=== PATIENT | male | born 1970 | race Two or more races ===

== ENCOUNTER 2020-01-12 06:26 | Outpatient (REF) | payer BC, SELFPAY ==
[2020-01-12 07:03] LABS: MANUAL DIFF FLAG NO
[2020-01-12 07:06] LABS: Basophils Absolute Auto 0.1 X10*3/uL (0.0-0.2); Basophils Percent Auto 0.8 % (0-2); Eosinophils Absolute Auto 0.1 X10*3/uL (0.0-0.4); Eosinophils Percent Auto 1.5 % (0-4); Hematocrit 47.3 % (42-52); Hemoglobin 16.5 g/dl (14.0-18.0); Imm Gran Abs Auto 0.02 X10*3/uL (0.00-0.03); Imm Gran Pct Auto 0.3 % (0.0-0.4); Lymphocytes Absolute Auto 1.7 X10*3/uL (1.2-4.9); Lymphocytes Percent Auto 24.2 % (20-40); Mean Corpuscular HGB Conc 34.9 g/dl (31.0-36.0); Mean Corpuscular Hemoglobin 32.1 pg (27.0-33.0); Mean Platelet Volume 9.6 fL (9.4-12.4); Monocytes Absolute Auto 0.6 X10*3/uL (0.1-1.2); Monocytes Percent Auto 7.7 % (2-11); Neutrophils Absolute Auto 4.7 X10*3/uL (2.0-8.3); Neutrophils Percent Auto 65.5 % (45-73); Platelet Count 298 X10*3/uL (160-400); Red Blood Count 5.14 X10*6/uL (4.60-5.80); Red Cell Distribution Width 12.6 % (11.0-16.0); White Blood Count 7.2 X10*3/uL (4.8-10.8)
[2020-01-12 07:34] LABS: Estimated Average Glucose 154 mg/dL
[2020-01-12 07:36] LABS: Anion Gap 13 (12-20); Blood Urea Nitrogen 13 mg/dL (9-16); Calcium 8.8 mg/dL (8.4-10.2); Carbon Dioxide 28 mmol/L (22-29); Chloride 104 mmol/L (96-108); Cholesterol 141 mg/dL; Estimated Glomerular Filt Rate > 60; Glucose Fasting 161 mg/dL (60-99); HDL Cholesterol 56 mg/dL; LDL Cholesterol Calculated 68 mg/dl; Potassium 4.7 mmol/l (3.3-5.1); Sodium 140 mmol/L (135-145); Triglycerides 86 mg/dL
[2020-01-12 07:55] LABS: Thyroid Stimulating Hormone 1.73 mIU/mL (0.32-4.0); Vitamin D 25-OH Total 28.2 ng/mL (>30)
[2020-01-12 12:05] LABS: Free T4 (Free Thyroxine) 1.09 ng/dL (0.71-1.85)
== END 2020-01-12 06:27 | disposition home or self-care (01) ==
LOC: HO.LAB 06:26
PROVIDERS: PCP Nurse Practitioner Family; Visit Provider Internal Medicine
DX: E13.9 Other specified diabetes mellitus without complications (principal); E78.5 Hyperlipidemia, unspecified; I10 Essential (primary) hypertension; E04.2 Nontoxic multinodular goiter; E55.9 Vitamin D deficiency, unspecified
CPT/HCPCS: 36415; 80048; 80061; 82306; 83036; 84439; 84443; 85025

== ENCOUNTER 2020-01-12 06:52 | Day surgery (SDC) | payer BC, SELFPAY ==
[2020-01-05 15:21] VITALS: BMI 38.4
--- NOTE | 2020-01-11 12:30 | P.CONAN_ITS ---
Documented by User: Roxi Yusuf 01/11/20 12:31 HPI - Anesthesia Eval Consult details Narrative: 49yo M for Colonoscopy [facility] Past Medical History Medical History Diabetes High cholesterol Hx of goiter Hypertension Family History Family History Father No problems noted. Mother Diabetes Family history of thyroid problem Surgical History Surgical History History of shoulder surgery History of surgery Hx of appendectomy Hx of vasectomy Social History Social History Smoking Status: Former smoker Smoking Quit Date: In his 's Use of substances other than those prescribed or required for medical reasons: No Advance Directives: No Advance Directives Information Provided: No Advance Directives on File: No Meds Allergies Allergy/AdvReac Type Severity Reaction Status Date / Time No Known Allergies Allergy Verified 01/05/20 15:14 Home Medications Medication Instructions Recorded Confirmed Type atorvastatin 40 mg tablet 40 mg PO DAILY 12/27/19 01/05/20 History ibuprofen 600 mg tablet 600 mg PO TID PRN 12/27/19 01/05/20 History insulin aspart U-100 100 unit/mL 16 unit SUBCUT TID 12/27/19 01/05/20 History (3 mL) subcutaneous pen insulin glargine 100 unit/mL (3 42 unit SUBCUT BEDTIME 12/27/19 01/05/20 History mL) subcutaneous pen Exam Exam Date and Time: January 11, 2020 1230 Height,Weight and Vital Signs: Height 5 ft 3 in Weight 98.43 kg Pertinent Lab Results Pertinent Lab Results: Laboratory Tests 09/10/19 08:55 Sodium 141 Potassium 4.3 Chloride 106 BUN 20 H Creatinine 1.10 Assessment and Plan Assessment Anesthesia Assessment: Chart Reviewed Documented by User: Sherie Sarmiento 01/12/20 08:40 [facility] Past Medical History Medical History Diabetes High cholesterol Hx of goiter Hypertension Family History Family History Father No problems noted. Mother Diabetes Family history of thyroid problem Surgical History Surgical History History of shoulder surgery History of surgery Hx of appendectomy Hx of vasectomy Social History Social History Smoking Status: Former smoker Smoking Quit Date: In his Use of substances other than those prescribed or required for medical reasons: No Advance Directives: No Advance Directives Information Provided: No Advance Directives on File: No Meds Allergies Allergy/AdvReac Type Severity Reaction Status Date / Time No Known Allergies Allergy Verified 01/05/20 15:14 Home Medications Medication Instructions Recorded Confirmed Type atorvastatin 40 mg tablet 40 mg PO DAILY 12/27/19 01/05/20 History ibuprofen 600 mg tablet 600 mg PO TID PRN 12/27/19 01/05/20 History insulin aspart U-100 100 unit/mL 16 unit SUBCUT TID 12/27/19 01/05/20 History (3 mL) subcutaneous pen insulin glargine 100 unit/mL (3 42 unit SUBCUT BEDTIME 12/27/19 01/05/20 History mL) subcutaneous pen Exam Airway Mallampati Class: III TM Dist: >3cm Neck ROM: Full Denture: Upper and Lower
[2020-01-12 08:56] LABS: Glucose, Whole Blood 165 mg/dL (60-115)
[2020-01-12 09:01] VITALS: BP 155/88; PULSE 81; RESP 20; TEMP 36.8; O2SAT 95
--- NOTE | 2020-01-12 09:02 | MHC.SHP ---
Pre-Procedural Eval Section B Chief Complaint: SCREENING Relevant Family History (Specify if Yes): No Relevant Social History: None Present Medications: see Short Stay Collaborative assessment Medical History: Significant History (dm, HTN) History of Previous Operations: Relevant previous surgery/procedure and date(s) (appendectomy, vasectomy) Allergies: Allergies Allergy/AdvReac Type Severity Reaction Status Date / Time No Known Allergies Allergy Verified 01/05/20 15:14 Review of Systems Sugical H&P ROS: Negative: Constitution, Cardiovascular, Respiratory, Neurological, Psychiatric, Hem-Onc, Allergic/Immunologic, Gastrointestinal, Genitourinary, Musculoskeletal, Integumentary, Endocrine and Eyes/Ears/Nose/Throat Exam Surgical H&P Exam: Normal: HEENT, Normal: Heart, Normal: Lungs, Normal: Extremities, Normal: Abdomen, Normal: Skin and Normal: Neurological Plan Diagnosis/Plan: Unchanged Patient has been examined and remains a candidate for the planned procedure
[2020-01-12] MEDS: Lactated Ringers 1,000 ML 100 ML IVCONT (09:06)
--- NOTE | 2020-01-12 09:06 | P.OP_ITS ---
Operative Note Operative Note Narrative: Operative Information Procedure Description: Colonoscopy COLONOSCOPY Instrument: Olympus variable stiffness pediatric scope 190L Colonoscopy Monitoring: Vital signs and clinical assessment, continuous EKG monitoring, Pulse oximetry, Carbon Dioxide monitoring and blood pressure monitoring were done throughout the procedure. Colon withdrawal time was 7 minutes. Procedure: The patient was placed in the left lateral decubitis position and pre-procedure medications were administered. After a digital rectal examination of the ano-rectum, the video colonoscope was inserted into the rectum and advanced through the colon to the cecum/TI. The colonoscope was slowly withdrawn in a retrograde panoramic fashion and the colon mucosa was carefully examined including a retroflexed view of the rectum. Findings and interventions are described below. Procedure Difficulty:easy Findings: Terminal Ileum-normal Cecum:normal Ascending Colon: normal Transverse Colon -normal Descending Colon:normal Sigmoid Colon: normal Rectum: Retroflexion with small internal hemorrhoids, grade I Anorectum - normal Colon preparation: Medford Bowel Preparation Scale Right colon; 3 Transverse colon: 3 Left colon; 3 (0 = Unprepared colon segment with mucosa not seen due to solid stool that cannot be cleared. 1 = Portion of mucosa of the colon segment seen, but other areas of the colon segment not well seen due to staining, residual stool and/or opaque liquid. 2 = Minor amount of residual staining, small fragments of stool and/or opaque liquid, but mucosa of colon segment seen well. 3 = Entire mucosa of colon segment seen well with no residual staining, small fragments of stool or opaque liquid) Impression and Post Procedure Diagnosis: internal hemorrhoids Plan: High fiber diet leaflet Avoid straining at stool, epsom salts and sitz bath prn, anusol supps or cream prn Repeat Colonoscopy in 10 years or earlier if clinically indicated Above findings were reviewed with the patient and relevant handouts were provided if indicated.
--- NOTE | 2020-01-12 09:06 | PM.OP ---
Brief Operative Note Date of procedure: 01/12/20 Pre-op diagnosis: colon screen Post-op diagnosis: same Procedure: see op note Surgeon: Asya Farah MD Anesthesia: MAC Estimated blood loss (mL): 0 Condition: stable Disposition: PACU
[2020-01-12 09:34] VITALS: BP 136/79; PULSE 87; RESP 16; TEMP 36.4; O2SAT 97
[2020-01-12 09:45] VITALS: BP 156/95; PULSE 88; RESP 18; TEMP 36.4; O2SAT 97
== END 2020-01-12 10:15 | disposition home or self-care (01) ==
PROVIDERS: Visit Provider Internal Medicine Gastroenterology
PROC: 0DJD8ZZ Inspection of Lower Intestinal Tract, Via Natural or Artificial Opening Endoscopic (ICD-10-PCS; CPT 45378; principal; 2020-01-12 09:00)
DX: Z12.11 Encounter for screening for malignant neoplasm of colon (principal); K64.0 First degree hemorrhoids; I10 Essential (primary) hypertension; E11.9 Type 2 diabetes mellitus without complications; Z79.4 Long term (current) use of insulin; Z79.1 Long term (current) use of non-steroidal anti-inflammatories (NSAID); Z87.891 Personal history of nicotine dependence; Z79.899 Other long term (current) drug therapy
CPT/HCPCS: 45378; 82947

== ENCOUNTER → 2020-03-01 12:30 | Outpatient (BNVA) | payer BC, SELFPAY | PROVIDERS: Visit Provider Internal Medicine | DX: Z76.89 Persons encountering health services in other specified circumstances (principal) ==

== ENCOUNTER 2020-03-15 15:36 | Outpatient (REF) | payer BC, SELFPAY ==
--- NOTE | 2020-03-15 15:41 | US_ITS ---
EXAMINATION: US THYROID CLINICAL INFORMATION: Nontoxic multinodular goiter. COMPARISON: Ultrasound soft tissue head/neck thyroid dated 12/10/2018. TECHNIQUE: Linear transducer gaytan-scale and color Doppler examination with attention to the region of the thyroid. FINDINGS: SIZE: Measurements of the thyroid lobes and nodules are given in sagittal, anteroposterior and transverse dimensions respectively. Right Thyroid Lobe: 5.3 x 1.6 x 2.4 cm, volume 10.6 mL. Previously 4.9 x 1.8 x 2.3 cm, volume 10.6 mL. Parenchyma: The gland echotexture is homogeneous. Thyroid vascularity is normal. Left Thyroid Lobe: 5.0 x 1.3 x 2.0 cm, volume 6.8 mL. Previously 4.6 x 1.3 x 1.8 cm, volume 5.6 mL. Parenchyma: The gland echotexture is homogeneous. Thyroid vascularity is normal. Isthmus: 0.3 cm in maximum AP dimension. Previously 0.5 cm. RIGHT THYROID LOBE: There is 1 nodule seen. 1. Location: Middle. Size: 0.3 x 0.2 x 0.3 cm. Previous: 0.3 x 0.2 x 0.4 cm. Nodule characteristics: Hypoechoic, smoothly marginated with no intranodular flow, simple cyst. ISTHMUS: There is 1 nodule seen. 1. Location: Right lower isthmus. Size: 0.4 x 0.2 x 0.4 cm. Previous: 0.3 x 0.2 x 0.3 cm. Nodule characteristics: Hypoechoic, smoothly marginated with no intranodular flow, microcalcification, likely colloid cyst. LEFT THYROID LOBE: There are 3 nodules seen. 1. Location: Inferior/lateral. Size: 0.4 x 0.3 x 0.4 cm. Previous: 0.4 x 0.2 x 0.4 cm. Nodule characteristics: Hypoechoic, smoothly marginated with no intranodular flow, complex cyst. 2. Location: Inferior/lateral. Size: 0.3 x 0.2 x 0.3 cm. Previous: 0.3 x 0.2 x 0.2 cm. Nodule characteristics: Hypoechoic, smoothly marginated with microcalcification and no intranodular flow, likely colloid cyst. 3. Location: Inferior. Size: 0.6 x 0.6 x 0.8 cm. Previous: 0.6 x 0.5 x 0.7 cm. Nodule characteristics: Hypoechoic, smoothly marginated with echogenic microcalcifications and no intranodular flow, likely colloid cyst. NODES: Small left neck lymph node measuring 2.1 x 3.6 x 0.6 cm. US/US thyroid IMPRESSION: Thyromegaly with multiple subcentimeter nodules, none suspicious. Recommend routine yearly follow-up.
== END 2020-03-15 15:37 | disposition home or self-care (01) ==
LOC: HO.US 15:36
PROVIDERS: Visit Provider Internal Medicine
DX: E04.2 Nontoxic multinodular goiter (principal)
CPT/HCPCS: 76536

== ENCOUNTER → 2020-05-31 13:16 | Outpatient (BNVA) | payer BC, SELFPAY | PROVIDERS: PCP Physician Assistant; Visit Provider Internal Medicine ==

== ENCOUNTER 2020-08-04 06:35 | Outpatient (REF) | payer BC, SELFPAY ==
[2020-08-04 07:30] LABS: Estimated Average Glucose 174 mg/dL; Hemoglobin A1c % 7.7 %
[2020-08-04 07:50] LABS: Alanine Aminotransferase 41 U/L (0-40); Albumin Level 4.1 g/dL (3.5-5.0); Alkaline Phosphatase 79 U/L (39-117); Aspartate Amino Transferase 25 U/L (5-37); Bilirubin Total 0.7 mg/dL (0.0-1.0); Blood Urea Nitrogen 19 mg/dL (9-16); Calcium 9.1 mg/dL (8.4-10.2); Chloride 106 mmol/L (96-108); Cholesterol 142 mg/dL; Estimated Glomerular Filt Rate > 60; Glucose Random 205 mg/dL (60-115); HDL Cholesterol 59 mg/dL; LDL Cholesterol Calculated 68 mg/dl; Potassium 4.3 mmol/L (3.3-5.1); Sodium 140 mmol/L (135-145); Total Protein 6.7 g/dL (6.5-8.0); Triglycerides 78 mg/dL
[2020-08-04 07:57] LABS: Anion Gap 15 (12-20); Carbon Dioxide 23 mmol/L (22-29)
[2020-08-04 07:59] LABS: Free T4 (Free Thyroxine) 1.13 ng/dL (0.71-1.85); Thyroid Stimulating Hormone 1.59 uIU/mL (0.32-4.0); Vitamin D 25-OH Total 29.2 ng/mL (>30)
[2020-08-04 08:10] LABS: Creatinine Urine 110.77 mg/dL; Microalbumin Urine < 5.0 mg/L
[2020-08-05 06:12] LABS: LDL Cholesterol Direct 68 mg/dL (<100)
== END 2020-08-04 06:36 | disposition home or self-care (01) ==
LOC: HO.LAB 06:35
PROVIDERS: PCP Physician Assistant; Visit Provider Internal Medicine
DX: L13.9 Bullous disorder, unspecified (principal); E04.2 Nontoxic multinodular goiter; E55.9 Vitamin D deficiency, unspecified
CPT/HCPCS: 36415; 80053; 80061; 82043; 82306; 83036; 83721; 84439; 84443

== ENCOUNTER → 2020-08-31 15:39 | Outpatient (BNVA) | payer BC, SELFPAY | PROVIDERS: PCP Physician Assistant; Visit Provider Internal Medicine | DX: E13.9 Other specified diabetes mellitus without complications (principal); E78.5 Hyperlipidemia, unspecified; I15.0 Renovascular hypertension; E04.2 Nontoxic multinodular goiter; E55.9 Vitamin D deficiency, unspecified; R59.0 Localized enlarged lymph nodes | CPT/HCPCS: 82947 ==

== ENCOUNTER 2020-09-20 15:30 | Outpatient (REF) | payer BC, SELFPAY ==
--- NOTE | ~2020-09-20 | US_ITS ---
EXAMINATION: US SOFT TISSUE NECK CLINICAL INFORMATION: Localized enlarged lymph nodes. COMPARISON: None TECHNIQUE: Ultrasound of the neck soft tissues is performed with high- frequency gaytan-scale imaging and color Doppler. FINDINGS: RIGHT NECK SOFT TISSUES: Scattered architecturally normal nodes are present. The nodes show normal fatty hilus, normal cortical thickness, and no cystic change or calcification. No abnormal color flow. The largest nodes are as follows: Level 5A: 2 cm. Normal jaspreet architecture. Level 5A: 1.4 cm. Normal jaspreet architecture. LEFT NECK SOFT TISSUES: Scattered architecturally normal nodes are present. The nodes show normal fatty hilus, normal cortical thickness, and no cystic change or calcification. No abnormal color flow. The largest nodes are as follows: Level 1B: 1.4 cm. Normal jaspreet architecture. Level 2: 0.8 cm. Normal jaspreet architecture. US/US soft tiss head and/or neck IMPRESSION: 1. Bilateral cervical lymph nodes identified with normal architecture. The largest on the right measures up to 2 cm and the largest on the left measures up to 1.4 cm. 2. If clinically indicated, further evaluation of the neck soft tissues and nodes may be performed with CT soft tissue neck with intravenous contrast.
== END 2020-09-20 15:31 | disposition home or self-care (01) ==
LOC: HO.US 15:30
PROVIDERS: Visit Provider Internal Medicine
DX: R59.0 Localized enlarged lymph nodes (principal)
CPT/HCPCS: 76536

== ENCOUNTER 2020-10-26 16:50 | Outpatient (REF) | payer BC, SELFPAY ==
--- NOTE | ~2020-10-26 | XR_ITS ---
EXAMINATION: XR SHOULDER, RIGHT CLINICAL INFORMATION: Primary osteoarthritis. COMPARISON: None TECHNIQUE: AP external rotation, Grashey, scapular Y, and axillary views of the right shoulder. FINDINGS: There is mild loss of lateral joint space. The AC joint space is maintained with inferior periarticular spurring. There are surgical jose seen in the right axilla from previous intervention. No gross bony abnormality seen. XR/XR shoulder RT min 2V IMPRESSION: Mild early degenerative changes right shoulder joint. No visible acute fracture or dislocation seen.
== END 2020-10-26 16:51 | disposition home or self-care (01) ==
LOC: HO.XRAY 16:50
PROVIDERS: PCP Physician Assistant; Visit Provider Physician Assistant
DX: M19.011 Primary osteoarthritis, right shoulder (principal)
CPT/HCPCS: 73030

== ENCOUNTER 2020-10-29 21:05 | Emergency (ER) | payer BC, SELFPAY ==
--- NOTE | ~2020-10-29 | XR_ITS ---
EXAMINATION: XR CHEST CLINICAL INFORMATION: Cough. Covid positive. COMPARISON: 07/08/2014 TECHNIQUE: Frontal view of the chest was obtained. FINDINGS: Surgical clips in the right neck region. The lungs are well expanded. There is no focal consolidation, edema, or effusion. No pneumothorax. The cardiomediastinal silhouette is within normal limits. No acute osseous abnormality. XR/XR chest 1V IMPRESSION: Clear lungs.
[2020-10-29 21:41] VITALS: BP 147/90; PULSE 90; RESP 18; TEMP 36.5; O2SAT 97; BMI 38.9
[2020-10-29 22:14] LABS: COVID-19 Test Positive (Negative); IDNOW Serial# 9DD0AD1C
--- NOTE | 2020-10-30 00:02 | ED_ITS ---
HPI - URI/Sore Throat General Chief Complaint: Upper Respiratory Symptoms Stated Complaint: COVID+ home test Time Seen by Provider: 10/29/20 23:18 Source: patient Mode of arrival: ambulatory Limitations: no limitations History of Present Illness HPI Narrative: 50-year-old male with a past medical history of hyperlipidemia, hypertension, insulin-dependent diabetes here with complaints of nasal congestion, headache, fatigue, body aches, cough since Friday afternoon. Patient received a COVID vaccine in June at [employer] ([email or web address]2). No shortness of breath or chest pain.. Related Data Home Medications Medication Instructions Recorded Confirmed aspirin 81 mg tablet,delayed 81 mg PO DAILY 05/31/20 10/26/20 release insulin glargine 100 unit/mL (3 50 unit SUBCUT BEDTIME ml 10/26/20 mL) subcutaneous pen (Lantus Solostar U-100 Insulin) Previous Rx's Medication Instructions Recorded blood-glucose sensor (Dexcom G6 #3 ea 01/24/20 Sensor) blood-glucose transmitter (Dexcom #1 ea 01/24/20 G6 Transmitter) atenolol 25 mg tablet 25 mg PO DAILY 90 Days #90 tab 09/02/20 insulin aspart U-100 100 unit/mL 20 unit SUBCUT TID 30 Days #18 ml 09/25/20 (3 mL) subcutaneous pen ibuprofen 600 mg tablet 600 mg PO TID #90 tab 10/23/20 atorvastatin 40 mg tablet 40 mg PO DAILY 30 Days #30 tab 10/24/20 Allergies Allergy/AdvReac Type Severity Reaction Status Date / Time No Known Allergies Allergy Verified 10/29/20 12:47 Review of Systems Review of Systems: Yes all other systems are reviewed and are negative Constitutional: Constitutional: Reports no additional constitutional complaints, Reports body ache(s), Denies chills, Denies fever(s), Reports headache(s) and Denies weakness Eyes: Eyes: Reports no additional eye complaints and Denies change in vision ENT: Reports system reviewed and no additional complaints, except as documen tiana, Denies dizziness, Reports headache(s), Reports nasal congestion, Denies nasal discharge and Denies neck pain Cardiovascular: Cardiovascular: Reports no additional cardiovascular complaints, Denies chest pain, Denies leg edema and Denies dyspnea Respiratory: Respiratory: Reports no additional respiratory complaints, Reports cough and Denies dyspnea Gastrointestinal: Gastrointestinal: Reports no additional gastrointestinal complaints, Denies abdominal pain, Denies diarrhea, Denies nausea and Denies vomiting Genitourinary: Genitourinary: Denies urinary incontinence Musculoskeletal: Musculoskeletal: Reports no additional musculoskeletal complaints, Denies back pain, Denies arthralgias, Denies joint swelling, Denies neck pain, Denies numbness and Denies tingling Integumentary/Breasts: Skin/Breast: Reports system reviewed and no additional complaints, except as docu and Denies rash Neurologic: Reports system reviewed and no additional complaints, except as documented, Denies Abnormal speech present, Denies dizziness, Reports headac he(s), Denies numbness, Denies tingling and Denies weakness PMFSH Past Medical History Attestation statement: The following information was validated with the patient. 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 Physical Exam Vital Signs: Vital Signs: Last Vital Signs Temp 97.7 F 10/29/20 21:41 Pulse 90 10/29/20 21:41 Resp 18 10/29/20 21:41 BP 147/90 H 10/29/20 21:41 Pulse Ox 97 10/29/20 21:41 Body Mass Index 38.9 Const: General: cooperative, healthy appearing, comfortable and no acute distress Orientation/consciousness: patient oriented x3 Limitations: no limitations HENMT: Head: Yes normal to inspection Ears: hearing grossly normal bilaterally General nose exam: Normal external nose present Face and sinus: Yes normal facial exam Mouth: Normal oral and palatal mucosa present Throat: Yes posterior oropharynx normal Eyes: General: appearance normal, both eyes and all related structures Pupils: Equal, round and reactive pupils present Neck: Neck: Yes normal visual inspection Chest: Chest palpation & inspection: normal inspection of the chest Resp: Effort & Inspection: normal respiratory effort Auscultation: clear to auscultation bilaterally Cardio: Rate: regular rate Rhythm: regular rhythm Peripheral pulses: Peripheral pulses 2+ throughout GI: Inspection: Yes normal to inspection Palpation (GI): Soft to palpation and nontender Auscultation: normal bowel sounds Back/Spine/Pelvis: Thoracic/Lumbar Spine: thoracic and lumbar spine normal to inspection Skin: General skin exam: no rashes or lesions noted Neuro: General: patient oriented x3, no focal motor deficits and normal sensation to monofilament Cranial nerves: Yes Equal, round and reactive pupils present Cognition (Neuro): normal cognition Speech: No Abnormal speech present Gait exam (Neuro): Normal gait present Motor exam (neuro): 5/5 motor strength present throughout Extrem: General: Yes normal to inspection, Yes no pedal edema and Yes no calf tenderness Course Course Course Narrative: 50-year-old male here with complaints of URI symptoms. Did a COVID test at home which was positive. Here seeking test. Will check COVID screen and chest x-ray. 0040-COVID positive. X-ray shows no acute finding . Hemodynamically stable. Reviewed worrisome signs and symptoms of when to return to the emergency department. Comfortable discharge home. MDM - URI/Sore Throat Medical Records Attestation: I reviewed the patient's medical records. Lab Data Attestation: I reviewed the patient's lab results. Labs: Lab Results 10/29/20 Range/Units 21:44 COVID-19 ([facility]) Positive A (Negative) COVID-19 Clin Com See Note Imaging Data Chest x-ray: Attestation: I personally reviewed and interpreted this imaging study as follows: Radiologist's impression: [address] [address] XRay Report Signed Patient: Tristian Karimi MR#: [id number] : 1970 Acct:[id number] Age/Sex: 50 / M ADM Date: 10/29/20 Loc: HO.ED Attending Dr: Ordering Physician: Evelyne Carrasco NP Date of Service: 10/30/20 Procedure(s): XR chest 1V Accession Number(s): [id number] cc: Evelyne Carrasco NP~ EXAMINATION: XR CHEST CLINICAL INFORMATION: Cough. Covid positive. COMPARISON: 07/08/2014 TECHNIQUE: Frontal view of the chest was obtained. FINDINGS: Surgical clips in the right neck region. The lungs are well expanded. There is no focal consolidation, edema, or effusion. No pneumothorax. The cardiomediastinal silhouette is within normal limits. No acute osseous abnormality. XR/XR chest 1V IMPRESSION: Clear lungs. Discharge Plan Discharge Clinical Impression: COVID-19 Patient Disposition: Home, Self-Care Instructions: COVID-19 (Coronavirus Disease 2019) (ED) Additional Instructions: Per the CDC you must quarantine for 10 days Increase fluids, rest Motrin and/or Tylenol for pain or fever Return for fever which does not respond to Motrin or Tylenol, shortness of breath, chest pain. Your x-ray shows no sign of pneumonia Prescriptions: No Action (DME) Dexcom G6 Sensor Device See Rx Instructions .ROUTE .MEDSUPPLY Qty: 3 RF: 11 (DME) Dexcom G6 Transmitter Device See Rx Instructions .ROUTE .MEDSUPPLY Qty: 1 RF: 11 atenolol 25 mg tablet 25 mg PO DAILY 90 Days Qty: 90 RF: 0 insulin aspart U-100 100 unit/mL (3 mL) insulin pen 20 unit subcut TID 30 Days Qty: 18 RF: 11 ibuprofen 600 mg tablet 600 mg PO TID Qty: 90 RF: 0 atorvastatin 40 mg tablet 40 mg PO DAILY 30 Days Qty: 30 RF: 11 Lantus Solostar U-100 Insulin 100 unit/mL (3 mL) insulin pen 50 unit subcut BEDTIME RF: 0 aspirin 81 mg tablet,delayed release (DR/EC) 81 mg PO DAILY RF: 0 Referrals: Dejuan Cardoso PA-C [Primary Care Provider] - 2 days (as needed) Stand Alone Forms: Work/School Release
--- NOTE | 2020-10-30 00:24 | PC.NURSE ---
PT TO ROOM, CHG INTO GOWN AND ELECTROPHYSIOLOGIST AT BEDSIDE FOR EVAL. PT AWAITING FOR CXR. WILL CONTINUE TO MONITOR PT.
--- NOTE | 2020-10-30 01:22 | PC.NURSE ---
PT D/C AT THIS TIME.
== END 2020-10-30 01:23 | disposition home or self-care (01) ==
PROVIDERS: Emergency Provider Internal Medicine; PCP Physician Assistant
DX: U07.1 COVID-19 (principal); I10 Essential (primary) hypertension; E11.9 Type 2 diabetes mellitus without complications; R50.9 Fever, unspecified; Z79.4 Long term (current) use of insulin; Z79.899 Other long term (current) drug therapy; Z79.82 Long term (current) use of aspirin; F17.210 Nicotine dependence, cigarettes, uncomplicated; Z71.6 Tobacco abuse counseling
CPT/HCPCS: 36415; 71045; 87635; 99283

== ENCOUNTER 2021-01-06 08:48 | Outpatient (REF) | payer BC, SELFPAY ==
[2021-01-06 09:43] LABS: Creatinine Urine 114.42 mg/dL; Microalbum/Creatinine Ratio Ur 9.6 ug/mg cr
[2021-01-06 09:44] LABS: Estimated Average Glucose 186 mg/dL; Hemoglobin A1c % 8.1 %
[2021-01-06 09:45] LABS: Alanine Aminotransferase 25 U/L (0-40); Albumin Level 4.3 g/dL (3.5-5.0); Alkaline Phosphatase 80 U/L (39-117); Anion Gap 11 (12-20); Aspartate Amino Transferase 22 U/L (5-37); Blood Urea Nitrogen 19 mg/dL (9-16); Calcium 9.4 mg/dL (8.4-10.2); Carbon Dioxide 28 mmol/L (22-29); Chloride 105 mmol/L (96-108); Cholesterol 160 mg/dL; Estimated Glomerular Filt Rate > 60; Glucose Random 195 mg/dL (60-115); HDL Cholesterol 58 mg/dL; LDL Cholesterol Calculated 83 mg/dl; Potassium 4.4 mmol/L (3.3-5.1); Sodium 140 mmol/L (135-145); Total Protein 7.2 g/dL (6.5-8.0); Triglycerides 96 mg/dL
[2021-01-06 10:07] LABS: Vitamin D 25-OH Total 28.1 ng/mL (>30)
[2021-01-07 04:15] LABS: LDL Cholesterol Direct 84 mg/dL (<100)
== END 2021-01-06 08:49 | disposition home or self-care (01) ==
LOC: HO.LAB 08:48
PROVIDERS: PCP Physician Assistant; Visit Provider Internal Medicine
DX: E13.9 Other specified diabetes mellitus without complications (principal); E55.9 Vitamin D deficiency, unspecified
CPT/HCPCS: 36415; 80053; 80061; 82043; 82306; 83036; 83721

== ENCOUNTER → 2021-01-08 14:56 | Outpatient (BNVA) | payer BC, SELFPAY | PROVIDERS: PCP Physician Assistant; Visit Provider Internal Medicine | DX: E13.9 Other specified diabetes mellitus without complications (principal); E78.5 Hyperlipidemia, unspecified; I15.0 Renovascular hypertension; E04.2 Nontoxic multinodular goiter; E55.9 Vitamin D deficiency, unspecified | CPT/HCPCS: 82947 ==

== ENCOUNTER 2021-02-09 14:38 | Outpatient (REF) | payer BC, SELFPAY ==
--- NOTE | ~2021-02-09 | US_ITS ---
EXAMINATION: US THYROID CLINICAL INFORMATION: Nontoxic multinodular goiter. COMPARISON: Ultrasound soft tissue head/neck thyroid dated 09/20/2020 and 12/10/2018. TECHNIQUE: Linear transducer grayscale and color Doppler examination with attention to the region of the thyroid. FINDINGS: SIZE: Measurements of the thyroid lobes and nodules are given in sagittal, anteroposterior and transverse dimensions respectively. Right Thyroid Lobe: 5.2 x 1.7 x 2.7 cm, volume 12.3 mL. Previously 5.3 x 1.6 x 2.4 cm, volume 10.6 mL. Parenchyma: The gland echotexture is homogeneous. Thyroid vascularity is normal. Left Thyroid Lobe: 4.6 x 1.3 x 1.8 cm, volume 5.8 mL. Previously 5.0 x 1.3 x 2.0 cm, volume 6.8 mL. Parenchyma: The gland echotexture is homogeneous. Thyroid vascularity is normal. Isthmus: 0.5 cm in maximum AP dimension. Previously 0.3 cm. Estimated total number of nodules greater than or equal to 1 cm: 0. Inside Sales Executive nodules are described as follows: 1. Location: Right superior/mid. Size: 0.4 x 0.3 x 0.4 cm, volume 0.02 mL. Previously: 0.3 x 0.2 x 0.3 cm, volume 0.01 mL. Nodule characteristics: Composition: Solid/almost completely solid (2). Echogenicity: Hypoechoic (2). Shape: Not taller than wide (0). Margins: Smooth (0). Echogenic Foci: None (0). ACR TI-RADS total points: 4 Previous: n/a ACR TI-RADS category: 4 Previous: n/a Significant change in size (>/= 20% in 2 dimensions and minimal increase of 2 mm or 50% or greater increase in volume): Change in features: Change in ACR TI-RADS risk category: n/a 2. Location: Left medial inferior. Size: 0.8 x 0.6 x 0.9 cm, volume 0.2 mL. Previously: 0.6 x 0.6 x 0.8 cm, volume 0.2 mL. Nodule characteristics: Composition: Cystic(0). ACR TI-RADS total points: 0 ACR TI-RADS category: 1 3. Location: Left mid. Size: 0.4 x 0.3 x 0.4 cm, volume 0.02 mL. Previously: 0.4 x 0.3 x 0.4 cm, volume 0.02 mL. Nodule characteristics: Composition: Cannot be determined (2). Echogenicity: Hypoechoic (2). Shape: Not taller than wide (0). Margins: Ill-defined (0). Echogenic Foci: None (0). ACR TI-RADS total points: 4 Previous: n/a ACR TI-RADS category: 4 Previous: n/a Significant change in size (>/= 20% in 2 dimensions and minimal increase of 2 mm or 50% or greater increase in volume): Change in features: Change in ACR TI-RADS risk category: n/a 4. Location: Left inferior. Size: 0.4 x 0.3 x 0.4 cm, volume 0.02 mL. Previously: 0.3 x 0.2 x 0.3 cm, volume 0.02 mL. Nodule characteristics: Composition: Mixed cystic and solid (1). Echogenicity: Hypoechoic (2). Shape: Not taller than wide (0). Margins: Ill-defined (0). Echogenic Foci: None (0). ACR TI-RADS total points: 3 Previous: n/a ACR TI-RADS category: 3 Previous: n/a Significant change in size (>/= 20% in 2 dimensions and minimal increase of 2 mm or 50% or greater increase in volume): Change in features: Change in ACR TI-RADS risk category: n/a NODES: No lymphadenopathy is seen in the tissue surrounding the thyroid gland. US/US thyroid IMPRESSION: Enlarged right lobe. Stable subcentimeter thyroid nodules.. ACR TI-RADS RECOMMENDATION REFERENCE: Ultrasound-guided fine-needle aspiration, followup ultrasound, no further follow up. * TR1 (0 point) and TR 2 (2 points): No FNA or follow up * TR3 (3 points): FNA if more than or equal to 2.5 cm in maximum dimension, followup ultrasound in 1, 3 and 5 years if 1.5 to 2.4 cm in maximum dimension. * TR4 (4-6 points): FNA if more than or equal to 1.5 cm in maximum dimension, followup ultrasound in 1, 2, 3 and 5 years if 1 to 1.4 cm in maximum dimension. * TR5 (more than or equal to 7 points): FNA if more than or equal to 1 cm in maximum dimension, followup ultrasound every year for 5 years if 0.5 to 0.9 cm in maximum dimension. * TR3, TR4 or TR5 nodules that are below the size threshold for follow up receive no follow up.
== END 2021-02-09 14:39 | disposition home or self-care (01) ==
LOC: HO.US 14:38
PROVIDERS: PCP Physician Assistant; Visit Provider Internal Medicine
DX: E04.2 Nontoxic multinodular goiter (principal)
CPT/HCPCS: 76536

== ENCOUNTER 2021-03-23 08:52 | Outpatient (REF) | payer BC, SELFPAY ==
[2021-03-23 10:39] LABS: Cholesterol 168 mg/dL; HDL Cholesterol 62 mg/dL; LDL Cholesterol Calculated 91 mg/dl; Triglycerides 79 mg/dL
[2021-03-23 11:03] LABS: Prostate Specific Antigen Scr 1.05 ng/mL (<0.05-4.0); TSH reflex Free T4 1.48 uIU/mL (0.32-4.0)
[2021-03-23 11:25] LABS: Creatinine Urine 62.66 mg/dL; Microalbumin Urine < 5.0 mg/L
== END 2021-03-23 08:53 | disposition home or self-care (01) ==
LOC: HO.LAB 08:52
PROVIDERS: PCP Physician Assistant; Visit Provider Physician Assistant
DX: E11.319 Type 2 diabetes mellitus with unspecified diabetic retinopathy without macular edema (principal); E78.00 Pure hypercholesterolemia, unspecified; Z12.5 Encounter for screening for malignant neoplasm of prostate
CPT/HCPCS: 36415; 80061; 82043; 84153; 84443

== ENCOUNTER → 2021-04-09 14:57 | Outpatient (BNVA) | payer BC, SELFPAY | PROVIDERS: PCP Physician Assistant; Visit Provider Registered Nurse Diabetes Educator ==

== ENCOUNTER → 2021-05-10 15:33 | Outpatient (BNVA) | payer BC, SELFPAY | PROVIDERS: PCP Physician Assistant; Visit Provider Registered Nurse Diabetes Educator ==

== ENCOUNTER 2021-08-11 08:11 | Outpatient (REF) | payer BC, SELFPAY ==
[2021-08-11 08:27] LABS: MANUAL DIFF FLAG NO
[2021-08-11 09:36] LABS: Basophils Absolute Auto 0.1 X10*3/uL (0.0-0.2); Eosinophils Absolute Auto 0.1 X10*3/uL (0.0-0.4); Eosinophils Percent Auto 2.1 % (0-4); Hemoglobin 16.4 g/dl (14.0-18.0); Imm Gran Abs Auto 0.04 X10*3/uL (0.00-0.03); Imm Gran Pct Auto 0.6 % (0.0-0.4); Lymphocytes Absolute Auto 2.1 X10*3/uL (1.2-4.9); Lymphocytes Percent Auto 30.7 % (20-40); Mean Corpuscular HGB Conc 34.9 g/dl (31.0-36.0); Mean Corpuscular Hemoglobin 30.8 pg (27.0-33.0); Mean Corpuscular Volume 88.3 fL (80.0-98.0); Mean Platelet Volume 9.8 fL (9.4-12.4); Monocytes Absolute Auto 0.7 X10*3/uL (0.1-1.2); Monocytes Percent Auto 9.7 % (2-11); Neutrophils Absolute Auto 3.7 x10*3/uL (2.0-8.3); Neutrophils Percent Auto 55.9 % (45-73); Platelet Count 308 X10*3/uL (160-400); Red Blood Count 5.32 X10*6/uL (4.60-5.80); Red Cell Distribution Width 12.2 % (11.0-16.0); White Blood Count 6.7 X10*3/uL (4.8-10.8)
[2021-08-11 09:41] LABS: INTERNATIONAL NORM RATIO 0.9 (0.9-1.1); Prothrombin Time 10.2 SEC (9.9-13.0)
[2021-08-11 09:44] LABS: Partial Thromboplastin Time 33.8 SEC (24.1-38.0)
[2021-08-11 10:24] LABS: Alanine Aminotransferase 22 U/L (0-40); Albumin Level 4.1 g/dL (3.5-5.0); Alkaline Phosphatase 81 U/L (39-117); Anion Gap 13 (12-20); Aspartate Amino Transferase 15 U/L (5-37); Bilirubin Total 0.7 mg/dL (0.0-1.0); Blood Urea Nitrogen 16 mg/dL (9-16); Calcium 9.4 mg/dL (8.4-10.2); Carbon Dioxide 27 mmol/L (22-29); Chloride 105 mmol/L (96-108); Cholesterol 171 mg/dL; Estimated Glomerular Filt Rate > 60; Glucose Fasting 183 mg/dL (60-99); HDL Cholesterol 58 mg/dL; LDL Cholesterol Calculated 90 mg/dl; Potassium 4.3 mmol/L (3.3-5.1); Sodium 141 mmol/L (135-145); Triglycerides 116 mg/dL
[2021-08-11 10:51] LABS: TSH reflex Free T4 1.63 uIU/mL (0.32-4.0)
== END 2021-08-11 08:12 | disposition home or self-care (01) ==
LOC: HO.LAB 08:11
PROVIDERS: Absent Provider Nurse Practitioner Family; PCP Physician Assistant; Visit Provider Physician Assistant
DX: Z01.818 Encounter for other preprocedural examination (principal); I10 Essential (primary) hypertension; E78.00 Pure hypercholesterolemia, unspecified
CPT/HCPCS: 36415; 80053; 80061; 84443; 85025; 85610; 85730

== ENCOUNTER → 2021-08-13 15:45 | Outpatient (REF) | payer BC, SELFPAY ==
--- NOTE | 2021-08-13 15:48 | ECG_ITS ---
Test Reason : PREOP Blood Pressure : / mmHG Vent. Rate : 089 BPM Atrial Rate : 089 BPM P-R Int : 160 ms QRS Dur : 088 ms QT Int : 378 ms P-R-T Axes : 048 020 007 degrees QTc Int : 459 ms Normal sinus rhythm Normal ECG When compared with ECG of 08-JUL-2014 19:29, Left posterior fascicular block is no longer Present T wave amplitude has decreased in Lateral leads Referred By: Brooke Maldonado Electronically Signed By:ADRIANNA KELLY
== END ==
LOC: HO.CARD 15:45
PROVIDERS: Visit Provider Nurse Practitioner Family
DX: Z01.818 Encounter for other preprocedural examination (principal)
CPT/HCPCS: 93005

== ENCOUNTER 2021-10-31 08:04 | Outpatient (REF) | payer BC, SELFPAY ==
[2021-10-31 08:43] LABS: Hematocrit 46.1 % (42.0-52.0); Hemoglobin 15.9 g/dl (14.0-18.0); Mean Corpuscular HGB Conc 34.5 g/dl (31.0-36.0); Mean Corpuscular Hemoglobin 29.9 pg (27.0-33.0); Mean Corpuscular Volume 86.8 fL (80.0-98.0); Platelet Count 297 X10*3/uL (160-400); Red Blood Count 5.31 X10*6/uL (4.60-5.80); Red Cell Distribution Width 11.7 % (11.0-16.0); White Blood Count 6.2 X10*3/uL (4.8-10.8)
[2021-10-31 09:12] LABS: Alanine Aminotransferase 22 U/L (0-40); Albumin Level 4.2 g/dL (3.5-5.0); Alkaline Phosphatase 103 U/L (39-117); Anion Gap 14 (12-20); Aspartate Amino Transferase 18 U/L (5-37); Bilirubin Total 0.4 mg/dL (0.0-1.0); Blood Urea Nitrogen 20 mg/dL (9-16); Calcium 9.1 mg/dL (8.4-10.2); Carbon Dioxide 25 mmol/L (22-29); Chloride 106 mmol/L (96-108); Cholesterol 172 mg/dL; Estimated Glomerular Filt Rate > 60; Glucose Fasting 160 mg/dL (60-99); HDL Cholesterol 55 mg/dL; LDL Cholesterol Calculated 76 mg/dl; Potassium 4.4 mmol/L (3.3-5.1); Sodium 141 mmol/L (135-145); Total Protein 7.1 g/dL (6.5-8.0); Triglycerides 205 mg/dL
== END 2021-10-31 08:05 | disposition home or self-care (01) ==
LOC: HO.LAB 08:04
PROVIDERS: Absent Provider Physician Assistant; PCP Physician Assistant; Visit Provider Internal Medicine
DX: E11.319 Type 2 diabetes mellitus with unspecified diabetic retinopathy without macular edema (principal); E78.00 Pure hypercholesterolemia, unspecified
CPT/HCPCS: 36415; 80053; 80061; 85027

== ENCOUNTER 2021-12-19 15:39 | Outpatient (REF) | payer BC, SELFPAY ==
--- NOTE | ~2021-12-19 | US_ITS ---
EXAMINATION: US THYROID CLINICAL INFORMATION: Nontoxic multinodular goiter. COMPARISON: Ultrasound thyroid 02/09/2021 and 03/15/2020. TECHNIQUE: Linear transducer grayscale and color Doppler examination with attention to the region of the thyroid. FINDINGS: SIZE: Measurements of the thyroid lobes and nodules are given in sagittal, anteroposterior and transverse dimensions respectively. Right Thyroid Lobe: 5.8 x 1.5 x 2.5 cm, volume 11.5 mL. Previously 5.2 x 1.7 x 2.7 cm, volume 12.3 mL. Parenchyma: The gland echotexture is homogeneous. Thyroid vascularity is normal. Left Thyroid Lobe: 5.1 x 1.4 x 1.9 cm, volume 7.1 mL. Previously 4.6 x 1.3 x 1.8 cm, volume 5.8 mL. Parenchyma: The gland echotexture is homogeneous. Thyroid vascularity is normal. Isthmus: 0.2 cm in maximum AP dimension. Previously 0.5 cm. Estimated total number of nodules greater than or equal to 1 cm: 0. 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 Location: Left inferior lateral. Size: 0.4 x 0.3 x 0.3 cm, volume 0.02 mL. Previously: 0.4 x 0.3 x 0.4 cm, volume 0.02 mL. Nodule characteristics: Composition: Spongiform (0). Echogenicity: Anechoic (0). Shape: Not taller than wide (0). Margins: Smooth (0). Echogenic Foci: None (0). ACR TI-RADS total points: 0 Previous: 4 ACR TI-RADS category: 1 Previous: 4 Significant change in size (>/= 20% in 2 dimensions and minimal increase of 2 mm or 50% or greater increase in volume): None Change in features: None Change in ACR TI-RADS risk category: Improved 2. Location: Left inferior lateral. Size: 0.4 x 0.3 x 0.3 cm, volume 0.02 mL. Previously: 0.4 x 0.3 x 0.4 cm, volume 0.02 mL. Nodule characteristics: Composition: Cystic(0). ACR TI-RADS total points: 0 Previous: 3 ACR TI-RADS category: 1 Previous: 3 Significant change in size (>/= 20% in 2 dimensions and minimal increase of 2 mm or 50% or greater increase in volume): None Change in features: None Change in ACR TI-RADS risk category: None 3. Location: Left inferior. Size: 0.7 x 0.6 x 0.9 cm, volume 0.20 mL. Previously: 0.8 x 0.6 x 0.9 cm, volume 0.20 mL. Nodule characteristics: Composition: Cystic(0). ACR TI-RADS total points: 0 Previous: 0 ACR TI-RADS category: 1 Previous: 1 Significant change in size (>/= 20% in 2 dimensions and minimal increase of 2 mm or 50% or greater increase in volume): None Change in features: None Change in ACR TI-RADS risk category: None 4. Location: Right mid. Size: 0.4 x 0.2 x 0.4 cm, volume 0.02 mL. Previously: 0.4 x 0.3 x 0.4 cm, volume 0.02 mL. Nodule characteristics: Composition: Cystic(0). ACR TI-RADS total points: 0 Previous: 4 ACR TI-RADS category: 1 Previous: 4 Significant change in size (>/= 20% in 2 dimensions and minimal increase of 2 mm or 50% or greater increase in volume): None Change in features: None Change in ACR TI-RADS risk category: None NODES: No lymphadenopathy is seen in the tissue surrounding the thyroid gland. US/US thyroid IMPRESSION: Enlarged right thyroid lobe with small subcentimeter nonsuspicious bilateral thyroid nodules, more on the left. ACR TI-RADS RECOMMENDATION REFERENCE: Ultrasound-guided fine-needle aspiration, followup ultrasound, no further follow up. * TR1 (0 point) and TR 2 (2 points): No FNA or follow up. * TR3 (3 points): FNA if more than or equal to 2.5 cm in maximum dimension, followup ultrasound in 1, 3 and 5 years if 1.5 to 2.4 cm in maximum dimension. * TR4 (4-6 points): FNA if more than or equal to 1.5 cm in maximum dimension, followup ultrasound in 1, 2, 3 and 5 years if 1 to 1.4 cm in maximum dimension. * TR5 (more than or equal to 7 points): FNA if more than or equal to 1 cm in maximum dimension, followup ultrasound every year for 5 years if 0.5 to 0.9 cm in maximum dimension. * TR3, TR4 or TR5 nodules that are below the size threshold for followup receive no follow up.
== END 2021-12-19 15:40 | disposition home or self-care (01) ==
LOC: HO.US 15:39
PROVIDERS: Visit Provider Internal Medicine
DX: E04.2 Nontoxic multinodular goiter (principal)
CPT/HCPCS: 76536

== ENCOUNTER 2022-03-27 06:04 | Outpatient (REF) | payer OTHER, SELFPAY ==
[2022-03-27 07:48] LABS: Estimated Average Glucose 214 mg/dL; Hemoglobin A1c % 9.1 %
[2022-03-27 08:06] LABS: Alanine Aminotransferase 21 U/L (0-40); Albumin Level 4.3 g/dL (3.5-5.0); Alkaline Phosphatase 92 U/L (39-117); Anion Gap 14 (12-20); Aspartate Amino Transferase 17 U/L (5-37); Bilirubin Total 0.7 mg/dL (0.0-1.0); Blood Urea Nitrogen 22 mg/dL (9-16); Calcium 9.5 mg/dL (8.4-10.2); Carbon Dioxide 29 mmol/L (22-29); Chloride 104 mmol/L (96-108); Estimated Glomerular Filt Rate > 60; Glucose Random 95 mg/dL (60-115); Potassium 4.2 mmol/L (3.3-5.1); Sodium 143 mmol/L (135-145); Total Protein 7.2 g/dL (6.5-8.0)
[2022-03-27 08:12] LABS: Free T4 (Free Thyroxine) 1.25 ng/dL (0.71-1.85); Thyroid Stimulating Hormone 3.16 uIU/mL (0.32-4.0); Vitamin D 25-OH Total 30.8 ng/mL (>30)
== END 2022-03-27 06:05 | disposition home or self-care (01) ==
LOC: HO.LAB 06:04
PROVIDERS: PCP Physician Assistant; Visit Provider Internal Medicine
DX: E13.9 Other specified diabetes mellitus without complications (principal); E04.2 Nontoxic multinodular goiter; E55.9 Vitamin D deficiency, unspecified
CPT/HCPCS: 36415; 80053; 82306; 83036; 84439; 84443

== ENCOUNTER → 2022-04-01 07:56 | Outpatient (BNVA) | payer OTHER, SELFPAY | PROVIDERS: PCP Physician Assistant; Visit Provider Internal Medicine | DX: E13.9 Other specified diabetes mellitus without complications (principal); E78.5 Hyperlipidemia, unspecified; I15.0 Renovascular hypertension; E04.2 Nontoxic multinodular goiter | CPT/HCPCS: 82947; 99212 ==

== ENCOUNTER 2022-06-04 14:18 | Outpatient (REF) | payer OTHER, SELFPAY ==
[2022-06-04 16:02] LABS: Influenza A PCR NEGATIVE (Negative); Influenza B PCR NEGATIVE (Negative); Resp Syncy Virus RNA Qual PCR NEGATIVE (Negative); SARS COV2 PCR INHOUSE NEGATIVE (Negative)
== END 2022-06-04 14:19 | disposition home or self-care (01) ==
LOC: HO.LNP 14:18
PROVIDERS: Visit Provider Nurse Practitioner Family
DX: R09.89 Other specified symptoms and signs involving the circulatory and respiratory systems (principal); Z20.822 Contact with and (suspected) exposure to COVID-19
CPT/HCPCS: 0241U

== ENCOUNTER 2022-06-11 10:21 | Emergency (ER) | payer OTHER, SELFPAY ==
--- NOTE | ~2022-06-11 | XR_ITS ---
EXAMINATION: XR CHEST CLINICAL INFORMATION: Cough COMPARISON: 10/30/2020 TECHNIQUE: 2 views of the chest were obtained. FINDINGS: Lungs are well-inflated and clear. Trachea is midline in position. No interstitial disease, consolidation or mass. No pleural effusion or pneumothorax. Cardiac silhouette and pulmonary vessels are normal in size. The mediastinum and shelton have normal contour. 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 Surgical clips project over the right lower neck/right apex. XR/XR chest 2V IMPRESSION: No evidence of pneumonia. No acute cardiopulmonary abnormality.
[2022-06-11 10:23] VITALS: BP 183/75; PULSE 79; RESP 19; TEMP 36.6; O2SAT 97; BMI 39.0
--- NOTE | 2022-06-11 11:43 | ED_ITS ---
HPI - URI/Sore Throat General Chief Complaint: Upper Respiratory Symptoms Stated Complaint: Bronchitis Time Seen by Provider: 06/11/22 11:32 Source: patient, RN notes reviewed and old records reviewed Mode of arrival: ambulatory History of Present Illness HPI Narrative: 51-year-old male with a past medical history of HTN, diabetes, anxiety, depression, recently diagnosed bronchitis on 06/04, presenting to the ED complaining of persistent cough productive of phlegm x3 weeks. Patient reports finishing course of Prednisone, Azithromycin, Tessalon Perles, and inhaler without relief. Reports coughing up small amount of bloody tinged sputum this morning. Reports SOB with cough. Denies chest pain, abdominal pain, pedal edema, calf pain, recent travel, sick contacts MD elicited complaint: cough Related Data Home Medications Medication Instructions Recorded Confirmed insulin aspart U-100 100 unit/mL 30 unit subcut TID 04/01/22 06/04/22 (3 mL) subcutaneous pen Previous Rx's Medication Instructions Recorded blood-glucose sensor (Dexcom G6 #3 ea 01/24/20 Sensor device) blood-glucose transmitter (Dexcom #1 ea 01/24/20 G6 Transmitter device) ibuprofen 600 mg tablet 600 mg PO TID for pain #90 tabs 06/13/21 atorvastatin 40 mg tablet 40 mg PO DAILY 30 days #30 tabs 10/08/21 blood pressure test kit-large #1 ea 10/29/21 atenolol 25 mg tablet 25 mg PO DAILY 90 days #90 tabs 03/25/22 insulin glargine 100 unit/mL (3 See Rx Instructions subcut DAILY 03/26/22 mL) subcutaneous pen (Lantus 30 days #21 mL Solostar U-100 Insulin) citalopram 10 mg tablet 10 mg PO DAILY #30 tabs 04/02/22 lisinopril 10 mg tablet 10 mg PO DAILY 90 days #90 tabs 05/21/22 albuterol sulfate 90 mcg/actuation 2 puff inhalation Q4-6H PRN 06/04/22 aerosol inhaler shortness of breath or wheezing #6.7 grams azithromycin 250 mg tablet See Rx Instructions PO .COMPLEX #6 06/04/22 (Zithromax Z-Ronaldo) tabs benzonatate 100 mg capsule 100 mg PO TID PRN cough #20 caps 06/04/22 prednisone 20 mg tablet 40 mg PO DAILY 5 days #10 tabs 06/04/22 albuterol sulfate 90 mcg/actuation 2 puff inhalation Q4-6H PRN 06/11/22 aerosol inhaler shortness of breath or wheezing #6.7 grams benzonatate 100 mg capsule 100 mg PO TID PRN cough #14 caps 06/11/22 hydrocodone-homatropine 5 mg-1.5 5 ml PO Q4-6H PRN cough #60 mL 06/11/22 mg/5 mL (5 mL) oral syrup (Hycodan) prednisone 10 mg tablet 10 mg PO DAILY #10 tabs 06/11/22 Allergies Allergy/AdvReac Type Severity Reaction Status Date / Time No Known Allergies Allergy Verified 06/11/22 10:23 Review of Systems Review of Systems: Constitutional: No Fever, No Chills ENT/Mouth: No Ear Pain, No Nasal Congestion, No sore throat, No Rhinorrhea, No Swallowing Difficulty Cardiovascular: + Chest Pain w/cough, +SOB Respiratory: + Cough, + Sputum, No Wheezing Gastrointestinal: No Nausea, No Vomiting, No Diarrhea, No Constipation, No Abdominal pain Genitourinary: No Dysuria, No Urinary Frequency, No Hematuria Musculoskeletal: No joint pain, No Myalgias, No Joint Swelling Skin: No Skin Lesions, No rash Neuro: No Weakness, No Numbness Yes all other systems are reviewed and are negative Constitutional: Constitutional: Reports as per [facility] Past Medical History Attestation statement: The following information was validated with the patient. 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 Cognitive needs: No Hearing needs: No Vision needs: No Physical Exam Vital Signs: Vital Signs: Last Vital Signs Temp 98 F 06/11/22 10:23 Pulse 92 06/11/22 12:06 Resp 18 06/11/22 12:06 BP 183/75 H 06/11/22 10:23 Pulse Ox 97 06/11/22 10:23 O2 Del Method Room Air 06/11/22 10:23 BMI result Body Mass Index 39.0 Const: General: cooperative, healthy appearing and no acute distress Orientation/consciousness: patient oriented x3 Limitations: no limitations HEENT: Head: Yes normal to inspection and Yes atraumatic Ears: hearing grossly normal bilaterally General nose exam: Normal external nose present Face and sinus: Yes normal facial exam Eyes: General: appearance normal, both eyes and all related structures EOM: EOMs intact bilaterally Neck: Neck: Yes normal visual inspection and Yes no meningeal signs Resp: Effort & Inspection: normal respiratory effort, Actively coughing Quality: actively coughing and no respiratory distress Auscultation: clear to auscultation bilaterally, no rhonchi and no wheezes Cardio: Rate: regular rate Heart sounds: S1 normal heart sound present and S2 normal heart sound present Skin: Rashes: no rashes Wounds: no wounds Neuro: General: patient oriented x3, tone normal and no meningeal signs Gait exam (Neuro): Normal gait present Extrem: General: Yes normal to inspection, Yes no pedal edema and Yes no calf tenderness Course Course Course Narrative: XR chest 2V IMPRESSION: No evidence of pneumonia. No acute cardiopulmonary abnormality. - COVID and influenza negative > will extend patient's prednisone course for an additional 3 days, and sent home with additional Tessalon Perles and Hycodan cough syrup. Results discussed with patient including worrisome signs and symptoms and strict return precautions, and when to return to the emergency department. They verbalized understanding and feel safe for discharge at this time. Medications Administered Discontinued Medications Generic Name Dose Route Start Last Admin Trade Name Freq PRN Reason Stop Dose Admin Benzonatate 100 mg 06/11/22 11:44 06/11/22 11:53 Benzonatate 100 Mg Capsule PO 06/11/22 11:45 100 mg ONCE ONE Administration Albuterol Sulfate 2.5 mg/ 0 mg 06/11/22 11:44 06/11/22 12:06 Ipratropium [place] 0.5 mg INHALE 06/11/22 11:45 2.5 each ONCE ONE Administration Hydrocodone Bit/Homatropine Methylb 5 ml 06/11/22 11:44 06/11/22 11:53 Hydrocodone/Homat 5/1.5/5 Ml 5 Ml Syrup PO 06/11/22 11:45 5 ml ONCE ONE Administration Medical Decision Making Medical Decision Making MDM Narrative: 51-year-old male with a past medical history of HTN, diabetes, anxiety, depression, recently diagnosed bronchitis on 06/04, presenting to the ED complaining of persistent cough productive of phlegm x3 weeks. on exam vital signs stable, actively coughing during evaluation, lungs CTA, talking in complete sentences, no respiratory distress, no pedal edema. Concern for bronchitis vs viral syndrome vs pneumonia. Low suspicion for ACS/PE or CHF plan: CXR, COVID/flu testing, DuoNeb Please refer to course for remaining clinical decision making, interpretation of labs/imaging results, and discussions with consultants and/or family members. Differential Diagnosis Differential Diagnoses: The differential diagnosis associated with the presentation includes As above Admission/Observation Consideration of admission/observation: Escalation of care including admission/observation considered Lab Data [facility] Lab Attestation statement: I reviewed the patient's lab results. Labs: Lab Results 06/11/22 06/11/22 Range/Units 11:59 11:59 COVID-19 (REENA) Negative (Negative) COVID-19 Clin Com See Note Influenza Type A (WIN) Negative (Negative) Influenza Type B (WIN) Negative (Negative) Influenza A & B Note See Note Radiology Impression Discussion of test interpretation with radiology: I have reviewed the radiologist's reading. External Record Review External record reviewed: Inpatient record, Office record, Outpatient record, Prior outpatient labs, Prior outpatient radiology, Primary care record and Outside ED record Discharge Plan Discharge Clinical Impression: Bronchitis Patient Disposition: Home, Self-Care Instructions: Acute Bronchitis (ED) Additional Instructions: your x-ray does not show pneumonia. You test negative for COVID in the flu Tessalon Perles for cough. Hycodan as a cough medication with codeine, take only when cough is severe for the next 3 days In addition take prednisone for an additional 3 days Follow-up with your doctor If symptoms persist or worsen return to the ED Prescriptions: New prednisone 10 mg tablet 10 mg PO DAILY Qty: 10 0RF Taper: Prednisone 40 mg daily for 3 Days and 0 Hour 30 mg daily for 3 Days and 0 Hour 20 mg daily for 3 Days and 0 Hour 10 mg daily for 3 Days and 0 Hour Rx Instructions: prednisone 10 mg: take 4 tablets (40 mg) for 1 days; 3 tablets (30 mg) for 1 days; 2 (20mg) tablets for 1 days and then 1 (10mg) tablet for 1 days benzonatate 100 mg capsule 100 mg PO TID PRN (Reason: cough) Qty: 14 0RF hydrocodone-homatropine [Hycodan] 5-1.5 mg/5 mL (5 mL) syrup 5 ml PO Q4-6H PRN (Reason: cough) Qty: 60 0RF Rx Instructions: Partial Fill upon patient request. albuterol sulfate 90 mcg/actuation HFA aerosol inhaler 2 puff inhalation Q4-6H PRN (Reason: shortness of breath or wheezing) Qty: 6.7 0RF No Action (DME) Dexcom G6 Sensor Device See Rx Instructions .ROUTE .MEDSUPPLY Qty: 3 11RF Rx Instructions: As directed (DME) Dexcom G6 Transmitter Device See Rx Instructions .ROUTE .MEDSUPPLY Qty: 1 11RF Rx Instructions: As directed ibuprofen 600 mg tablet 600 mg PO TID Qty: 90 2RF atorvastatin 40 mg tablet 40 mg PO DAILY 30 Days Qty: 30 11RF atenolol 25 mg tablet 25 mg PO DAILY 90 Days Qty: 90 2RF Lantus Solostar U-100 Insulin 100 unit/mL (3 mL) insulin pen See Rx Instructions subcut DAILY 30 Days Qty: 21 5RF Rx Instructions: 20 units qAM and 50 units qPM subcutaneously daily; lisinopril 10 mg tablet 10 mg PO DAILY 90 Days Qty: 90 1RF (DME) blood pressure test kit-large Kit See Rx Instructions .Route Qty: 1 0RF Rx Instructions: As directed citalopram 10 mg tablet 10 mg PO DAILY Qty: 30 3RF azithromycin [Zithromax Z-Ronaldo] 250 mg tablet See Rx Instructions PO .COMPLEX Qty: 6 0RF Rx Instructions: For 250 mg dose pack: take 500 mg today (day 1), then 250 mg for 4 days (days 2-5) PO albuterol sulfate 90 mcg/actuation HFA aerosol inhaler 2 puff inhalation Q4-6H PRN (Reason: shortness of breath or wheezing) Qty: 6.7 0RF Rx Instructions: May dispense medication equivocal and accepted by patient's insurance benzonatate 100 mg capsule 100 mg PO TID PRN (Reason: cough) Qty: 20 0RF prednisone 20 mg tablet 40 mg PO DAILY 5 Days Qty: 10 0RF insulin aspart U-100 100 unit/mL (3 mL) insulin pen 30 unit subcut TID Referrals: Dejuan Cardoso PA-C [Primary Care Provider] - 3 days Interventions: ED Discharge Assessment Last Done: 06/11/22 13:55 Discharge Date/Time: 06/11/22 13:56
[2022-06-11] MEDS: HYDROcodone/Homat 5/1.5/5 ML 5 ML SYRUP PO (11:53)
[2022-06-11] MEDS: Benzonatate 100 MG CAPSULE PO (11:53)
[2022-06-11 12:06] VITALS: PULSE 92; RESP 18; O2SAT 98
[2022-06-11 13:12] LABS: COVID-19 Test Negative (Negative); IDNOW Serial# BCCEAD1C
[2022-06-11 13:13] LABS: IDNOW Serial# 9DB6401D; Influenza A Negative (Negative); Influenza B2 Negative (Negative)
== END 2022-06-11 13:56 | disposition home or self-care (01) ==
PROVIDERS: Physician Assistant; Emergency Provider Emergency Medicine Emergency Medical Services; PCP Physician Assistant
DX: J40 Bronchitis, not specified as acute or chronic (principal); R06.02 Shortness of breath; Z20.822 Contact with and (suspected) exposure to COVID-19; E11.9 Type 2 diabetes mellitus without complications; I10 Essential (primary) hypertension; E78.5 Hyperlipidemia, unspecified; Z79.02 Long term (current) use of antithrombotics/antiplatelets; Z79.4 Long term (current) use of insulin; Z79.899 Other long term (current) drug therapy
CPT/HCPCS: 71046; 87502; 87635; 94640; 99284

== ENCOUNTER 2022-06-13 08:39 | Outpatient (REF) | payer OTHER, SELFPAY ==
[2022-06-13 09:23] LABS: Alanine Aminotransferase 21 U/L (0-40); Alkaline Phosphatase 93 U/L (39-117); Anion Gap 13 (12-20); Aspartate Amino Transferase 15 U/L (5-37); Bilirubin Total 0.8 mg/dL (0.0-1.0); Blood Urea Nitrogen 14 mg/dL (9-16); Calcium 9.3 mg/dL (8.4-10.2); Carbon Dioxide 27 mmol/L (22-29); Chloride 104 mmol/L (96-108); Cholesterol 173 mg/dL; Estimated Glomerular Filt Rate > 60; Glucose Random 300 mg/dL (60-115); HDL Cholesterol 56 mg/dL; LDL Cholesterol Calculated 94 mg/dl; Potassium 4.9 mmol/L (3.3-5.1); Sodium 139 mmol/L (135-145); Total Protein 6.7 g/dL (6.5-8.0); Triglycerides 115 mg/dL
[2022-06-13 09:39] LABS: Estimated Average Glucose 194 mg/dL; Hemoglobin A1c % 8.4 %
[2022-06-13 10:17] LABS: Creatinine Urine 105.79 mg/dL; Microalbum/Creatinine Ratio Ur 6.6 ug/mg cr
[2022-06-15 05:34] LABS: LDL Cholesterol Direct 91 mg/dL (<100)
== END 2022-06-13 08:40 | disposition home or self-care (01) ==
LOC: HO.LAB 08:39
PROVIDERS: PCP Physician Assistant; Visit Provider Internal Medicine
DX: E13.9 Other specified diabetes mellitus without complications (principal)
CPT/HCPCS: 36415; 80053; 80061; 82043; 83036; 83721

== ENCOUNTER → 2022-06-19 07:42 | Outpatient (BNVA) | payer OTHER, SELFPAY | PROVIDERS: PCP Physician Assistant; Visit Provider Internal Medicine | DX: E13.9 Other specified diabetes mellitus without complications (principal); E78.5 Hyperlipidemia, unspecified; E04.2 Nontoxic multinodular goiter; I15.0 Renovascular hypertension | CPT/HCPCS: 82947; 99212 ==

== ENCOUNTER → 2022-07-24 07:47 | Outpatient (BNVA) | payer OTHER, SELFPAY | PROVIDERS: PCP Physician Assistant; Visit Provider Registered Nurse Diabetes Educator | DX: E13.8 Other specified diabetes mellitus with unspecified complications (principal) | CPT/HCPCS: 99211 ==

== ENCOUNTER → 2022-09-11 07:58 | Outpatient (BNVA) | payer OTHER, SELFPAY | PROVIDERS: PCP Physician Assistant; Visit Provider Registered Nurse Diabetes Educator | DX: E04.2 Nontoxic multinodular goiter (principal); E13.9 Other specified diabetes mellitus without complications; E78.00 Pure hypercholesterolemia, unspecified; Z87.891 Personal history of nicotine dependence | CPT/HCPCS: 99211 ==

== ENCOUNTER 2022-09-23 07:00 | Outpatient (REF) | payer OTHER, SELFPAY ==
[2022-09-23 08:21] LABS: Estimated Average Glucose 177 mg/dL; Hemoglobin A1c % 7.8 %
[2022-09-23 08:56] LABS: Alanine Aminotransferase 23 U/L (0-40); Albumin Level 4.1 g/dL (3.5-5.0); Alkaline Phosphatase 78 U/L (39-117); Anion Gap 15 (12-20); Aspartate Amino Transferase 22 U/L (5-37); Bilirubin Total 0.8 mg/dL (0.0-1.0); Blood Urea Nitrogen 20 mg/dL (9-16); Calcium 9.3 mg/dL (8.4-10.2); Carbon Dioxide 24 mmol/L (22-29); Chloride 104 mmol/L (96-108); Estimated Glomerular Filt Rate > 60; Glucose Random 146 mg/dL (60-115); Potassium 3.7 mmol/L (3.3-5.1); Sodium 139 mmol/L (135-145); Total Protein 7.1 g/dL (6.5-8.0)
[2022-09-23 09:05] LABS: Free T4 (Free Thyroxine) 1.08 ng/dL (0.71-1.85); Thyroid Stimulating Hormone 2.47 uIU/mL (0.32-4.0)
== END 2022-09-23 07:01 | disposition home or self-care (01) ==
LOC: HO.LAB 07:00
PROVIDERS: Visit Provider Internal Medicine
DX: E04.2 Nontoxic multinodular goiter (principal); E13.9 Other specified diabetes mellitus without complications
CPT/HCPCS: 36415; 80053; 83036; 84439; 84443

== ENCOUNTER → 2022-10-11 08:36 | Outpatient (BNVA) | payer OTHER, SELFPAY | PROVIDERS: PCP Physician Assistant; Visit Provider Registered Nurse Diabetes Educator ==

== ENCOUNTER 2022-10-30 08:31 | Outpatient (AMB) | payer OTHER, SELFPAY ==
--- NOTE | 2022-10-30 09:14 | A.OFFVIS_ITS ---
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: dm Allergies No Known Allergies Allergy (Verified 06/19/22 08:16) HPI Comprehensive Diabetes Asmnt Most Recent Diabetes Results: Microalb/Creat Ratio 6.6 ug/mg cr 06/13/22 Cholesterol 173 mg/dL 06/13/22 HDL Cholesterol 56 mg/dL 06/13/22 Triglycerides 115 mg/dL 06/13/22 Creatinine 0.92 mg/dL (0.5-1.4) 09/23/22 Blood Urea Nitrogen 20 mg/dL (9-16) H 09/23/22 Sodium 139 mmol/L (135-145) 09/23/22 Potassium 3.7 mmol/L (3.3-5.1) 09/23/22 Chloride 104 mmol/L (96-108) 09/23/22 Carbon Dioxide 24 mmol/L (22-29) 09/23/22 Calcium 9.3 mg/dL (8.4-10.2) 09/23/22 AST 22 U/L (5-37) 09/23/22 ALT 23 U/L (0-40) 09/23/22 Total Protein 7.1 g/dL (6.5-8.0) 09/23/22 Albumin 4.1 g/dL (3.5-5.0) 09/23/22 [facility] Medical History Anxiety and depression Cervical lymphadenopathy Diabetes High cholesterol HLD (hyperlipidemia) Hx of goiter Hypertension 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 1% Hyperglycemia:? 84% Time in Range:? 15% Average glucose for the last 2 weeks 266? mg/dL Patient's current insulin plan Lantus 20 units daily Humalog 30 units before meals Patient has Down excursion overnight, but definitely has increased postprandial excursion Recommended to patient he increase Humalog 30 units to Humalog 35 units 15 minutes prior to meals Patient is still waiting on information about when he will be receiving shoulder surgery Patient's last A1c on 09/24/2022 7.8% and improvement over prior A1c of 8.4% If glucose remains above target at next visit we will discuss adding correction dose of insulin for hyperglycemia Reviewed how to interpret trend arrows Reminded patient that to check finger sticks if symptoms do not match sensor reading. Discussed lag time between finger stick and sensor data.? Patient able to insert sensor independently at home without issue.? 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
== END 2022-10-30 09:16 | disposition home or self-care (01) ==
PROVIDERS: PCP Physician Assistant; Visit Provider Registered Nurse Diabetes Educator
DX: E13.9 Other specified diabetes mellitus without complications (principal)

== ENCOUNTER → 2022-10-30 08:31 | Outpatient (BNVA) | payer OTHER, SELFPAY | PROVIDERS: PCP Physician Assistant; Visit Provider Registered Nurse Diabetes Educator | DX: E13.9 Other specified diabetes mellitus without complications (principal) | CPT/HCPCS: 99211 ==

== ENCOUNTER 2022-11-27 13:52 | Outpatient (AMB) | payer OTHER, SELFPAY ==
--- NOTE | 2022-11-27 14:32 | MHC.AMDMED ---
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: DM, confirmed Peoplesoft Administrator Required: No Accompanied by: Self / Same As Patient Allergies No Known Allergies Allergy (Verified 06/19/22 08:16) HPI Comprehensive Diabetes Asmnt Most Recent Diabetes Results: Microalb/Creat Ratio 6.6 ug/mg cr 06/13/22 Cholesterol 173 mg/dL 06/13/22 HDL Cholesterol 56 mg/dL 06/13/22 Triglycerides 115 mg/dL 06/13/22 Creatinine 0.92 mg/dL (0.5-1.4) 09/23/22 Blood Urea Nitrogen 20 mg/dL (9-16) H 09/23/22 Sodium 139 mmol/L (135-145) 09/23/22 Potassium 3.7 mmol/L (3.3-5.1) 09/23/22 Chloride 104 mmol/L (96-108) 09/23/22 Carbon Dioxide 24 mmol/L (22-29) 09/23/22 Calcium 9.3 mg/dL (8.4-10.2) 09/23/22 AST 22 U/L (5-37) 09/23/22 ALT 23 U/L (0-40) 09/23/22 Total Protein 7.1 g/dL (6.5-8.0) 09/23/22 Albumin 4.1 g/dL (3.5-5.0) 09/23/22 [facility] Medical History Anxiety and depression Cervical lymphadenopathy Diabetes High cholesterol HLD (hyperlipidemia) Hx of goiter Hypertension 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 0% Hyperglycemia:? 64% Time in Range:? 36% Average glucose for the last 2 weeks? 217 mg/dL Patient reports he has energy drink and breakfast biscuit some mornings and does not feel comfortable taking a full dose of NovoLog 20 units. Patient is experiencing postprandial hyperglycemia in the morning, recommended to patient he try NovoLog 10 units for small breakfast. But continue 20 units for large meals Reviewed how to interpret trend arrows Reminded patient that to check finger sticks if symptoms do not match sensor reading. Discussed lag time between finger stick and sensor data.? Patient able to insert sensor independently at home without issue.? Patient will follow-up with wellness educator in 1 month Patient Instructions: Novolog 10 unit for breakfast if you are having energy drink with [place] biscuit, for a 20 units for regular breakfast. 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
== END 2022-11-27 14:40 | disposition home or self-care (01) ==
PROVIDERS: PCP Physician Assistant; Visit Provider Registered Nurse Diabetes Educator
DX: E13.9 Other specified diabetes mellitus without complications (principal)

== ENCOUNTER → 2022-11-27 13:52 | Outpatient (BNVA) | payer OTHER, SELFPAY | PROVIDERS: PCP Physician Assistant; Visit Provider Registered Nurse Diabetes Educator | DX: E13.9 Other specified diabetes mellitus without complications (principal) | CPT/HCPCS: 99211 ==

== ENCOUNTER 2022-12-11 10:55 | Outpatient (AMB) | payer OTHER, SELFPAY ==
--- NOTE | 2022-12-11 11:03 | MHC.PC.OV ---
Vital Signs 12/11/22 11:11 Height 5 ft 3 in Weight 228 lb 8 oz BMI 40.5 BP 122/76 Blood Pressure Location Lt brachial Position Sitting Respiration 17 Pulse 80 Pulse Source Pulse Oximeter Pulse Oximetry (%) 98 Oxygen Delivery Method Room Air Intake Visit Reasons: PE Intake Note: Patient is here today for a physical. Avionics Systems Technician Required: No Accompanied by: Self / Same As Patient Allergies No Known Allergies Allergy (Verified 12/11/22 11:31) Medication List - Last Reconciled 12/11/22 by Dejuan Cardoso PA-C atenolol 25 mg PO DAILY 90 days atorvastatin 40 mg PO DAILY 30 days blood pressure test kit-large As directed blood-glucose meter,continuous (Dexcom G7 Refrigerator Cabinetmaker) As directed blood-glucose sensor (Dexcom G6 Sensor device) As directed blood-glucose sensor (Dexcom G7 Sensor device) every 10 days blood-glucose transmitter (Dexcom G6 Transmitter device) As directed citalopram 10 mg PO DAILY ibuprofen 600 mg PO TID insulin aspart U-100 30 units subcut TID insulin glargine (Lantus Solostar U-100 Insulin) 20 units in the morning and 50 units in the evening subcutaneously 2 times a day; lisinopril 10 mg PO DAILY Tobacco use date assessed: 04/02/22 Dental Screening Dental Screen Date: 12/11/22 Did you have a dental visit in the last 12 months?: Yes Did you have a dental problem in the last 6 months where you did not have access to dental care?: No Was dental information given to patient?: Patient has dentist HPI PE HPI Details Patient is a 52-year-old male here today for a routine PE. Patient has a past medical history significant for hyperlipidemia, type 2 diabetes, hypertension obesity. . Right shoulder rotator cuff tear: Has followed up with Orthopedics and received arthroscopic repair of his rotator cuff. He reports his right shoulder issue is work related in some worker compensation claim. He has finished full course of physical therapy though still not to baseline. Still out of work , still has pain in his shoulder. unable to lift his with his right upper extremity. Will be following up with his orthopedics as he reports he needs another surgery. He is unable to return back to his .. DMII:? Is followed by endocrinology and wellness educator photoengraving etcher...? report blood sugars have been 200- 300s.? Today's A1c at 6.9. Has been walking and lost a few lb since last office visit. Has been trying to follow a diabetic diet and reducing his soda. ? He is speaking with wellness educator and has been trying to adapt to a better diabetic diet.? He finds it very difficult as he does eat emotionally. He has seen Eye doctor and had mild retinopathy .. Hypertension: Blood pressure today in office acceptable. Will continue current dose of lisinopril. .. Colorectal cancer screening: Colonoscopy done in 2019, normal repeat 10 years Vaccines: Up-to-date COVID vaccine, today with pneumonia, today with tetanus, up-to-date with flu vaccine. 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 Dawson Block, Marie Carbajal, Daron Nina and colleagues, with an educational grecia from [employer]. Review of Systems Const Denies body aches, Denies chills, Denies excessive sweating, Denies fatigue, Denies fever(s) and Denies headache(s) Eyes Denies blurry vision ENT Denies dysphagia, Denies vertigo, Denies dizziness, Denies headache(s), Denies hearing loss and Denies tinnitus Card Denies chest pain, Denies chest pain with activity, Denies syncope, Denies irregular heart rhythm and Denies dyspnea Resp Denies chest congestion, Denies cough, Denies hemoptysis, Denies dyspnea and Denies wheezing GI Denies abdominal pain, Denies melena, Denies hematochezia, Denies coffee ground emesis, Denies dysphagia, Denies diarrhea, Denies nausea and Denies vomiting Denies difficulty urinating, Denies dysuria, Denies urinary frequency, Denies urinary hesitancy and Denies urinary urgency Musc Denies arthralgias, Denies limited range of motion, Denies muscle cramps and Denies muscle weakness Skin/Breast Denies rash and Denies skin ulcer Neuro Denies Abnormal speech present, Denies confusion, Denies vertigo, Denies dizziness, Denies syncope, Denies headache(s), Denies memory loss and Denies seizure-like activity Psych Denies anxiety, Denies confusion, Denies depression, Denies memory loss, Denies panic attacks and Denies paranoia Endo Denies excessive sweating, Denies fatigue, Denies flushing, Denies polydipsia and Denies polyuria Aller/Immun Denies wheezing Physical exam (Primary Care) Vital Signs: Last Vital Signs Pulse 80 12/11/22 11:11 Resp 17 12/11/22 11:11 BP 122/76 12/11/22 11:11 Pulse Ox 98 12/11/22 11:11 Oxygen Delivery Method Room Air 12/11/22 11:11 BMI result Body Mass Index 40.5 BMI Assessment/Plan discussion: High Tobacco/Smoking Status: Tobacco use Status Tobacco use date assessed 04/02/22 12/11/22 11:05 Patient Tobacco Use Status Former Tobacco user 12/11/22 11:38 Tobacco use type Cigarette 12/11/22 11:38 e-Cigarette/Vaping Use Never Used 12/11/22 11:38 Thrive Assessment: Date of Thrive Assessment Date Thrive assessed 04/02/22 12/11/22 11:05 Const Other: Morbidly obese General: cooperative, comfortable, no acute distress, alert and awake; No confusion Orientation/consciousness: oriented to person, oriented to place, patient oriented x3 and No confusion [facility] Head: Yes normocephalic Ears: external ears normal and TM's normal bilaterally Face and sinus: No sinus tenderness Mouth: Normal oral and palatal mucosa present and tongue normal Teeth and gingiva: dentition normal and gingiva normal Throat: Yes posterior oropharynx normal, Yes tonsils normal and Yes uvula midline Eyes Conjunctivae: conjunctivae normal Sclerae: sclerae normal Pupils: Equal, round and reactive pupils present EOM: EOMs intact bilaterally Direct Ophthalmoscopy: No no photophobia Neck Neck: Yes no lymphadenopathy, No tender and Yes no JVD Thyroid: Thyroid normal Carotids: no bruits Chest Chest palpation & inspection: no tenderness Resp Effort & Inspection: normal respiratory effort, no audible wheezes, not labored and no stridor Auscultation: no crackles, no rales, no rhonchi and no wheezes Cardio Jugular venous distension: no JVD Rate: regular rate, not bradycardic and not tachycardic Rhythm: regular rhythm Bruits: no carotid bruits Peripheral pulses: Peripheral pulses 2+ throughout GI Inspection: Yes normal to inspection, No abdominal wall ecchymosis and No visible herniation Palpation (GI): Soft to palpation, nontender, no guarding, not rigid and No hepatosplenomegaly present Auscultation: normoactive bowel sounds General: Yes no CVA tenderness Back/Spine/Pelvis Back: no CVA tenderness and No back tenderness Cervical Spine: cervical ROM normal Thoracic/Lumbar Spine: thoracic and lumbar spine normal to inspection, straight leg raise negative bilaterally, No thoraco-lumbar ROM limited and No lumbar spinal tenderness Skin Lesions: no lesions Rashes: no rashes Wounds: no wounds Neuro General: oriented to person, oriented to place, patient oriented x3, CN's II-XI intact bilaterally and No confusion Cranial nerves: Yes Equal, round and reactive pupils present and Yes Normal accommodation reflex present Cognition (Neuro): normal cognition Speech: No Abnormal speech present Gait exam (Neuro): Normal gait present Motor exam (neuro): 5/5 motor strength present throughout Extrem Other: RIGHT SHOULDER: VERY LIMITED RANGE OF MOTION, POSITIVE HOCKING, POSITIVE EMPTY CAN TEST. TENDERNESS TO PALPATION OVER ANTERIOR ASPECT OF SHOULDER. Right upper extremity: full ROM; no cyanosis Left upper extremity: full ROM; no cyanosis Right lower extremity: no edema Left lower extremity: no edema Psych Appearance: grossly normal Mental Status: mental status grossly normal Affect: normal affect Attitude: cooperative Thought process: Normal thought process present Results AMB Hemoglobin A1c AMB Hemoglobin A1c 6.9 % Last Edit by YOLY Ga on 12/11/22 11:39 Results Reviewed Results Reviewed: Laboratory Last Values Hgb A1c (Clinic) 6.9 % (4.0-6.0) H 12/11/22 11:15 Assessment and Plan Assessment & Plan (1) Annual physical exam: Code(s): Z00.00 - Encounter for general adult medical examination without abnormal findings (2) Obese: Code(s): E66.9 - Obesity, unspecified Qualifiers: Body mass index: BMI 40.0-44.9 Obesity classification: adult class 3 (BMI >= 40) Obesity type: due to excess calories Serious obesity comorbidity presence: with serious comorbidity Qualified Code(s): E66.01 - Morbid (severe) obesity due to excess calories; Z68.41 - Body mass index [BMI] 40.0-44.9, adult Plan: Patient does understand his BMI is over 40 will continue working on being more physically active and adapting to better eating habits to reduce his weight. 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 Continues on fairly high doses of insulin. Has been more physically active and following a better diet has been able to reduce his A1c down to 6.9. Goal A1c is to remain below 7.0. (4) High cholesterol: Code(s): E78.00 - Pure hypercholesterolemia, unspecified Plan: Patient's most recent lipid panel showing acceptable total cholesterol and LDL. He will continue on statin therapy with goal LDL to remain below 100 (5) Hypertension: Code(s): I10 - Essential (primary) hypertension Qualifiers: Hypertension type: renovascular hypertension Qualified Code(s): I15.0 - Renovascular hypertension Plan: Patient's blood pressure acceptable today in office. Will continue current dose of atenolol and lisinopril with goal blood pressure remain below 140/90 (6) Rotator cuff tear arthropathy of right shoulder: Code(s): M75.101 - Unspecified rotator cuff tear or rupture of right shoulder, not specified as traumatic; M12.811 - Other specific arthropathies, not elsewhere classified, right shoulder Plan: As per HPI, patient followed by Orthopedics and underwent surgery in his right shoulder. Continues to have a root decreased range of motion, pain and decreased strength in the right upper extremity. Has not been able to return back to work. Applying for disability Orders: Orders Microalbumin, Random (w Creat) 12/11/22 I15.0 - Renovascular hypertension Lipid Panel 12/11/22 E78.00 - Pure hypercholesterolemia, unspecified Prostate Specific Antigen Scr 12/11/22 E11.319 - Type 2 diabetes mellitus with unspecified diabetic retinopathy without macular edema, Z12.5 - Encounter for screening for malignant neoplasm of prostate AMB Hemoglobin A1c 12/11/22 E11.9 - Type 2 diabetes mellitus without complications Comprehensive [place]. 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
[2022-12-11 11:11] VITALS: BP 122/76; PULSE 80; RESP 17; O2SAT 98; BMI 40.5
== END 2022-12-11 11:53 | disposition home or self-care (01) ==
PROVIDERS: PCP Physician Assistant; Visit Provider Physician Assistant
DX: E11.9 Type 2 diabetes mellitus without complications (principal)
CPT/HCPCS: 83036; 99396

== ENCOUNTER 2022-12-12 13:19 | Outpatient (AMB) | payer OTHER, SELFPAY ==
--- NOTE | 2022-12-12 13:32 | MHC.OFFVIS ---
Intake Vital Signs 12/12/22 13:33 Height 5 ft 3 in Weight 229 lb 8.019 oz BMI 40.6 BP 142/82 H Blood Pressure Location Lt brachial Position Sitting Pulse 94 Pulse Source Pulse Oximeter Intake Visit Reasons: DM2-CONFIRMED Intake Note: New patient to Dr. Sesay present today for Type 2 Diabetes Mellitus. Previously followed by Dr. Gregory. Patient receives DME supplies through: Pharmacy Last Diabetic Eye exam: 07/15/2022 Last Podiatry Visit: Random Glucose: 291 mg/dl HgA1C: 6.9% 12/11/22 Drywall Professional Required: No Accompanied by: Self / Same As Patient Allergies No Known Allergies Allergy (Verified 12/12/22 13:39) HPI HPI Comments History of Present Illness Details 52 YO M with PMHx DM, HTN, HLD who is seen in F/U for BALDEV/T1DM. The patient last saw Dr. Gregory on 06/19/2022 Initially diagnosed with T2DM 2009 when presented to ED with DKA/HHS. He presented to see me in early Mar 2018 and at that time we checked antibodies for T1DM. IA-2 antibodies were found to be positive with a low C-Peptide level at the time of hyperglycemia. Current regimen Lantus 50 units qHS with Novolog 20 units AC. Has Dexcom G6.. Download shows average glucose to be 223 with standard deviation of 81. G mi is 8.6%. Sensor use is 100%. 32% range with 33% hyperglycemia and 34% very hyperglycemic and no hypoglycemia No real hypoglycemia since his last visit. Occasioal hypoglycemia Has hypoglycemia awareness. Treats with food. Often overcorrects. Does check sugar after. Family history of T2DM in mom and siblings. Most recent A1C: 6.9% 12/11/2022, down from 9.1% 03/27/2022. He admits to drinking soda continuously throughout the day. Last eye exam . Has retinopathy. saw optho 2 mos ago . Has retinopathy Denies Neuropathy, does not see podiatry. Has nephropathy, on Lisinopril 10 mg PO daily. UAC 6.6 06/13/2022. Has HLD, on Atorvastatin 40 mg PO daily. LDL 91 06/13/2022. No known CAD. Denies chest pains or palpitations. Weight: Stable since last visit. Has had CDE. Also was found to have multinodular thyroid with multiple subcentimeter thyroid nodules. Thyroid US: 12/19/2021 FINDINGS: ? SIZE: Measurements of the thyroid lobes and nodules are given in sagittal, anteroposterior and transverse dimensions respectively. Right Thyroid Lobe: 5.8 x 1.5 x 2.5 cm, volume 11.5 mL. Previously 5.2 x 1.7 x 2.7 cm, volume 12.3 mL. Parenchyma: The gland echotexture is homogeneous. Thyroid vascularity is normal. Left Thyroid Lobe: 5.1 x 1.4 x 1.9 cm, volume 7.1 mL. Previously 4.6 x 1.3 x 1.8 cm, volume 5.8 mL. Parenchyma: The gland echotexture is homogeneous. Thyroid vascularity is normal. Isthmus: 0.2 cm in maximum AP dimension. Previously 0.5 cm. Estimated total number of nodules greater than or equal to 1 cm: 0. Bobbin Inspector nodules are described as follows: 1.? Location: Left inferior lateral. ?? ? Size: 0.4 x 0.3 x 0.3 cm, volume 0.02 mL. ?? ? Previously: 0.4 x 0.3 x 0.4 cm, volume 0.02 mL. ?? ? Nodule characteristics: ?? ? Composition: Spongiform (0). ?? ? Echogenicity: Anechoic (0). ?? ? Shape: Not taller than wide (0). ?? ? Margins: Smooth (0). ?? ? Echogenic Foci: None (0).? ACR TI-RADS total points: 0 Previous: 4 ?? ? ACR TI-RADS category: 1 Previous: 4 ? Significant change in size (>/= 20% in 2 dimensions and minimal increase of 2 mm or 50% or greater increase in volume): None ?? ? Change in features: None ?? ? Change in ACR TI-RADS risk category: Improved 2.? Location: Left inferior lateral. ?? ? Size: 0.4 x 0.3 x 0.3 cm, volume 0.02 mL. ?? ? Previously: 0.4 x 0.3 x 0.4 cm, volume 0.02 mL. ?? ? Nodule characteristics: ?? ? Composition: Cystic(0). ?? ? ACR TI-RADS total points: 0 Previous: 3 ?? ? ACR TI-RADS category: 1 Previous: 3 ? Significant change in size (>/= 20% in 2 dimensions and minimal increase of 2 mm or 50% or greater increase in volume): None ?? ? Change in features: None ?? ? Change in ACR TI-RADS risk category: None 3.? Location: Left inferior. ?? ? Size: 0.7 x 0.6 x 0.9 cm, volume 0.20 mL. ?? ? Previously: 0.8 x 0.6 x 0.9 cm, volume 0.20 mL. ?? ? Nodule characteristics: ?? ? Composition: Cystic(0). ?? ? ACR TI-RADS total points: 0 Previous: 0 ?? ? ACR TI-RADS category: 1 Previous: 1 ? Significant change in size (>/= 20% in 2 dimensions and minimal increase of 2 mm or 50% or greater increase in volume): None ?? ? Change in features: None ?? ? Change in ACR TI-RADS risk category: None 4.? Location: Right mid. ?? ? Size: 0.4 x 0.2 x 0.4 cm, volume 0.02 mL. ?? ? Previously: 0.4 x 0.3 x 0.4 cm, volume 0.02 mL. ?? ? Nodule characteristics: ?? ? Composition: Cystic(0). ?? ? ACR TI-RADS total points: 0 Previous: 4 ?? ? ACR TI-RADS category: 1 Previous: 4 ? Significant change in size (>/= 20% in 2 dimensions and minimal increase of 2 mm or 50% or greater increase in volume): None ?? ? Change in features: None ?? ? Change in ACR TI-RADS risk category: None NODES: No lymphadenopathy is seen in the tissue surrounding the thyroid gland. Labs: Laboratory Tests 10/31/21 03/27/22 03/27/22 08:15 06:14 06:14 Sodium 143 Potassium 4.2 Creatinine 1.12 Estimated GFR > 60 Hemoglobin A1c % 9.1 LDL Cholesterol, C alc 76 LDL Cholesterol Di rect 25-OH Vitamin D To vahid 30.8 TSH 3.16 Free T4 1.25 Microalb/Creat Rat io 06/13/22 06/13/2206/13/23 08:46 08:46 08:46 Sodium 139 Potassium Creatinine 1.10 Estimated GFR > 60 Hemoglobin A1c % 8.4 LDL Cholesterol, C alc LDL Cholesterol Di rect 91 25-OH Vitamin D To vahid TSH Free T4 Microalb/Creat Rat io 06/13/22 08:50 Sodium Potassium Creatinine Estimated GFR Hemoglobin A1c % LDL Cholesterol, C alc LDL Cholesterol Di rect 25-OH Vitamin D To vahid TSH Free T4 Microalb/Creat Rat io 6.6 PFSH Medical History Anxiety and depression Cervical lymphadenopathy Normal colonoscopy Vitamin D deficiency Multinodular thyroid HLD (hyperlipidemia) 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 Absence of acromegalic features. Neck exam reveals nl size thyroid about 15 gms. No thyroid nodules palpable. No carotid bruits present. Lungs CTA. Heart S1 S2, Reg R/R. No M/R/ G. Skin exam reveals absence of vitiligo or acanthosis nigricans. Abdominal exam reveals Soft NT/ND with NA BS. No organomegaly present. Neck Other: . Extrem Other: Visual exam of foot performed. No ulcerations or open lesions. No onchomycosis, no callouses.Pulses 2 + distally Sensation intact to monofilament exam. 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 Dexcom reading does not correlate with current A1c. Plan is to have the patient continue to follow Dexcom and increase NovoLog to 26-28 units before breakfast and dinner if point care continues to rise after meals. Patient will follow up with extension educator. Talked extensively about the use of insulin pumps and he will meet with the extension educator regarding this. Also prescribed glucagon rescue [place]. 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
[2022-12-12 13:33] VITALS: BP 142/82; PULSE 94; BMI 40.6
[2022-12-12 13:45] LABS: Glucose, Whole Blood 291 mg/dL (60-115)
== END 2022-12-12 14:34 | disposition home or self-care (01) ==
PROVIDERS: PCP Physician Assistant; Visit Provider Internal Medicine Endocrinology, Diabetes & Metabolism
DX: E13.9 Other specified diabetes mellitus without complications (principal)
CPT/HCPCS: 99214

== ENCOUNTER → 2022-12-12 13:19 | Outpatient (BNVA) | payer OTHER, SELFPAY | PROVIDERS: Visit Provider Internal Medicine Endocrinology, Diabetes & Metabolism | DX: E13.319 Other specified diabetes mellitus with unspecified diabetic retinopathy without macular edema (principal); Z79.4 Long term (current) use of insulin | CPT/HCPCS: 82947; 99212 ==

== ENCOUNTER 2023-03-18 07:46 | Outpatient (REF) | payer OTHER, SELFPAY ==
[2023-03-18 09:02] LABS: Alanine Aminotransferase 18 U/L (0-40); Albumin Level 4.3 g/dL (3.5-5.0); Alkaline Phosphatase 110 U/L (39-117); Anion Gap 11 (12-20); Aspartate Amino Transferase 16 U/L (5-37); Bilirubin Total 0.6 mg/dL (0.0-1.0); Blood Urea Nitrogen 21 mg/dL (9-16); Calcium 9.6 mg/dL (8.4-10.2); Carbon Dioxide 28 mmol/L (22-29); Chloride 106 mmol/L (96-108); Cholesterol 160 mg/dL (<200); Estimated Glomerular Filt Rate > 60; Glucose Fasting 272 mg/dL (60-99); HDL Cholesterol 50 mg/dL (>40); LDL Cholesterol Calculated 77 mg/dL (<100); Potassium 4.1 mmol/L (3.3-5.1); Sodium 141 mmol/L (135-145); Total Protein 7.4 g/dL (6.5-8.0); Triglycerides 166 mg/dL (<150)
[2023-03-18 09:10] LABS: Prostate Specific Antigen Scr 0.88 ng/mL (<0.05-4.0)
[2023-03-18 10:04] LABS: Creatinine Urine 200.65 mg/dL; Microalbum/Creatinine Ratio Ur 14.9 ug/mg cr (<30)
== END 2023-03-18 07:47 | disposition home or self-care (01) ==
LOC: HO.LAB 07:46
PROVIDERS: Absent Provider Internal Medicine Endocrinology, Diabetes & Metabolism; PCP Physician Assistant; Visit Provider Physician Assistant
DX: E11.319 Type 2 diabetes mellitus with unspecified diabetic retinopathy without macular edema (principal); I15.0 Renovascular hypertension; E78.00 Pure hypercholesterolemia, unspecified; Z12.5 Encounter for screening for malignant neoplasm of prostate
CPT/HCPCS: 36415; 80053; 80061; 82043; 82570; 84153

== ENCOUNTER 2023-04-22 13:24 | Outpatient (AMB) | payer OTHER, SELFPAY ==
--- NOTE | 2023-04-22 13:26 | MHC.OFFVIS ---
Intake Vital Signs 04/22/23 13:27 Height 5 ft 3 in Weight 234 lb 5.622 oz BMI 41.5 BP 148/86 H Blood Pressure Location Lt brachial Position Sitting Pulse 89 Pulse Source Pulse Oximeter Intake Visit Reasons: DM-confirmed Intake Note: Patient present today to follow up on Type 1 BALDEV. 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) As directed blood-glucose sensor (Dexcom G6 Sensor device) As directed blood-glucose sensor (Dexcom G7 Sensor device) every 10 days blood-glucose transmitter (Dexcom G6 Transmitter device) As directed citalopram 10 mg PO DAILY glucagon 3 mg/actuation (Baqsimi) 3 mg intranasal ONCE ibuprofen 600 mg PO TID insulin aspart U-100 30 units subcut TID insulin glargine 20 units in AM and 50 units in PM subcutaneously 2 times a day; 20 units in AM and 50 units in PM subcutaneously every day; lisinopril 10 mg PO DAILY HPI HPI Comments History of Present Illness Details 52 YO M with PMHx DM, HTN, HLD who is seen in F/U for BALDEV/T1DM. Initially diagnosed with T2DM 2009 when presented to ED with DKA/HHS. He presented to see me in early Mar 2018 and at that time we checked antibodies for T1DM. IA-2 antibodies were found to be positive with a low C-Peptide level at the time of hyperglycemia. Current regimen Lantus 50 units qHS with Novolog 26-28 units units AC. Has Dexcom G6.. Download shows average glucose to be 246 with standard deviation of 82 . G mi is 9.2%. Sensor use is 100%. 25% range with 25% hyperglycemia and 49% very hyperglycemic and no hypoglycemia . Pattern shows persistent hyperglycemia throughout the day without any post-meal spikes No real hypoglycemia since his last visit. Occasioal hypoglycemia Has hypoglycemia awareness. Treats with food. Often overcorrects. Does check sugar after. Family history of T2DM in mom and siblings. . He admits to drinking soda continuously throughout the day. Last eye exam . Has retinopathy. saw optho 2 mos ago . Has retinopathy Denies Neuropathy, does not see podiatry. Has nephropathy, on Lisinopril 10 mg PO daily. UAC 6.6 06/13/2022. Has HLD, on Atorvastatin 40 mg PO daily. LDL 91 06/13/2022. No known CAD. Denies chest pains or palpitations. Weight: Stable since last visit. Has had CDE. Also was found to have multinodular thyroid with multiple subcentimeter thyroid nodules. Thyroid US: 12/19/2021 FINDINGS: ? SIZE: Measurements of the thyroid lobes and nodules are given in sagittal, anteroposterior and transverse dimensions respectively. Right Thyroid Lobe: 5.8 x 1.5 x 2.5 cm, volume 11.5 mL. Previously 5.2 x 1.7 x 2.7 cm, volume 12.3 mL. Parenchyma: The gland echotexture is homogeneous. Thyroid vascularity is normal. Left Thyroid Lobe: 5.1 x 1.4 x 1.9 cm, volume 7.1 mL. Previously 4.6 x 1.3 x 1.8 cm, volume 5.8 mL. Parenchyma: The gland echotexture is homogeneous. Thyroid vascularity is normal. Isthmus: 0.2 cm in maximum AP dimension. Previously 0.5 cm. Estimated total number of nodules greater than or equal to 1 cm: 0. 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 Location: Left inferior lateral. ?? ? Size: 0.4 x 0.3 x 0.3 cm, volume 0.02 mL. ?? ? Previously: 0.4 x 0.3 x 0.4 cm, volume 0.02 mL. ?? ? Nodule characteristics: ?? ? Composition: Spongiform (0). ?? ? Echogenicity: Anechoic (0). ?? ? Shape: Not taller than wide (0). ?? ? Margins: Smooth (0). ?? ? Echogenic Foci: None (0).? ACR TI-RADS total points: 0 Previous: 4 ?? ? ACR TI-RADS category: 1 Previous: 4 ? Significant change in size (>/= 20% in 2 dimensions and minimal increase of 2 mm or 50% or greater increase in volume): None ?? ? Change in features: None ?? ? Change in ACR TI-RADS risk category: Improved 2.? Location: Left inferior lateral. ?? ? Size: 0.4 x 0.3 x 0.3 cm, volume 0.02 mL. ?? ? Previously: 0.4 x 0.3 x 0.4 cm, volume 0.02 mL. ?? ? Nodule characteristics: ?? ? Composition: Cystic(0). ?? ? ACR TI-RADS total points: 0 Previous: 3 ?? ? ACR TI-RADS category: 1 Previous: 3 ? Significant change in size (>/= 20% in 2 dimensions and minimal increase of 2 mm or 50% or greater increase in volume): None ?? ? Change in features: None ?? ? Change in ACR TI-RADS risk category: None 3.? Location: Left inferior. ?? ? Size: 0.7 x 0.6 x 0.9 cm, volume 0.20 mL. ?? ? Previously: 0.8 x 0.6 x 0.9 cm, volume 0.20 mL. ?? ? Nodule characteristics: ?? ? Composition: Cystic(0). ?? ? ACR TI-RADS total points: 0 Previous: 0 ?? ? ACR TI-RADS category: 1 Previous: 1 ? Significant change in size (>/= 20% in 2 dimensions and minimal increase of 2 mm or 50% or greater increase in volume): None ?? ? Change in features: None ?? ? Change in ACR TI-RADS risk category: None 4.? Location: Right mid. ?? ? Size: 0.4 x 0.2 x 0.4 cm, volume 0.02 mL. ?? ? Previously: 0.4 x 0.3 x 0.4 cm, volume 0.02 mL. ?? ? Nodule characteristics: ?? ? Composition: Cystic(0). ?? ? ACR TI-RADS total points: 0 Previous: 4 ?? ? ACR TI-RADS category: 1 Previous: 4 ? Significant change in size (>/= 20% in 2 dimensions and minimal increase of 2 mm or 50% or greater increase in volume): None ?? ? Change in features: None ?? ? Change in ACR TI-RADS risk category: None NODES: No lymphadenopathy is seen in the tissue surrounding the thyroid gland. Labs: Laboratory Tests 10/31/21 03/27/22 03/27/22 08:15 06:14 06:14 Sodium 143 Potassium 4.2 Creatinine 1.12 Estimated GFR > 60 Hemoglobin A1c % 9.1 LDL Cholesterol, C alc 76 LDL Cholesterol Di rect 25-OH Vitamin D To vahid 30.8 TSH 3.16 Free T4 1.25 Microalb/Creat Rat io 06/13/22 06/13/22 06/13/22 08:46 08:46 08:46 Sodium 139 Potassium Creatinine 1.10 Estimated GFR > 60 Hemoglobin A1c % 8.4 LDL Cholesterol, C alc LDL Cholesterol Di rect 91 25-OH Vitamin D To vahid TSH Free T4 Microalb/Creat Rat io 06/13/22 08:50 Sodium Potassium Creatinine Estimated GFR Hemoglobin A1c % LDL Cholesterol, C alc LDL Cholesterol Di rect 25-OH Vitamin D To vahid TSH Free T4 Microalb/Creat Rat io 6.6 PFSH Medical History Anxiety and depression Cervical lymphadenopathy Normal colonoscopy Vitamin D deficiency Multinodular thyroid HLD (hyperlipidemia) 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 Absence of acromegalic features. Neck exam reveals nl size thyroid about 15 gms. No thyroid nodules palpable. No carotid bruits present. Lungs CTA. Heart S1 S2, Reg R/R. No M/R/ G. Skin exam reveals absence of vitiligo or acanthosis nigricans. Abdominal exam reveals Soft NT/ND with NA BS. No organomegaly present. Neck Other: . Extrem Other: Visual exam of foot performed. No ulcerations or open lesions. No onchomycosis, no callouses.Pulses 2 + distally Sensation intact to monofilament exam. 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 Dexcom reading does not correlate with current A1c. Plan is to have the patient increase Lantus to 60 units and by 10 units every 3-4 days to get fasting point of care <150. Patient will follow up with personal development educator. Talked extensively about the use of insulin pumps and he will meet with the personal development educator regarding this. 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
[2023-04-22 13:27] VITALS: BP 148/86; PULSE 89; BMI 41.5
[2023-04-22 13:40] LABS: Glucose, Whole Blood 257 mg/dL (60-115)
== END 2023-04-22 13:59 | disposition home or self-care (01) ==
PROVIDERS: PCP Physician Assistant; Visit Provider Internal Medicine Endocrinology, Diabetes & Metabolism
DX: E13.9 Other specified diabetes mellitus without complications (principal)
CPT/HCPCS: 99214

== ENCOUNTER → 2023-04-22 13:24 | Outpatient (BNVA) | payer OTHER, SELFPAY | PROVIDERS: PCP Physician Assistant; Visit Provider Internal Medicine Endocrinology, Diabetes & Metabolism | DX: E13.9 Other specified diabetes mellitus without complications (principal) | CPT/HCPCS: 82947; 83036; 99212 ==

== ENCOUNTER 2023-05-28 15:23 | Outpatient (AMB) | payer OTHER, SELFPAY ==
--- NOTE | 2023-05-28 15:35 | MHC.AMDMED ---
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: dm/confirmed Manager Strategic Required: No Accompanied by: Self / Same As Patient Allergies No Known Allergies Allergy (Verified 04/22/23 13:32) HPI Comprehensive Diabetes Asmnt Most Recent Diabetes Results: Hemoglobin A1c 7.0 % 09/10/19 Microalb/Creat Ratio 14.9 ug/mg cr (<30) 03/18/23 Cholesterol 160 mg/dL (<200) 03/18/23 HDL Cholesterol 50 mg/dL (>40) 03/18/23 Triglycerides 166 mg/dL (<150) H 03/18/23 Creatinine 1.07 mg/dL (0.5-1.4) 03/18/23 Blood Urea Nitrogen 21 mg/dL (9-16) H 03/18/23 Sodium 141 mmol/L (135-145) 03/18/23 Potassium 4.1 mmol/L (3.3-5.1) 03/18/23 Chloride 106 mmol/L (96-108) 03/18/23 Carbon Dioxide 28 mmol/L (22-29) 03/18/23 Calcium 9.6 mg/dL (8.4-10.2) 03/18/23 AST 16 U/L (5-37) 03/18/23 ALT 18 U/L (0-40) 03/18/23 Total Protein 7.4 g/dL (6.5-8.0) 03/18/23 Albumin 4.3 g/dL (3.5-5.0) 03/18/23 PFSH Medical History Anxiety and depression Cervical lymphadenopathy Normal colonoscopy Vitamin D deficiency Multinodular thyroid HLD (hyperlipidemia) 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 0% Hyperglycemia:? 90% Time in Range:? 10% Average glucose for the last 2 weeks? 295 mg/dL Discussed with patient Omnipod 5 verses beta bionics iLet. Patient is not ready to commit to insulin pump therapy Patient does not feel he would be successful in learning how to carb count, and is concerned about having a pump with in insulin delivery set and the tubing. Agree to continue discussion at next visit in 1 month Recommended to patient he try to increase physical activity, to assist with better glucose control and reduce high carbohydrate snack intake Will send Dr. Sesay message regarding changing Lantus to Toujeo, increase NovoLog to 30 units before meals Reviewed how to interpret trend arrows Patient able to insert sensor independently at home without issue.? Patient Instructions: . 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
== END 2023-05-28 16:03 | disposition home or self-care (01) ==
PROVIDERS: PCP Physician Assistant; Visit Provider Registered Nurse Diabetes Educator
DX: E13.9 Other specified diabetes mellitus without complications (principal)

== ENCOUNTER → 2023-05-28 15:23 | Outpatient (BNVA) | payer OTHER, SELFPAY | PROVIDERS: PCP Physician Assistant; Visit Provider Registered Nurse Diabetes Educator | DX: E13.9 Other specified diabetes mellitus without complications (principal) | CPT/HCPCS: 99211 ==

== ENCOUNTER 2023-07-07 07:56 | Outpatient (AMB) | payer OTHER, SELFPAY ==
--- NOTE | 2023-07-07 08:26 | A.OFFVIS_ITS ---
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 Accompanied by: Self / Same As Patient Allergies No Known Allergies Allergy (Verified 04/22/23 13:32) HPI Comprehensive Diabetes Asmnt Most Recent Diabetes Results: Microalb/Creat Ratio 14.9 ug/mg cr (<30) 03/18/23 Cholesterol 160 mg/dL (<200) 03/18/23 HDL Cholesterol 50 mg/dL (>40) 03/18/23 Triglycerides 166 mg/dL (<150) H 03/18/23 Creatinine 1.07 mg/dL (0.5-1.4) 03/18/23 Blood Urea Nitrogen 21 mg/dL (9-16) H 03/18/23 Sodium 141 mmol/L (135-145) 03/18/23 Potassium 4.1 mmol/L (3.3-5.1) 03/18/23 Chloride 106 mmol/L (96-108) 03/18/23 Carbon Dioxide 28 mmol/L (22-29) 03/18/23 Calcium 9.6 mg/dL (8.4-10.2) 03/18/23 AST 16 U/L (5-37) 03/18/23 ALT 18 U/L (0-40) 03/18/23 Total Protein 7.4 g/dL (6.5-8.0) 03/18/23 Albumin 4.3 g/dL (3.5-5.0) 03/18/23 [facility] Medical History Anxiety and depression Cervical lymphadenopathy Normal colonoscopy Vitamin D deficiency Multinodular thyroid HLD (hyperlipidemia) 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 checks BG Dexcom G7 Average glucose for the past 2 weeks to 225 mg/dL Patient above target 67% Patient at target 33% Patient below target 0% Patient? reports glycemic control as: Poor Most recent Hgb A1C: 9.4% on 04/22/2023 Frequency of low BG: Rarely Low BG treatment: Candy Frequency of high BG: Daily Does patient check Ketones? No Has pt been on a pump in the past? No Reviewed insulin pump basics today with Patient. Explained pros and cons of insulin pumps. Showed pt various pumps, infusion sets, and cgms currently dot ilable. Reviewed need to wear pump 24/ and need to change infusion set every 3 days. Also stressed importance of frequent BG checks, 4x daily minimum or use pump that is integrated with CGM.? TDD:160, 120 units after reducing insulin for insulin pump setting calculation I:CHO-1:4 Sensitivity factor-1:13 Patient demonstrated motivation for continued insulin pump education and understands the need to complete education prior to starting insulin pump for best outcome. Patient is currently using Dexcom G7, explained to patient and he will need to use Dexcom G6 with abel in order to run Omnipod 5, patient agreed Will follow up for continued education. Next visit will include review of Advanced Carb Counting. Patient Instructions: DIABETES PROBLEMS HOMECARE INSTRUCTIONS? for High Blood Sugar and When to Test for Ketones Hyperglycemia is the technical term for high blood glucose (blood sugar). High blood sugar happens when the body has too little insulin or when the body can't use insulin properly. What causes hyperglycemia? A number of things can cause hyperglycemia: * If you have type 1, you may not have given yourself enough insulin. ? If you have type 2, your body may have enough insulin, but it is not as effective as it should be. * You ate more than planned or exercised less than planned. * You have stress from an illness, such as a cold or flu. * You have other stress, such as family conflicts or school or dating problems. How to lower your blood sugar level. ? Take medications as directed by physician. ? Drink extra water or noncaffeinated, nonsugared drinks to prevented hydration. ? Exercise if you are not sick However, if your blood sugar is above 250 mg/dl, check your urine for ketones. If you have ketones, do not exercise Exercising when ketones are present may make your blood sugar level go even higher. You'll need to work with your doctor to find the safest way for you to lower your blood sugar level. Regularly check blood sugar or urine for sugar and acetone during illness. Diabetic ketoacidosis (DKA) Is serious condition that can lead to diabetic coma (passing out for a long time) or even . When your cells don't get the glucose they need for energy, your body begins to burn fat for energy, which produces ketones. Ketones are chemicals that the body creates when it breaks down fat to use for energy. The body does this when it doesn?t have enough insulin to use glucose, the body?s normal source of energy. When ketones build up in the blood, they make it more acidic. They are a warning sign that your diabetes is out of control or that you are getting sick. Symptoms of Diabetic Ketoacidosis (DKA) ? DKA usually develops slowly. But when vomiting occurs, this life- threatening condition can develop in a few hours. Early symptoms include the following: ? Thirst or a very dry mouth ? Frequent urination ? High blood glucose (blood sugar) levels ? High levels of ketones in the urine ? Then, other symptoms appear: ? Constantly feeling tired ? Dry or flushed skin ? Nausea, vomiting, or abdominal pain ? (Vomiting can be caused by many illnesses, not just ketoacidosis. If vomiting continues for more than 2 hours, contact your health care provider.) ? Difficulty breathing ? Fruity odor on breath ? A hard time paying attention, or confusion When should you test for ketones? It is advisable to check for ketones under the following conditions when: Your blood glucose is higher than 250mg/dl. Feeling nauseated, throwing up, or have pains in your abdominal region. Have a cold or flu. Have general body fatigue. Feel thirsty or have a very dry mouth. Have flushed skin. Have a fruity breath or a hard time breathing. You feel perplexed or in fog. How to Test Urine for Ketones You can detect ketones with a simple urine test using a test strip, similar to a blood testing strip. Ask your health care provider when and how you should test for ketones. Many experts advise to check your urine for ketones when your blood glucose is more than 250 mg/dl. When you are ill (when you have a cold or the flu, for example), check for ketones every 4 to 6 hours. And check every 4 to 6 hours when your blood sugar is more than 250 mg/dl. Also, check for ketones when you have any symptoms of DKA. How to lower your blood sugar level. ? Take medications as directed by physician. ? Drink extra water or noncaffeinated, nonsugared drinks to prevented hydration. ? Exercise if you are not sick However, if your blood sugar is above 250 mg/dl, check your urine for ketones. If you have ketones, do not exercise Exercising when ketones are present may make your blood sugar level go even higher. You'll need to work with your doctor to find the safest way for you to lower your blood sugar level. 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
== END 2023-07-07 08:39 | disposition home or self-care (01) ==
PROVIDERS: PCP Physician Assistant; Visit Provider Registered Nurse Diabetes Educator
DX: E13.9 Other specified diabetes mellitus without complications (principal)

== ENCOUNTER → 2023-07-07 07:56 | Outpatient (BNVA) | payer OTHER, SELFPAY | PROVIDERS: PCP Physician Assistant; Visit Provider Registered Nurse Diabetes Educator | DX: E13.9 Other specified diabetes mellitus without complications (principal); Z71.89 Other specified counseling | CPT/HCPCS: 99211 ==

== ENCOUNTER 2023-07-29 14:25 | Outpatient (AMB) | payer OTHER, SELFPAY ==
--- NOTE | 2023-07-29 15:21 | A.OFFVIS_ITS ---
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 Accompanied by: Self / Same As Patient Allergies No Known Allergies Allergy (Verified 04/22/23 13:32) HPI Comprehensive Diabetes Asmnt Most Recent Diabetes Results: Microalb/Creat Ratio 14.9 ug/mg cr (<30) 03/18/23 Cholesterol 160 mg/dL (<200) 03/18/23 HDL Cholesterol 50 mg/dL (>40) 03/18/23 Triglycerides 166 mg/dL (<150) H 03/18/23 Creatinine 1.07 mg/dL (0.5-1.4) 03/18/23 Blood Urea Nitrogen 21 mg/dL (9-16) H 03/18/23 Sodium 141 mmol/L (135-145) 03/18/23 Potassium 4.1 mmol/L (3.3-5.1) 03/18/23 Chloride 106 mmol/L (96-108) 03/18/23 Carbon Dioxide 28 mmol/L (22-29) 03/18/23 Calcium 9.6 mg/dL (8.4-10.2) 03/18/23 AST 16 U/L (5-37) 03/18/23 ALT 18 U/L (0-40) 03/18/23 Total Protein 7.4 g/dL (6.5-8.0) 03/18/23 Albumin 4.3 g/dL (3.5-5.0) 03/18/23 REPLACED BY [facility] Medical History Anxiety and depression Cervical lymphadenopathy Normal colonoscopy Vitamin D deficiency Multinodular thyroid HLD (hyperlipidemia) 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 The following topics were reviewed today: -Pump therapy basic concepts: Basal/bolus, insulin to carb ratio, correction factor, insulin on board -Device settings: Bluetooth/mobile connection (if applicable), correct date and time, sound volume -CGM settings(if integrated system): CGM graft views and trend arrows, alerts and alarms, Start new sensor ??? High Alert: Off ??? Low Alert: 70 mg/dl Insulin delivery settings Program insulin to carb ratio, correction factor, target blood glucose, suspend or resume insulin delivery, bolus limit and basal limit settings Patient did not bring insulin to today's visit. Appointment set up next week to start pod, and connect Dexcom G6 to Omnipod 5 Safety information: Importance of a backup plan, for manual injections, proper prescriptions and emergency supplies ketone strips, and rules for testing for ketones Setting verified by CDCES Basal rate(s) (units/hour) : 12 AM? to 12 AM 2.5 units / hr Bolus setting Insulin Carbohydrate Ratio (s) 12 AM? to 12 AM 1:4 Correction Factor / Sensitivity Factor 12 AM? to 12 AM ? 1:13 Active Insulin Time:? 4 hours Target(s): 12 AM? to 12 AM 120 mg/dL Correction threshold 12 AM? 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
== END 2023-07-29 15:54 | disposition home or self-care (01) ==
PROVIDERS: PCP Physician Assistant; Visit Provider Registered Nurse Diabetes Educator
DX: E13.9 Other specified diabetes mellitus without complications (principal)

== ENCOUNTER → 2023-07-29 14:25 | Outpatient (BNVA) | payer OTHER, SELFPAY | PROVIDERS: PCP Physician Assistant; Visit Provider Registered Nurse Diabetes Educator | DX: Z46.81 Encounter for fitting and adjustment of insulin pump (principal); E13.9 Other specified diabetes mellitus without complications; Z79.4 Long term (current) use of insulin | CPT/HCPCS: 99211 ==

== ENCOUNTER 2023-08-06 10:30 | Outpatient (AMB) | payer OTHER, SELFPAY ==
--- NOTE | 2023-08-06 11:28 | A.OFFVIS_ITS ---
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 Accompanied by: Self / Same As Patient Allergies No Known Allergies Allergy (Verified 04/22/23 13:32) HPI Comprehensive Diabetes Asmnt Most Recent Diabetes Results: Microalb/Creat Ratio 14.9 ug/mg cr (<30) 03/18/23 Cholesterol 160 mg/dL (<200) 03/18/23 HDL Cholesterol 50 mg/dL (>40) 03/18/23 Triglycerides 166 mg/dL (<150) H 03/18/23 Creatinine 1.07 mg/dL (0.5-1.4) 03/18/23 Blood Urea Nitrogen 21 mg/dL (9-16) H 03/18/23 Sodium 141 mmol/L (135-145) 03/18/23 Potassium 4.1 mmol/L (3.3-5.1) 03/18/23 Chloride 106 mmol/L (96-108) 03/18/23 Carbon Dioxide 28 mmol/L (22-29) 03/18/23 Calcium 9.6 mg/dL (8.4-10.2) 03/18/23 AST 16 U/L (5-37) 03/18/23 ALT 18 U/L (0-40) 03/18/23 Total Protein 7.4 g/dL (6.5-8.0) 03/18/23 Albumin 4.3 g/dL (3.5-5.0) 03/18/23 [facility] Medical History Anxiety and depression Cervical lymphadenopathy Normal colonoscopy Vitamin D deficiency Multinodular thyroid HLD (hyperlipidemia) 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 The following topics were reviewed today: -manual mode verses automatic mode -how to set a temp basal -CGM settings(if integrated system): CGM graft views and trend arrows, alerts and alarms, Start new sensor ??? High Alert: Off ??? Low Alert: 70 mg/dl Completed set up of Omnipod 5 at today's visit, reviewed with the patient how to deliver correction and mealtime boluses. Patient had taking Lantus 50 units at approximately tendon p.m. last night, set temp basal until 22:00 tonight to 0% to reduce risk of patient having hypoglycemic events Safety information: Importance of a backup plan, for manual injections, proper prescriptions and emergency supplies ketone strips, and rules for testing for ketones Setting verified by [facility] Basal rate(s) (units/hour) : 12 AM? to 12 AM 2.5 units / hr Bolus setting Insulin Carbohydrate Ratio (s) 12 AM? to 12 AM 1:4 Correction Factor / Sensitivity Factor 12 AM? to 12 AM ? 1:13 Active Insulin Time:? 4 hours Target(s): 12 AM? to 12 AM 120 mg/dL Correction threshold 12 AM? to 12 AM 130mg/dL Patient will follow up with CDE as instructed Patient will contact CDE with questions or concerns, patient given IT number to support in any technical issues related to insulin pump Medications: Discontinued insulin aspart U-100 Discontinued Reason: Doctor's Order Inject up to 150 units. 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
== END 2023-08-06 11:31 | disposition home or self-care (01) ==
PROVIDERS: PCP Physician Assistant; Visit Provider Registered Nurse Diabetes Educator
DX: E13.9 Other specified diabetes mellitus without complications (principal)

== ENCOUNTER → 2023-08-06 10:30 | Outpatient (BNVA) | payer OTHER, SELFPAY | PROVIDERS: PCP Physician Assistant; Visit Provider Registered Nurse Diabetes Educator | DX: Z46.81 Encounter for fitting and adjustment of insulin pump (principal); E13.9 Other specified diabetes mellitus without complications; Z79.4 Long term (current) use of insulin | CPT/HCPCS: 99211 ==

== ENCOUNTER 2023-08-12 13:56 | Outpatient (AMB) | payer OTHER, SELFPAY ==
[2023-08-12 14:02] VITALS: BP 164/90; PULSE 95; O2SAT 98; BMI 41.8
--- NOTE | 2023-08-12 14:02 | A.OFFPC_ITS ---
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 Required: No Accompanied by: Self / Same As Patient Allergies No Known Allergies Allergy (Verified 08/12/23 14:17) Medication List - Last Reconciled 08/12/23 by Dejuan Cardoso PA-C aspirin 81 mg PO DAILY 90 days atenolol 25 mg PO DAILY atorvastatin 40 mg PO DAILY blood pressure test kit-large As directed blood-glucose sensor (Dexcom G6 Sensor device) As directed blood-glucose transmitter (Dexcom G6 Transmitter device) As directed citalopram 10 mg PO DAILY glucagon 3 mg/actuation (Baqsimi) 3 mg intranasal ONCE ibuprofen 600 mg PO TID insulin aspart U-100 Infuse up to 150 units per day via Insulin pump subcutaneously; insulin glargine U-300 conc (Toujeo Max U-300 SoloStar) 70 units (0.2333 mL) subcut DAILY insulin sign erector cart,aut,G6/7,cntr (Omnipod 5 G6-G7 Intro Kit (Gen 5) subcutaneous cartridge) As directed insulin pump cart,auto,BT,G6/7 (Omnipod 5 G6-G7 Pods (Gen 5) subcutaneous c artridge) As directed change every 72 hours insulin pump cart,auto,BT-cntr (Omnipod 5 G6 Intro Kit (Gen 5) subcutaneous cartridge with controller) As directed insulin pump cart,automated,BT (Omnipod 5 G6 Pods (Gen 5) subcutaneous cartridge) As directed change every 72 hours lisinopril 10 mg PO DAILY Tobacco use date assessed: 04/02/22 Dental Screening Dental Screen Date: 12/11/22 HPI f/u DMII/ HLD HPI Details Patient is a 53-year-old male here today for a follow-up visit Patient has a past medical history significant for hyperlipidemia, type 2 diabetes, hypertension obesity. . Right shoulder rotator cuff tear: Has followed up with Orthopedics and received arthroscopic repair of his rotator cuff x2. Of note does have a history of thoracic outlet surgery on his right upper extremity as well. He reports his right shoulder issue is work related in some worker compensation claim. He has finished full course of physical therapy though still not to baseline. He is lost his job as he has not been able to perform his job duties due to his shoulder., still has pain in his shoulder. unable to lift his with his right upper extremity. He is unable to return back to his .. DMII:? 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 Today's A1c at 8.4 Has been walking and lost a few lb since last office visit. Has been trying to follow a diabetic diet and reducing his soda. ? He is speaking with surface mount technology operator and has been trying to adapt to a better diabetic diet.? He finds it very difficult as he does eat emotionally. He has seen Eye doctor and had mild retinopathy .. Hypertension: Blood pressure elevated today in office . He does not monitor his blood pressure at home, he reports he is feeling somewhat anxious today as he was working in his garden and needed to come to medical appointment. Laboratory Tests 08/11/21 10/29/21 06/13/22 08:26 16:23 08:50 RBC 5.32 Random Glucose Hgb A1c (Clinic) 7.7 H Hemoglobin A1c % LDL Cholesterol, C alc TSH Urine Microalbumin 7.0 09/23/22 03/18/23 03/18/23 07:25 08:01 08:05 RBC Random Glucose 146 H Hgb A1c (Clinic) Hemoglobin A1c % 7.8 LDL Cholesterol, C alc 77 TSH 2.47 Urine Microalbumin 30.0 04/22/23 08/12/23 14:04 14:08 RBC Random Glucose Hgb A1c (Clinic) 9.4 H 8.4 H Hemoglobin A1c % LDL Cholesterol, C alc TSH Urine Microalbumin [facility] Medical History Anxiety and depression Cervical lymphadenopathy Normal colonoscopy Vitamin D deficiency Multinodular thyroid HLD (hyperlipidemia) 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 Dawson Block, Marie Carbajal, Daron Nina and colleagues, with an educational grecia from [employer]. Review of Systems Const Denies headache(s) Eyes Denies loss of vision ENT Denies vertigo, Denies dizziness, Denies headache(s) and Denies sore throat Card Denies chest pain, Denies leg edema and Denies lightheadedness Resp Denies cough, Denies hemoptysis and Denies wheezing GI Denies abdominal pain, Denies melena, Denies constipation, Denies diarrhea and Denies vomiting Denies dysuria, Denies urinary frequency and Denies urinary urgency Musc Denies arthralgias, Denies joint swelling, Denies numbness and Denies tingling Neuro Denies Abnormal speech present, Denies behavioral changes, Denies vertigo, Denies dizziness, Denies headache(s), Denies loss of vision, Denies memory loss, Denies numbness and Denies tingling Psych Denies anxiety, Denies behavioral changes, Denies depression, Denies memory loss and Denies panic attacks Hunter/Lymph Denies easy bleeding and Denies easy bruising Aller/Immun Denies wheezing Physical exam (Primary Care) Vital Signs: Last Vital Signs Pulse 95 08/12/23 14:02 BP 164/90 H 08/12/23 14:02 Pulse Ox 98 08/12/23 14:02 Oxygen Delivery Method Room Air 08/12/23 14:02 BMI result Body Mass Index 41.8 Tobacco/Smoking Status: Tobacco use Status Tobacco use date assessed 04/02/22 08/12/23 14:04 Patient Tobacco Use Status Former Tobacco user 08/12/23 14:04 Tobacco use type Cigarette 06/04/24 14:04 e-Cigarette/Vaping Use Never Used 08/12/23 14:04 Thrive Assessment: Date of Thrive Assessment Date Thrive assessed 04/02/22 08/12/23 14:04 Const General: healthy appearing, no acute distress, alert and awake Nutritional Appearance: well nourished Orientation/consciousness: oriented to person, oriented to place and oriented to time HENMT Ears: TM's normal bilaterally General nose exam: Normal nasal mucous membranes and turbinates present Eyes Conjunctivae: conjunctivae normal Sclerae: sclerae normal Pupils: Equal, round and reactive pupils present Neck Neck: Yes no lymphadenopathy and Yes no JVD Thyroid: Thyroid normal Carotids: no bruits Resp Effort & Inspection: normal respiratory effort and not tachypneic Auscultation: no crackles, no rales, no rhonchi and no wheezes Cardio Rate: regular rate Rhythm: regular rhythm Heart sounds: no murmurs and normal S1 and S2 GI Palpation (GI): Soft to palpation, nontender, no hepatomegaly and no splenomegaly Auscultation: normal bowel sounds Skin General skin exam: no rashes or lesions noted and dry skin Neuro General: oriented to person, oriented to place and oriented to time Cranial nerves: Yes Equal, round and reactive pupils present Speech: No Abnormal speech present Gait exam (Neuro): Normal gait present Motor exam (neuro): no tremor noted Extrem Other: RIGHT UPPER EXTREMITY/SHOULDER: LIMITED RANGE OF MOTION COMPARED TO THE LEFT SHOULDER. NEGATIVE EMPTY CAN, NEGATIVE ZHU TEST. 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 Continues on fairly high doses of insulin. A1c today at 8.4 from 9.4. He has considering starting the Omnipod for better glucose control. Will be following up with his endocrinology group.. (2) High cholesterol: Code(s): E78.00 - Pure hypercholesterolemia, unspecified Plan: Patient's most recent lipid panel showing acceptable total cholesterol and LDL. He will continue on statin therapy with goal LDL to remain below 100 (3) Hypertension: Code(s): I10 - Essential (primary) hypertension Qualifiers: Hypertension type: renovascular hypertension Qualified Code(s): I15.0 - Renovascular hypertension Plan: Patient's blood pressure elevated today in office. He reports he has been stressed though at this time. He has not monitoring his blood pressure at home. Will give patient paper Rx for blood pressure cuff to do home blood pressure monitoring. Will continue current dose of atenolol and lisinopril with goal blood pressure remain below 140/90. If blood pressure remains above 140/90 at home will consider increasing lisinopril 20 mg for better blood pressure control. (4) Rotator cuff tear arthropathy of right shoulder: Code(s): M75.101 - Unspecified rotator cuff tear or rupture of right shoulder, not specified as traumatic; M12.811 - Other specific arthropathies, not elsewhere classified, right shoulder Plan: As per HPI, patient followed by Orthopedics and underwent surgery X2 in his right shoulder. Continues to have a decreased range of motion, pain and decreased strength in the right upper extremity. He reports he often has to drop items out of his right hand due to tightening up of his biceps. He unfortunately is unable to work at this time due to his shoulder issue and has been let go from his job of 31 years. He would like a 2nd opinion from orthopedic surgeon. Has not been able to return back to work. (5) Erectile dysfunction due to type 2 diabetes mellitus: Code(s): E11.69 - Type 2 diabetes mellitus with other specified complication; N52.1 - Erectile dysfunction due to diseases classified elsewhere Plan: Patient interested in trying Cialis to help with erectile dysfunction. Orders: Orders Lipid Panel 08/12/23 E78.5 - Hyperlipidemia, unspecified Comprehensive [place]. Panel Fast 08/12/23 I15.0 - Renovascular hypertension AMB Hemoglobin A1c 08/12/23 E11.319 - Type 2 diabetes mellitus with unspecified diabetic retinopathy without macular edema Complete Blood Count no Diff 08/12/23 I15.0 - Renovascular hypertension Referrals Orthopedics Referral M12.811 - Other specific arthropathies, not elsewhere classified, right shoulder, M75.101 - Unspecified rotator cuff tear or rupture of right shoulder, not specified as traumatic Medications: New tadalafil (Cialis) administer approximately 30min before sexual activity; do not use more than 1 dose per 24hrs 20 mg PO DAILY 5 tabs 0RF sexual activity 5 days E11.69 - Type 2 diabetes mellitus with other specified complication, N52.1 - Erectile dysfunction due to diseases classified elsewhere Refilled blood pressure test kit-large As directed 1 ea 0RF I15.0 - Renovascular hypertension Patient Instructions: Goal: A1c to be below 7.0, blood pressure to be below 140/90 Barriers: Adherence to physical activity and healthy eating habits. 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
== END 2023-08-12 14:42 | disposition home or self-care (01) ==
PROVIDERS: PCP Physician Assistant; Visit Provider Physician Assistant
DX: E11.69 Type 2 diabetes mellitus with other specified complication (principal); E11.319 Type 2 diabetes mellitus with unspecified diabetic retinopathy without macular edema; E78.00 Pure hypercholesterolemia, unspecified; I15.0 Renovascular hypertension; M75.101 Unspecified rotator cuff tear or rupture of right shoulder, not specified as traumatic; M12.811 Other specific arthropathies, not elsewhere classified, right shoulder; N52.1 Erectile dysfunction due to diseases classified elsewhere
CPT/HCPCS: 83036; 99214; G2211

== ENCOUNTER 2023-08-13 07:59 | Outpatient (AMB) | payer OTHER, SELFPAY ==
--- NOTE | 2023-08-13 08:28 | A.OFFVIS_ITS ---
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 Accompanied by: Self / Same As Patient Allergies No Known Allergies Allergy (Verified 08/12/23 14:17) HPI Comprehensive Diabetes Asmnt Most Recent Diabetes Results: Microalb/Creat Ratio 14.9 ug/mg cr (<30) 03/18/23 Cholesterol 160 mg/dL (<200) 03/18/23 HDL Cholesterol 50 mg/dL (>40) 03/18/23 Triglycerides 166 mg/dL (<150) H 03/18/23 Creatinine 1.07 mg/dL (0.5-1.4) 03/18/23 Blood Urea Nitrogen 21 mg/dL (9-16) H 03/18/23 Sodium 141 mmol/L (135-145) 03/18/23 Potassium 4.1 mmol/L (3.3-5.1) 03/18/23 Chloride 106 mmol/L (96-108) 03/18/23 Carbon Dioxide 28 mmol/L (22-29) 03/18/23 Calcium 9.6 mg/dL (8.4-10.2) 03/18/23 AST 16 U/L (5-37) 03/18/23 ALT 18 U/L (0-40) 03/18/23 Total Protein 7.4 g/dL (6.5-8.0) 03/18/23 Albumin 4.3 g/dL (3.5-5.0) 03/18/23 [facility] Medical History Anxiety and depression Cervical lymphadenopathy Normal colonoscopy Vitamin D deficiency Multinodular thyroid HLD (hyperlipidemia) 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 The following topics were reviewed today: -manual mode verses automatic mode -how to set a temp basal -CGM settings(if integrated system): CGM graft views and trend arrows, alerts and alarms, Start new sensor ??? High Alert: Off ??? Low Alert: 70 mg/dl CGM data: Patient above target 48% Patient at target 52% Patient below target 0% Patient's average glucose for the past 7 days 179 mg/dL Basal: 56% Bolus: 44% For the past 7 days patient has been in manual mode, at today's visit we switched over to auto mode, no changes made to pump settings at this visit. Patient has upcoming visit on 08/21/[address] Sesay. Patient given off pump backup plan Safety information: Importance of a backup plan, for manual injections, proper prescriptions and emergency supplies ketone strips, and rules for testing for ketones Setting verified by [facility] Basal rate(s) (units/hour) : 12 AM? to 12 AM 2.5 units / hr Bolus setting Insulin Carbohydrate Ratio (s) 12 AM? to 12 AM 1:4 Correction Factor / Sensitivity Factor 12 AM? to 12 AM ? 1:13 Active Insulin Time:? 4 hours Target(s): 12 AM? to 12 AM 120 mg/dL Correction threshold 12 AM? 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
== END 2023-08-13 08:30 | disposition home or self-care (01) ==
PROVIDERS: PCP Physician Assistant; Visit Provider Registered Nurse Diabetes Educator
DX: E13.9 Other specified diabetes mellitus without complications (principal)

== ENCOUNTER → 2023-08-13 07:59 | Outpatient (BNVA) | payer OTHER, SELFPAY | PROVIDERS: PCP Physician Assistant; Visit Provider Registered Nurse Diabetes Educator | DX: E13.9 Other specified diabetes mellitus without complications (principal); Z46.81 Encounter for fitting and adjustment of insulin pump; Z96.41 Presence of insulin pump (external) (internal); Z79.4 Long term (current) use of insulin | CPT/HCPCS: 99211 ==

== ENCOUNTER → 2023-09-19 10:46 | Outpatient (AMB) | payer OTHER, SELFPAY ==
--- OUTSIDE RECORDS SUMMARY | 2023-09-19 10:47 | XMS_ITS | Continuity of Care Document ---
Author Organization [facility] ter Address [address] [place] [id number]- Care Team Providers Care Detention Deputy Name Role Phone Dejuan Reardon Primary Care Physician Encounter [facility] Date(s): 10/21/21 - 10/22/[address] [address]- Encounter Diagnosis Dizziness(Final) - 10/21/21 Hypertension(Final) - 10/21/21 Hyperlipidemia(Final) - 10/21/21 Type II diabetes mellitus(Final) - 10/21/21 Discharge Disposition: A-D/C Home Attending Physician: Dorcas Mckeon MD Admitting Physician: Lauren Owen MD Referring Physician: Not on Staff, Referring MD Allergies, Adverse Reactions, Alerts No Known Medication Allergies Immunizations Given and Recorded Vaccine Date Status Refusal Reason pneumococcal 23-valent vaccine 02/12/14 Given Medications aspirin 81 mg oral tablet 1 tablet = 81 mg, By Mouth, Daily, # 30 tablet, 0 Refills, Maintenance, 02/16/14 9:19:06, Tablet Start Date: 02/16/14 Status: Ordered atenolol 25 mg oral tablet 1 tablet = 25 mg, By Mouth, Daily, # 30 tablet, 0 Refills, Maintenance, 07/09/14 9:28:06, Tablet Start Date: 07/09/14 Status: Ordered atenolol 25 mg oral tablet 25 mg, Tablet, By Mouth, 10/22/21 9:00:00 EDT Start Date: 10/22/21 Stop Date: 10/22/21 Status: Completed atorvastatin 40 mg oral tablet 1 tablet = 40 mg, By Mouth, Daily, # 90 tablet, 0 Refills, Maintenance, 10/22/21 10:21:00 EDT, Tablet, Partial fill upon patient request if the prescription is for a schedule II opioid drug. Start Date: 10/22/21 Status: Ordered insulin glargine 100 u/ml subcutaneous solution 0.45 mL = 45 units, Subcutaneous Injection, Daily at bedtime, 0 Refills, Maintenance, 07/13/14 13:43:48, Injection Start Date: 07/13/14 Status: Ordered insulin lispro 100 u/ml subcutaneous injection 3-13 units, Subcutaneous Injection, 3 times a day before meals, << Sliding Scale Comments >> 70 - 119 3 units Call if less than 70 120 - 169 5 units 170 - 219 7 units 220 - 269 9 units 270 - 319 11 units 320 - 369 13 units Call i... Start Date: 07/13/14 Status: Ordered meclizine 25 mg oral tablet 1 tablet = 25 mg, By Mouth, 3 times a day, PRN for dizziness, # 30 tablet, 0 Refills, Maintenance, 10/22/21 10:22:00 EDT, Tablet, Partial fill upon patient request if the prescription is for a schedule II opioid drug. Start Date: 10/22/21 Status: Ordered PT eval and treat for vestibular rehab PT eval and treat for vestibular rehab, See Instructions, # 1 each, Refills 0, Tot. Refills 0, Maintenance, PT eval and treat for vestibular rehab, 10/22/21 10:22:00 EDT, Compound Start Date: 10/22/21 Status: Ordered Problem List Condition Effective Dates Status Health Status Inform ant DVT (deep venous thrombosis) , R upper extremity(Confirmed) Active Disorder of diaphragm, right sided elevation(Confirmed) Active HLD (hyperlipidemia)(Confirmed) Active HTN (hypertension)(Confirmed) Active Diabetes 1.5, managed as typ e 2, insulin(Confirmed) Active Anxiety and depression(Confirmed) Active Obese class II(Confirmed) Active Obesity (BMI 39.52 as of 02/10/2015)(Confirmed) Active Thoracic outlet syndrome(Confirmed) Active Vital Signs Most recent to oldest [Reference Range]: 1 2 3 Height 163 cm (10/22/21 7:23 AM) 163 cm (10/22/21 4:27 AM) 163 cm (10/21/21 11:42 PM) Weight 100 kg (10/21/21 5:23 PM) 100 kg (10/21/21 12:36 PM) 100 kg (10/21/21 10:31 AM) Oxygen Saturation [94-100 %] 99 % (10/22/21 7:23 AM) 98 % (10/22/21 4:27 AM) 99 % (10/21/21 11:42 PM) Pulse Rate [55-90 bpm] 92 bpm *H* (10/22/21 8:49 AM) 92 bpm *H* (10/22/21 7:23 AM) 97 bpm *H* (10/22/21 4:27 AM) Body Mass Index [18.5-24.99] 37.64 *>HHI* (10/21/21 5:23 PM) 37.64 *>HHI* (10/21/21 12:36 PM) 37.64 *>HHI* (10/21/21 10:20 AM) Blood Pressure [90-138/55-84 mm Hg] 148/73mm Hg *H* (10/22/21 8:49 AM) 148/73mm Hg *H* (10/22/21 7:23 AM) 160/70mm Hg *H* (10/22/21 4:27 AM) Respiratory Rate [16-30 br/min] 17 br/min (10/22/21 9:00 AM) 20 br/min (10/22/21 7:23 AM) 20 br/min (10/22/21 4:27 AM) Temperature [96.8-100.4 DegF] 98.0 DegF (10/22/21 7:23 AM) 97.9 DegF (10/22/21 4:27 AM) 98 DegF (10/21/21 11:42 PM) Mode of Delivery (Oxygen) Room air (10/22/21 7:23 AM) Room air (10/22/21 4:27 AM) Room air (10/21/21 11:42 PM) Blood pressure sites Arm, left (10/22/21 7:23 AM) Arm, left (10/22/21 4:27 AM) Arm, left (10/21/21 11:42 PM) Temperature Route Oral (10/22/21 7:23 AM) Oral (10/22/21 4:27 AM) Oral (10/21/21 11:42 PM) Dry Weight 99 kg (10/21/21 5:23 PM) 99 kg (10/21/21 12:36 PM) 99 kg (10/21/21 10:31 AM) Weight Obtained Via Patient/family state d (10/21/21 10:20 AM) Dry Weight Obtained Via Patient/family s tated (10/21/21 10:31 AM) Social History Social History Type Response Smoking Status Former smoker; Tobac co user in household: No entered on: 03/22/14 Sex
--- OUTSIDE RECORDS SUMMARY | 2023-09-19 10:47 | XMS_ITS | Continuity of Care Document ---
Author Organization [facility] Address [address] [place] [address]- Care Team Providers Care Supervisor Liquid Yeast Name Role Phone Cheng Correa Primary Care Physician Encounter [facility] [place] Date(s): 03/13/21 - 05/29/[address] [address]- Discharge Disposition: A-D/C Home Attending Physician: Cheng Correa Admitting Physician: Cheng Correa Referring Physician: Cheng Correa Allergies, Adverse Reactions, Alerts No Known Medication [...] 9:28:06, Tablet Start Date: 07/09/14 Status: Ordered citalopram 20 mg oral tablet 1 tablet = 20 mg, By Mouth, Daily, # 30 tablet, 0 Refills, Maintenance, 07/09/14 9:28:17, Tablet Start Date: 07/09/14 Status: Ordered GlipiZIDE = 5 mg, By Mouth, Daily, 0 Refills, Maintenance, 02/10/15 8:18:40 Start Date: 02/10/15 Status: Ordered insulin glargine 100 u/ml subcutaneous [...] Call i... Start Date: 07/13/14 Status: Ordered Lisinopril = 5 mg, By Mouth, Daily, 0 Refills, Maintenance, 02/04/14 21:03:52 Start Date: 02/04/14 Status: Ordered simvastatin 10 mg oral tablet 1 tablet = 10 mg, By Mouth, Daily at bedtime, # 30 tablet, 0 Refills, Maintenance, 07/09/14 9:28:33, Tablet Start Date: 07/09/14 Status: Ordered Problem List Condition Effective Dates Status Health Status Inform ant DVT (deep venous thrombosis) , R upper extremity(Confirmed) Active Disorder of diaphragm, right sided elevation(Confirmed) Active HLD (hyperlipidemia)(Confirmed) Active HTN (hypertension)(Confirmed) Active Diabetes 1.5, managed as typ e 2, insulin(Confirmed) Active Anxiety and depression(Confirmed) Active Obesity (BMI 39.52 as of 02/10/2015)(Confirmed) Active Thoracic outlet syndrome(Confirmed) Active Social History Social History Type Response Smoking Status Former smoker; Tobac co user in household: No entered on: 03/22/14 Sex
--- OUTSIDE RECORDS SUMMARY | 2023-09-19 10:47 | XMS_ITS | Continuity of Care Document ---
Author Organization [facility] Address [address] [place] [address]- Care Team Providers Care Physical Security Engineer Name Role Phone Cheng Correa Primary Care Physician Encounter [facility] [place] Date(s): 03/29/21 - 04/28/[address] [address] Attending Physician: Arabella Renee Admitting Physician: Arabella Renee Referring Physician: AdmtrArabella Allergies, Adverse Reactions, Alerts No Known Medication [...]
--- OUTSIDE RECORDS SUMMARY | 2023-09-19 10:47 | XMS_ITS | Continuity of Care Document ---
Author Organization [facility] Address [address] [address]- Care Team Providers Care Research And Development Chemist Name Role Phone Dejuan Reardon Primary Care Physician [place] [facility] [place] - 01/27/23 [facility] [address] [address]- Attending Physician: Alphonso Sesay MD Admitting Physician: Alphonso Sesay MD Referring Physician: Alphonso Sesay MD Allergies, Adverse Reactions, Alerts No Known [...] 9:28:06, Tablet Start Date: 07/09/14 Status: Ordered atorvastatin 40 mg oral tablet 1 tablet [...] Date: 10/22/21 Status: Ordered Problem List Condition Confirmation Course Effective Dates Status Health St atus Informant DVT (deep venous thrombosis), R upper extremity Confirmed Active Disorder of diaphragm, right sided elevation Confirmed Active HLD (hyperlipidemia) Confirmed Active HTN (hypertension) Confirmed Active Diabetes 1.5, managed as type 2, insulin Confirmed Active Anxiety and depression Confirmed Active Obese class II Confirmed Active Obesity (BMI 39.52 as of 02/10/2015) Confirmed Active Thoracic outlet syndrome Confirmed Active Social History Social History Type Response Smoking Status Former smoker; Tobac co user in household: No entered on: 03/22/14 Sex EKG study * Event Display: ECG 12-Lead Authored Date: Please click on pdf link to open report * Event Display: ECG 12-Lead Authored Date: Ventricular Rate: 84 BPM Atrial Rate: 84 BPM P-R Interval: 156 ms QRS Duration: 94 ms Q-T Interval: 378 ms QTC Calculation(Bazett): 446 ms P Cleveland: 35 degrees R Cleveland: -19 degrees T Cleveland: 11 degrees Normal sinus rhythm Normal ECG When compared with ECG of 21-OCT-2021 10:25, No significant change was found Confirmed by MAHAMED BENITES ([id number]) on 01/21/2023 12:40:24 PM [place]: MAHAMED BENITES Patient Care team information Care Team Personnel Name: Raji Ball RN Position: [facility] RN Member Role: Primary Care Nurse Name: Dejuan Reardon Position: Reference Physician Member Role: PCP Address: Address: [address] [place] [address]- [place] Name: Edwar Cabezas RN Position: [facility] AMB Nurse Member Role: Primary Care Nurse Name: David ISIDRO, Concepcion Mathur Position: [facility] PCO Associate Professional Member Role: Primary Care Nurse Address: Address: [address] [place] [address] - [place] [address]- [place] Name: Sharlene Braxton RN Position: [facility] RN Member Role: Primary Care Nurse Name: Norma Davison RN Position: [facility] RN Member Role: Primary Care Nurse Name: Ricky Hagen Position: [facility] RN Member Role: Primary Care Nurse Care Team Related Persons Name: KRISTIAN GARCIA Address: home [address] [place] [address]
--- OUTSIDE RECORDS SUMMARY | 2023-09-19 10:47 | XMS_ITS | Continuity of Care Document ---
Author Organization [facility] Address [address] [place] [address]- Care Team Providers Care Fur Storage Clerk Name Role Phone Dejuan Reardon Primary Care Physician Encounter [facility] [place] Date(s): 04/17/22 - 05/17/[address] [address] Attending Physician: Arabella Renee Admitting Physician: [...] in household: No entered on: 03/22/14 Sex Patient Care team information Care Team Personnel Name: Raji Ball RN Position: S RN Member Role: Primary Care Nurse Name: Dejuan Reardon Position: Reference Physician Member Role: PCP Address: Address: [address] [place] [address] [place] [id number] Name: Edwar Cabezas RN Position: [facility] PCO RN Member Role: Primary Care Nurse Name: Concepcion Hernandez RN Position: S RN Member Role: Primary Care Nurse Name: Sharlene Braxton RN Position: S RN Member Role: Primary Care Nurse Name: Norma Davison RN Position: S RN Member Role: Primary Care Nurse Name: Ricky Hagen Position: S RN Member Role: Primary Care Nurse Care Team Related Persons Name: KRISTIAN GARCIA Address: home [address] [place] [address]
--- OUTSIDE RECORDS SUMMARY | 2023-09-19 10:47 | XMS_ITS | Continuity of Care Document ---
Author Organization [facility] Address [address] [place] [address]- Care Team Providers Care Generation Manager Name Role Phone Dejuan Reardon Primary Care Physician [phone] Encounter [facility] [place] Date(s): 01/29/23 - 01/29/[address] [address]- Discharge Disposition: A-D/C Home Attending Physician: Alphonso Sesay MD Admitting Physician: [...] Confirmed Active Thoracic outlet syndrome Confirmed Active Results Orders for Microbiology Reports Name Date Tissue Culture w/ Gram Smear 01/29/23 Tissue Culture w/ Gram Smear 01/29/23 Microbiology Reports TEST:Tissue/Biopsy Culture STATUS:Unauthenticated BODY SITE: SOURCE:TISSUE1 COLLECTED DATE/TIME:01/29/23 2:57 PM Tissue/Biopsy Culture SPECIMEN DESCRIPTION : TISSUE SHOULDER RT SPECIAL REQUESTS : NONE GRAM STAIN : NO CELLS OR ORGANISMS SEEN REPORT STATUS : PRELIMINARY REPORT TEST:Tissue/Biopsy Culture STATUS:Unauthenticated BODY SITE: SOURCE:TISSUE1 COLLECTED DATE/TIME:01/29/23 2:03 PM Tissue/Biopsy Culture SPECIMEN DESCRIPTION : TISSUE SHOULDER RT SPECIAL REQUESTS : NONE GRAM STAIN : NO CELLS OR ORGANISMS SEEN REPORT STATUS : PRELIMINARY REPORT Vital Signs Most recent to oldest [Reference Range]: 1 2 3 Weight 103 kg (01/29/23 12:17 PM) Oxygen Saturation [94-100 %] 92 % *L* (01/29/23 4:20 PM) 92 % *L* (01/29/23 4:10 PM) 98 % (01/29/23 4:00 PM) Pulse Rate [55-90 bpm] 82 bpm (01/29/23 12:17 PM) Blood Pressure [90-138/55-84 mm Hg] 144/86mm Hg *H* (01/29/23 4:10 PM) 152/88mm Hg *H* (01/29/23 4:00 PM) 142/81mm Hg *H* (01/29/23 3:45 PM) Respiratory Rate [16-30 br/min] 26 br/min (01/29/23 4:20 PM) 24 br/min (01/29/23 4:10 PM) 15 br/min *L* (01/29/23 4:00 PM) Temperature [96.8-100.4 DegF] 97.3 DegF (01/29/23 3:10 PM) 97.8 DegF (01/29/23 12:17 PM) Liters per Minute 6 L/min (01/29/23 3:45 PM) 6 L/min (01/29/23 3:30 PM) 6 L/min (01/29/23 3:20 PM) Mode of Delivery (Oxygen) Room air (01/29/23 4:20 PM) Simple face mask (01/29/23 4:00 PM) Simple face mask (01/29/23 3:45 PM) Blood pressure sites Arm, left (01/29/23 12:45 PM) Arm, left (01/29/23 12:35 PM) Arm, left (01/29/23 12:30 PM) Temperature Route Temporal (01/29/23 3:10 PM) Temporal (01/29/23 12:17 PM) Dry Weight 103 kg (01/29/23 12:17 PM) Weight Obtained Via Standing scale (01/29/23 12:17 PM) Dry Weight Obtained Via Standing scale (01/29/23 12:17 PM) Social History Social History Type Response Smoking Status Former smoker; Tobac co user in household: No entered on: 03/22/14 Sex History and physical note * Alphonso Sesay MD: PERFORM Event Display: History and Physical Hospital Authored Date: [id number] Patient: ??OFE DELUNA ? Age:??52 Years?Sex:??Male?:??1970?? Chief complaint: Right shoulder pain Interval history: Patient follows up today for his right shoulder. He was last seen in September. He hadbeen booked for revision right shoulder arthroscopy however this was denied by worker's compensation. He continues to have pain and functional limitations and would like to book through his private insurance. He has been out of work. He reports his glycemic control continues to improve. His last hemoglobin A1c was 6.9. HPI: Patient is a 51-year-old male here for follow-up visit whose had ongoing pain status post right shoulder arthroscopic rotator cuff repair, subacromial decompression, biceps tenodesis performed on August 24, 2021. Initially after surgery patient had very poorly controlled glycemic control with glucose numbers in the 200-300 range. MRI of the shoulder was obtained demonstrating intact rotator cuff repair. Infectious lab work was negative, and shoulder aspiration was negative. He had initially been not taking his insulin but was able to switch insurances and has resumed his diabetes medications. Patient's hemoglobin A1c has gradually improved. Last reading 7.8 from August 02, 2022 he was last seen in the office on August 02, 2022. Subacromial steroid injection was administered. Patient reports the injection provided about one week of relief. Still having fairly significant pain although his range of motion has improved. ?? 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 ?? 14 Point ROS conducted and negative except as mentioned in HPI Family history reviewed and noncontributory to HPI ? PHYSICAL EXAM: Height and weight recorded on intake form GEN: NAD, Resting comfortably PSYCH: A+Ox3, appropriate mood and affect CARDIAC: RRR CHEST: No labored respirations, no wheezing ABDOMEN: Soft, nontender, non distended ? Physical exam Physical exam Patient appears comfortable, no distress Right shoulder surgical scars well-healed?Positive tenderness to palpation anterior shoulder. Positive mild tender to palpation over the acromioclavicular jointThere is no swelling, fluctuance. Moderate crepitus with active and passive range of motion Significantly limited active and passive range of motion. He tolerates active and passive forward elevation to 100 degrees, external rotation to 60 degrees, internal rotation to L5 4+/5 strength forward elevation, external rotation, internal rotation Becerra: Positive Near: Positive [place]'s: Positive for pain with 4/5 strength with cross body adduction ?? Labs: 03/21/22?? ESR 14 CRP 0.5 WBC 7.7? Right shoulder aspiration April 24, 2022: ??the initial tap dry, sterile saline lavage returned less than 1 cc of serosanguineous fluid. Aspirate was sent for Gram stain, culture, sensitivity. No growth ? MRI of the right shoulder with and without contrast obtained on March 25, 2022: Rotator cuff repair appears intact. ??Anchors from cuff repair and biceps tenodesis are visualized. Moderate subacromial/subdeltoid bursitis. ??Articular cartilage is intact. ??There is no abscess or fluid collections. ?? X-rays 4 views right shoulder previously obtained: Postsurgical changes status post decompression .Normal acromiohumeral ??interval. AC joint arthritis unchanged. Maintained glenohumeral joint space. No fractures, no calcifications ? Impression: 51-year-old male status post right shoulder arthroscopic rotator cuff repair, subacromial decompression, biceps tenodesis Plan:Surgery was denied through [employer]. He would like to book through his private insurance. The plan for surgery will be: Right shoulder diagnostic arthroscopy, extensive arthroscopic debridement, distal clavicle excision, biopsy, manipulation under anesthesia, ??possible biceps tenotomy, possible biceps tenodesis, possible capsule release, possible hardware removal possible open, and all other indicated procedures. Risks, benefits, and alternatives of the procedure were discussed at length with the patient. Risks discussed included but were not limited to bleeding, infection, damage to neurovascular structures, pain after surgery, incomplete or temporary symptom relief, inability toreturn to previous level of activity, shoulder stiffness, ??medical and anesthesia related complications, and thromboembolic events. Patient had a chance to have all questions answered today and wishes to move forward with surgical scheduling. ?? Patient Care team information Care Team Personnel Name: Raji Ball RN Position: S RN Member Role: Primary Care Nurse Name: Dejuan Reardon Position: Reference Physician Member Role: PCP Address: Address: [address] [place] [address]- [place] Name: Edwar Cabezas RN Position: [facility] AMB Nurse Member Role: Primary Care Nurse Name: Concepcion Hernandez NP Position: [facility] PCO Associate Professional Member Role: Primary Care Nurse Address: Address: [address] [place] [address]- [place] Name: Sharlene Braxton RN Position: S RN Member Role: Primary Care Nurse Name: Norma Davison RN Position: S RN Member Role: Primary Care Nurse Name: Ricky Hagen Position: S RN Member Role: Primary Care Nurse Care Team Related Persons Name: KRISTIAN GARCIA Address: home [address] [place] [address]
--- OUTSIDE RECORDS SUMMARY | 2023-09-19 10:47 | XMS_ITS | Continuity of Care Document ---
Author Organization [facility] Address [address] [address]- Care Team Providers Care White Mixing Operator Name Role Phone Dejuan Reardon Primary Care Physician Encounter [facility] [place] Date(s): 01/20/23 - 02/19/23 [facility] [address] [address]- Attending Physician: Arabella Renee Admitting Physician: AdmtrArabella Referring Physician: AdmtrArabella Allergies, Adverse Reactions, Alerts [...] Team Personnel Name: Raji Ball RN Position: [facility] RN Member Role: Primary Care Nurse Name: Dejuan Reardon Position: Reference Physician Member Role: PCP Address: Address: [address] [place] [address] [address] [place] [address]- [place] Name: Edwar Cabezas RN Position: [facility] AMB Nurse Member Role: Primary Care Nurse Name: Concepcion Hernandez NP Position: [facility] PCO Associate Professional Member Role: Primary Care Nurse Address: Address: [address] [place] [address] [facility] [place] [address]- [place] Name: Sharlene Braxton RN Position: [facility] RN Member Role: Primary Care Nurse Name: Norma Davison RN Position: S RN Member Role: Primary Care Nurse Name: Ricky Hagen Position: [facility] RN Member Role: Primary Care Nurse Care Team Related Persons Name: KRISTIAN GARCIA Address: home [address] [place] [address]
--- OUTSIDE RECORDS SUMMARY | 2023-09-19 10:47 | XMS_ITS | Continuity of Care Document ---
Author Organization [facility] Address [address] [place] [address]- Care Team Providers Care Forestry Hunter Name Role Phone Dejuan Reardon Primary Care Physician [place] [facility] [id number] Date(s): 03/12/23 - 08/22/[address] [address]- Encounter Diagnosis Pain in right shoulder(Final) - Discharge Disposition: A-D/C Home Attending Physician: Dejuan Reardon Admitting Physician: Dejuan Reardon Referring Physician: Dejuan Reardon Allergies, Adverse Reactions, Alerts No Known Medication [...] Refills, Maintenance, 07/13/14 13:43:48, Injection Start Date: 5/6/15 Status: Ordered insulin lispro 100 u/ml subcutaneous [...] Team Personnel Name: Raji Ball RN Position: [facility] RN Member Role: Primary Care Nurse Name: Dejuan Reardon Position: Reference Physician Member Role: PCP Address: Address: [address] [place] [address]- [place] Name: Edwar Cabezas RN Position: [facility] AMB Nurse Member Role: Primary Care Nurse Name: Concepcion Hernandez NP Position: [facility] PCO Associate Professional Member Role: Primary Care Nurse Address: Address: [address] [facility] [place] [address]- Name: Sharlene Braxton RN Position: [facility] Onco RN Member Role: Primary Care Nurse Name: Norma Davison RN Position: [facility] RN Member Role: Primary Care Nurse Name: Ricky Hagen Position: [facility] RN Member Role: Primary Care Nurse Care Team Related Persons Name: KRISTIAN GARCIA Address: home [address] [place] [address]
--- OUTSIDE RECORDS SUMMARY | 2023-09-19 10:47 | XMS_ITS | Continuity of Care Document ---
Author Organization [facility] Address [address] [place] [address]- Care Team Providers Care Sample Grinder Name Role Phone Dejuan Reardon Primary Care Physician [phone] [place] [facility] [place] 04/30/23 - 05/30/[address] [address] Attending Physician: Arabella Renee Admitting Physician: AdmArabella shetty Referring Physician: AdmtrArabella Allergies, Adverse Reactions, Alerts [...] Team Personnel Name: Raji Ball RN Position: [facility] RN Member Role: Primary Care Nurse Name: Dejuan Reardon Position: Reference Physician Member Role: PCP Address: Address: [address] [place] [address] [address] [place] [address]- [place] Name: Edwar Cabezas RN Position: [facility] AMB Nurse Member Role: Primary Care Nurse Name: Concepcion Hernandez NP Position: [facility] PCO Associate Professional Member Role: Primary Care Nurse Address: Address: [address] [place] [address] [facility] [place] [address]- [place] Name: Sharlene Braxton RN Position: [facility] Onco RN Member Role: Primary Care Nurse Name: Norma Davison RN Position: [facility] RN Member Role: Primary Care Nurse Name: Ricky Hagen Position: [facility] RN Member Role: Primary Care Nurse Care Team Related Persons Name: KRISTIAN GARCIA Address: home [address] [place] [address]
--- OUTSIDE RECORDS SUMMARY | 2023-09-19 10:47 | XMS_ITS | Continuity of Care Document ---
Author Organization [facility] Address [address] [place] [address]- Care Team Providers Care Police Academy Program Coordinator Name Role Phone Dejuan Reardon Primary Care Physician [phone] Encounter [facility] [place] Date(s): 03/12/22 - 06/17/[address] [address]- Encounter Diagnosis Pain in right shoulder(Final) - Discharge Disposition: A-D/C Home Attending Physician: Cheng [...] Physician Member Role: PCP Address: Address: [address] [facility] [address] [place] [address]- Name: Edwar Cabezas RN Position: [facility] PCO RN Member Role: Primary Care Nurse Name: Concepcion Hernandez RN Position: S RN Member Role: Primary Care Nurse Name: Sharlene Braxton RN Position: S RN Member Role: Primary Care Nurse Name: Norma Davison RN Position: [facility] RN Member Role: Primary Care Nurse Name: Ricky Hagen Position: [facility] RN Member Role: Primary Care Nurse Care Team Related Persons Name: KRISTIAN GARCIA Address: home [address] [place] [address]
--- OUTSIDE RECORDS SUMMARY | 2023-09-19 10:47 | XMS_ITS | Continuity of Care Document ---
Author Organization [facility] Address [address] [place] [address]- Care Team Providers Care Roller Billet Mill Name Role Phone Cheng Correa Primary Care Physician Encounter [facility] [place] Date(s): 08/24/21 - 08/24/[address] [address] Discharge Disposition: A-D/C Home Attending Physician: Alphonso [...] Range]: 1 2 3 Height 163 cm (08/24/21 8:12 AM) Weight 101.4 kg (08/24/21 8:12 AM) Oxygen Saturation [94-100 %] 96 % (08/24/21 3:15 PM) 96 % (08/24/21 3:00 PM) 99 % (08/24/21 2:45 PM) Pulse Rate [55-90 bpm] 83 bpm (08/24/21 8:12 AM) Body Mass Index [18.5-24.99] 38.16 *>HHI* (08/24/21 8:12 AM) Blood Pressure [90-138/55-84 mm Hg] 134/83mm Hg (08/24/21 3:00 PM) 121/84mm Hg (08/24/21 2:45 PM) 123/72mm Hg (08/24/21 2:30 PM) Respiratory Rate [16-30 br/min] 25 br/min (08/24/21 3:15 PM) 20 br/min (08/24/21 3:00 PM) 16 br/min (08/24/21 2:45 PM) Temperature [96.8-100.4 DegF] 97.2 DegF (08/24/21 1:40 PM) 98.5 DegF (08/24/21 8:12 AM) Liters per Minute 6 L/min (08/24/21 2:45 PM) 6 L/min (08/24/21 2:30 PM) 6 L/min (08/24/21 2:15 PM) Mode of Delivery (Oxygen) Room air (08/24/21 3:00 PM) Simple face mask (08/24/21 2:45 PM) Simple face mask (08/24/21 2:30 PM) Blood pressure sites Arm, left (08/24/21 3:00 PM) Arm, left (08/24/21 2:45 PM) Arm, left (08/24/21 2:30 PM) Temperature Route Temporal (08/24/21 1:40 PM) Temporal (08/24/21 8:12 AM) Dry Weight 101.4 kg (08/24/21 8:12 AM) Weight Obtained Via Standing scale (08/24/21 8:12 AM) Dry Weight Obtained Via Standing scale (08/24/21 8:12 AM) Social History Social History Type Response Smoking Status Former smoker; Tobac co user in household: No entered on: 03/22/14 Sex
[2023-09-19 10:51] VITALS: BP 152/90; PULSE 102; TEMP 37.3; O2SAT 98
--- NOTE | 2023-09-19 10:51 | MHC.OFFWIV ---
Intake Vital Signs 09/19/23 10:51 Height 5 ft 3 in BP 152/90 H Blood Pressure Location Rt brachial Position Sitting Pulse 102 H Pulse Source Pulse Oximeter Temp 99.1 F Temp Source Oral Pulse Oximetry (%) 98 Oxygen Delivery Method Room Air Intake Visit Reasons: EP ?Flu symptoms Intake Note: pt is here for flu symptoms Patient Tobacco Use Status: Former Tobacco user Allergies No Known Allergies Allergy (Verified 09/19/23 10:52) Do you need a note to return to daycare/school/sports/work: No HPI EP ?Flu symptoms HPI Details This note is constructed using voice recognition software. While every effort has been made to ensure accuracy, asbestos microscopist errors may have been included. 53-year-old male diabetic patient presents with 4 day history of flu-like illness. He notes that he got back from vacation on Friday and both he and his girlfriend had fever, body ache, chills, cough, mild sore throat. His girlfriend was seen and she is positive for COVID. He has been wearing a mask when he is out in public, however he is maintained at home primarily. 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 Cognitive needs: No Hearing needs: No Vision needs: No Review of Systems Const All systems reviewed & are unremarkable except as noted in HPI and below Physical Exam Vital Signs: Last Vital Signs Temp 99.1 F 09/19/23 10:51 Pulse 102 H 09/19/23 10:51 BP 152/90 H 09/19/23 10:51 Pulse Ox 98 09/19/23 10:51 Oxygen Delivery Method Room Air 09/19/23 10:51 Const General: cooperative, healthy appearing, comfortable and no acute distress Orientation/consciousness: patient oriented x3 Limitations: no limitations HEENT Head: Yes normal to inspection Ears: hearing grossly normal bilaterally, external ears normal and TM's normal bilaterally General nose exam: Normal external nose present, Normal nares present and No nasal discharge present Face and sinus: Yes normal facial exam and Yes sinuses nontender Mouth: Normal oral and palatal mucosa present and moist mucous membranes Throat: Yes tonsils normal, Yes uvula midline and Yes posterior oropharynx abnormal (Erythema) Eyes General: appearance normal, both eyes and all related structures Neck Neck: Yes normal visual inspection Resp Effort & Inspection: normal respiratory effort, able to speak in complete sentences, Actively coughing, no respiratory distress, not tachypneic, no tripod positioning and no use of accessory muscles Auscultation: clear to auscultation bilaterally Cardio Jugular venous distension: no JVD Rate: regular rate Rhythm: regular rhythm Heart sounds: S1 normal heart sound present, S2 normal heart sound present, no click, no gallops, no murmurs and no rubs Skin General skin exam: no rashes or lesions noted, elasticity normal and turgor normal Neuro General: patient oriented x3 Extrem General: Yes normal to inspection and Yes no clubbing, cyanosis or edema Assessment & Plan Assessment & Plan (1) Viral URI: Code(s): J06.9 - Acute upper respiratory infection, unspecified Plan: Viral swab obtained, likely positive for COVID. Discussed treatment plan including use of Paxlovid. Advised patient when test results are available we will call that medication and if he still wants to proceed with that. He currently does want to proceed, discussed side effects of medication. Highly encouraged patient to do additional blood sugar checks in setting illness. Advised hydration, humidification, and [id number] sugar free options for symptomatic treatment. Plan See above for full details and plan. Orders: Orders SARS-CoV2/FLU/RSV Today J06.9 - Acute upper respiratory infection, unspecified Coding Level of Care Code Est Pt Level 4 (26805) Diagnoses Viral URI J06.9
== END ==
PROVIDERS: PCP Physician Assistant; Visit Provider Registered Nurse
DX: J06.9 Acute upper respiratory infection, unspecified (principal)
CPT/HCPCS: 99213

== ENCOUNTER 2023-09-19 13:18 | Outpatient (REF) | payer OTHER, SELFPAY ==
[2023-09-19 14:32] LABS: Influenza A PCR NEGATIVE (Negative); Influenza B PCR NEGATIVE (Negative); Resp Syncy Virus RNA Qual PCR NEGATIVE (Negative); SARS COV2 PCR INHOUSE POSITIVE (Negative)
== END 2023-09-19 13:19 | disposition home or self-care (01) ==
LOC: HO.LNP 13:18
PROVIDERS: Visit Provider Registered Nurse
DX: J06.9 Acute upper respiratory infection, unspecified (principal)
CPT/HCPCS: 0241U

== ENCOUNTER 2023-09-30 09:29 | Outpatient (AMB) | payer OTHER, SELFPAY ==
--- NOTE | 2023-09-30 09:31 | A.OFFVIS_ITS ---
Vital Signs 09/30/23 09:32 Height 5 ft 3 in Weight 231 lb 7.766 oz BMI 41.0 BP 142/86 H Blood Pressure Location Rt brachial Position Sitting Pulse 100 Pulse Source Pulse Oximeter Intake Visit Reasons: T1DM/CONFIRMED Intake Note: Patient presents today for a follow-up on Type 1 Diabetes Mellitus Insulin Pump: Last Diabetes Eye Exam: 08/2023 Last Podiatry Exam- Does not see a Sweatband Perforator Most recent HbA1c- 8.4% 08/12/2023 Random Glucose- 304 mg/dL, Today Crusher Operator Required: No Accompanied by: Self / Same As Patient Allergies No Known Allergies Allergy (Verified 09/19/23 10:52) HPI Comments Details: Basal rate(s) (units/hour) : 12 AM? to 12 AM 2.5 units / hr Bolus setting Insulin Carbohydrate Ratio (s) 12 AM? to 12 AM 1:4 Correction Factor / Sensitivity Factor 12 AM? to 12 AM ? 1:13 Active Insulin Time:? 4 hours Target(s): 12 AM? to 12 AM 120 mg/dL Correction threshold 12 AM? to 12 AM 130mg/dL 53 YO M with PMHx DM, HTN, HLD who is seen in F/U for BALDEV/T1DM. Initially diagnosed with T2DM 2009 when presented to ED with DKA/HHS. In early Mar 2018 Dr. Sesay checked antibodies for T1DM. IA-2 antibodies were found to be positive with a low C-Peptide level at the time of hyperglycemia. He was started on an Omnipod 5 with G6 Dexcom sensor 3 months ago. He has only been entering 65 carbohydrate g per 24 hour. His sugars start to rise to the mid to 50s and then he starts to entering carbs and does so inaccurately. Dexcom average glucose: [209 ] 25% very high (above 250) [31 ] % high ?(181-250) [ 44] % in range ?(70-180][44 ] % low (69-55) 0 % ?very low (below 54) 0 Standard Deviation[71 ] % TIme CGM Active Details [ 84%] Has hypoglycemia awareness. Treats with food. Often overcorrects. . Family history of T2DM in mom and siblings. . He has stopped drinking regular soda. Breakfast is 2 eggs and home fries, lunch is typically a ham and cheese sandwich on white bread with chips, supper is rice and beans. Last eye exam . Has retinopathy. saw optho 2 mos ago . Has retinopathy Denies Neuropathy, does not see podiatry. Has nephropathy, on Lisinopril 10 mg PO daily. UAC 6.6 06/13/2022. Has HLD, on Atorvastatin 40 mg PO daily. LDL 91 06/13/2022. No known CAD. Denies chest pains or palpitations. Weight: Stable since last visit. Has had CDE. Also was found to have multinodular thyroid with multiple subcentimeter thyroid nodules. Thyroid US: 12/19/2021FINDINGS: ? SIZE: Measurements of the thyroid lobes and nodules are given in sagittal, anteroposterior and transverse dimensions respectively. Right Thyroid Lobe: 5.8 x 1.5 x 2.5 cm, volume 11.5 mL. Previously 5.2 x 1.7 x 2.7 cm, volume 12.3 mL. Parenchyma: The gland echotexture is homogeneous. Thyroid vascularity is normal. Left Thyroid Lobe: 5.1 x 1.4 x 1.9 cm, volume 7.1 mL. Previously 4.6 x 1.3 x 1.8 cm, volume 5.8 mL.Parenchyma: The gland echotexture is homogeneous. Thyroid vascularity is normal. Isthmus: 0.2 cm in maximum AP dimension. Previously 0.5 cm. Estimated total number of nodules greater than or equal to 1 cm: 0. Director Of Reimbursement nodules are described as follows: 1.? Location: Left inferior lateral.?? ? Size: 0.4 x 0.3 x 0.3 cm, volume 0.02 mL. ?? ? Previously: 0.4 x 0.3 x 0.4 cm, volume 0.02 mL. ?? ? Nodule characteristics: ?? ? Composition: Spongiform (0). ?? ? Echogenicity: Anechoic (0). ?? ? Shape: Not taller than wide (0). ?? ? Margins: Smooth (0). ?? ? Echogenic Foci: None (0).? ACR TI-RADS total points: 0 Previous: 4 ?? ? ACR TI-RADS category: 1 Previous: 4 ? Significant change in size (>/= 20% in 2 dimensions and minimal increase of 2 mm or 50% or greater increase in volume): None ?? ? Change in features: None ?? ? Change in ACR TI-RADS risk category: Improved 2.? Location: Left inferior lateral.?? ? Size: 0.4 x 0.3 x 0.3 cm, volume 0.02 mL. ?? ? Previously: 0.4 x 0.3 x 0.4 cm, volume 0.02 mL. ?? ? Nodule characteristics: ?? ? Composition: Cystic(0). ?? ? ACR TI-RADS total points: 0 Previous: 3 ?? ? ACR TI-RADS category: 1 Previous: 3 ? Significant change in size (>/= 20% in 2 dimensions and minimal increase of 2 mm or 50% or greater increase in volume): None ?? ? Change in features: None ?? ? Change in ACR TI-RADS risk category: None 3.? Location: Left inferior.?? ? Size: 0 .7 x 0.6 x 0.9 cm, volume 0.20 mL. ?? ? Previously: 0.8 x 0.6 x 0.9 cm, volume 0.20 mL. ?? ? Nodule characteristics: ?? ? Composition: Cystic(0). ?? ? ACR TI-RADS total points: 0 Previous: 0 ?? ? ACR TI-RADS category: 1 Previous: 1 ? Significant change in size (>/= 20% in 2 dimensions and minimal increase of 2 mm or 50% or greater increase in volume): None ?? ? Change in features: None ?? ? Change in ACR TI-RADS risk category: None 4.? Location: Right mid.?? ? Size: 0.4 x 0.2 x 0.4 cm, volume 0.02 mL. ?? ? Previously: 0.4 x 0.3 x 0.4 cm, volume 0.02 mL. ?? ? Nodule characteristics: ?? ? Composition: Cystic(0). ?? ? ACR TI-RADS total points: 0 Previous: 4 ?? ? ACR TI-RADS category: 1 Previous: 4 ? Significant change in size (>/= 20% in 2 dimensions and minimal increase of 2 mm or 50% or greater increase in volume): None ?? ? Change in features: None ?? ? Change in ACR TI-RADS risk category: None NODES: No lymphadenopathy is seen in the tissue surrounding the thyroid gland. 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 He does have a positive history of DVT he has no shortness of breath or chest pain Physical Exam Vital Signs: Last Vital Signs Pulse 100 09/30/23 09:32 BP 142/86 H 09/30/23 09:32 BMI result Body Mass Index 41.0 Const General: cooperative and healthy appearing Nutritional Appearance: overweight Orientation/consciousness: oriented to person Limitations: no limitations Neck Thyroid: Thyroid normal Lymphatic: no lymphadenopathy noted Resp Effort & Inspection: normal respiratory effort Auscultation: clear to auscultation bilaterally Cardio Rate: regular rate Rhythm: regular rhythm Heart sounds: S1 normal heart sound present and S2 normal heart sound present Peripheral pulses: Peripheral pulses 2+ throughout Neuro General: oriented to person Extrem Other: + homans bilateral right = left calf Results Reviewed Results Reviewed: Laboratory Last Values Glucose (Clinic) 304 mg/dL (60-115) H 09/30/23 09:40 Assessment & Plan Assessment & Plan (1) 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 He has just recovered from COVID. Stat venous duplex was ordered bilateral and he is scheduled right after this appointment. If positive we will refer to emergency room for anticoagulation. Diabetes: Was started on Omnipod 5 with G6 sensor several months ago. His add for which blood sugar is 209. We reviewed the absolute need to enter his carbs accurately and I assisted him determine in carbohydrate grams in his typical meal plan. He was encouraged to add an additional vegetable daily. Will focus on accurately entering his carbohydrates at the start of the meal instead of waiting until his sugars rise. We will see the patient back in 4 weeks. We will check testosterone. Patient has been having ED for about 1 year. No spontaneous erections. Intermittently is able to get an erection but not sust ain. He has tried Cialis without success. We will check testosterone if low we will repeat along with LH and FSH and refer to Urology. Patient teaching today: The patient was counseled to always carry a source of sugar and on the rule of 15's: Take 3 glucose tablets and repeat again in 15 minutes if blood sugar is not in normal range. Continue to repeat every 15 minutes until blood sugar is n ormal. Backup insulin plan for pump failure. High glucose protocol. (2) Multinodular thyroid: Code(s): E04.2 - Nontoxic multinodular goiter Category: Medical Plan: will address next OV last 2021 Orders: Orders US venous duplex LE BI Today I82.409 - Acute embolism and thrombosis of unspecified deep veins of unspecified lower extremity Testosterone, Free/Total Today E11.69 - Type 2 diabetes mellitus with other specified complication, N52.1 - Erectile dysfunction due to diseases classified elsewhere Medications: Refilled insulin glargine U-300 conc (Toujeo Max U-300 SoloStar) 70 units (0.2333 mL) subcut DAILY 12 mL 5RF Coding Level of Care Code Est Pt Level 5 (38436) Complex EM visit Add On G2211 Diagnoses 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
[2023-09-30 09:32] VITALS: BP 142/86; PULSE 100; BMI 41.0
[2023-09-30 09:45] LABS: Glucose, Whole Blood 304 mg/dL (60-115)
== END 2023-09-30 10:39 | disposition home or self-care (01) ==
PROVIDERS: PCP Physician Assistant; Visit Provider Nurse Practitioner Adult Health
DX: E13.9 Other specified diabetes mellitus without complications (principal); E04.2 Nontoxic multinodular goiter
CPT/HCPCS: 99215; 99417; G2211

== ENCOUNTER → 2023-09-30 09:29 | Outpatient (BNVA) | payer OTHER, SELFPAY | PROVIDERS: PCP Physician Assistant; Visit Provider Nurse Practitioner Adult Health ==

== ENCOUNTER 2023-09-30 10:37 | Outpatient (REF) | payer OTHER, SELFPAY ==
--- NOTE | ~2023-09-30 | US_ITS ---
EXAMINATION: US VENOUS ULTRASOUND WITH DOPPLER LOWER EXTREMITY, BILATERAL CLINICAL INFORMATION: Bilateral leg pain COMPARISON: Left leg DVT study 08/27/2018 TECHNIQUE: Ultrasound of the deep veins is performed from the hip to the calf with compression sonography and color and pulse Doppler assessment. Spectral analysis with color-flow imaging is performed. FINDINGS: RIGHT: There is normal venous compression and respiratory variation and augmented flow. The visualized common femoral vein, superficial femoral vein, profunda femoral vein, popliteal vein, and the trifurcation region shows no evidence of deep venous thrombosis. There is no significant popliteal fossa cyst. LEFT: Partially occlusive thrombus is seen in the left popliteal vein which is linear and intraluminal. The peroneal vein is diseased and partially occluded. The anterior tibial veins and posterior tibial veins are widely patent. The visualized common femoral vein, superficial femoral vein and profunda femoral vein appear unremarkable. There is no significant popliteal fossa cyst. US/US venous duplex LE BI IMPRESSION: 1. No DVT demonstrated in the right lower extremity. 2. Partially occlusive thrombus in the left popliteal vein and peroneal vein. The prior left lower extremity DVT study from 08/27/2018 was normal.
== END 2023-09-30 10:38 | disposition home or self-care (01) ==
LOC: HO.US 10:37
PROVIDERS: PCP Physician Assistant; Visit Provider Nurse Practitioner Adult Health
DX: M79.604 Pain in right leg (principal); M79.605 Pain in left leg; Z86.718 Personal history of other venous thrombosis and embolism; E13.9 Other specified diabetes mellitus without complications; E04.2 Nontoxic multinodular goiter
CPT/HCPCS: 82947; 93970; 99212

== ENCOUNTER 2023-09-30 15:00 | Emergency (ER) | payer OTHER, SELFPAY ==
[2023-09-30 15:15] VITALS: BP 163/78; PULSE 92; RESP 18; TEMP 37.1; O2SAT 96; BMI 40.0
--- NOTE | 2023-09-30 15:15 | ED.GENADULT ---
HPI - General Adult General Chief complaint: General Medical Stated complaint: ?L leg blood clot/sent from pcp Time Seen by Provider: 09/30/23 16:05 Source: patient Mode of arrival: ambulatory Limitations: no limitations History of Present Illness HPI narrative: This is a 53-year-old man with a past medical history of hypertension, IDDM, anxiety/depression, recently diagnosed COVID September 18, 2023 who presents for evaluation of lower extremity pain/edema. Patient states that he had COVID-19 earlier this month that he got while he was in [place]. He states that he recently returned from [place]. Patient reports that he noticed increased swelling and ?cramps? in both of his legs. Patient reports the pain while resting at night. Patient states he discussed with his diabetes doctor who recommended evaluation for blood clot given his recent COVID-19 infection. Patient states no associated chest pain or dyspnea. He states no fever cough. He states no recent surgery or previous DVT/PE. He states no history of coagulopathy or bleeding diathesis. He states no hemoptysis, epistaxis, hematuria, melena or hematochezia. Related Data Previous Rx's ?Medication ?Instructions ?Recorded ibuprofen 600 mg tablet 600 mg PO TID for pain #90 tabs 06/13/21 glucagon 3 mg/actuation nasal 3 mg intranasal ONCE #2 ea 12/12/22 spray (Baqsimi) atenolol 25 mg tablet 25 mg PO DAILY #90 tabs 03/05/23 aspirin 81 mg tablet,delayed 81 mg PO DAILY 90 days #90 tabs 05/26/23 release lisinopril 10 mg tablet 10 mg PO DAILY #90 tabs 05/26/23 atorvastatin 40 mg tablet 40 mg PO DAILY #90 tabs 05/27/23 citalopram 10 mg tablet 10 mg PO DAILY #30 tabs 06/17/23 insulin pump cartridge,auto #1 ea 07/08/23 dose,BT,G6/G7 with controller subcutaneous (Omnipod 5 G6-G7 Intro Kit (Gen 5) subcutaneous cartridge) insulin pump cartridge,automated #1 ea 07/08/23 dose,BT with controller subcutaneous (Omnipod 5 G6 Intro Kit (Gen 5) subcutaneous cartridge with controller) blood-glucose sensor (Dexcom G6 #3 ea 07/16/23 Sensor device) blood-glucose transmitter (Dexcom #1 ea 07/16/23 G6 Transmitter device) insulin aspart U-100 100 unit/mL See Rx Instructions subcut 08/06/23 subcutaneous solution .COMPLEX #50 mL insulin pump cart,auto,BT,G6/7 #15 ea 08/06/23 (Omnipod 5 G6-G7 Pods (Gen 5) subcutaneous cartridge) insulin pump cart,automated,BT #15 ea 08/07/23 (Omnipod 5 G6 Pods (Gen 5) subcutaneous cartridge) blood pressure test kit-large #1 ea 08/12/23 tadalafil 20 mg tablet (Cialis) 20 mg PO DAILY sexual activity 5 08/12/23 days #5 tabs nirmatrelvir 300 mg (150 mg See Rx Instructions PO .COMPLEX 09/19/23 x2)-ritonavir 100 mg tablet,dose #30 ea pack (Paxlovid) apixaban 5 mg (74 tabs) tablets in 5 mg PO BID 30 days #60 ea 09/30/23 a dose pack (Eliquis DVT-PE Treat 30D Start) insulin glargine U-300 conc 300 70 unit (0.2333 mL) subcut DAILY 09/30/23 unit/mL (3 mL) subcutaneous pen #12 mL (Toujeo Max U-300 SoloStar) Allergies Allergy/AdvReac Type Severity Reaction Status Date / Time No Known Allergies Allergy Verified 09/30/23 15:17 Review of Systems Review of Systems: ROS as per HPI [facility] Past Medical History Medical History Anxiety and depression Cervical lymphadenopathy Normal colonoscopy Vitamin D deficiency Multinodular thyroid HLD (hyperlipidemia) 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 Cognitive needs: No Hearing needs: No Vision needs: No Physical Exam ED Vital Signs: Vital Signs - 24 hr 09/30/23 15:15 Temperature 98.7 F Pulse Rate 92 Respiratory Rate 18 Blood Pressure 163/78 H Pulse Oximetry 96 Oxygen Delivery Method Room Air BMI result Body Mass Index 40.0 Gen: NAD, AOx3 HEENT: NCAT, EOMI, normal conjunctiva CV: RRR, 2+ bilateral DP/PT pulses Pulm: CTAB, no increased work of breathing GI: Soft, NTND, no rebound, guarding or rigidity MSK: Asymmetrical lower extremity edema left greater than right with a calf tenderness and no discoloration to the skin Neuro: Grossly non focal, sensation intact to bilateral lower extremity dermatomes L2-S2 Course Course Course Narrative: This is a Rapid Medical Exam performed in triage by Lorrie Ortiz PA-C. Full HPI, ROS and PE to be performed by primary ED provider. 53 year-old M w/ PMHx thoracic outlet syndrome complicated by RUE DVT, LLE DVT s/p TKA & COVID on 09/17 presenting to the ED sent in by PCP for positive outpatient ultrasound for DVT today. Patient was c/o B/L leg pain & PCP ordered US. US Impresssion: Partially occlusive thrombus in the left popliteal vein and peroneal vein. Recently traveled to [place]. denies cigarette smoking. PE: Bilateral LE pitting edema. Neurovascularly intact. Plan: Labs Medical Decision Making Medical Decision Making MDM Narrative: Differential diagnosis includes, but is not limited to DVT, phlegmasia cerulea dolens, phlegmasia alba dolens, cellulitis, arterial embolism. Patient is afebrile and hemodynamically stable on room air. Exam is benign and reassuring. The lower extremities are neurovascularly intact. There is no physical exam evidence to suggest arterial embolism and I do not suspect this. There is no physical exam findings to suggest cellulitis. There is no discoloration of his skin to suggest phlegmasia cerulea dolens or phlegmasia alba dolens. I reviewed interpreted radiology impression of ultrasound as below which is positive for partially occlusive thrombus in the left popliteal and peroneal veins and I suspect that this is etiology of patient's symptoms and I will treat it as such. Patient is provided 10 mg p.o. Eliquis here in the ED and prescription for the same. Patient is not have any chest pain, dyspnea, tachypnea, hypoxia or tachycardia to suggest pulmonary embolism or further emergent evaluation. I counseled the patient extensively on risks and benefits of treatment including associated bleeding risk. All Questions answered. On re-examination, patient is well-appearing and in no acute distress. ?There is no indication for further emergent evaluation in this otherwise well-appearing patient as above. ?Patient is provided written and verbal instructions, educational materials, recommendations for outpatient follow-up, strict return precautions, prescription for Eliquis and teach back is performed. ?Patient states understanding and agreement with plan of care. ?Patient is discharged home in stable and improved condition. Admission/Observation Consideration of admission/observation: Escalation of care including admission/observation considered Lab Data MDM Lab Attestation statement: I reviewed the patient's lab results. I reviewed and interpreted patient's labs which are unremarkable and noncontributory. 09/30/23 15:25 09/30/23 15:25 Labs: Lab Results 09/30/23 Range/Units 15:25 WBC 7.6 (4.8-10.8) X10*3/uL RBC 3.88 L D (4.60-5.80) X10*6/uL Hgb 13.8 L (14.0-18.0) g/dl Hct 38.1 L (42.0-52.0) % MCV 98.2 H (80.0-98.0) fL MCH 35.6 H (27.0-33.0) pg MCHC 36.2 H (31.0-36.0) g/dl RDW 12.5 (11.0-16.0) % Plt Count 299 (160-400) X10*3/uL MPV 8.7 L (9.4-12.4) fL Immature Gran % (Auto) 0.3 (0.0-0.4) % Neut % (Auto) 66.5 (45-73) % Lymph % (Auto) 23.9 (20-40) % Hancock % (Auto) 7.2 (2-11) % Eos % (Auto) 1.6 (0-4) % Baso % (Auto) 0.5 (0-2) % Lymph # (Auto) 1.8 (1.2-4.9) X10*3/uL Hancock # (Auto) 0.6 (0.1-1.2) X10*3/uL Eos # (Auto) 0.1 (0.0-0.4) X10*3/uL Baso # (Auto) 0.0 (0.0-0.2) X10*3/uL Abs Immat Gran (auto) 0.02 (0.00-0.03) X10*3/uL Absolute Neuts (auto) 5.1 (2.0-8.3) x10*3/uL Absolute Nucleated RBC 0.000 (0.0-0.012) X10*3/uL Nucleated RBC % (auto) 0.0 (0.0-0.2) /100WBC PT 10.7 L (11.1-13.3) SEC INR 0.9 (0.9-1.1) APTT 24.5 L (26.0-36.8) SEC Sodium 139 (135-145) mmol/L Potassium 3.9 (3.3-5.1) mmol/L Chloride 108 (96-108) mmol/L Carbon Dioxide 23 (22-29) mmol/L Anion Gap 12 (12-20) BUN 16 (9-16) mg/dL Creatinine 0.98 (0.5-1.4) mg/dL Estim Creat Clear Calc 94.8 Estimated GFR > 60 Random Glucose 233 H (60-115) mg/dL Calcium 9.2 (8.4-10.2) mg/dL Radiology Impression Discussion of test interpretation with radiology: I have reviewed the radiologist's reading. Radiologist Impression: IMPRESSION: 1. No DVT demonstrated in the right lower extremity. 2. Partially occlusive thrombus in the left popliteal vein and peroneal vein. The prior left lower extremity DVT study from 08/27/2018 was normal. Dictated By: Cristobal Starr MD Signed By: <Electronically signed by Cristobal Starr MD in OV> 09/30/23 4465 Discharge Plan Discharge Clinical Impression: Acute deep vein thrombosis (DVT) of left lower extremity Patient Disposition: Home, Self-Care Instructions: Blood Thinners (ED) Additional Instructions: You were seen and evaluated in the emergency room. You were found to have a blood clot in your left lower leg. You are given a 1st dose of a blood thinning medication. You are given a a prescription for a new medication called Eliquis (apixaban). Please take as directed with your next dose being taken tomorrow morning October 01, 2023. This medication increases your risk of bleeding. Please return to the emergency room any time you hit your head. Please return to the emergency room if you cough blood, have a nose bleed, pee blood or see blood in your stools. Please discuss this new medication with your pharmacist. Please do not take any nonsteroidal anti-inflammatory drugs (such as aspirin or ibuprofen while taking this medication). Please discontinue Paxlovid if you are still taking this. Please call your regular/primary care doctor tomorrow October 01 2023 to schedule a follow-up appointment in the next 3-5 days for re-evaluation. Your workup is not complete until you follow-up with your regular/primary care doctor. Please return to the emergency room if you develop any new or worsening symptoms including, but not limited to white/blue/purple discoloration of your leg, chest pain, difficulty breathing, numbness/tingling in your leg or painful breathing. Prescriptions: New Eliquis DVT-PE Treat 30D Start 5 mg (74 tabs) tablets,dose pack 5 mg PO BID 30 Days Qty: 60 0RF Rx Instructions: Please take take 10mg by mouth twice a day for 7 days. After 7 days, please take 5mg by mouth twice a day. No Action ibuprofen 600 mg tablet 600 mg PO TID Qty: 90 2RF atenolol 25 mg tablet 25 mg PO DAILY Qty: 90 2RF aspirin 81 mg tablet,delayed release (DR/EC) 81 mg PO DAILY 90 Days Qty: 90 2RF lisinopril 10 mg tablet 10 mg PO DAILY Qty: 90 1RF atorvastatin 40 mg tablet 40 mg PO DAILY Qty: 90 3RF citalopram 10 mg tablet 10 mg PO DAILY Qty: 30 6RF (DME) Omnipod 5 G6 Intro Kit (Gen 5) Cartridge See Rx Instructions .Route Qty: 1 0RF Rx Instructions: As directed (DME) Omnipod 5 G6-G7 Intro Kt(Gen5) Cartridge See Rx Instructions .Route Qty: 1 0RF Rx Instructions: As directed (DME) Dexcom G6 Sensor Device See Rx Instructions .ROUTE .MEDSUPPLY Qty: 3 11RF Rx Instructions: As directed (DME) Dexcom G6 Transmitter Device See Rx Instructions .ROUTE .MEDSUPPLY Qty: 1 11RF Rx Instructions: As directed insulin aspart U-100 100 unit/mL solution See Rx Instructions subcut .COMPLEX Qty: 50 5RF Rx Instructions: Infuse up to 150 units per day via Insulin pump subcutaneously; (DME) Omnipod 5 G6-G7 Pods (Gen 5) Cartridge See Rx Instructions .Route Qty: 15 5RF Rx Instructions: As directed change every 72 hours (DME) Omnipod 5 G6 Pods (Gen 5) Cartridge See Rx Instructions .Route Qty: 15 5RF Rx Instructions: As directed change every 72 hours Paxlovid 300 mg (150 mg x 2)-100 mg tablets,dose pack See Rx Instructions PO .COMPLEX Qty: 30 0RF Rx Instructions: take TWO 150 mg tablets of nirmatrelvir with ONE 100 mg tablet of ritonavir twice daily for 5 days PO Stop statin for duration and 2 days after completion of treatment tadalafil [Cialis] 20 mg tablet 20 mg PO DAILY 5 Days Qty: 5 0RF Rx Instructions: administer approximately 30min before sexual activity; do not use more than 1 dose per 24hrs (DME) blood pressure test kit-large Kit See Rx Instructions .Route Qty: 1 0RF Rx Instructions: As directed Baqsimi 3 mg/actuation spray,non-aerosol 3 mg intranasal ONCE Qty: 2 4RF insulin glargine U-300 conc [Toujeo Max U-300 SoloStar] 300 unit/mL (3 mL) insulin pen 70 unit subcut DAILY Qty: 12 5RF Print Language: Slovenian
[2023-09-30 15:28] LABS: MANUAL DIFF FLAG NO
[2023-09-30 15:29] LABS: Basophils Percent Auto 0.5 % (0-2); Eosinophils Absolute Auto 0.1 X10*3/uL (0.0-0.4); Eosinophils Percent Auto 1.6 % (0-4); Hematocrit 38.1 % (42.0-52.0); Hemoglobin 13.8 g/dl (14.0-18.0); Imm Gran Abs Auto 0.02 X10*3/uL (0.00-0.03); Imm Gran Pct Auto 0.3 % (0.0-0.4); Lymphocytes Absolute Auto 1.8 X10*3/uL (1.2-4.9); Lymphocytes Percent Auto 23.9 % (20-40); Mean Corpuscular HGB Conc 36.2 g/dl (31.0-36.0); Mean Corpuscular Hemoglobin 35.6 pg (27.0-33.0); Mean Corpuscular Volume 98.2 fL (80.0-98.0); Mean Platelet Volume 8.7 fL (9.4-12.4); Monocytes Absolute Auto 0.6 X10*3/uL (0.1-1.2); Monocytes Percent Auto 7.2 % (2-11); Neutrophils Absolute Auto 5.1 x10*3/uL (2.0-8.3); Neutrophils Percent Auto 66.5 % (45-73); Platelet Count 299 X10*3/uL (160-400); Red Blood Count 3.88 X10*6/uL (4.60-5.80); Red Cell Distribution Width 12.5 % (11.0-16.0); White Blood Count 7.6 X10*3/uL (4.8-10.8)
[2023-09-30 15:38] LABS: INTERNATIONAL NORM RATIO 0.9 (0.9-1.1); Prothrombin Time 10.7 SEC (11.1-13.3)
[2023-09-30 15:40] LABS: Partial Thromboplastin Time 24.5 SEC (26.0-36.8)
[2023-09-30 15:45] LABS: Anion Gap 12 (12-20); Blood Urea Nitrogen 16 mg/dL (9-16); Calcium 9.2 mg/dL (8.4-10.2); Carbon Dioxide 23 mmol/L (22-29); Chloride 108 mmol/L (96-108); Creatinine Clr Calc Pharmacy 94.8; Estimated Glomerular Filt Rate > 60; Glucose Random 233 mg/dL (60-115); Potassium 3.9 mmol/L (3.3-5.1); Sodium 139 mmol/L (135-145)
--- NOTE | 2023-09-30 16:09 | PC.NURSE ---
patient arrives via external triage ambulatory with steady gait, states today he had a doctors appointment and complained of leg pain, patient states they orderd him an outpatient ultrasound and he was found to have a DVT in his left leg. patient recently had covid on 09/16 and was sick at home and unable to walk around much, endorsing some throbbing pain in left lower extremity. patient able to move extremity and has equal bilateral strength in lower extremities and palpable DP and PT pulses present. patient denies chest pain or shortness of breath, 18g PIV placed in RAC by this RN, patient placed on director cardiac. awaiting MD lei
[2023-09-30 16:11] VITALS: PULSE 91; RESP 16; TEMP 37.2; O2SAT 96
[2023-09-30 16:30] VITALS: BP 153/82; PULSE 91; RESP 16; TEMP 37.2; O2SAT 96
[2023-09-30] MEDS: Apixaban 5 MG TABLET 10 MG PO (16:37)
== END 2023-09-30 16:39 | disposition home or self-care (01) ==
PROVIDERS: Physician Assistant; Emergency Provider Emergency Medicine; PCP Physician Assistant
DX: I82.432 Acute embolism and thrombosis of left popliteal vein (principal); I82.452 Acute embolism and thrombosis of left peroneal vein; M79.605 Pain in left leg; M79.604 Pain in right leg; E11.9 Type 2 diabetes mellitus without complications; I10 Essential (primary) hypertension; E78.00 Pure hypercholesterolemia, unspecified; Z87.891 Personal history of nicotine dependence; Z79.82 Long term (current) use of aspirin; Z79.02 Long term (current) use of antithrombotics/antiplatelets; Z79.4 Long term (current) use of insulin
CPT/HCPCS: 36415; 80048; 85025; 85610; 85730; 99283; 99284

== ENCOUNTER 2023-10-01 09:15 | Outpatient (AMB) | payer OTHER, SELFPAY ==
--- NOTE | 2023-10-01 09:29 | A.OFFPC_ITS ---
Vital Signs 10/01/23 09:40 Height 5 ft 4 in Weight 232 lb BMI 39.8 BP 126/82 Blood Pressure Location Lt brachial Position Sitting Pulse 84 Pulse Source Pulse Oximeter Pulse Oximetry (%) 99 Oxygen Delivery Method Room Air Intake Visit Reasons: [facility] for [place] Intake Note: Patient is here to follow-up after a visit the emergency department at [facility] on 09/30/23 for DVT. 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 Accompanied by: Self / Same As Patient Allergies No Known Allergies Allergy (Verified 10/01/23 10:02) Medication List - Last Reconciled 10/01/23 by Dejuan Cardoso PA-C acamprosate 666 mg PO TID apixaban (Eliquis DVT-PE Treat 30D Start) 5 mg PO BID 30 days aspirin 81 mg PO DAILY 90 days atenolol 25 mg PO DAILY atorvastatin 40 mg PO DAILY blood pressure test kit-large As directed blood-glucose sensor (Dexcom G6 Sensor device) As directed blood-glucose transmitter (Dexcom G6 Transmitter device) As directed citalopram 10 mg PO DAILY folic acid 1 mg PO DAILY glucagon 3 mg/actuation (Baqsimi) 3 mg intranasal ONCE ibuprofen 600 mg PO TID insulin aspart U-100 Infuse up to 150 units per day via Insulin pump subcutaneously; insulin glargine U-300 conc (Toujeo Max U-300 SoloStar) 70 units (0.2333 mL) subcut DAILY insulin research psychologist cart,aut,G6/7,cntr (Omnipod 5 G6-G7 Intro Kit (Gen 5) subcutaneous cartridge) As directed insulin pump cart,auto,BT,G6/7 (Omnipod 5 G6-G7 Pods (Gen 5) subcutaneous cartridge) As directed change every 72 hours insulin pump cart,auto,BT-cntr (Omnipod 5 G6 Intro Kit (Gen 5) subcutaneous cartridge with controller) As directed insulin pump cart,automated,BT (Omnipod 5 G6 Pods (Gen 5) subcutaneous cartridge) As directed change every 72 hours lisinopril 10 mg PO DAILY nirmatrelvir-ritonavir 300 mg (150 mg x 2)-100 mg (Paxlovid) take TWO 150 mg tablets of nirmatrelvir with ONE 100 mg tablet of ritonavir twice daily for 5 days PO Stop statin for duration and 2 days after completion of treatment tadalafil (Cialis) 20 mg PO DAILY 5 days Tobacco use date assessed: 10/01/23 Dental Screening Dental Screen Date: 10/01/23 Did you have a dental visit in the last 12 months?: Yes Did you have a dental problem in the last 6 months where you did not have access to dental care?: No Was dental information given to patient?: Patient has dentist HPI [facility] for [place] HPI Details Patient is a 53-year-old male here today for a ER follow-up visit Patient has a past medical history significant for hyperlipidemia, type 2 diabetes, hypertension obesity. Patient recently had COVID infection in early 09/2023 while vacationing [place]. When he returned from [place] he had left lower extremity pain was seen at Endocrine office and underwent ultrasound that did show a DVT in his left lower extremity. Has been started on Eliquis 5 mg b.i.d. He does admit to flying to [place] though while in [place] he did drive from [place] to [place]. Note has had 2 other incidents blood clots (thoracic outlet and left lower extremity DVT status post orthopedic surgery). 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 1. Little interest or pleasure in doing things: more than half the days 2. Feeling down, depressed, or hopeless: more than half the days 3. Trouble falling or staying asleep, or sleeping too much: more than half the days 4. Feeling tired or having little energy: more than half the days 5. Poor appetite or overeating: more than half the days 6. Feeling bad about yourself - or that you are a failure or have let yourself or your family down: more than half the days 7. Trouble concentrating on things, such as reading the newspaper or watching television: more than half the days 8. Moving or speaking so slowly that other people could have noticed. Or the opposite - being so fidgety or restless that you have been moving around a lot more than usual: more than half the days 9. Thoughts that you would be better off or of hurting yourself in some way: not at all Total score: 16 Depression Screening Interpretation: Positive Depression Screening Follow-up: Existing condition and In treatment Depression Screening Done: Yes 34719 - PHQ-9 Billing: Yes Source: Developed by Drs. Dawson Block, Marie Carbajal, Daron Nina and colleagues, with an educational grecia from [employer]. Thrive Questionnaire Date Thrive assessed: 10/01/23 I am a: Patient What is your living situation today?: I have a steady place to live Within the past 12 months, did the food you bought not last and you didn't have the money to get more?: Never true Within the past 12 months, did you worry whether your food would run out before you got money to buy more?: Never true Do you have trouble paying for medicines?: No Do you have trouble getting transportation to medical appointments?: No Do you have trouble paying your heating and electricity bill?: No Do you have trouble taking care of your child, family member or friend?: No Do you have trouble with day-to-day activities such as bathing, preparing meals, shopping, managing finances, etc.?: No Are you currently unemployed and looking for a job?: No Are you interested in more education?: No Please select the resources that you would like help with: None Currently or been in a relationship where the following occur: No concerns reported THRIVE Score: 0 AUDIT C Alcohol Use Questionnaire (AUDIT-C) 1. How often do you have a drink containing alcohol?: 2-3 times a week 2. How many drinks containing alcohol do you have on a typical day when you are drinking?: 10 or more (1/2 of case of beers) 3. How often do you have six or more drinks on one occasion?: Never Total Score: 7 RAMON-7 AMB Questionnaire RAMON-7 Date RAMON - 7 assessed: 10/01/23 Feeling nervous, anxious, or on edge: 0 = Not at all Not being able to stop or control worryin = Not at all Worrying too much about different things: 0 = Not at all Trouble relaxin = Not at all Being so restless that it is hard to sit still: 0 = Not at all Becoming easily annoyed or irritable: 0 = Not at all Feeling afraid as if something awful might happen: 0 = Not at all Total RAMON-7 score (0-4 normal; 5-9 mild; 10-14 moderate; 15-21 severe): 0 Source: Developed by Drs. Dawson Block, Marie Carbajal, Daron Nina and colleagues, with an educational grecia from [employer]. RAMON-7 Assessment Billing RAMON-7 Assessment Tool: RAMON-7 Assessment 24993 Review of Systems Const Denies headache(s) Eyes Denies loss of vision ENT Denies vertigo, Denies dizziness, Denies headache(s) and Denies sore throat Card Denies chest pain, Denies leg edema and Denies lightheadedness Resp Denies cough, Denies hemoptysis and Denies wheezing GI Denies abdominal pain, Denies melena, Denies constipation, Denies diarrhea and Denies vomiting Denies dysuria, Denies urinary frequency and Denies urinary urgency Musc Denies arthralgias, Denies joint swelling, Denies numbness and Denies tingling Neuro Denies Abnormal speech present, Denies behavioral changes, Denies vertigo, Den ies dizziness, Denies headache(s), Denies loss of vision, Denies memory loss, Denies numbness and Denies tingling Psych Denies anxiety, Denies behavioral changes, Denies depression, Denies memory loss and Denies panic attacks Hunter/Lymph Denies easy bleeding and Denies easy bruising Aller/Immun Denies wheezing Physical exam (Primary Care) Vital Signs: Last Vital Signs Pulse 84 10/01/23 09:40 BP 126/82 10/01/23 09:40 Pulse Ox 99 10/01/23 09:40 Oxygen Delivery Method Room Air 10/01/23 09:40 BMI result Body Mass Index 39.8 Tobacco/Smoking Status: Tobacco use Status Tobacco use date assessed 10/01/23 10/01/23 09:49 Patient Tobacco Use Status Former Tobacco user 10/01/23 09:29 Tobacco use type Cigarette 10/01/23 09:29 e-Cigarette/Vaping Use Never Used 10/01/23 09:29 PHQ-9: PHQ-9 Score PHQ-9: Total score 16 10/01/23 10:19 Depression Screening Interpretation: Positive Depression Screening Follow-up: Existing condition and In treatment Thrive Assessment: Date of Thrive Assessment Date Thrive assessed 10/01/23 10/01/23 09:47 Currently or been in a relationship where the following occur: No concerns reported Const General: healthy appearing, no acute distress, alert and awake Nutritional Appearance: well nourished Orientation/consciousness: oriented to person, oriented to place and oriented to time HENMT Ears: TM's normal bilaterally General nose exam: Normal nasal mucous membranes and turbinates present Eyes Conjunctivae: conjunctivae normal Sclerae: sclerae normal Pupils: Equal, round and reactive pupils present Neck Neck: Yes no lymphadenopathy and Yes no JVD Thyroid: Thyroid normal Carotids: no bruits Resp Effort & Inspection: normal respiratory effort and not tachypneic Auscultation: no crackles, no rales, no rhonchi and no wheezes Cardio Rate: regular rate Rhythm: regular rhythm Heart sounds: no murmurs and normal S1 and S2 GI Palpation (GI): Soft to palpation, nontender, no hepatomegaly and no splenomegaly Auscultation: normal bowel sounds Skin General skin exam: no rashes or lesions noted and dry skin Neuro General: oriented to person, oriented to place and oriented to time Cranial nerves: Yes Equal, round and reactive pupils present Speech: No Abnormal speech present Gait exam (Neuro): Normal gait present Motor exam (neuro): no tremor noted Extrem Other: LEFT LOWER EXTREMITY: TRACE EDEMA, MILD TENDERNESS TO PALPATION BEHIND THE KNEE AND CALF. Right upper extremity: full ROM Left upper extremity: full ROM Right lower extremity: full ROM; no edema Left lower extremity: full ROM and edema Psych Mental Status: mental status grossly normal Speech and movement: Normal speech and movement present Affect: normal affect Attitude: cooperative Thought process: Normal thought process present Assessment and Plan Assessment & Plan (1) DVT (deep venous thrombosis): Comment: Left lower extremity DVT 09/2023 Code(s): I82.409 - Acute embolism and thrombosis of unspecified deep veins of unspecified lower extremity Qualifiers: Affected thrombotic vein of extremity: popliteal Chronicity: acute DVT location: lower extremity Laterality: left Qualified Code(s): I82.432 - Acute embolism and thrombosis of left popliteal vein Plan: Recent episode of a left popliteal DVT. Has had 2 other episodes of DVT with thoracic outlet syndrome many years ago and had a blood clot in his left leg after a orthopedic surgery. Unclear if he is had all provoked blood clots. Will set up patient with Hematology for further evaluation and recommendations on short-term or long-term anticoagulation use. 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 Continues on fairly high doses of insulin. Now has an Omnipod that has been helpful on managing his sugars. 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
[2023-10-01 09:40] VITALS: BP 126/82; PULSE 84; O2SAT 99; BMI 39.8
== END 2023-10-01 10:19 | disposition home or self-care (01) ==
PROVIDERS: PCP Physician Assistant; Visit Provider Physician Assistant
DX: I82.432 Acute embolism and thrombosis of left popliteal vein (principal); E13.9 Other specified diabetes mellitus without complications
CPT/HCPCS: 99213

== ENCOUNTER 2023-10-02 08:59 | Outpatient (REF) | payer OTHER, SELFPAY ==
[2023-10-08 15:53] LABS: Testosterone, Free 37.6 pg/mL (35.0-155.0); Testosterone, Total 267 ng/dL (250-1100)
== END 2023-10-02 09:00 | disposition home or self-care (01) ==
LOC: HO.LAB 08:59
PROVIDERS: Absent Provider Physician Assistant; PCP Physician Assistant; Visit Provider Nurse Practitioner Adult Health
DX: E11.69 Type 2 diabetes mellitus with other specified complication (principal); N52.1 Erectile dysfunction due to diseases classified elsewhere
CPT/HCPCS: 36415; 84402; 84403

== ENCOUNTER 2023-10-11 08:34 | Outpatient (REF) | payer OTHER, SELFPAY ==
[2023-10-11 09:44] LABS: Hematocrit 39.6 % (42.0-52.0); Hemoglobin 14.3 g/dl (14.0-18.0); Mean Corpuscular HGB Conc 36.1 g/dl (31.0-36.0); Mean Corpuscular Hemoglobin 35.3 pg (27.0-33.0); Mean Corpuscular Volume 97.8 fL (80.0-98.0); Platelet Count 283 X10*3/uL (160-400); Red Blood Count 4.05 X10*6/uL (4.60-5.80); Red Cell Distribution Width 13.5 % (11.0-16.0); White Blood Count 6.4 X10*3/uL (4.8-10.8)
[2023-10-11 10:16] LABS: PSA,Total (Free>4and<10) 1.04 ng/mL (0.00-4.00)
[2023-10-11 11:39] LABS: Alanine Aminotransferase 16 U/L (0-40); Albumin Level 4.2 g/dL (3.5-5.0); Alkaline Phosphatase 82 U/L (39-117); Anion Gap 12 (12-20); Aspartate Amino Transferase 14 U/L (5-37); Bilirubin Total 0.7 mg/dL (0.0-1.0); Blood Urea Nitrogen 15 mg/dL (9-16); Calcium 9.5 mg/dL (8.4-10.2); Carbon Dioxide 27 mmol/L (22-29); Chloride 106 mmol/L (96-108); Cholesterol 151 mg/dL (<200); Estimated Glomerular Filt Rate > 60; Glucose Fasting 156 mg/dL (60-99); HDL Cholesterol 51 mg/dL (>40); LDL Cholesterol Calculated 77 mg/dL (<100); Potassium 3.8 mmol/L (3.3-5.1); Sodium 141 mmol/L (135-145); Triglycerides 118 mg/dL (<150)
[2023-10-13 01:53] LABS: Follicle Stimulating Hormone 4.8 mIU/mL (1.4-12.8)
[2023-10-19 08:08] LABS: Testosterone, Free 54.6 pg/mL (35.0-155.0); Testosterone, Total 335 ng/dL (250-1100)
== END 2023-10-11 08:35 | disposition home or self-care (01) ==
LOC: HO.LAB 08:34
PROVIDERS: PCP Physician Assistant; Visit Provider Nurse Practitioner Adult Health
DX: E29.1 Testicular hypofunction (principal); I15.0 Renovascular hypertension
CPT/HCPCS: 36415; 80053; 80061; 83001; 83002; 84153; 84402; 84403; 85027

== ENCOUNTER 2023-10-15 09:59 | Outpatient (AMB) | payer OTHER, SELFPAY ==
--- NOTE | 2023-10-15 10:01 | A.OFFVIS_ITS ---
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 Initially diagnosed with T2DM 2009 when presented to ED with DKA/HHS. In early Mar 2018 Dr. Sesay checked antibodies for T1DM. IA-2 antibodies were found to be positive with a low C-Peptide level at the time of hyperglycemia. He was started on an Omnipod 5 with G6 Dexcom sensor 4 months ago. At his last visit he was recovering from COVID and had bilateral leg pain was diagnosed with a DVT and is now on Eliquis. He has an appointment with vascular and has enough Eliquis until his next appointment with his primary. Today in the clinic he asks is if it is okay for air travel. Has hypoglycemia awareness. Treats with food. Often overcorrects. . Family history of T2DM in mom and siblings. . He has stopped drinking regular soda. Breakfast is 2 eggs and home fries, lunch is typically a ham and cheese sandwich on white bread with chips, supper is rice and beans. Dexcom average glucose: [ ] Glucose Managment indicator [ ] % TIme in range: [ ] % very high (above 250) [ ] % high ?(181-250) [ ] % in range ?(70-180] [ ] % low (69-55) [ ] % ?very low (below 54) [ ] Standard Deviation [ ] % Coefficent of variation [ ] % TIme CGM Active Details [ ] Omnipod 5 pump settings: active insulin 4 hours Basal: 12A 2.5 changed to 3.0 units/hr Sensitivity correction: 12am 1:13 changed to 1:11 insulin to carb ratio: 12am 1:4 changed to 1:3.5 Target glucose: 12am 120 changed to 110 Last eye exam . Has retinopathy. saw optho 2 mos ago Denies Neuropathy, does not see podiatry. Has nephropathy, on Lisinopril 10 mg PO daily. 10/31 MIcroalbumin 30, urine creatinine 200.65 which is an increase from his baseline. . Has HLD, on Atorvastatin 40 mg PO daily. LDL 77 10/31. No known CAD. Denies chest pains or palpitations. Weight: Stable since last visit. Has had CDE. Also was found to have multinodular thyroid with non suspicious multiple subcentimeter thyroid nodules unchanged with several ultraounds. . Thyroid US: 12/19/2021FINDINGS:? SIZE: Measurements of the thyroid lobes and nodules are given in sagittal, anteroposterior and transverse dimensions respectively. Right Thyroid Lobe: 5.8 x 1.5 x 2.5 cm, volume 11.5 mL. Previously 5.2 x 1.7 x 2.7 cm, volume 12.3 mL. Parenchyma: The gland echotexture is homogeneous. Thyroid vascularity is normal. Left Thyroid Lobe: 5.1 x 1.4 x 1.9 cm, volume 7.1 mL. Previously 4.6 x 1.3 x 1.8 cm, volume 5.8 mL.Parenchyma: The gland echotexture is homogeneous. Thyroid vascularityis normal. Isthmus: 0.2 cm in maximum AP dimension. Previously 0.5 cm. Estimated total number of nodules greater than or equal to 1 cm: 0. 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 Location: Left inferior lateral.?? ? Size: 0.4 x 0.3 x 0.3 cm, volume 0.02 mL.?? ? Previously: 0.4 x 0.3 x 0.4 cm, volume 0.02 mL. ?? ? Nodule characteristics: ?? ? Composition: Spongiform (0). ?? ? Echogenicity: Anechoic (0). ?? ? Shape: Not taller than wide (0). ?? ? Margins: Smooth (0). ?? ? Echogenic Foci: None (0).? ACR TI-RADS total points: 0 Previous: 4 ?? ? ACR TI-RADS category: 1 Previous: 4 ? Significant change in size (>/= 20% in 2 dimensions and minimal increase of 2 mm or 50% or greater increase in volume): None ?? ? Change in features: None ?? ? Change in ACR TI-RADS risk category: Improved 2.? Location: Left inferior lateral.?? ? Size: 0.4 x 0.3 x 0.3 cm, volume 0.02 mL.?? ? Previously: 0.4 x 0.3 x 0.4 cm, volume 0.02 mL. ?? ? Nodule characteristics: ?? ? Composition: Cystic(0). ?? ? ACR TI-RADS total points: 0 Previous: 3 ?? ? ACR TI-RADS category: 1 Previous: 3 ? Significant change in size (>/= 20% in 2 dimensions and minimal increase of 2 mm or 50% or greater increase in volume): None ?? ? Change in features: None ?? ? Change in ACR TI-RADS risk category: None 3.? Location: Left inferior.?? ? Size: 0.7 x 0.6 x 0.9 cm, volume 0.20 mL.?? ? Previously: 0.8 x 0.6 x 0.9 cm, volume 0.20 mL. ?? ? Nodule characteristics: ?? ? Composition: Cystic(0). ?? ? ACR TI-RADS total points: 0 Previous: 0 ?? ? ACR TI-RADS category: 1 Previous: 1 ? Significant change in size (>/= 20% in 2 dimensions and minimal increase of 2 mm or 50% or greater increase in volume): None ?? ? Change in features: None ?? ? Change in ACR TI-RADS risk category: None 4.? Location: Right mid.?? ? Size: 0.4 x 0.2 x 0.4 cm, volume 0.02 mL.?? ? Previously: 0.4 x 0.3 x 0.4 cm, volume 0.02 mL. ?? ? Nodule characteristics: ?? ? Composition: Cystic(0). ?? ? ACR TI-RADS total points: 0 Previous: 4 ?? ? ACR TI-RADS category: 1 Previous: 4 ? Significant change in size (>/= 20% in 2 dimensions and minimal increase of 2 mm or 50% or greater increase in volume): None ?? ? Change in features: None ?? ? Change in ACR TI-RADS risk category: None NODES: No lymphadenopathy is seen in the tissue surrounding the thyroid gland. 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 Absence of acromegalic features. Neck exam reveals nl size thyroid about 15 gms. No thyroid nodules palpable. Heart S1 S2, Reg R/R. No M/R G. Skin exam reveals absence of vitiligo or acanthosis nigricans. Results Reviewed Results Reviewed: Laboratory Last Values Glucose (Clinic) 214 mg/dL (60-115) H 10/15/23 10:07 Laboratory Tests 05/23/18 09/23/22 03/18/23 09:20 07:25 08:01 Plt Count Potassium Calcium AST ALT Albumin Triglycerides Cholesterol LDL Cholesterol, Calc HDL Cholesterol Total PSA TSH 2.47 Free T4 1.08 FSH Luteinizing Hormone Total Testosterone Fr Testosterone Dialys Urine Creatinine 200.65 Urine Microalbumin 30.0 Microalb/Creat Ratio 14.9 Islet Cell Ab Screen NEGATIVE Islet Cell Ab Titer TNP Anti-IA2 Antibody 6.0 H RAMON Antibody <5 10/02/23 10/11/23 09:23 09:12 Plt Count 283 Potassium 3.8 Calcium 9.5 AST 14 ALT 16 Albumin 4.2 Triglycerides 118 Cholesterol 151 LDL Cholesterol, Calc 77 HDL Cholesterol 51 Total PSA 1.04 TSH Free T4 FSH 4.8 Luteinizing Hormone 4.0 Total Testosterone 267 Pending Fr Testosterone Dialys 37.6 Urine Creatinine Urine Microalbumin Microalb/Creat Ratio Islet Cell Ab Screen Islet Cell Ab Titer Anti-IA2 Antibody RAMON Antibody Urgent generic is now original over the Assessment & Plan Assessment & Plan (1) 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 Settings changed to deliver more basal insulin. He was counseled to continue to exercise, follow a balanced meal plan and enter in all carbs consuming 45-60 per meal. He will return in 4 weeks but will call if glucose average is above 160's for a sooner adjustment. (2) Erectile dysfunction: Code(s): N52.9 - Male erectile dysfunction, unspecified Category: Medical Qualifiers: Erectile dysfunction type: drug-induced Qualified Code(s): N52.2 - Drug-induced erectile dysfunction Plan: Patient reports difficulty sustaining erection at times. He had a recent testosterone level drawn in the morning which was 265 with normal FSH/LH. A repeat specimen was collected by the lab and labeled as TNP. Unfortunately he had a recent DVT secondary to COVID and has a prior history of DVT and would not be a good candidate for testosterone/Clomid. He has tried Cialis in the past with little success. Could consider MUSE. Will discuss AT NEXT VISIT. (3) DVT (deep venous thrombosis): Comment: Left lower extremity DVT 09/2023 Code(s): I82.409 - Acute embolism and thrombosis of unspecified deep veins of unspecified lower extremity Category: Medical Qualifiers: DVT location: lower extremity Affected thrombotic vein of extremity: popliteal Chronicity: acute Laterality: left Qualified Code(s): I82.432 - Acute embolism and thrombosis of left popliteal vein Plan: On Eliquis after recent post covid dvt with prior h/o DVT. He was counseled to continue Eliquis and to keep his appt with vascular. He was advised not to run out of medication and he reports he has f/u prior to running out of pills. He was counseled to discuss air travel with vascular though I told patient to tr [place] later this month would most likely be too soon after experiencing a DVT. 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
[2023-10-15 10:02] VITALS: BP 138/86; PULSE 82; BMI 40.1
[2023-10-15 10:11] LABS: Glucose, Whole Blood 214 mg/dL (60-115)
== END 2023-10-15 10:29 | disposition home or self-care (01) ==
PROVIDERS: PCP Physician Assistant; Visit Provider Nurse Practitioner Adult Health
DX: E13.9 Other specified diabetes mellitus without complications (principal); N52.2 Drug-induced erectile dysfunction; I82.432 Acute embolism and thrombosis of left popliteal vein
CPT/HCPCS: 99215

== ENCOUNTER → 2023-10-15 09:59 | Outpatient (BNVA) | payer OTHER, SELFPAY | PROVIDERS: PCP Physician Assistant; Visit Provider Nurse Practitioner Adult Health | DX: E13.9 Other specified diabetes mellitus without complications (principal); Z83.3 Family history of diabetes mellitus; N52.2 Drug-induced erectile dysfunction; I82.432 Acute embolism and thrombosis of left popliteal vein; Z96.41 Presence of insulin pump (external) (internal); Z79.899 Other long term (current) drug therapy | CPT/HCPCS: 82947; 99212 ==

== ENCOUNTER → 2023-10-21 14:20 | Outpatient (BNV) | payer OTHER, SELFPAY | PROVIDERS: PCP Physician Assistant; Referring Provider Physician Assistant; Visit Provider Internal Medicine | DX: I82.402 Acute embolism and thrombosis of unspecified deep veins of left lower extremity (principal); Z79.01 Long term (current) use of anticoagulants | CPT/HCPCS: 99204; 99214; G2211 ==

== ENCOUNTER 2023-11-13 11:06 | Outpatient (AMB) | payer OTHER, SELFPAY ==
--- NOTE | 2023-11-13 11:08 | A.OFFVIS_ITS ---
Vital Signs 11/13/23 11:11 Height 5 ft 4 in Weight 227 lb 1.218 oz BMI 39.0 BP 140/76 H Blood Pressure Location Rt brachial Position Sitting Pulse 86 Pulse Source Pulse Oximeter Intake Visit Reasons: T1DM/CONFIRMED Intake Note: Patient presents today for a follow-up on Type 1 Diabetes Mellitus Insulin Pump: Last Diabetes Eye Exam: 08/2023 Last Podiatry Exam- [facility], 10/07/2023. Most recent HbA1c- 7.6%, 11/13/2023 Random Glucose- 338 mg/dL, Today Carder Blankets Required: No Accompanied by: Self / Same As Patient Allergies No Known Allergies Allergy (Verified 10/21/23 14:10) HPI Comments Details: 53 YO M with PMHx DM, HTN, HLD who is seen in F/U for BALDEV/T1DM. Initially diagnosed with T2DM 2009 when presented to ED with DKA/HHS. In early Mar 2018 Dr. Sesay checked antibodies for T1DM. IA-2 antibodies were found to be positive with a low C-Peptide level at the time of hyperglycemia. He was started on an Omnipod 5 with G6 Dexcom sensor 4 months ago. At his last visit he was recovering from COVID and had bilateral leg pain was diagnosed with a DVT and is now on Eliquis. He has an appointment with vascular and has enough Eliquis until his next appointment with his primary. Today in the clinic he asks is if it is okay for air travel. Has hypoglycemia awareness. Treats with food. Hasn't been overcorrecting Family history of T2DM in mom and siblings. . He has stopped drinking regular soda. Breakfast is 2 eggs and home fries, lunch is typically a ham and cheese sandwich on white bread with chips, supper is rice and beans. Dexcom average glucose: [ ] Glucose Managment indicator [ ] % TIme in range: [ ] % very high (above 250) [ ] % high ?(181-250) [ ] % in range ?(70-180] [ ] % low (69-55) [ ] % ?very low (below 54) [ ] Standard Deviation [ ] % Coefficent of variation [ ] % TIme CGM Active Details [ ] Omnipod 5 pump settings: active insulin 4 hours Basal: 12A 2.5 changed to 3.0 units/hr Sensitivity correction: 12am 1:13 changed to 1:11 insulin to carb ratio: 12am 1:4 changed to 1:3.5 Target glucose: 12am 120 changed to 110 Last eye exam . Has retinopathy. has appt in December Denies Neuropathy, does not see podiatry. Has nephropathy, on Lisinopril 10 mg PO daily. 10/31 MIcroalbumin 30, u rine creatinine 200.65 which is an increase from his baseline. . Has HLD, on Atorvastatin 40 mg PO daily. LDL 77 10/31. No known CAD. Denies chest pains or palpitations. Weight: Stable since last visit. Has had CDE. Also was found to have multinodular thyroid with non suspicious multiple subcentimeter thyroid nodules unchanged with several ultraounds. . Thyroid US:12/19/2021FINDINGS:? SIZE: Measurements of the thyroid lobes and nodules are given in sagittal, anteroposterior and transverse dimensions respectively. Right Thyroid Lobe: 5.8 x 1.5 x 2.5 cm, volume 11.5 mL. Previously 5.2 x 1.7 x 2.7 cm, volume 12.3 mL. Parenchyma: The gland echotexture is homogeneous. Thyroid vascularity is normal. Left Thyroid Lobe: 5.1 x 1.4 x 1.9 cm, volume 7.1 mL. Previously 4.6 x 1.3 x 1.8 cm, volume 5.8 mL.Parenchyma: The gland echotexture is homogeneous. Thyroid vascularityis normal. Isthmus: 0.2 cm in maximum AP dimension. Previously 0.5 cm. Estimated total number of nodules greater than or equal to 1 cm: 0. Media Relations Associate nodules are described as follows: 1.? Location: Left inferior lateral.?? ? Size: 0.4 x 0.3 x 0.3 cm, volume 0.02 mL.?? ? Previously: 0.4 x 0.3 x 0.4 cm, volume 0.02 mL. ?? ? Nodule characteristics: ?? ? Composition: Spongiform (0). ?? ? Echogenicity: Anechoic (0). ?? ? Shape: Not taller than wide (0). ?? ? Margins: Smooth (0). ?? ? Echogenic Foci: None (0).? ACR TI-RADS total points: 0 Previous: 4 ?? ? ACR TI-RADS category: 1 Previous: 4 ? Significant change in size (>/= 20% in 2 dimensions and minimal increase of 2 mm or 50% or greater increase in volume): None ?? ? Change in features: None ?? ? Change in ACR TI-RADS risk category: Improved 2.? Location: Left inferior lateral.?? ? Size: 0.4 x 0.3 x 0.3 cm, volume 0.02 mL.?? ? Previously: 0.4 x 0.3 x 0.4 cm, volume 0.02 mL. ?? ? Nodule characteristics: ?? ? Composition: Cystic(0). ?? ? ACR TI-RADS total points: 0 Previous: 3 ?? ? ACR TI-RADS category: 1 Previous: 3 ? Significant change in size (>/= 20% in 2 dimensions and minimal increase of 2 mm or 50% or greater increase in volume): None ?? ? Change in features: None ?? ? Change in ACR TI-RADS risk category: None 3.? Location: Left inferior.?? ? Size: 0.7 x 0.6 x 0.9 cm, volume 0.20 mL.?? ? Previously: 0.8 x 0.6 x 0.9 cm, volume 0.20 mL. ?? ? Nodule characteristics: ?? ? Composition: Cystic(0). ?? ? ACR TI-RADS total points: 0 Previous: 0 ?? ? ACR TI-RADS category: 1 Previous: 1 ? Significant change in size (>/= 20% in 2 dimensions and minimal increase of 2 mm or 50% or greater increase in volume): None ?? ? Change in features: None ?? ? Change in ACR TI-RADS risk category: None 4.? Location: Right mid.?? ? Size: 0.4 x 0.2 x 0.4 cm, volume 0.02 mL.?? ? Previously: 0.4 x 0.3 x 0.4 cm, volume 0.02 mL. ?? ? Nodule characteristics: ?? ? Composition: Cystic(0). ?? ? ACR TI-RADS total points: 0 Previous: 4 ?? ? ACR TI-RADS category: 1 Previous: 4 ? Significant change in size (>/= 20% in 2 dimensions and minimal increase of 2 mm or 50% or greater increase in volume): None ?? ? Change in features: None ?? ? Change in ACR TI-RADS risk category: None NODES: No lymphadenopathy is seen in the tissue surrounding the thyroid gland. 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 Absence of acromegalic features. Neck exam reveals nl size thyroid about 15 gms. No thyroid nodules palpable. No carotid bruits present. Lungs CTA. Heart S1 S2, Reg R/R. No M/R G. Skin exam reveals absence of vitiligo or acanthosis nigricans. 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 Orders: Orders AMB Hemoglobin A1c 11/13/23 E13.9 - Other specified diabetes mellitus without complications Medications: Changed From insulin pump cart,automated,BT As directed change every 72 hours 15 ea 5RF To insulin pump cart,automated,BT (Omnipod 5 G6 Pods (Gen 5) subcutaneous cartridge) As directed change every 72 hours 15 ea 5RF Patient Instructions: Troubleshooting after starting new pod or inserting new insulin set: Occlusion, adhesive tape sensitivity, redness Check BG 2 hours after site change Safety information: Importance of a backup plan, for manual injections, proper prescriptions and emergency supplies ketone strips, and rules for testing for ketones The patient was counseled to achieve a target A1C of 7% (154 avg). Fasting blood sugars should be 90-130 in the morning and less than 180 two hours after meals. 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
[2023-11-13 11:11] VITALS: BP 140/76; PULSE 86; BMI 39.0
[2023-11-13 11:20] LABS: Glucose, Whole Blood 338 mg/dL (60-115)
== END 2023-11-13 11:45 | disposition home or self-care (01) ==
PROVIDERS: PCP Physician Assistant; Visit Provider Nurse Practitioner Adult Health
DX: E13.9 Other specified diabetes mellitus without complications (principal)
CPT/HCPCS: 99214

== ENCOUNTER → 2023-11-13 11:06 | Outpatient (BNVA) | payer OTHER, SELFPAY | PROVIDERS: PCP Physician Assistant; Visit Provider Nurse Practitioner Adult Health | DX: E13.9 Other specified diabetes mellitus without complications (principal); Z79.4 Long term (current) use of insulin; Z96.41 Presence of insulin pump (external) (internal) | CPT/HCPCS: 82947; 83036; 99212 ==

== ENCOUNTER 2024-01-30 12:54 | Outpatient (REF) | payer OTHER, SELFPAY ==
--- NOTE | ~2024-01-30 | US_ITS ---
EXAMINATION: US TRIPLEX LOWER EXTREMITY, LEFT CLINICAL INFORMATION: Left lower extremity DVT COMPARISON: 09/30/2023 TECHNIQUE: Color-flow triplex imaging with spectral analysis and compression Doppler were performed on the left lower extremity. FINDINGS: There is partial compressibility with wall adherent to chronic appearing thrombus within the distal left common femoral vein, proximal superficial femoral vein, distal superficial femoral vein and popliteal vein with recanalized color-flow and dampened duplex venous waveforms. There is poor compressibility is seen within the posterior tibial vein with recanalized flow. Peroneal vein is not visualized. Thrombus appears chronic in appearance based on ultrasound evaluation however compared to the ultrasound from September 2023, the thrombus in the common femoral vein, superficial femoral vein and posterior tibial veins are new. US/US venous duplex LE LT IMPRESSION: Chronic appearing thrombus within the left common femoral vein, superficial femoral vein and popliteal vein with recanalized flow. Thrombus in the common femoral vein, superficial femoral vein and posterior tibial vein is new compared to the ultrasound from September 2023. Cannot exclude that some of this is acute or subacute in nature Electronically signed by: Baljit Castorena MD 01/30/2024 03:44 PM EST
== END 2024-01-30 12:55 | disposition home or self-care (01) ==
LOC: HO.US 12:54
PROVIDERS: PCP Physician Assistant; Visit Provider Internal Medicine
DX: I82.402 Acute embolism and thrombosis of unspecified deep veins of left lower extremity (principal)
CPT/HCPCS: 93971

== ENCOUNTER 2024-02-03 14:19 | Outpatient (AMB) | payer OTHER, SELFPAY ==
--- NOTE | 2024-02-03 14:21 | A.OFFVIS_ITS ---
Vital Signs 02/03/24 14:27 Height 5 ft 4 in Weight 231 lb 7.766 oz BMI 39.7 BP 138/78 Blood Pressure Location Rt brachial Position Sitting Pulse 98 Pulse Source Pulse Oximeter Intake Visit Reasons: T1DM/CONF Intake Note: Patient presents today for a follow-up on Type 1 Diabetes Mellitus/Insulin Pump: Last Diabetes Eye Exam: 08/2023 Last Podiatry Exam- [facility], 10/07/2023. Most recent HbA1c- 7.6%, 11/13/2023 Random Glucose- 195 mg/dL, Today Dressmaker Helper Required: No Accompanied by: Self / Same As Patient Allergies No Known Allergies Allergy (Verified 02/26/24 09:12) HPI Comments Details: 53 YO M with PMHx DM, HTN, HLD who is seen in F/U for BALDEV/T1DM. Initially diagnosed with T2DM 2009 when presented to ED with DKA/HHS. In early Mar 2018 Dr. Sesay checked antibodies for T1DM. IA-2 antibodies were found to be positive with a low C-Peptide level at the time of hyperglycemia. He was started on an Omnipod 5 with G6 Dexcom sensor earlier this year. He would prefer to switch to dexcom G7 as he was havig adherence problems with the larger g6. He has had post COVID left leg DVT and is now on coumain. Family history of T2DM in mom and siblings. . He has stopped drinking regular soda. Breakfast is 2 eggg, toast, sometimes breakfast meat, lunch is typically a ham and cheese sandwich on white bread with chips or rice and beans, supper is rice and beans. Dexcom average glucose: 215 Glucose Managment indicator [ ] % TIme in range: 35 % very high (above 250) 41 % high (181-250) 34 % in range (70-180] 0 % low (69-55) 0 % very low (below 54) Details [ ] Omnipod 5 pump settings: active insulin 4 hours Basal: 12A 2.5 changed to 3.0 units/hr Sensitivity correction: 12am 1:13 changed to 1:11 insulin to carb ratio: 12am 1:4 changed to 1:3.5 Target glucose: 12am 120 changed to 110 Last eye exam . Has retinopathy. has appt in December Denies Neuropathy, does not see podiatry. Has nephropathy, on Lisinopril 10 mg PO daily. 10/31 MIcroalbumin 30, urine creatinine 200.65 which is an increase from his baseline. . Has HLD, on Atorvastatin 40 mg PO daily. LDL 77 10/31. No known CAD. Denies chest pains or palpitations. Weight: Stable since last visit. Has had CDE. Also was found to have multinodular thyroid with non suspicious multiple subcentimeter thyroid nodules unchanged with several ultraounds. . Thyroid US:12/19/2021FINDINGS: SIZE: Measurements of the thyroid lobes and nodules are given in sagittal, anteroposterior and transverse dimensions respectively. Right Thyroid Lobe: 5.8 x 1.5 x 2.5 cm, volume 11.5 mL. Previously 5.2 x 1.7 x 2.7 cm, volume 12.3 mL. Parenchyma: The gland echotexture is homogeneous. Thyroid vascularity is normal. Left Thyroid Lobe: 5.1 x 1.4 x 1.9 cm, volume 7.1 mL. Previously 4.6 x 1.3 x 1.8 cm, volume 5.8 mL.Parenchyma: The gland echotexture is homogeneous. Thyroid vascularityis normal. Isthmus: 0.2 cm in maximum AP dimension. Previously 0.5 cm. Estimated total number of nodules greater than or equal to 1 cm: 0. Messaging Architect nodules are described as follows: 1. Location: Left inferior lateral. Size: 0.4 x 0.3 x 0.3 cm, volume 0.02 mL. Previously: 0.4 x 0.3 x 0.4 cm, volume 0.02 mL. Nodule characteristics: Composition: Spongiform (0). Echogenicity: Anechoic (0). Shape: Not taller than wide (0). Margins: Smooth (0). Echogenic Foci: None (0). ACR TI-RADS total points: 0 Previous: 4 ACR TI-RADS category: 1 Previous: 4 Significant change in size (>/= 20% in 2 dimensions and minimal increase of 2 mm or 50% or greater increase in volume): None Change in features: None Change in ACR TI-RADS risk category: Improved 2. Location: Left inferior lateral. Size: 0.4 x 0.3 x 0.3 cm, volume 0.02 mL. Previously: 0.4 x 0.3 x 0.4 cm, volume 0.02 mL. Nodule characteristics: Composition: Cystic(0). ACR TI-RADS total points: 0 Previous: 3 ACR TI-RADS category: 1 Previous: 3 Significant change in size (>/= 20% in 2 dimensions and minimal increase of 2 mm or 50% or greater increase in volume): None Change in features: None Change in ACR TI-RADS risk category: None 3. Location: Left inferior. Size: 0.7 x 0.6 x 0.9 cm, volume 0.20 mL. Previously: 0.8 x 0.6 x 0.9 cm, volume 0.20 mL. Nodule characteristics: Composition: Cystic(0). ACR TI-RADS total points: 0 Previous: 0 ACR TI-RADS category: 1 Previous: 1 Significant change in size (>/= 20% in 2 dimensions and minimal increase of 2 mm or 50% or greater increase in volume): None Change in features: None Change in ACR TI-RADS risk category: None 4. Location: Right mid. Size: 0.4 x 0.2 x 0.4 cm, volume 0.02 mL. Previously: 0.4 x 0.3 x 0.4 cm, volume 0.02 mL. Nodule characteristics: Composition: Cystic(0). ACR TI-RADS total points: 0 Previous: 4 ACR TI-RADS category: 1 Previous: 4 Significant change in size (>/= 20% in 2 dimensions and minimal increase of 2 mm or 50% or greater increase in volume): None Change in features: None Change in ACR TI-RADS risk category: None NODES: No lymphadenopathy is seen in the tissue surrounding the thyroid gland./ ,< PFSH Medical History (Updated 02/17/24 @ 14:27 by Dejuan Cardoso PA-C) COVID-19 Hypogonadism in male DVT (deep venous thrombosis) Anxiety and depression Cervical lymphadenopathy Normal colonoscopy Vitamin D deficiency Multinodular thyroid HLD (hyperlipidemia) 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 Mother Diabetes Family history of thyroid problem Social History Household Members: Significant Other Housing: House Alcohol intake: current Alcohol intake frequency: a few times a month Alcohol type: beer and hard liquor Patient Tobacco Use Status: Former Tobacco user Tobacco use type: Cigarette e-Cigarette/Vaping Use: Never Used service: No Current occupational status: employed, unemployed and disabled Current occupation: unemployed Current occupational exposures/hazards: No Gender identity: Male Cognitive needs: No Hearing needs: No Vision needs: No Physical Exam Vital Signs: Last Vital Signs Pulse 98 02/03/24 14:27 BP 138/78 02/03/24 14:27 BMI result Body Mass Index 39.7 Results Reviewed Results Reviewed: Laboratory Last Values Glucose (Clinic) 195 mg/dL (60-115) H 02/03/24 14:34 Assessment & Plan Assessment & Plan (1) 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 Maximum bolus correction changed to 40 units as he has been unable to deliver full bolus carb ratio 1-5 The patient had an opportunity to ask questions regarding treatment plan. The patient expressed understanding and agreement with the above treatment plan. The patient is aware they should contact our office by phone for worsening glucose readings or for any low blood sugars which may warrant a change in diabetes medication. Compliance is encouraged with medications and any followup testing/consults which may have been ordered. Orders: Referrals Podiatry Referral E13.9 - Other specified diabetes mellitus without complications Medications: New blood-glucose sensor (Dexcom G7 Sensor device) As directed 3 ea 11RF Changed From insulin glargine U-300 conc 70 units (0.2333 mL) subcut DAILY 12 mL 5RF To insulin glargine U-300 conc (Toujeo Max U-300 SoloStar) 55 units (0.1833 mL) subcut DAILY PRN 6 mL 5RF prn pump failure 30 days From insulin pump cart,auto,BT,G6/7 As directed change every 72 hours 15 ea 5RF To insulin pump cart,auto,BT,G6/7 (Omnipod 5 G6-G7 Pods (Gen 5) subcutaneous cartridge) As directed change every 72 hours 15 ea 5RF From insulin pump cart,auto,BT,G6/7 As directed change every 72 hours 15 ea 5RF To insulin pump cart,auto,BT,G6/7 (Omnipod 5 G6-G7 Pods (Gen 5) subcutaneous cartridge) As directed change every 48 hours 15 ea 5RF Discontinued nirmatrelvir-ritonavir 300 mg (150 mg x 2)-100 mg Discontinued Reason: Patient Completed Course take TWO 150 mg tablets of nirmatrelvir with ONE 100 mg tablet of ritonavir twice daily for 5 days PO Stop statin for duration and 2 days after completion of treatment 30 ea 0RF insulin pump cart,auto,BT-cntr Discontinued Reason: Duplicate As directed 1 ea 0RF blood-glucose transmitter Discontinued Reason: Doctor's Order As directed 1 ea 11RF E11.319 - Type 2 diabetes mellitus with unspecified diabetic retinopathy without macular edema insulin silver miner blasting cart,aut,G6/7,cntr Discontinued Reason: Doctor's Order As directed 1 ea 0RF blood-glucose sensor Discontinued Reason: Doctor's Order As directed 3 ea 11RF E11.319 - Type 2 diabetes mellitus with unspecified diabetic retinopathy without macular edema insulin pump cart,automated,BT Discontinued Reason: Duplicate As directed change every 72 hours 15 ea 5RF Coding Level of Care Code Est Pt Level 4 (20614) Complex EM visit Add On G2211 Diagnoses 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
[2024-02-03 14:27] VITALS: BP 138/78; PULSE 98; BMI 39.7
[2024-02-03 14:38] LABS: Glucose, Whole Blood 195 mg/dL (60-115)
== END 2024-02-03 15:25 | disposition home or self-care (01) ==
PROVIDERS: PCP Physician Assistant; Visit Provider Nurse Practitioner Adult Health
DX: E13.9 Other specified diabetes mellitus without complications (principal)
CPT/HCPCS: 99214; G2211

== ENCOUNTER → 2024-02-03 14:19 | Outpatient (BNVA) | payer OTHER, SELFPAY | PROVIDERS: PCP Physician Assistant; Visit Provider Nurse Practitioner Adult Health | DX: E13.319 Other specified diabetes mellitus with unspecified diabetic retinopathy without macular edema (principal); Z96.41 Presence of insulin pump (external) (internal); Z79.4 Long term (current) use of insulin | CPT/HCPCS: 82947; 99212 ==

== ENCOUNTER 2024-02-13 09:57 | Outpatient (AMB) | payer OTHER, SELFPAY ==
[2024-02-13 10:18] LABS: Prothrombin Time Whole Bld POC 11.3 sec (11.1-13.5); ~PT, ~INR - Anti Coag Clinic 0.9 (0.9-1.1)
--- NOTE | 2024-02-13 10:33 | MHC.OFFVISCO ---
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 Allergies No Known Allergies Allergy (Verified 02/13/24 10:10) Medication List - Last Reconciled 02/13/24 by Josselin Reid RN acamprosate 666 mg PO TID aspirin 81 mg PO DAILY 90 days atenolol 25 mg PO DAILY atorvastatin 40 mg PO DAILY blood pressure test kit-large As directed blood-glucose sensor ([employer] G7 Sensor device) As directed citalopram 10 mg PO DAILY enoxaparin (Lovenox) 100 mg subcut Q12H folic acid 1 mg PO DAILY glucagon 3 mg/actuation (Baqsimi) 3 mg intranasal ONCE ibuprofen 600 mg PO TID insulin aspart U-100 Infuse up to 150 units per day via Insulin pump subcutaneously; insulin glargine U-300 conc (Toujeo Max U-300 SoloStar) 55 units (0.1833 mL) subcut DAILY PRN 30 days insulin pump cart,auto,BT,G6/7 (Omnipod 5 G6-G7 Pods (Gen 5) subcutaneous cartridge) As directed change every 48 hours lisinopril 10 mg PO DAILY tadalafil (Cialis) 20 mg PO DAILY 5 days warfarin 2 mg PO DAILY Nursing Note Pt to [facility] for initial visit. Started warfarin 2mg daily on 02/09/24. Has hx of LLE DVT in September 2023 after traveling and having a Covid infection. Also had a DVT many years ago in L leg and arm. 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 Pt oriented to the clinic and meds/allergies reviewed. [facility] teaching done and handouts given to pt. Pt asked appropriate questions. INR: 0.9 out of therapeutic range of 2-3 Denies any signs and symptoms of bleeding or bruising or clotting. Bleeding, bruising, clotting discussed Nutritional guidance given to avoid greens at this time until INR 2-3 Dose: 4mg daily X 3 days then 2mg X 1 then return for testing F/U INR: 02/16/24 Patient verbalizes understanding of instructions given Anti-Coag Initial Assessment Social Hx Patient Tobacco Use Status: Former Tobacco user Tobacco use type: Cigarette alcohol intake: current Alcohol intake frequency: a few times a month Housing: House current occupation: unemployed current occupational exposures/hazards: No Fall risk assessment: No Falls in past year Cardiovascular Hx: HTN Lung Disease HX: DVT/PE Endocrine Hx: Diabetes Musculoskeletal Hx: Arthritis Blood Disorder Hx: Hyperlipidemia Cancer HX: No Psych. Illness/Depression: No (depression) Surgeries: Throbectomy R arm Thrombectomy L leg Rotator cuff surgery R shoulder Appendectomy Vasectomy Anti-Coag. 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 Able to state reason for taking Warfarin: Yes 2. Able to state Pain Management techniques: Yes 3. Able to state action of Warfarin.: Yes Able to state current dose, pill color, how and when Warfarin to be taken: Yes Able to identify signs of bleeding &/or clotting: Yes 4. Able to identify need to keep diet consistent in regard to vitamin K intake: Yes Able to state restriction on alcohol: Yes 5. Able to state need for compliance with PT/INR testing: Yes Describes rationale for carrying ID and wearing Medic Alert bracelet: Yes Patient instructed to monitor for excess bruising or signs/symptoms of clotting or bleeding: Yes 6. Able to state that there are drugs that interact with Warfin: Yes 7. Able to state the need to seek medical attention when illness/injury occur.: Yes Describes the need to avoid activities with high risk of injury: Yes 8. Able to state duration of treatment: Yes 9. Demonstrates understanding of notifying all providers of pending dental surgical, or other invasive procedures: Yes 10. Able to state Home Care instructions Questionnaires HAS-BLED Does the patient had uncontrolled Hypertension?: No Does the patient have renal disease?: No Does the patient have liver disease?: No Does the patient have a history of stroke?: No Has the patient had major bleeding or predisposition to bleeding?: No Does the patient have labile INRs?: No Is the patient over 65 years of age?: No Is the patient on medications that gives them a predisposition to bleeding?: Yes Does the patient use alcohol?: Yes HAS-BLED Score: 2 CHADSVASC Age: <65 Gender: Male Does the patient have a history of CHF?: No Does the patient have a history of Hypertension?: Yes Does the patient have a history of Stroke/TIA/Thromboembolism?: No Does the patient have a history of Vascular Disease (prior IN, PAD or aortic plaque)?: Yes Does the patient have a history of Diabetes?: Yes CHADS VACS Score: 3 Tomas Prediction Score Rsk VTE Active Cancer: No Previous VTE, excluding superficial vein thrombosis: Yes Reduced mobility: No Already known Thrombophilic Condition: No With-in last month Trauma and/or Surgery: No Elderly 70 year or older: No Heart and/or Respiratory Failure: No Acute Myocardial infarction and/or Ischemic Stroke: No Acute Infection and/or Rheumatologic Disorder: No Obesity (BMI 30 or greater): Yes Ongoing Hormonal Treatment: No Score: 4 Tomas Score less than 4; Low Risk of VTE Tomas Score 4 or greater; High Risk of VTE Coding Level of Care Code New Patient Level 2 Diagnoses Current use of anticoagulant therapy Z79.01 Assessment & Plan Assessment & Plan (1) Current use of anticoagulant therapy: Code(s): Z79.01 - [facility] (current) use of anticoagulants Category: Medical Orders: Orders AMB INR Today
== END 2024-02-13 11:20 | disposition home or self-care (01) ==
LOC: HO.ACS 09:57
PROVIDERS: PCP Physician Assistant; Visit Provider Internal Medicine
DX: Z79.01 Long term (current) use of anticoagulants (principal)

== ENCOUNTER → 2024-02-13 09:57 | Outpatient (BNVA) | payer OTHER, SELFPAY | PROVIDERS: PCP Physician Assistant; Visit Provider Internal Medicine | DX: Z86.718 Personal history of other venous thrombosis and embolism (principal); Z79.01 Long term (current) use of anticoagulants; Z51.81 Encounter for therapeutic drug level monitoring | CPT/HCPCS: 85610; 99202 ==

== ENCOUNTER 2024-02-16 09:20 | Outpatient (AMB) | payer OTHER, SELFPAY ==
[2024-02-16 09:37] LABS: Prothrombin Time Whole Bld POC 11.9 sec (11.1-13.5)
--- NOTE | 2024-02-16 09:48 | MHC.OFFVISCO ---
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: Anticoagulation Allergies No Known Allergies Allergy (Verified 02/16/24 09:25) Medication List - Last Reconciled 02/16/24 by Kristyn Ball RN acamprosate 666 mg PO TID aspirin 81 mg PO DAILY 90 days atenolol 25 mg PO DAILY atorvastatin 40 mg PO DAILY B-complex with vitamin C 1 tab PO QAM blood pressure test kit-large As directed blood-glucose sensor ([employer] G7 Sensor device) As directed cholecalciferol (vitamin D3) (Vitamin D3) 10 mcg PO DAILY citalopram 40 mg PO DAILY cyanocobalamin (vitamin B-12) 250 mcg PO DAILY enoxaparin (Lovenox) 100 mg See Protocol subcut Q12H folic acid 1 mg PO DAILY gabapentin mg PO glucagon 3 mg/actuation (Baqsimi) 3 mg intranasal ONCE guanfacine ER 2 mg PO DAILY ibuprofen 600 mg PO TID insulin aspart U-100 Infuse up to 150 units per day via Insulin pump subcutaneously; insulin glargine U-300 conc (Toujeo Max U-300 SoloStar) 55 units (0.1833 mL) subcut DAILY PRN 30 days insulin pump cart,auto,BT,G6/7 (Omnipod 5 G6-G7 Pods (Gen 5) subcutaneous cartridge) As directed change every 48 hours ketorolac 0.5% drps ophthalmic (eye) lisinopril 10 mg PO DAILY naltrexone 50 mg PO DAILY tadalafil (Cialis) 20 mg PO DAILY 5 days warfarin 2 mg See Protocol PO DAILY Nursing Note Pt asking when can he fly - trip planned for March INR 1.0??out of therapeutic range- denies any missed doses Medications and supplements reviewed Patient status: pt states he is taking his warfarin daily and lovenox every 12 hours Medications or supplements: no changes Diet: good - eats mostly meats and rice - very little fruits and vegetables Denies any signs and symptoms of bleeding or clotting. has bruising - reviewed how to admin lovneox injections Bleeding, bruising, clotting discussed Nutritional guidance given: avoid greens next 3 days Dose: increase to 4mg daily and cont lovenox F/U INR Date : 02/19/24 ?? may need warfarin refill due to doubling dose - msg sent to PCP Patient verbalizing understanding of instructions given. Anti-Coag Initial Assessment Social Hx Patient Tobacco Use Status: Former Tobacco user Tobacco use type: Cigarette alcohol intake: current Alcohol intake frequency: a few times a month Cardiovascular Hx: HTN Lung Disease HX: DVT/PE Endocrine Hx: Diabetes Musculoskeletal Hx: Arthritis Blood Disorder Hx: Hyperlipidemia Cancer HX: No Psych. Illness/Depression: No (depression) Coding Level of Care Code Est Patient Level 1 Diagnoses Current use of anticoagulant therapy Z79.01 Results AMB INR Fingerstick AMB INR Fingerstick 1.0 Last Edit by Kristyn Ball RN on 02/16/24 09:42 MANUAL ENTRY Assessment & Plan Assessment & Plan (1) Current use of anticoagulant therapy: Code(s): Z79.01 - [facility] (current) use of anticoagulants Category: Medical Medications: New thiamine mononitrate (vit B1) 100 mg PO DAILY Changed From warfarin 2 mg See Protocol PO DAILY 30 tabs 0RF To warfarin See Protocol 2 mg TAB, 4MG DAILY; 90 tabs 0RF DVT
== END 2024-02-16 10:09 | disposition home or self-care (01) ==
LOC: HO.ACS 09:20
PROVIDERS: PCP Physician Assistant; Visit Provider Internal Medicine
DX: Z79.01 Long term (current) use of anticoagulants (principal)

== ENCOUNTER → 2024-02-16 09:20 | Outpatient (BNVA) | payer OTHER, SELFPAY | PROVIDERS: PCP Physician Assistant; Visit Provider Internal Medicine | DX: Z86.718 Personal history of other venous thrombosis and embolism (principal); Z79.01 Long term (current) use of anticoagulants; Z51.81 Encounter for therapeutic drug level monitoring | CPT/HCPCS: 85610; 99211 ==

== ENCOUNTER 2024-02-17 13:17 | Outpatient (AMB) | payer OTHER, SELFPAY ==
--- NOTE | 2024-02-17 13:38 | MHC.PC.OV ---
Vital Signs 02/17/24 13:39 Height 5 ft 4 in Weight 241 lb 4 oz BMI 41.4 BP 150/84 H Blood Pressure Location Lt brachial Position Sitting Pulse 80 Pulse Source Pulse Oximeter Pulse Oximetry (%) 97 Oxygen Delivery Method Room Air Intake Visit Reasons: annual exam Intake Note: Patient is here today for a physical. 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 Accompanied by: Self / Same As Patient Allergies No Known Allergies Allergy (Verified 02/17/24 13:47) Medication List - Last Reconciled 02/17/24 by SHORTY Ramirez-C acamprosate 666 mg PO TID aspirin 81 mg PO DAILY 90 days atenolol 25 mg PO DAILY atorvastatin 40 mg PO DAILY B-complex with vitamin C 1 tab PO QAM blood pressure test kit-large As directed blood-glucose sensor (Dexcom G7 Sensor device) As directed cholecalciferol (vitamin D3) (Vitamin D3) 10 mcg PO DAILY citalopram 40 mg PO DAILY cyanocobalamin (vitamin B-12) 250 mcg PO DAILY enoxaparin (Lovenox) 100 mg See Protocol subcut Q12H folic acid 1 mg PO DAILY gabapentin mg PO glucagon 3 mg/actuation (Baqsimi) 3 mg intranasal ONCE guanfacine ER 2 mg PO DAILY ibuprofen 600 mg PO TID insulin aspart U-100 Infuse up to 150 units per day via Insulin pump subcutaneously; insulin glargine U-300 conc (Toujeo Max U-300 SoloStar) 55 units (0.1833 mL) subcut DAILY PRN 30 days insulin pump cart,auto,BT,G6/7 (Omnipod 5 G6-G7 Pods (Gen 5) subcutaneous cartridge) As directed change every 48 hours ketorolac 0.5% drps ophthalmic (eye) lisinopril 10 mg PO DAILY naltrexone 50 mg PO DAILY tadalafil (Cialis) 20 mg PO DAILY 5 days thiamine mononitrate (vit B1) 100 mg PO DAILY warfarin See Protocol 2 mg TAB, 4MG DAILY; Tobacco use date assessed: 10/01/23 Dental Screening Dental Screen Date: 10/01/23 HPI annual exam HPI Details Patient is a 53-year-old male here today for routine annual physical Patient has a past medical history significant for hyperlipidemia, type 2 diabetes, hypertension obesity. .. DMII:? 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 Today's A1c at 7.6 Has gained weight since last office visit. He does admit to dietary indiscretion though he has reduced his soda intake. He reports he uses food as comfort due to his depression. ?He is following [place] endocrinology and has an insulin pump . .. Hypertension: Blood pressure elevated today in office . He does not monitor his blood pressure at home, he reports he is feeling somewhat anxious today. .. Depression: Followed by mental health therapist and psychiatrist who manages his mental health medication. Has been a bit more depressed as of late due to his worsening medical issues. He is willing to add on additional Wellbutrin to help him with his depression Colorectal cancer screening: Colonoscopy done in 2019, normal repeat 10 years Vaccines: Up-to-date COVID vaccine, today with pneumonia, today with tetanus, up-to-date with flu vaccine. 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 Mother Diabetes Family history of thyroid problem Social History Household Members: Significant Other Housing: House Alcohol intake: current Alcohol intake frequency: a few times a month Alcohol type: beer and hard liquor Patient Tobacco Use Status: Former Tobacco user Tobacco use type: Cigarette e-Cigarette/Vaping Use: Never Used service: No Current occupational status: employed, unemployed and disabled Current occupation: unemployed Current occupational exposures/hazards: No Gender identity: Male Cognitive needs: No Hearing needs: No Vision needs: No Questionnaire PHQ-9 Over the last 2 weeks, how often have you been bothered by any of the following problems? 1. Little interest or pleasure in doing things: several days 2. Feeling down, depressed, or hopeless: several days 3. Trouble falling or staying asleep, or sleeping too much: several days 4. Feeling tired or having little energy: several days 5. Poor appetite or overeating: several days 6. Feeling bad about yourself - or that you are a failure or have let yourself or your family down: several days 7. Trouble concentrating on things, such as reading the newspaper or watching television: several days 8. Moving or speaking so slowly that other people could have noticed. Or the opposite - being so fidgety or restless that you have been moving around a lot more than usual: several days 9. Thoughts that you would be better off or of hurting yourself in some way: not at all Total score: 8 Depression Screening Interpretation: Positive Depression Screening Follow-up: Existing condition and In treatment Depression Screening Done: Yes 04845 - PHQ-9 Billing: Yes Source: Developed by Drs. Dawson Block, Marie Carbajal, Daron Nina and colleagues, with an educational grecia from [employer]. Thrive Questionnaire Date Thrive assessed: 02/17/24 I am a: Patient What is your living situation today?: I have a steady place to live Within the past 12 months, did the food you bought not last and you didn't have the money to get more?: I choose not to answer this question Within the past 12 months, did you worry whether your food would run out before you got money to buy more?: I choose not to answer this question Do you have trouble paying for medicines?: No Do you have trouble getting transportation to medical appointments?: I choose not to answer this question Do you have trouble paying your heating and electricity bill?: I choose not to answer this question Do you have trouble taking care of your child, family member or friend?: I choose not to answer this question Do you have trouble with day-to-day activities such as bathing, preparing meals, shopping, managing finances, etc.?: Yes Are you currently unemployed and looking for a job?: No Are you interested in more education?: No Please select the resources that you would like help with: Care for elder or disabled and None Currently or been in a relationship where the following occur: I choose not to answer THRIVE Score: 0 AUDIT C Alcohol Use Questionnaire (AUDIT-C) 1. How often do you have a drink containing alcohol?: 2-4 times a month 2. How many drinks containing alcohol do you have on a typical day when you are drinking?: 3 or 4 3. How often do you have six or more drinks on one occasion?: Monthly Total Score: 5 RAMON-7 AMB Questionnaire RAMON-7 Date RAMON - 7 assessed: 02/17/24 Feeling nervous, anxious, or on edge: 1 = Several days Not being able to stop or control worryin = Several days Worrying too much about different things: 1 = Several days Trouble relaxin = Several days Being so restless that it is hard to sit still: 1 = Several days Becoming easily annoyed or irritable: 1 = Several days Feeling afraid as if something awful might happen: 1 = Several days Total RAMON-7 score (0-4 normal; 5-9 mild; 10-14 moderate; 15-21 severe): 7 Source: Developed by Drs. Dawson Block, Marie Carbajal, Daron Nina and colleagues, with an educational grecia from [employer]. RAMON-7 Assessment Billing RAMON-7 Assessment Tool: RAMON-7 Assessment 74884 Review of Systems Const Denies body aches, Denies chills, Denies excessive sweating, Denies fatigue, Denies fever(s) and Denies headache(s) Eyes Denies blurry vision ENT Denies dysphagia, Denies vertigo, Denies dizziness, Denies headache(s), Denies hearing loss and Denies tinnitus Card Denies chest pain, Denies chest pain with activity, Denies syncope, Denies irregular heart rhythm and Denies dyspnea Resp Denies chest congestion, Denies cough, Denies hemoptysis, Denies dyspnea and Denies wheezing GI Denies abdominal pain, Denies melena, Denies hematochezia, Denies coffee ground emesis, Denies dysphagia, Denies diarrhea, Denies nausea and Denies vomiting Denies difficulty urinating, Denies dysuria, Denies urinary frequency, Denies urinary hesitancy and Denies urinary urgency Musc Denies arthralgias, Denies limited range of motion, Denies muscle cramps and Denies muscle weakness Skin/Breast Denies rash and Denies skin ulcer Neuro Denies Abnormal speech present, Denies confusion, Denies vertigo, Denies dizziness, Denies syncope, Denies headache(s), Denies memory loss and Denies seizure-like activity Psych Denies anxiety, Denies confusion, Denies depression, Denies memory loss, Denies panic attacks and Denies paranoia Endo Denies excessive sweating, Denies fatigue, Denies flushing, Denies polydipsia and Denies polyuria Aller/Immun Denies wheezing Physical exam (Primary Care) Vital Signs: Last Vital Signs Pulse 80 02/17/24 13:39 BP 150/84 H 02/17/24 13:39 Pulse Ox 97 02/17/24 13:39 Oxygen Delivery Method Room Air 02/17/24 13:39 BMI result Body Mass Index 41.4 Tobacco/Smoking Status: Tobacco use Status Tobacco use date assessed 10/01/23 02/17/24 13:40 Patient Tobacco Use Status Former Tobacco user 02/17/24 13:53 Tobacco use type Cigarette 02/17/24 13:53 e-Cigarette/Vaping Use Never Used 02/17/24 13:53 PHQ-9: PHQ-9 Score PHQ-9: Total score 8 02/17/24 14:27 Depression Screening Interpretation: Positive Depression Screening Follow-up: Existing condition and In treatment Thrive Assessment: Date of Thrive Assessment Date Thrive assessed 02/17/24 02/17/24 13:40 Currently or been in a relationship where the following occur: I choose not to answer Const General: cooperative, comfortable, no acute distress, alert and awake; No confusion Orientation/consciousness: oriented to person, oriented to place, patient oriented x3 and No confusion HENMT Head: Yes normocephalic Ears: external ears normal and TM's normal bilaterally Face and sinus: No sinus tenderness Mouth: Normal oral and palatal mucosa present and tongue normal Teeth and gingiva: dentition normal and gingiva normal Throat: Yes posterior oropharynx normal, Yes tonsils normal and Yes uvula midline Eyes Conjunctivae: conjunctivae normal Sclerae: sclerae normal Pupils: Equal, round and reactive pupils present EOM: EOMs intact bilaterally Direct Ophthalmoscopy: No no photophobia Neck Neck: Yes no lymphadenopathy, No tender and Yes no JVD Thyroid: Thyroid normal Carotids: no bruits Chest Chest palpation & inspection: no tenderness Resp Effort & Inspection: normal respiratory effort, no audible wheezes, not labored and no stridor Auscultation: no crackles, no rales, no rhonchi and no wheezes Cardio Jugular venous distension: no JVD Rate: regular rate, not bradycardic and not tachycardic Rhythm: regular rhythm Bruits: no carotid bruits Peripheral pulses: Peripheral pulses 2+ throughout GI Inspection: Yes normal to inspection, No abdominal wall ecchymosis and No visible herniation Palpation (GI): Soft to palpation, nontender, no guarding, not rigid and No hepatosplenomegaly present Auscultation: normoactive bowel sounds General: Yes no CVA tenderness Back/Spine/Pelvis Back: no CVA tenderness and No back tenderness Cervical Spine: cervical ROM normal Thoracic/Lumbar Spine: thoracic and lumbar spine normal to inspection, straight leg raise negative bilaterally, No thoraco-lumbar ROM limited and No lumbar spinal tenderness Skin Lesions: no lesions Rashes: no rashes Wounds: no wounds Neuro General: oriented to person, oriented to place, patient oriented x3, CN's II-XI intact bilaterally and No confusion Cranial nerves: Yes Equal, round and reactive pupils present and Yes Normal accommodation reflex present Cognition (Neuro): normal cognition Speech: No Abnormal speech present Gait exam (Neuro): Normal gait present Motor exam (neuro): 5/5 motor strength present throughout Extrem Right upper extremity: full ROM; no cyanosis Left upper extremity: full ROM; no cyanosis Right lower extremity: no edema Left lower extremity: no edema Psych Appearance: grossly normal Mental Status: mental status grossly normal Affect: normal affect Attitude: cooperative Thought process: Normal thought process present Office Procedures Flu Questionnaire Does the patient have a severe egg allergy?: No Results AMB Hemoglobin A1c AMB Hemoglobin A1c 7.6 % Last Edit by YOLY Ga on 02/17/24 13:43 Immunizations Fluarix Triv [id number] (PF) 45 mcg (15 mcg x 3)/0.5 mL IM syringe Performing Provider: Dejuan Cardoso PA-C Performing [facility]: 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, unspecified retinopathy severity, unspecified whether rn long term care insulin use E11.319 Diabetes mellitus type: type 2 Diabetes mellitus penitentiary insulin use: unspecified rn long term care insulin use status Diabetes mellitus complication status: with ophthalmic complications Diabetes mellitus complication detail: with diabetic retinopathy Diabetic retinopathy severity: with unspecified retinopathy severity Diabetes mellitus macular edema: without macular edema Laterality: bilateral Renovascular hypertension I15.0 Hypertension type: renovascular hypertension Acute deep vein thrombosis (DVT) of popliteal vein of left lower extremity I82.432 DVT location: lower extremity Affected thrombotic vein of extremity: popliteal Chronicity: acute Laterality: left MDD (major depressive disorder), recurrent episode, moderate F33.1 Hyperlipidemia, unspecified hyperlipidemia type E78.5 Hyperlipidemia type: unspecified Additional Codes RAMON-7 Assessment Billing - RAMON-7 Assessment Tool: RAMON-7 Assessment 88256 ([id number]) PHQ-9 - 65604 - PHQ-9 Billing: Yes ([id number]) Assessment & Plan Assessment & Plan (1) Annual physical exam: Code(s): Z00.00 - Encounter for general adult medical examination without abnormal findings Category: Medical Plan: As per HPI (2) Diabetes: Comment: IDDM Code(s): E11.9 - Type 2 diabetes mellitus without complications Category: Medical Qualifiers: Diabetes mellitus type: type 2 Diabetes mellitus rn long term care insulin use: unspecified penitentiary insulin use status Diabetes mellitus complication status: with ophthalmic complications Diabetes mellitus complication detail: with diabetic retinopathy Diabetic retinopathy severity: with unspecified retinopathy severity Diabetes mellitus macular edema: without macular edema Laterality: bilateral Qualified Code(s): E11.319 - Type 2 diabetes mellitus with unspecified diabetic retinopathy without macular edema Plan: Patient's type 2 diabetes suboptimally controlled today's A1c is 7.6. Continues to follow Endocrinology here in [place]. Has a insulin pump which has been helpful on regulating his sugars a bit. 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 Goal A1c is to be below 7.0 (3) Hypertension: Code(s): I10 - Essential (primary) hypertension Category: Medical Qualifiers: Hypertension type: renovascular hypertension Qualified Code(s): I15.0 - Renovascular hypertension Plan: Patient's blood pressure elevated today in office. He reports blood pressure usually stable at home. Will consider increasing his lisinopril dose if blood pressure remains above 140/90 consistently (4) DVT (deep venous thrombosis): Comment: Left lower extremity DVT 09/2023 Code(s): I82.409 - Acute embolism and thrombosis of unspecified deep veins of unspecified lower extremity Category: Medical Qualifiers: DVT location: lower extremity Affected thrombotic vein of extremity: popliteal Chronicity: acute Laterality: left Qualified Code(s): I82.432 - Acute embolism and thrombosis of left popliteal vein Plan: Recently had DVT in his lower extremity. He is now on Lovenox and warfarin until his INR gets therapeutic between 2 and 3. He plans on flying down to [facility] though was risky due to his blood clotting history and INR being subtherapeutic. 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 (5) MDD (major depressive disorder), recurrent episode, moderate: Code(s): F33.1 - Major depressive disorder, recurrent, moderate Category: Medical Plan: Tristian has been suffering with depression due to his medical issues and losing his job secondary to shoulder issue. He does see a mental health therapist and a psychiatrist whom manage his mental health medications. He is willing to try Wellbutrin as an augmented to his Celexa to help him with his depression mood and thoughts. (6) HLD (hyperlipidemia): Code(s): E78.5 - Hyperlipidemia, unspecified Category: Medical Qualifiers: Hyperlipidemia type: unspecified Qualified Code(s): E78.5 - Hyperlipidemia, unspecified Plan: Most recent lipid panel showing good control of his total cholesterol and LDL. Continues on statin therapy without significant side effects. Goal LDL to remain below 100 Orders: Orders Lipid Panel Today E11.319 - Type 2 diabetes mellitus with unspecified diabetic retinopathy without macular edema Comprehensive [place]. Panel Fast Today E11.319 - Type 2 diabetes mellitus with unspecified diabetic retinopathy without macular edema Microalbumin, Random (w Creat) Today I15.0 - Renovascular hypertension Influenza [id number] Immunization Today Z23 - Encounter for immunization AMB Hemoglobin A1c Today E11.319 - Type 2 diabetes mellitus with unspecified diabetic retinopathy without macular edema Complete Blood Count no Diff Today E11.319 - Type 2 diabetes mellitus with unspecified diabetic retinopathy without macular edema Vitamin D 25-OH Total Today E55.9 - Vitamin D deficiency, unspecified TSH reflex Free T4 Today E04.2 - Nontoxic multinodular goiter Prostate Specific Antigen Scr Today E04.2 - Nontoxic multinodular goiter, Z12.5 - Encounter for screening for malignant neoplasm of prostate Medications: New bupropion HCl XL (Wellbutrin XL) 150 mg PO QAM 90 days 90 tabs 1RF F33.1 - Major depressive disorder, recurrent, moderate
[2024-02-17 13:39] VITALS: BP 150/84; PULSE 80; O2SAT 97; BMI 41.4
== END 2024-02-17 14:20 | disposition home or self-care (01) ==
PROVIDERS: PCP Physician Assistant; Visit Provider Physician Assistant
DX: Z00.00 Encounter for general adult medical examination without abnormal findings (principal); E11.319 Type 2 diabetes mellitus with unspecified diabetic retinopathy without macular edema; I82.432 Acute embolism and thrombosis of left popliteal vein; F33.1 Major depressive disorder, recurrent, moderate; I10 Essential (primary) hypertension; E78.5 Hyperlipidemia, unspecified

== ENCOUNTER → 2024-02-17 13:17 | Outpatient (BNVA) | payer OTHER, SELFPAY | PROVIDERS: PCP Physician Assistant; Visit Provider Physician Assistant | DX: Z00.00 Encounter for general adult medical examination without abnormal findings (principal); E11.319 Type 2 diabetes mellitus with unspecified diabetic retinopathy without macular edema; I15.0 Renovascular hypertension; I82.432 Acute embolism and thrombosis of left popliteal vein; F33.1 Major depressive disorder, recurrent, moderate; E78.5 Hyperlipidemia, unspecified | CPT/HCPCS: 83036; 96127; 99211; 99396 ==

== ENCOUNTER 2024-02-17 15:52 | Outpatient (AMB) | payer OTHER, SELFPAY ==
--- NOTE | 2024-02-17 16:07 | A.OFFVIS_ITS ---
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 by: Self / Same As Patient Allergies No Known Allergies Allergy (Verified 02/17/24 13:47) HPI Comprehensive Diabetes Asmnt Most Recent Diabetes Results: Hemoglobin A1c 7.0 % 09/10/19 Microalb/Creat Ratio 14.9 ug/mg cr (<30) 03/18/23 Cholesterol 151 mg/dL (<200) 10/11/23 HDL Cholesterol 51 mg/dL (>40) 10/11/23 Triglycerides 118 mg/dL (<150) 10/11/23 Creatinine 0.88 mg/dL (0.5-1.4) 01/30/24 Blood Urea Nitrogen 17 mg/dL (9-16) H 01/30/24 Sodium 138 mmol/L (135-145) 01/30/24 Potassium 3.9 mmol/L (3.3-5.1) 01/30/24 Chloride 105 mmol/L (96-108) 01/30/24 Carbon Dioxide 26 mmol/L (22-29) 01/30/24 Calcium 9.4 mg/dL (8.4-10.2) 01/30/24 AST 27 U/L (5-37) 01/30/24 ALT 32 U/L (0-40) 01/30/24 Total Protein 7.1 g/dL (6.5-8.0) 01/30/24 Albumin 4.3 g/dL (3.5-5.0) 01/30/24 [facility] Medical History (Updated 02/17/24 @ 14:27 by Dejuan Cardoso PA-C) COVID-19 Hypogonadism in male DVT (deep venous thrombosis) Anxiety and depression Cervical lymphadenopathy Normal colonoscopy Vitamin D deficiency Multinodular thyroid HLD (hyperlipidemia) 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 Mother Diabetes Family history of thyroid problem Social History Household Members: Significant Other Housing: House Alcohol intake: current Alcohol intake frequency: a few times a month Alcohol type: beer and hard liquor Patient Tobacco Use Status: Former Tobacco user Tobacco use type: Cigarette e-Cigarette/Vaping Use: Never Used service: No Current occupational status: employed, unemployed and disabled Current occupation: unemployed Current occupational exposures/hazards: No Gender identity: Male Cognitive needs: No Hearing needs: No Vision needs: No Assessment & Plan Assessment & Plan (1) 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 The following topics were reviewed today: -manual mode verses automatic mode -importance of bolusing prior to meals -CGM settings(if integrated system): CGM graft views and trend arrows, alerts and alarms, Start new sensor ??? High Alert: Off ??? Low Alert: 70 mg/dl CGM data: Patient above target 62% Patient at target 38% Patient below target 0% Patient's average glucose for the past 14 days 219 mg/dL Basal: 58% Bolus: 42% Patient's last A1c today was 7.6% Patient transitioned independently from Dexcom G6 to Dexcom G7 sensors Reviewed with patient the importance of bolusing 15 minutes prior to meals, in addition recommended to patient when he notices his glucose levels are high to take correction dose through the insulin pump instead of waiting for basal insulin to reduce hyperglycemia Safety information: Importance of a backup plan, for manual injections, proper prescriptions and emergency supplies ketone strips, and rules for testing for ketones Setting verified by CDCES Basal rate(s) (units/hour) : 12 AM? to 12 AM 3 units / hr Bolus setting Insulin Carbohydrate Ratio (s) 12 AM? to 12 AM 1:5 Correction Factor / Sensitivity Factor 12 AM? to 12 AM ? 1:11 Active Insulin Time:? 3.5 hours Target(s): 12 AM? to 12 AM 120 mg/dL New 12 AM? to 12 AM 110 mg/dL Correction threshold 12 AM? to 12 AM 130mg/dL New 12 AM? 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
== END 2024-02-17 16:16 | disposition home or self-care (01) ==
PROVIDERS: PCP Physician Assistant; Visit Provider Registered Nurse Diabetes Educator
DX: E13.9 Other specified diabetes mellitus without complications (principal)

== ENCOUNTER 2024-02-19 09:12 | Outpatient (AMB) | payer OTHER, SELFPAY ==
[2024-02-19 09:27] LABS: Prothrombin Time Whole Bld POC 11.4 sec (11.1-13.5)
--- NOTE | 2024-02-19 09:28 | MHC.OFFVISCO ---
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: Anticoagulation Allergies No Known Allergies Allergy (Verified 02/19/24 09:17) Medication List - Last Reconciled 02/19/24 by Giana Berumen RN acamprosate 666 mg PO TID aspirin 81 mg PO DAILY 90 days atenolol 25 mg PO DAILY atorvastatin 40 mg PO DAILY B-complex with vitamin C 1 tab PO QAM blood pressure test kit-large As directed blood-glucose sensor ([employer] G7 Sensor device) As directed bupropion HCl XL (Wellbutrin XL) 150 mg PO QAM 90 days cholecalciferol (vitamin D3) (Vitamin D3) 10 mcg PO DAILY citalopram 40 mg PO DAILY cyanocobalamin (vitamin B-12) 250 mcg PO DAILY enoxaparin (Lovenox) 100 mg See Protocol subcut Q12H folic acid 1 mg PO DAILY gabapentin mg PO glucagon 3 mg/actuation (Baqsimi) 3 mg intranasal ONCE guanfacine ER 2 mg PO DAILY ibuprofen 600 mg PO TID insulin aspart U-100 Infuse up to 150 units per day via Insulin pump subcutaneously; insulin glargine U-300 conc (Toujeo Max U-300 SoloStar) 55 units (0.1833 mL) subcut DAILY PRN 30 days insulin pump cart,auto,BT,G6/7 (Omnipod 5 G6-G7 Pods (Gen 5) subcutaneous cartridge) As directed change every 48 hours ketorolac 0.5% drps ophthalmic (eye) lisinopril 10 mg PO DAILY naltrexone 50 mg PO DAILY tadalafil (Cialis) 20 mg PO DAILY 5 days thiamine mononitrate (vit B1) 100 mg PO DAILY warfarin See Protocol 2 mg TAB, 4MG DAILY; Nursing Note INR 1.0-?? out of therapeutic range of 2-3 Medications and supplements reviewed Patient status: third acs visit- prev inr's 0.9, 1.0 Medications or supplements: no changes Diet: appetite is good Denies any signs and symptoms of bleeding or clotting or unusual bruising Bleeding, bruising, clotting discussed Nutritional guidance given: no greens for 2 days, eat reds to raise food list reviewed Dose: 6mg daily until appt 02/23/24. do not take prior to appt on friday continue lovenox until inr therapeutic F/U INR Date : fri02/23/24 Patient verbalizing understanding of instructions given. Dr Villela covering for Dr Bonilla- reported inr of 1.0, agrees with dosing plan and to cont lovenox. aware pt will need new script for warfarin Anti-Coag Initial Assessment Social Hx Patient Tobacco Use Status: Former Tobacco user Tobacco use type: Cigarette alcohol intake: current Alcohol intake frequency: a few times a month Cardiovascular Hx: HTN Lung Disease HX: DVT/PE Endocrine Hx: Diabetes Musculoskeletal Hx: Arthritis Blood Disorder Hx: Hyperlipidemia Cancer HX: No Psych. 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
== END 2024-02-19 09:59 | disposition home or self-care (01) ==
LOC: HO.ACS 09:12
PROVIDERS: PCP Physician Assistant; Visit Provider Internal Medicine
DX: Z79.01 Long term (current) use of anticoagulants (principal)

== ENCOUNTER → 2024-02-19 09:12 | Outpatient (BNVA) | payer OTHER, SELFPAY | PROVIDERS: PCP Physician Assistant; Visit Provider Internal Medicine | DX: Z86.718 Personal history of other venous thrombosis and embolism (principal); Z79.01 Long term (current) use of anticoagulants; Z51.81 Encounter for therapeutic drug level monitoring | CPT/HCPCS: 85610; 99212 ==

== ENCOUNTER 2024-02-23 09:14 | Outpatient (AMB) | payer OTHER, SELFPAY ==
[2024-02-23 09:23] LABS: Prothrombin Time Whole Bld POC 14.4 sec (11.1-13.5); ~PT, ~INR - Anti Coag Clinic 1.2 (0.9-1.1)
--- NOTE | 2024-02-23 09:23 | MHC.OFFVISCO ---
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: Anticoagulation Allergies No Known Allergies Allergy (Verified 02/23/24 09:18) Medication List - Last Reconciled 02/23/24 by Josselin Reid RN acamprosate 666 mg PO TID aspirin 81 mg PO DAILY 90 days atenolol 25 mg PO DAILY atorvastatin 40 mg PO DAILY B-complex with vitamin C 1 tab PO QAM blood pressure test kit-large As directed blood-glucose sensor ([employer] G7 Sensor device) As directed bupropion HCl XL (Wellbutrin XL) 150 mg PO QAM 90 days cholecalciferol (vitamin D3) (Vitamin D3) 10 mcg PO DAILY citalopram 40 mg PO DAILY cyanocobalamin (vitamin B-12) 250 mcg PO DAILY enoxaparin (Lovenox) 100 mg See Protocol subcut Q12H folic acid 1 mg PO DAILY gabapentin mg PO glucagon 3 mg/actuation (Baqsimi) 3 mg intranasal ONCE guanfacine ER 2 mg PO DAILY ibuprofen 600 mg PO TID insulin aspart U-100 Infuse up to 150 units per day via Insulin pump subcutaneously; insulin glargine U-300 conc (Toujeo Max U-300 SoloStar) 55 units (0.1833 mL) subcut DAILY PRN 30 days insulin pump cart,auto,BT,G6/7 (Omnipod 5 G6-G7 Pods (Gen 5) subcutaneous cartridge) As directed change every 48 hours ketorolac 0.5% drps ophthalmic (eye) lisinopril 10 mg PO DAILY naltrexone 50 mg PO DAILY tadalafil (Cialis) 20 mg PO DAILY 5 days thiamine mononitrate (vit B1) 100 mg PO DAILY warfarin 4 mg PO DAILY warfarin See Protocol 2 mg TAB, 4MG DAILY; Nursing Note INR: 1.2 out of therapeutic range of 2-3 Medications and supplements reviewed Patient status: no changes Medications or supplements: no changes Diet: usual diet for pt Denies any signs and symptoms of bleeding or clotting or unusual bruising Bleeding, bruising, clotting discussed Nutritional guidance given: avoid greens until INR therapeutic. Food list reviewed. Dose: 8mg daily F/U INR Date : 3 days 02/26/24?? Patient verbalizing understanding of instructions given. T/C to Dr Bonilla and INR 1.2 reported with dosing plan and retest date. Anti-Coag Initial Assessment Social Hx Patient Tobacco Use Status: Former Tobacco user Tobacco use type: Cigarette alcohol intake: current Alcohol intake frequency: a few times a month Cardiovascular Hx: HTN Lung Disease HX: DVT/PE Endocrine Hx: Diabetes Musculoskeletal Hx: Arthritis Blood Disorder Hx: Hyperlipidemia Cancer HX: No Psych. Illness/Depression: No (depression) Coding Level of Care Code Est Patient Level 1 Diagnoses Current use of anticoagulant therapy Z79.01 Assessment & Plan Assessment & Plan (1) Current use of anticoagulant therapy: Code(s): Z79.01 - jail (current) use of anticoagulants Category: Medical
== END 2024-02-23 09:45 | disposition home or self-care (01) ==
LOC: HO.ACS 09:14
PROVIDERS: PCP Physician Assistant; Visit Provider Internal Medicine
DX: Z79.01 Long term (current) use of anticoagulants (principal)

== ENCOUNTER → 2024-02-23 09:14 | Outpatient (BNVA) | payer OTHER, SELFPAY | PROVIDERS: PCP Physician Assistant; Visit Provider Internal Medicine | DX: Z86.718 Personal history of other venous thrombosis and embolism (principal); Z79.01 Long term (current) use of anticoagulants; Z51.81 Encounter for therapeutic drug level monitoring | CPT/HCPCS: 85610; 99211 ==

== ENCOUNTER 2024-02-26 09:11 | Outpatient (AMB) | payer OTHER, SELFPAY ==
--- NOTE | 2024-02-26 09:34 | MHC.OFFVISCO ---
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: Anticoagulation Allergies No Known Allergies Allergy (Verified 02/26/24 09:12) Medication List - Last Reconciled 02/26/24 by Kristyn Ball RN acamprosate 666 mg PO TID aspirin 81 mg PO DAILY 90 days atenolol 25 mg PO DAILY atorvastatin 40 mg PO DAILY B-complex with vitamin C 1 tab PO QAM blood pressure test kit-large As directed blood-glucose sensor ([employer] G7 Sensor device) As directed bupropion HCl XL (Wellbutrin XL) 150 mg PO QAM 90 days cholecalciferol (vitamin D3) (Vitamin D3) 10 mcg PO DAILY citalopram 40 mg PO DAILY cyanocobalamin (vitamin B-12) 250 mcg PO DAILY enoxaparin (Lovenox) 100 mg See Protocol subcut Q12H folic acid 1 mg PO DAILY gabapentin mg PO glucagon 3 mg/actuation (Baqsimi) 3 mg intranasal ONCE guanfacine ER 2 mg PO DAILY ibuprofen 600 mg PO TID insulin aspart U-100 Infuse up to 150 units per day via Insulin pump subcutaneously; insulin glargine U-300 conc (Toujeo Max U-300 SoloStar) 55 units (0.1833 mL) subcut DAILY PRN 30 days insulin pump cart,auto,BT,G6/7 (Omnipod 5 G6-G7 Pods (Gen 5) subcutaneous cartridge) As directed change every 48 hours ketorolac 0.5% drps ophthalmic (eye) lisinopril 10 mg PO DAILY naltrexone 50 mg PO DAILY tadalafil (Cialis) 20 mg PO DAILY 5 days thiamine mononitrate (vit B1) 100 mg PO DAILY warfarin 4 mg See Protocol PO DAILY Nursing Note INR: 1.3 in therapeutic range- INR still sub therapeutic - possibly r/t genetics or taking warfarin same time as all other meds - requested pt to take warfarin separate from all other meds today at 11 am then 4pm all other days. Medications and supplements reviewed- REQUEST FOR LOVENOX REFILL TO PCP No changes in health, diet, medications, or supplements, Denies any signs and symptoms of bleeding or bruising or clotting. Bleeding, bruising, clotting discussed Nutritional guidance given Dose: 12MG TODAY 11 AM THEN 8MH DAILY F/U INR: TOMORROW Patient verbalizes understanding of instructions given Msg of pt status sent to PCP Anti-Coag Initial Assessment Social Hx Patient Tobacco Use Status: Former Tobacco user Tobacco use type: Cigarette alcohol intake: current Alcohol intake frequency: a few times a month Cardiovascular Hx: HTN Lung Disease HX: DVT/PE Endocrine Hx: Diabetes Musculoskeletal Hx: Arthritis Blood Disorder Hx: Hyperlipidemia Cancer HX: No Psych. 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
[2024-02-26 09:49] LABS: Prothrombin Time Whole Bld POC 15.2 sec (11.1-13.5); ~PT, ~INR - Anti Coag Clinic 1.3 (0.9-1.1)
== END 2024-02-26 09:41 | disposition home or self-care (01) ==
LOC: HO.ACS 09:11
PROVIDERS: PCP Physician Assistant; Visit Provider Internal Medicine
DX: Z79.01 Long term (current) use of anticoagulants (principal)

== ENCOUNTER → 2024-02-26 09:11 | Outpatient (BNVA) | payer OTHER, SELFPAY | PROVIDERS: PCP Physician Assistant; Visit Provider Internal Medicine | DX: Z86.718 Personal history of other venous thrombosis and embolism (principal); Z79.01 Long term (current) use of anticoagulants; Z51.81 Encounter for therapeutic drug level monitoring | CPT/HCPCS: 85610; 99211 ==

== ENCOUNTER 2024-02-27 10:58 | Outpatient (AMB) | payer OTHER, SELFPAY ==
[2024-02-27 11:04] LABS: Prothrombin Time Whole Bld POC 14.7 sec (11.1-13.5); ~PT, ~INR - Anti Coag Clinic 1.2 (0.9-1.1)
--- NOTE | 2024-02-27 11:24 | MHC.OFFVISCO ---
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: Anticoagulation Allergies No Known Allergies Allergy (Verified 02/26/24 09:12) Nursing Note INR 1.2 out of therapeutic range EVEN AFTER 12MG DOSE YESTERDAY INR WENT DOWN - PT STATES HE IS TAKING THE WARFARIN AND THE LOVENOX ORDERED. HE IS NOT EATING GREENS, Medications and supplements reviewed Patient status: possible that warfarin dose has not been achieved to stabelize INR into therapeutic range - or possible resistant hyper-coaguable state Medications or supplements: no changes Diet: not eating greens Denies any signs and symptoms of bleeding or clotting or unusual bruising Bleeding, bruising, clotting discussed Nutritional guidance given: cont to avoid all greens Dose: 12 mg today 10mg tomorrow 8mg Friday F/U INR Date : 03/01/24 ?? Patient verbalizing understanding of instructions given. msg and t/c to PCP Anti-Coag Initial Assessment Social Hx Patient Tobacco Use Status: Former Tobacco user Tobacco use type: Cigarette alcohol intake: current Alcohol intake frequency: a few times a month Cardiovascular Hx: HTN Lung Disease HX: DVT/PE Endocrine Hx: Diabetes Musculoskeletal Hx: Arthritis Blood Disorder Hx: Hyperlipidemia Cancer HX: No Psych. Illness/Depression: No (depression) Coding Level of Care Code Est Patient Level 1 Diagnoses Current use of anticoagulant therapy Z79.01 Comment t/c and sg to PCP Results AMB INR Fingerstick AMB INR Fingerstick 1.2 Last Edit by Kristyn Ball RN on 02/27/24 11:04 MANUAL ENTRY Assessment & Plan Assessment & Plan (1) Current use of anticoagulant therapy: Code(s): Z79.01 - [facility] (current) use of anticoagulants Category: Medical
== END 2024-02-27 11:36 | disposition home or self-care (01) ==
LOC: HO.ACS 10:58
PROVIDERS: PCP Physician Assistant; Visit Provider Internal Medicine
DX: Z79.01 Long term (current) use of anticoagulants (principal)

== ENCOUNTER → 2024-02-27 10:58 | Outpatient (BNVA) | payer OTHER, SELFPAY | PROVIDERS: PCP Physician Assistant; Visit Provider Internal Medicine | DX: Z86.718 Personal history of other venous thrombosis and embolism (principal); Z79.01 Long term (current) use of anticoagulants; Z51.81 Encounter for therapeutic drug level monitoring | CPT/HCPCS: 85610; 99211 ==

== ENCOUNTER 2024-03-01 09:05 | Outpatient (AMB) | payer OTHER, SELFPAY ==
[2024-03-01 09:18] LABS: Prothrombin Time Whole Bld POC 24.2 sec (11.1-13.5)
--- NOTE | 2024-03-01 09:26 | MHC.OFFVISCO ---
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: Anticoagulation Allergies No Known Allergies Allergy (Verified 03/01/24 09:08) Medication List - Last Reconciled 03/01/24 by Kristyn Ball RN acamprosate 666 mg PO TID aspirin 81 mg PO DAILY 90 days atenolol 25 mg PO DAILY atorvastatin 40 mg PO DAILY B-complex with vitamin C 1 tab PO QAM blood pressure test kit-large As directed blood-glucose sensor ([employer] G7 Sensor device) As directed bupropion HCl XL (Wellbutrin XL) 150 mg PO QAM 90 days cholecalciferol (vitamin D3) (Vitamin D3) 10 mcg PO DAILY citalopram 40 mg PO DAILY cyanocobalamin (vitamin B-12) 250 mcg PO DAILY enoxaparin (Lovenox) 100 mg See Protocol subcut Q12H folic acid 1 mg PO DAILY gabapentin mg PO glucagon 3 mg/actuation (Baqsimi) 3 mg intranasal ONCE guanfacine ER 2 mg PO DAILY ibuprofen 600 mg PO TID insulin aspart U-100 Infuse up to 150 units per day via Insulin pump subcutaneously; insulin glargine U-300 conc (Toujeo Max U-300 SoloStar) 55 units (0.1833 mL) subcut DAILY PRN 30 days insulin pump cart,auto,BT,G6/7 (Omnipod 5 G6-G7 Pods (Gen 5) subcutaneous cartridge) As directed change every 48 hours ketorolac 0.5% drps ophthalmic (eye) lisinopril 10 mg PO DAILY naltrexone 50 mg PO DAILY tadalafil (Cialis) 20 mg PO DAILY 5 days thiamine mononitrate (vit B1) 100 mg PO DAILY warfarin 4 mg See Protocol PO DAILY Nursing Note INR: 2.0 in therapeutic range- after significant increase in dose and change in the time he takes the warfarin. He was taking his warfarin the same time as all his other meds, it was suggested that he take his warfarin separately at 4 pm. Medications and supplements reviewed No changes in health, diet, medications, or supplements, Denies any signs and symptoms of bleeding or bruising or clotting. Bleeding, bruising, clotting discussed Nutritional guidance given - pt asked if could drink ETOH - due to hx it was advised he did not Dose: pt had 64 mg last week INR went from 1.2 to 2.0 will decrease slightly to possibly 62 mg for the week 10mg mwf/ 8mg x 4 days and recheck tomorrow to have 2 INR in range before stopping the lovenox. He has a tripped planned first week of March- he was advised to speak with Md about flying F/U INR: tomorrow Patient verbalizes understanding of instructions given Anti-Coag Initial Assessment Social Hx Patient Tobacco Use Status: Former Tobacco user Tobacco use type: Cigarette alcohol intake: current Alcohol intake frequency: a few times a month Cardiovascular Hx: HTN Lung Disease HX: DVT/PE Endocrine Hx: Diabetes Musculoskeletal Hx: Arthritis Blood Disorder Hx: Hyperlipidemia Cancer HX: No Psych. Illness/Depression: No (depression) Coding Level of Care Code Est Patient Level 1 Diagnoses Current use of anticoagulant therapy Z79.01 Results AMB INR Fingerstick AMB INR Fingerstick 2.0 Last Edit by Kristyn Ball RN on 03/01/24 09:17 manual entry Assessment & Plan Assessment & Plan (1) Current use of anticoagulant therapy: Code(s): Z79.01 - intermediate (current) use of anticoagulants Category: Medical
== END 2024-03-01 09:50 | disposition home or self-care (01) ==
PROVIDERS: PCP Physician Assistant; Visit Provider Internal Medicine
DX: Z79.01 Long term (current) use of anticoagulants (principal)

== ENCOUNTER → 2024-03-01 09:05 | Outpatient (BNVA) | payer OTHER, SELFPAY | PROVIDERS: PCP Physician Assistant; Visit Provider Internal Medicine | DX: I48.19 Other persistent atrial fibrillation (principal); Z79.01 Long term (current) use of anticoagulants; Z51.81 Encounter for therapeutic drug level monitoring | CPT/HCPCS: 85610; 99211 ==

== ENCOUNTER 2024-03-02 09:19 | Outpatient (AMB) | payer OTHER, SELFPAY ==
[2024-03-02 09:45] LABS: Prothrombin Time Whole Bld POC 20.7 sec (11.1-13.5); ~PT, ~INR - Anti Coag Clinic 1.7 (0.9-1.1)
--- NOTE | 2024-03-02 09:48 | MHC.OFFVISCO ---
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: Anticoagulation Allergies No Known Allergies Allergy (Verified 03/02/24 09:29) Medication List - Last Reconciled 03/02/24 by Kristyn Ball RN acamprosate 666 mg PO TID aspirin 81 mg PO DAILY 90 days atenolol 25 mg PO DAILY atorvastatin 40 mg PO DAILY B-complex with vitamin C 1 tab PO QAM blood pressure test kit-large (Wireless Blood Pressure Monitor kit) As directed blood-glucose sensor ([employer] G7 Sensor device) As directed bupropion HCl XL (Wellbutrin XL) 150 mg PO QAM 90 days cholecalciferol (vitamin D3) (Vitamin D3) 10 mcg PO DAILY citalopram 40 mg PO DAILY cyanocobalamin (vitamin B-12) 250 mcg PO DAILY enoxaparin (Lovenox) 100 mg See Protocol subcut Q12H folic acid 1 mg PO DAILY gabapentin 300 mg PO DAILY glucagon 3 mg/actuation (Baqsimi) 3 mg intranasal ONCE guanfacine ER 2 mg PO DAILY ibuprofen 600 mg PO TID insulin aspart U-100 Infuse up to 150 units per day via Insulin pump subcutaneously; insulin glargine U-300 conc (Toujeo Max U-300 SoloStar) 55 units (0.1833 mL) subcut DAILY PRN 30 days insulin pump cart,auto,BT,G6/7 (Omnipod 5 G6-G7 Pods (Gen 5) subcutaneous cartridge) As directed change every 48 hours ketorolac 0.5% 0.5 drps ophthalmic (eye) DAILY lisinopril 10 mg PO DAILY naltrexone 50 mg PO DAILY tadalafil (Cialis) 20 mg PO DAILY 5 days thiamine mononitrate (vit B1) 100 mg PO DAILY warfarin 4 mg See Protocol PO DAILY Nursing Note INR: 1.7 NOW NOT IN therapeutic range 2.0 YESTERDAY he had only a slice of avocado yesterday Medications and supplements reviewed No changes in health, medications, or supplements, Denies any signs and symptoms of bleeding or bruising or clotting. Bleeding, bruising, clotting discussed Nutritional guidance given Dose: increase to 10mg x 5 days/ 8mg x 2 days cont lovenox F/U INR: 2 days Patient verbalizes understanding of instructions given Anti-Coag Initial Assessment Social Hx Patient Tobacco Use Status: Former Tobacco user Tobacco use type: Cigarette alcohol intake: current Alcohol intake frequency: a few times a month Cardiovascular Hx: HTN Lung Disease HX: DVT/PE Endocrine Hx: Diabetes Musculoskeletal Hx: Arthritis Blood Disorder Hx: Hyperlipidemia Cancer HX: No Psych. Illness/Depression: No (depression) Coding Level of Care Code Est Patient Level 1 Diagnoses Current use of anticoagulant therapy Z79.01 Results AMB INR Fingerstick AMB INR Fingerstick 1.7 Last Edit by Kristyn Ball RN on 03/02/24 09:41 MANUAL ENTRY Assessment & Plan Assessment & Plan (1) Current use of anticoagulant therapy: Code(s): Z79.01 - [facility] (current) use of anticoagulants Category: Medical
== END 2024-03-02 10:43 | disposition home or self-care (01) ==
LOC: HO.ACS 09:19
PROVIDERS: PCP Physician Assistant; Visit Provider Internal Medicine
DX: Z79.01 Long term (current) use of anticoagulants (principal)

== ENCOUNTER → 2024-03-02 09:19 | Outpatient (BNVA) | payer OTHER, SELFPAY | PROVIDERS: PCP Physician Assistant; Visit Provider Internal Medicine | DX: Z86.718 Personal history of other venous thrombosis and embolism (principal); Z79.01 Long term (current) use of anticoagulants; Z51.81 Encounter for therapeutic drug level monitoring | CPT/HCPCS: 85610; 99211 ==

== ENCOUNTER 2024-03-04 10:27 | Outpatient (AMB) | payer OTHER, SELFPAY ==
--- NOTE | 2024-03-04 10:45 | MHC.OFFVISCO ---
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: Anticoagulation Allergies No Known Allergies Allergy (Verified 03/04/24 10:33) Medication List - Last Reconciled 03/04/24 by Josselin Carrillo RN acamprosate 666 mg PO TID aspirin 81 mg PO DAILY 90 days atenolol 25 mg PO DAILY atorvastatin 40 mg PO DAILY B-complex with vitamin C 1 tab PO QAM blood pressure test kit-large (Wireless Blood Pressure Monitor kit) As directed blood-glucose sensor ([employer] G7 Sensor device) As directed bupropion HCl XL (Wellbutrin XL) 150 mg PO QAM 90 days cholecalciferol (vitamin D3) (Vitamin D3) 10 mcg PO DAILY citalopram 40 mg PO DAILY cyanocobalamin (vitamin B-12) 250 mcg PO DAILY enoxaparin (Lovenox) 100 mg See Protocol subcut Q12H folic acid 1 mg PO DAILY gabapentin 300 mg PO DAILY glucagon 3 mg/actuation (Baqsimi) 3 mg intranasal ONCE guanfacine ER 2 mg PO DAILY insulin aspart U-100 Inject up to 150 units via insulin pump subcutaneously; insulin glargine U-300 conc (Toujeo Max U-300 SoloStar) 55 units (0.1833 mL) subcut DAILY PRN 30 days insulin pump cart,auto,BT,G6/7 (Omnipod 5 G6-G7 Pods (Gen 5) subcutaneous cartridge) As directed change every 48 hours ketorolac 0.5% 0.5 drps ophthalmic (eye) DAILY lisinopril 10 mg PO DAILY naltrexone 50 mg PO DAILY tadalafil (Cialis) 20 mg PO DAILY 5 days thiamine mononitrate (vit B1) 100 mg PO DAILY warfarin 4 mg See Protocol PO DAILY Nursing Note AMb to [facility] feeling well but frustrated by slow increase in INR Medications and supplements reviewed No new changes in health, diet, medications, or supplements, CONTINUES ON LOVENOX Denies any unusual signs and symptoms of bleeding, bruising, or clotting. Does have Lovenox bruising on belly, rotating sites Bleeding, bruising, clotting discussed INR: 1.9 remains below range Dose: continue lovenox today and tomorrow morning, take 10mg warfarin tonight NO GREENS F/U INR: TOMORROW Patient verbalizes understanding of instructions given Anti-Coag Initial Assessment Social Hx Patient Tobacco Use Status: Former Tobacco user Tobacco use type: Cigarette alcohol intake: current Alcohol intake frequency: a few times a month Cardiovascular Hx: HTN Lung Disease HX: DVT/PE Endocrine Hx: Diabetes Musculoskeletal Hx: Arthritis Blood Disorder Hx: Hyperlipidemia Cancer HX: No Psych. 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
[2024-03-04 10:54] LABS: Prothrombin Time Whole Bld POC 22.6 sec (11.1-13.5); ~PT, ~INR - Anti Coag Clinic 1.9 (0.9-1.1)
== END 2024-03-04 11:12 | disposition home or self-care (01) ==
PROVIDERS: PCP Physician Assistant; Visit Provider Internal Medicine
DX: Z79.01 Long term (current) use of anticoagulants (principal)

== ENCOUNTER → 2024-03-04 10:27 | Outpatient (BNVA) | payer OTHER, SELFPAY | PROVIDERS: PCP Physician Assistant; Visit Provider Internal Medicine | DX: Z86.718 Personal history of other venous thrombosis and embolism (principal); Z79.01 Long term (current) use of anticoagulants; Z51.81 Encounter for therapeutic drug level monitoring | CPT/HCPCS: 85610; 99211 ==

== ENCOUNTER 2024-03-05 09:09 | Outpatient (AMB) | payer OTHER, SELFPAY ==
[2024-03-05 09:41] LABS: Prothrombin Time Whole Bld POC 23.5 sec (11.1-13.5)
--- NOTE | 2024-03-05 09:51 | MHC.OFFVISCO ---
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: Anticoagulation Allergies No Known Allergies Allergy (Verified 03/05/24 09:33) Medication List - Last Reconciled 03/05/24 by Josselin Carrillo RN acamprosate 666 mg PO TID aspirin 81 mg PO DAILY 90 days atenolol 25 mg PO DAILY atorvastatin 40 mg PO DAILY B-complex with vitamin C 1 tab PO QAM blood pressure test kit-large (Wireless Blood Pressure Monitor kit) As directed blood-glucose sensor ([employer] G7 Sensor device) As directed bupropion HCl XL (Wellbutrin XL) 150 mg PO QAM 90 days cholecalciferol (vitamin D3) (Vitamin D3) 10 mcg PO DAILY citalopram 40 mg PO DAILY cyanocobalamin (vitamin B-12) 250 mcg PO DAILY enoxaparin (Lovenox) 100 mg See Protocol subcut Q12H folic acid 1 mg PO DAILY gabapentin 300 mg PO DAILY glucagon 3 mg/actuation (Baqsimi) 3 mg intranasal ONCE guanfacine ER 2 mg PO DAILY insulin aspart U-100 Inject up to 150 units via insulin pump subcutaneously; insulin glargine U-300 conc (Toujeo Max U-300 SoloStar) 55 units (0.1833 mL) subcut DAILY PRN 30 days insulin pump cart,auto,BT,G6/7 (Omnipod 5 G6-G7 Pods (Gen 5) subcutaneous cartridge) As directed change every 48 hours ketorolac 0.5% 0.5 drps ophthalmic (eye) DAILY lisinopril 10 mg PO DAILY naltrexone 50 mg PO DAILY tadalafil (Cialis) 20 mg PO DAILY 5 days thiamine mononitrate (vit B1) 100 mg PO DAILY warfarin 4 mg See Protocol PO DAILY Nursing Note Amb to [facility] feeling well Medications and supplements reviewed, continues on Lovenox injection No changes in health, diet, medications, or supplements, Denies any signs and symptoms of bleeding, bruising, or clotting. (other than bruising to abd from lovenox injections) Bleeding, bruising, clotting discussed INR: 2.0 just in therapeutic range Dose: have lovenox injection tonight then no further lovenox, increase warfarin to 12mg tonight and tomorrow, 10mg on Friday eat usual diet- sts sandwiches and fast food, not a veggie eater, sts he like beer F/U INR: Thursday 03/08, possibly as leaves for air travel and cruise on Tuesday 03/14 Patient verbalizes understanding of instructions given Anti-Coag Initial Assessment Social Hx Patient Tobacco Use Status: Former Tobacco user Tobacco use type: Cigarette alcohol intake: current Alcohol intake frequency: a few times a month Cardiovascular Hx: HTN Lung Disease HX: DVT/PE Endocrine Hx: Diabetes Musculoskeletal Hx: Arthritis Blood Disorder Hx: Hyperlipidemia Cancer HX: No Psych. 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
== END 2024-03-05 10:02 | disposition home or self-care (01) ==
LOC: HO.ACS 09:09
PROVIDERS: PCP Physician Assistant; Visit Provider Internal Medicine
DX: Z79.01 Long term (current) use of anticoagulants (principal)

== ENCOUNTER → 2024-03-05 09:09 | Outpatient (BNVA) | payer OTHER, SELFPAY | PROVIDERS: PCP Physician Assistant; Visit Provider Internal Medicine | DX: Z86.718 Personal history of other venous thrombosis and embolism (principal); Z79.01 Long term (current) use of anticoagulants; Z51.81 Encounter for therapeutic drug level monitoring | CPT/HCPCS: 85610; 99211 ==

== ENCOUNTER 2024-03-08 07:47 | Outpatient (REF) | payer OTHER, SELFPAY ==
[2024-03-08 08:49] LABS: Mean Corpuscular HGB Conc 35.7 g/dl (31.0-36.0); Mean Corpuscular Hemoglobin 34.2 pg (27.0-33.0); Mean Corpuscular Volume 95.7 fL (80.0-98.0); Mean Platelet Volume 9.7 fL (9.4-12.4); Platelet Count 297 X10*3/uL (160-400); Red Blood Count 4.39 X10*6/uL (4.60-5.80); Red Cell Distribution Width 12.8 % (11.0-16.0); White Blood Count 6.5 X10*3/uL (4.8-10.8)
[2024-03-08 09:28] LABS: Creatinine Urine 212.97 mg/dL; Microalbum/Creatinine Ratio Ur 4.6 ug/mg cr (<30)
[2024-03-08 09:30] LABS: Alanine Aminotransferase 41 U/L (0-40); Albumin Level 4.1 g/dL (3.5-5.0); Alkaline Phosphatase 74 U/L (39-117); Anion Gap 11 (12-20); Aspartate Amino Transferase 30 U/L (5-37); Bilirubin Total 0.5 mg/dL (0.0-1.0); Blood Urea Nitrogen 13 mg/dL (9-16); Calcium 8.8 mg/dL (8.4-10.2); Carbon Dioxide 25 mmol/L (22-29); Chloride 111 mmol/L (96-108); Cholesterol 147 mg/dL (<200); Estimated Glomerular Filt Rate > 60; Glucose Fasting 124 mg/dL (60-99); HDL Cholesterol 51 mg/dL (>40); LDL Cholesterol Calculated 77 mg/dL (<100); Potassium 3.7 mmol/L (3.3-5.1); Sodium 143 mmol/L (135-145); Total Protein 6.9 g/dL (6.5-8.0); Triglycerides 96 mg/dL (<150)
[2024-03-08 09:34] LABS: TSH reflex Free T4 1.72 uIU/mL (0.32-4.0); Vitamin D 25-OH Total 36.6 ng/mL (>30)
[2024-03-08 09:38] LABS: Prostate Specific Antigen Scr 1.08 ng/mL (<0.05-4.0)
== END 2024-03-08 07:48 | disposition home or self-care (01) ==
LOC: HO.LAB 07:47
PROVIDERS: PCP Physician Assistant; Visit Provider Physician Assistant
DX: Z12.5 Encounter for screening for malignant neoplasm of prostate (principal); I82.502 Chronic embolism and thrombosis of unspecified deep veins of left lower extremity; Z51.81 Encounter for therapeutic drug level monitoring; Z79.01 Long term (current) use of anticoagulants; E11.319 Type 2 diabetes mellitus with unspecified diabetic retinopathy without macular edema; I15.0 Renovascular hypertension; E55.9 Vitamin D deficiency, unspecified; E04.2 Nontoxic multinodular goiter
CPT/HCPCS: 36415; 80053; 80061; 82043; 82306; 82570; 84153; 84443; 85027; 85610; 99211

== ENCOUNTER 2024-03-08 08:11 | Outpatient (AMB) | payer OTHER, SELFPAY ==
[2024-03-08 08:47] LABS: ~PT, ~INR - Anti Coag Clinic 2.4 (0.9-1.1)
--- NOTE | 2024-03-08 08:50 | MHC.OFFVISCO ---
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: Anticoagulation Allergies No Known Allergies Allergy (Verified 03/08/24 08:34) Medication List - Last Reconciled 03/08/24 by Josselin Reid RN acamprosate 666 mg PO TID aspirin 81 mg PO DAILY 90 days atenolol 25 mg PO DAILY atorvastatin 40 mg PO DAILY B-complex with vitamin C 1 tab PO QAM blood pressure test kit-large (Wireless Blood Pressure Monitor kit) As directed blood-glucose sensor ([employer] G7 Sensor device) As directed bupropion HCl XL (Wellbutrin XL) 150 mg PO QAM 90 days cholecalciferol (vitamin D3) (Vitamin D3) 10 mcg PO DAILY citalopram 40 mg PO DAILY cyanocobalamin (vitamin B-12) 250 mcg PO DAILY enoxaparin (Lovenox) 100 mg See Protocol subcut Q12H folic acid 1 mg PO DAILY gabapentin 300 mg PO DAILY glucagon 3 mg/actuation (Baqsimi) 3 mg intranasal ONCE guanfacine ER 2 mg PO DAILY insulin aspart U-100 Inject up to 150 units via insulin pump subcutaneously; insulin glargine U-300 conc (Toujeo Max U-300 SoloStar) 55 units (0.1833 mL) subcut DAILY PRN 30 days insulin pump cart,auto,BT,G6/7 (Omnipod 5 G6-G7 Pods (Gen 5) subcutaneous cartridge) As directed change every 48 hours ketorolac 0.5% 0.5 drps ophthalmic (eye) DAILY lisinopril 10 mg PO DAILY naltrexone 50 mg PO DAILY tadalafil (Cialis) 20 mg PO DAILY 5 days thiamine mononitrate (vit B1) 100 mg PO DAILY warfarin 4 mg See Protocol PO DAILY Nursing Note INT: 2.4 in therapuetic range of 2-3 Medications and supplements reviewed No changes in health, diet, medications, or supplements, Denies any signs and symptoms of bleeding or bruising or clotting. Bleeding, bruising, clotting discussed Nutritional guidance given Dose: 10mg X 6 days and 12mg X 1 day F/U INR: 2 weeks, would prefer 1 week but pt is going on vacation next week Food list reviewed with pt Patient verbalizes understanding of instructions given Anti-Coag Initial Assessment Social Hx Patient Tobacco Use Status: Former Tobacco user Tobacco use type: Cigarette alcohol intake: current Alcohol intake frequency: a few times a month Cardiovascular Hx: HTN Lung Disease HX: DVT/PE Endocrine Hx: Diabetes Musculoskeletal Hx: Arthritis Blood Disorder Hx: Hyperlipidemia Cancer HX: No Psych. Illness/Depression: No (depression) Coding Level of Care Code Est Patient Level 1 Diagnoses Current use of anticoagulant therapy Z79.01 Results AMB INR Fingerstick AMB INR Fingerstick 2.4 Last Edit by Josselin Reid RN on 03/08/24 08:43 interface delay Assessment & Plan Assessment & Plan (1) Current use of anticoagulant therapy: Code(s): Z79.01 - [facility] (current) use of anticoagulants Category: Medical
== END 2024-03-08 08:53 | disposition home or self-care (01) ==
LOC: HO.ACS 08:11
PROVIDERS: PCP Physician Assistant; Visit Provider Internal Medicine
DX: Z79.01 Long term (current) use of anticoagulants (principal)

== ENCOUNTER 2024-03-24 14:29 | Emergency (ER) | payer OTHER, SELFPAY ==
--- NOTE | ~2024-03-24 | US_ITS ---
CLINICAL HISTORY: pain Venous duplex ultrasound left lower extremity Comparison: US/CA/SR - US VENOUS DUPLEX LE LT - 01/30/24 13:17 EST Findings: The visualized deep veins are fully compressible with normal Doppler color flow and spectral tracings. No popliteal cyst. IMPRESSION: 1. Negative for left lower extremity deep vein thrombosis. This document has been electronically signed by: Kellie Winn MD on 03/24/2024 18:07:43
[2024-03-24 15:25] VITALS: BP 133/70; PULSE 90; RESP 20; TEMP 3.2; TEMP 37.7; O2SAT 95; BMI 39.8
--- NOTE | 2024-03-24 15:25 | ED.GENADULT ---
HPI - General Adult General Chief complaint: Nausea/Vomiting/Diarrhea Stated complaint: Flu Symptoms L Leg Blood Clot Time Seen by Provider: 03/24/24 19:58 Source: patient Mode of arrival: ambulatory Limitations: no limitations History of Present Illness ED Provider: Dr. Meche Sandhu HPI narrative: Patient comes to the emergency room complaining of nausea vomiting diarrhea, body aches. Also, patient states that he is complaining of left lower extremity pain. Patient states he is known to have a DVT and is currently on Lovenox injections. Patient states that he [place] came [place] a [place] and has been sick for about 4 days. Related Data Home Medications ?Medication ?Instructions ?Recorded ?Confirmed acamprosate 333 mg tablet,delayed 666 mg PO TID 10/01/23 03/08/24 release folic acid 1 mg tablet 1 mg PO DAILY 10/01/23 03/08/24 B-complex with vitamin C 1 tab PO QAM 02/16/24 03/08/24 cholecalciferol (vitamin D3) 10 10 mcg PO DAILY 02/16/24 03/08/24 mcg (400 unit) tablet (Vitamin D3) citalopram 40 mg tablet 40 mg PO DAILY 02/16/24 03/08/24 cyanocobalamin (vitamin B-12) 250 250 mcg PO DAILY 02/16/24 03/08/24 mcg tablet gabapentin 300 mg capsule 300 mg PO DAILY 02/16/24 03/08/24 guanfacine 2 mg tablet,extended 2 mg PO DAILY 02/16/24 03/08/24 release 24 hr ketorolac 0.5 % eye drops 0.5 drp ophthalmic (eye) DAILY 02/16/24 03/08/24 naltrexone 50 mg tablet 50 mg PO DAILY 02/16/24 03/08/24 thiamine mononitrate (vit B1) 100 100 mg PO DAILY 02/16/24 03/08/24 mg tablet blood pressure test kit-large 03/01/24 03/08/24 (Wireless Blood Pressure Monitor kit) Previous Rx's ?Medication ?Instructions ?Recorded glucagon 3 mg/actuation nasal 3 mg intranasal ONCE #2 ea 12/12/22 spray (Baqsimi) atorvastatin 40 mg tablet 40 mg PO DAILY #90 tabs 05/27/23 tadalafil 20 mg tablet (Cialis) 20 mg PO DAILY sexual activity 5 08/12/23 days #5 tabs lisinopril 10 mg tablet 10 mg PO DAILY #90 tabs 11/20/23 atenolol 25 mg tablet 25 mg PO DAILY #90 tabs 11/27/23 blood-glucose sensor (Dexcom G7 #3 ea 02/03/24 Sensor device) insulin glargine U-300 conc 300 55 unit (0.1833 mL) subcut DAILY 02/03/24 unit/mL (3 mL) subcutaneous pen PRN prn pump failure 30 days #6 mL (Toujeo Max U-300 SoloStar) insulin pump cart,auto,BT,G6/7 #15 ea 02/03/24 (Omnipod 5 G6-G7 Pods (Gen 5) subcutaneous cartridge) aspirin 81 mg tablet,delayed 81 mg PO DAILY 90 days #90 tabs 02/12/24 release bupropion HCl 150 mg 24 hr tablet, 150 mg PO QAM 90 days #90 tabs 02/17/24 extended release (Wellbutrin XL) enoxaparin 100 mg/mL subcutaneous 100 mg subcut Q12H #60 mL 02/26/24 syringe (Lovenox) insulin aspart U-100 100 unit/mL See Rx Instructions subcut 03/04/24 subcutaneous solution .COMPLEX #50 mL warfarin 4 mg tablet See Rx Instructions PO DAILY #90 03/15/24 tabs acetaminophen 500 mg tablet 500 mg PO Q6H PRN fever or pain 03/24/24 #30 tabs Allergies Allergy/AdvReac Type Severity Reaction Status Date / Time No Known Allergies Allergy Verified 03/24/24 15:28 Review of Systems Review of Systems: Constitutional : No Weight loss, No Fever, No Chills, No Night Sweats, complaining of fatigue and generalized malaise ENT/Mouth : No Hearing loss, No Ear Pain, No Nasal Congestion, No Sinus Pain, No Hoarseness, No sore throat, No Rhinorrhea, No Swallowing Difficulty Eyes: No Eye Pain, No Swelling, No Redness, No Foreign Body, No Discharge, No Vision Changes Cardiovascular : No Chest Pain, No SOB, No Dyspnea on Exertion, No Orthopnea, No Edema, No Palpitations Respiratory : No Cough, No Sputum, No Wheezing, No Smoke Exposure, No Dyspnea Gastrointestinal : Complaining of nausea vomiting diarrhea No Constipation, No abdominal Pain, No Hematochezia, No Melena Genitourinary : no irregular bleeding, No Dysuria, No Urinary Frequency, No Hematuria, No Urinary Incontinence, No Urgency, No Flank Pain, No Urinary Flow Changes, No Hesitancy Musculoskeletal : Complaining of left lower extremity pain, No Myalgias, No Joint Swelling Skin : No Skin Lesions, No rash Neuro : No Weakness, No Numbness, No Paresthesias, No Loss of Consciousness, No Dizziness, No Headache Psych : No Anxiety/Panic, No Depression, No SI/HI/AH/VH, No Social Issues, Heme/Lymph: No Bruising, No Bleeding,No Lymphadenopathy Endocrine : No Polyuria, No Polydipsia, No Temperature Intolerance [facility] Past Medical History Medical History COVID-19 Hypogonadism in male DVT (deep venous thrombosis) Anxiety and depression Cervical lymphadenopathy Normal colonoscopy Vitamin D deficiency Multinodular thyroid HLD (hyperlipidemia) 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 Mother Diabetes Family history of thyroid problem Social History Social History Household Members: Significant Other Housing: House Alcohol intake: current Alcohol intake frequency: a few times a month Alcohol type: beer and hard liquor Patient Tobacco Use Status: Former Tobacco user Tobacco use type: Cigarette e-Cigarette/Vaping Use: Never Used Advance Directives: No Advance Directives Information Provided: No Do you have a plan to hurt others: No Plan service: No Current occupational status: employed, unemployed and disabled Current occupation: unemployed Current occupational exposures/hazards: No Gender identity: Male Cognitive needs: No Hearing needs: No Vision needs: No Physical Exam ED Vital Signs: Vital Signs - 24 hr 03/24/24 15:25 03/24/24 19:55 03/24/24 20:49 Temperature 37.7 F L 101.0 F H 98.7 F Pulse Rate 90 100 102 H Respiratory Rate 20 14 18 Blood Pressure 133/70 145/84 H 102/81 Pulse Oximetry 95 96 97 Oxygen Delivery Method Room Air Room Air Room Air BMI result Body Mass Index 39.8 Const Other: Appearance: Alert. Oriented X3. No acute distress. Eyes: Pupils equal, round and reactive to light. ENT: Pharynx normal. Neck: Normal inspection. Neck supple. No lymph nodes noted. No crepitus CVS: Normal heart rate and rhythm. Pulses normal. Normal S1 and S2 Respiratory: No respiratory distress. Breath sounds normal. No Wheezing. No rales Abdomen: Soft and nontender. No rigidity. No distention. Skin: Skin warm and dry. Normal skin color. Normal skin turgor. Extremities: No lower extremity edema. No Lacerations. No Rash, no pain to palpation in the calf, no swelling, no deformity Neuro: Oriented X 3. No motor deficit. No sensory deficit. Moving all extremities. No slurred speech. CN 2 through 12 grossly intact Psych: calm, cooperative, normal affect Course Course Course Narrative: RME, this is a rapid medical exam performed by Mariano Villar please refer to primary provider for complete H&P- 53-year-old male with history of DVT on Coumadin presents for evaluation of vomiting, body aches and left calf pain. Plan for viral swabs, labs including INR. We will also get an ultrasound of the left lower extremity. Medical Decision Making Medical Decision Making [facility] Narrative: My interpretation of labs: Patient's hematology does not show any acute abnormality, chemistry, glucose of 416, normal LFTs, normal lipase. Influenza positive, RSV and COVID negative Patient's duplex ultrasound does not show any acute thrombosis. It was noted the patient's glucose is in the 400. However, patient states that he has insulin at home I would prefer to just take care of it at home. Patient anxious to get discharged from the hospital. Differential Diagnosis Differential Diagnoses: The differential diagnosis associated with the presentation includes Admission/Observation Consideration of admission/observation: Escalation of care including admission/observation considered (Given patient's past medical history and recent symptoms, observation was considered.) Lab Data [facility] Lab Attestation statement: I reviewed the patient's lab results. 03/24/24 16:41 03/24/24 16:41 Labs: Lab Results 03/24/24 03/24/24 Range/Units 16:40 16:41 WBC 5.1 (4.8-10.8) X10*3/uL RBC 4.46 L (4.60-5.80) X10*6/uL Hgb 14.7 (14.0-18.0) g/dl Hct 42.3 (42.0-52.0) % MCV 94.8 (80.0-98.0) fL MCH 33.0 (27.0-33.0) pg MCHC 34.8 (31.0-36.0) g/dl RDW 11.8 (11.0-16.0) % Plt Count 228 (160-400) X10*3/uL MPV 10.0 (9.4-12.4) fL Immature Gran % (Auto) 0.4 (0.0-0.4) % Neut % (Auto) 62.1 (45-73) % Lymph % (Auto) 23.7 (20-40) % Borden % (Auto) 12.8 H (2-11) % Eos % (Auto) 0.2 (0-4) % Baso % (Auto) 0.8 (0-2) % Lymph # (Auto) 1.2 (1.2-4.9) X10*3/uL Borden # (Auto) 0.7 (0.1-1.2) X10*3/uL Eos # (Auto) 0.0 (0.0-0.4) X10*3/uL Baso # (Auto) 0.0 (0.0-0.2) X10*3/uL Abs Immat Gran (auto) 0.02 (0.00-0.03) X10*3/uL Absolute Neuts (auto) 3.2 (2.0-8.3) x10*3/uL Absolute Nucleated RBC 0.000 (0.0-0.012) X10*3/uL Nucleated RBC % (auto) 0.0 (0.0-0.2) /100WBC PT 23.1 H (10.9-12.4) SEC INR 2.0 H (0.9-1.1) Sodium 137 (135-145) mmol/L Potassium 4.6 D (3.3-5.1) mmol/L Chloride 105 (96-108) mmol/L Carbon Dioxide 24 (22-29) mmol/L Anion Gap 13 (12-20) BUN 11 (9-16) mg/dL Creatinine 1.26 (0.5-1.4) mg/dL Estim Creat Clear Calc 73.5 Estimated GFR 60 Random Glucose 416 H* (60-115) mg/dL Calcium 8.5 (8.4-10.2) mg/dL Total Bilirubin 0.4 (0.0-1.0) mg/dL AST 27 (5-37) U/L ALT 26 (0-40) U/L Alkaline Phosphatase 75 (39-117) U/L Total Protein 6.9 (6.5-8.0) g/dL Albumin 3.8 (3.5-5.0) g/dL Lipase 51 (8-78) U/L Influenza Type A (PCR) POSITIVE A (Negative) Influenza Type B (PCR) NEGATIVE (Negative) RSV RNA Qual (PCR) NEGATIVE (Negative) SARS-CoV-2 RNA (RT-PCR) NEGATIVE (Negative) Independent Interpretation I performed an independent interpretation of an: Ultrasound and CT Scan Radiology Impression Discussion of test interpretation with radiology: I have reviewed the radiologist's reading. Radiologist Impression: Findings: The visualized deep veins are fully compressible with normal Doppler color flow and spectral tracings. No popliteal cyst. IMPRESSION: 1. Negative for left lower extremity deep vein thrombosis. Critical Care Time Critical Care Time Critical Care Time: Yes Total Critical Care Time: 35 Attestation: I have personally provided critical care time. Time includes review of lab data, radiology results, discussion with consultants, and monitoring for potential decompensation. Intervention performed as documented. Discharge Plan Discharge Clinical Impression: Influenza A Patient Disposition: Home, Self-Care Instructions: Influenza (ED) Additional Instructions: Please follow-up with your primary care physician tomorrow. If you have any worsening or new symptoms, please return to the emergency room or call 911 Prescriptions: New acetaminophen 500 mg tablet 500 mg PO Q6H PRN (Reason: fever or pain) Qty: 30 0RF No Action atorvastatin 40 mg tablet 40 mg PO DAILY Qty: 90 3RF lisinopril 10 mg tablet 10 mg PO DAILY Qty: 90 1RF atenolol 25 mg tablet 25 mg PO DAILY Qty: 90 2RF aspirin 81 mg tablet,delayed release (DR/EC) 81 mg PO DAILY 90 Days Qty: 90 2RF enoxaparin [Lovenox] 100 mg/mL syringe 100 mg SUBCUT Q12H Qty: 60 0RF Protocol: Dose Management Condition: Friday (Week One) Dose/Route: 10 mg Instruction: 2.5 x 4 mg milliliters Condition: Friday Dose/Route: 10 mg Instruction: 2.5 x 4 mg milliliters Condition: Friday Dose/Route: 10 mg Instruction: 2.5 x 4 mg milliliters Condition: Friday Dose/Route: 10 mg Instruction: 2.5 x 4 mg milliliters Condition: Dose/Route: 10 mg Instruction: 2.5 x 4 mg milliliters Condition: Friday Dose/Route: 12 mg Instruction: 3 x 4 mg milliliters Condition: Friday Dose/Route: 10 mg Instruction: 2.5 x 4 mg milliliters Condition: Friday ( Two) Dose/Route: 10 mg Instruction: 2.5 x 4 mg milliliters Condition: Friday Dose/Route: 10 mg Instruction: 2.5 x 4 mg milliliters Condition: Friday Dose/Route: 10 mg Instruction: 2.5 x 4 mg milliliters Condition: Friday Dose/Route: 10 mg Instruction: 2.5 x 4 mg milliliters Condition: Dose/Route: 10 mg Instruction: 2.5 x 4 mg milliliters Condition: Friday Dose/Route: 12 mg Instruction: 3 x 4 mg milliliters Condition: Friday Dose/Route: 10 mg Instruction: 2.5 x 4 mg milliliters Protocol Text: Adjustment Start Date: Friday03/08/24 INR Value: 2.4 INR Date: 03/08/24 Recheck Date: 03/22/24 insulin aspart U-100 100 unit/mL solution See Rx Instructions subcut .COMPLEX Qty: 50 2RF Rx Instructions: Inject up to 150 units via insulin pump subcutaneously; warfarin 4 mg tablet See Rx Instructions PO DAILY Qty: 90 3RF Protocol: Dose Management Condition: Friday (Week One) Dose/Route: 10 mg Instruction: 2.5 x 4 mg milliliters Condition: Friday Dose/Route: 10 mg Instruction: 2.5 x 4 mg milliliters Condition: Friday Dose/Route: 10 mg Instruction: 2.5 x 4 mg milliliters Condition: Friday Dose/Route: 10 mg Instruction: 2.5 x 4 mg milliliters Condition: Dose/Route: 10 mg Instruction: 2.5 x 4 mg milliliters Condition: Friday Dose/Route: 12 mg Instruction: 3 x 4 mg milliliters Condition: Friday Dose/Route: 10 mg Instruction: 2.5 x 4 mg milliliters Condition: Friday (Week Two) Dose/Route: 10 mg Instruction: 2.5 x 4 mg milliliters Condition: Friday Dose/Route: 10 mg Instruction: 2.5 x 4 mg milliliters Condition: Friday Dose/Route: 10 mg Instruction: 2.5 x 4 mg milliliters Condition: Friday Dose/Route: 10 mg Instruction: 2.5 x 4 mg milliliters Condition: Dose/Route: 10 mg Instruction: 2.5 x 4 mg milliliters Condition: Friday Dose/Route: 12 mg Instruction: 3 x 4 mg milliliters Condition: Friday Dose/Route: 10 mg Instruction: 2.5 x 4 mg milliliters Protocol Text: Adjustment Start Date: Friday03/08/24 INR Value: 2.4 INR Date: 03/08/24 Recheck Date: 03/22/24 Rx Instructions: 10mg x 6 days/ 12mg x 1 day orally daily; take as directed (DME) blood pressure test kit-large [Wireless BP Monitor] Kit See Rx Instructions .Route Rx Instructions: As directed tadalafil [Cialis] 20 mg tablet 20 mg PO DAILY 5 Days Qty: 5 0RF Rx Instructions: administer approximately 30min before sexual activity; do not use more than 1 dose per 24hrs acamprosate 333 mg tablet,delayed release (DR/EC) 666 mg PO TID folic acid 1 mg tablet 1 mg PO DAILY bupropion HCl [Wellbutrin XL] 150 mg tablet extended release 24 hr 150 mg PO QAM 90 Days Qty: 90 1RF insulin glargine U-300 conc [Toujeo Max U-300 SoloStar] 300 unit/mL (3 mL) insulin pen 55 unit subcut DAILY PRN (Reason: prn pump failure) 30 Days Qty: 6 5RF (DME) Dexcom G7 Sensor Device See Rx Instructions .ROUTE .MEDSUPPLY Qty: 3 11RF Rx Instructions: As directed (DME) Omnipod 5 G6-G7 Pods (Gen 5) Cartridge See Rx Instructions .Route Qty: 15 5RF Rx Instructions: As directed change every 48 hours cyanocobalamin (vitamin B-12) 250 mcg tablet 250 mcg PO DAILY gabapentin 300 mg capsule 300 mg PO DAILY naltrexone 50 mg tablet 50 mg PO DAILY ketorolac 0.5 % drops 0.5 drp ophthalmic (eye) DAILY cholecalciferol (vitamin D3) [Vitamin D3] 10 mcg (400 unit) tablet 10 mcg PO DAILY citalopram 40 mg tablet 40 mg PO DAILY B-complex with vitamin C Tablet 1 tab PO QAM guanfacine 2 mg tablet extended release 24 hr 2 mg PO DAILY thiamine mononitrate (vit B1) 100 mg tablet 100 mg PO DAILY Baqsimi 3 mg/actuation spray,non-aerosol 3 mg intranasal ONCE Qty: 2 4RF Print Language: Mohawk
[2024-03-24 16:44] LABS: MANUAL DIFF FLAG NO
[2024-03-24 16:46] LABS: Basophils Percent Auto 0.8 % (0-2); Eosinophils Percent Auto 0.2 % (0-4); Hematocrit 42.3 % (42.0-52.0); Hemoglobin 14.7 g/dl (14.0-18.0); Imm Gran Abs Auto 0.02 X10*3/uL (0.00-0.03); Imm Gran Pct Auto 0.4 % (0.0-0.4); Lymphocytes Absolute Auto 1.2 X10*3/uL (1.2-4.9); Lymphocytes Percent Auto 23.7 % (20-40); Mean Corpuscular HGB Conc 34.8 g/dl (31.0-36.0); Mean Corpuscular Volume 94.8 fL (80.0-98.0); Monocytes Absolute Auto 0.7 X10*3/uL (0.1-1.2); Monocytes Percent Auto 12.8 % (2-11); Neutrophils Absolute Auto 3.2 x10*3/uL (2.0-8.3); Neutrophils Percent Auto 62.1 % (45-73); Platelet Count 228 X10*3/uL (160-400); Red Blood Count 4.46 X10*6/uL (4.60-5.80); Red Cell Distribution Width 11.8 % (11.0-16.0); White Blood Count 5.1 X10*3/uL (4.8-10.8)
[2024-03-24 16:53] LABS: Prothrombin Time 23.1 SEC (10.9-12.4)
[2024-03-24 17:16] LABS: Alanine Aminotransferase 26 U/L (0-40); Albumin Level 3.8 g/dL (3.5-5.0); Alkaline Phosphatase 75 U/L (39-117); Anion Gap 13 (12-20); Aspartate Amino Transferase 27 U/L (5-37); Bilirubin Total 0.4 mg/dL (0.0-1.0); Blood Urea Nitrogen 11 mg/dL (9-16); Calcium 8.5 mg/dL (8.4-10.2); Carbon Dioxide 24 mmol/L (22-29); Chloride 105 mmol/L (96-108); Creatinine Clr Calc Pharmacy 73.5; Estimated Glomerular Filt Rate 60; Glucose Random 416 mg/dL (60-115); Lipase 51 U/L (8-78); Potassium 4.6 mmol/L (3.3-5.1); Sodium 137 mmol/L (135-145); Total Protein 6.9 g/dL (6.5-8.0)
[2024-03-24 17:51] LABS: Influenza A PCR POSITIVE (Negative); Influenza B PCR NEGATIVE (Negative); Resp Syncy Virus RNA Qual PCR NEGATIVE (Negative); SARS COV2 PCR INHOUSE NEGATIVE (Negative)
[2024-03-24 19:55] VITALS: BP 145/84; PULSE 100; RESP 14; TEMP 38.3; O2SAT 96
[2024-03-24 20:49] VITALS: BP 102/81; PULSE 102; RESP 18; TEMP 37.1; O2SAT 97
[2024-03-24] MEDS: Acetaminophen 325 MG TABLET 650 MG PO (21:00)
--- NOTE | 2024-03-24 21:03 | PC.NURSE ---
gait steady, no distress noted. speech clear, metal status at baseline.
[2024-03-24 21:04] VITALS: BP 102/81; PULSE 102; RESP 18; TEMP 37.1; O2SAT 97
== END 2024-03-24 21:11 | disposition home or self-care (01) ==
PROVIDERS: Physician Assistant; Emergency Provider Emergency Medicine; PCP Physician Assistant
DX: J10.1 Influenza due to other identified influenza virus with other respiratory manifestations (principal); R11.2 Nausea with vomiting, unspecified; R60.0 Localized edema; M79.605 Pain in left leg; Z87.891 Personal history of nicotine dependence; Z03.818 Encounter for observation for suspected exposure to other biological agents ruled out; Z79.899 Other long term (current) drug therapy
CPT/HCPCS: 0241U; 80053; 83690; 85025; 85610; 93971; 99283; 99284

== ENCOUNTER → 2024-03-24 15:25 | Outpatient (BNV) | payer OTHER, SELFPAY | PROVIDERS: PCP Physician Assistant; Visit Provider Radiology Diagnostic Radiology | DX: M79.662 Pain in left lower leg (principal) | CPT/HCPCS: 93971 ==

== ENCOUNTER 2024-03-25 08:03 | Outpatient (AMB) | payer OTHER, SELFPAY ==
--- NOTE | 2024-03-25 08:31 | MHC.OFFVISCO ---
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: Anticoagulation Allergies No Known Allergies Allergy (Verified 03/24/24 15:28) Nursing Note INR 1.9? out of therapeutic range Medications and supplements reviewed- SAME RX = TAKING PRN TYELNOL Patient status: JUST RETURNED FROM TRIP - ALL WENT WELL ALTHOUGH HE STARTED TO NOT FEEL WELL- 03/20/24 SAT AND WENT TO ER YESTERDAY - HE HAS INFLIUENZA AND HAD THE FLU SHOT. HE WAS HAVING CRAMPING IN HIS LEG WITH CLOT- US WAS DONE - HE STATED THE CLOT WAS GONE - HE WAS ENC THAT IF HE HAS ANY C/P OR SOB TO GO BACK TO ER. Medications or supplements: TYLENOL PRN - EXPLAINED THAT IT CAN RAISE THE INR WHICH WOULD BE GOOD NOW Diet: FAIR- ENC WARM LIQUIDS AND SOUP Denies any signs and symptoms of bleeding or clotting or unusual bruising Bleeding, bruising, clotting discussed Nutritional guidance given: AVOID GREENS X 3 DAYS SO INR CAN COME UP, RESUME GREENS IN 4 DAYS BECAUSE THE TYLENOL CAN RAISE THE INR Dose: DUE TO HX OF DVTS BOOSTER DOSE 12MG TODAY THEN RESUME 12MG FRI/10MG X 6 DAYS F/U INR Date : 2 WEEKS UNLESS HE HAS ANY BRUISING OR BLEEDING OR CLOTTING SYMPTOMS - SWELLING OR CRAMPING ETC?? Patient verbalizing understanding of instructions given. Anti-Coag Initial Assessment Social Hx Patient Tobacco Use Status: Former Tobacco user Tobacco use type: Cigarette alcohol intake: current Alcohol intake frequency: a few times a month Cardiovascular Hx: HTN Lung Disease HX: DVT/PE Endocrine Hx: Diabetes Musculoskeletal Hx: Arthritis Blood Disorder Hx: Hyperlipidemia Cancer HX: No Psych. 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
[2024-03-25 08:51] LABS: Prothrombin Time Whole Bld POC 22.5 sec (11.1-13.5); ~PT, ~INR - Anti Coag Clinic 1.9 (0.9-1.1)
== END 2024-03-25 08:37 | disposition home or self-care (01) ==
LOC: HO.ACS 08:03
PROVIDERS: PCP Physician Assistant; Visit Provider Internal Medicine
DX: Z79.01 Long term (current) use of anticoagulants (principal)

== ENCOUNTER → 2024-03-25 08:03 | Outpatient (BNVA) | payer OTHER, SELFPAY | PROVIDERS: PCP Physician Assistant; Visit Provider Internal Medicine | DX: Z86.718 Personal history of other venous thrombosis and embolism (principal); Z79.01 Long term (current) use of anticoagulants; Z51.81 Encounter for therapeutic drug level monitoring | CPT/HCPCS: 85610; 99211 ==

== ENCOUNTER 2024-04-08 08:23 | Outpatient (AMB) | payer OTHER, SELFPAY ==
[2024-04-08 08:40] LABS: Prothrombin Time Whole Bld POC 47.9 sec (11.1-13.5)
--- NOTE | 2024-04-08 08:40 | MHC.OFFVISCO ---
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: Anticoagulation Allergies No Known Allergies Allergy (Verified 04/08/24 08:24) Medication List - Last Reconciled 04/08/24 by Josselin Reid RN acamprosate 666 mg PO TID acetaminophen 500 mg PO Q6H PRN aspirin 81 mg PO DAILY 90 days atenolol 25 mg PO DAILY atorvastatin 40 mg PO DAILY B-complex with vitamin C 1 tab PO QAM blood pressure test kit-large (Wireless Blood Pressure Monitor kit) As directed blood-glucose sensor ([employer] G7 Sensor device) As directed bupropion HCl XL (Wellbutrin XL) 150 mg PO QAM 90 days cholecalciferol (vitamin D3) (Vitamin D3) 10 mcg PO DAILY citalopram 40 mg PO DAILY cyanocobalamin (vitamin B-12) 250 mcg PO DAILY enoxaparin (Lovenox) 100 mg See Protocol subcut Q12H folic acid 1 mg PO DAILY gabapentin 300 mg PO DAILY glucagon 3 mg/actuation (Baqsimi) 3 mg intranasal ONCE guanfacine ER 2 mg PO DAILY insulin aspart U-100 Inject up to 150 units via insulin pump subcutaneously; insulin glargine U-300 conc (Toujeo Max U-300 SoloStar) 55 units (0.1833 mL) subcut DAILY PRN 30 days insulin pump cart,auto,BT,G6/7 (Omnipod 5 G6-G7 Pods (Gen 5) subcutaneous cartridge) As directed change every 48 hours ketorolac 0.5% 0.5 drps ophthalmic (eye) DAILY lisinopril 10 mg PO DAILY naltrexone 50 mg PO DAILY tadalafil (Cialis) 20 mg PO DAILY 5 days thiamine mononitrate (vit B1) 100 mg PO DAILY warfarin See Protocol 10mg x 6 days/ 12mg x 1 day orally daily; take as directed Nursing Note INR: 4.0?out of therapeutic range of 2-3 Medications and supplements reviewed Patient status: pt is grieving the loss of his mother who passed just this morning. Medications or supplements: no changes Diet: usual diet Denies any signs and symptoms of bleeding or clotting or unusual bruising Bleeding, bruising, clotting discussed Nutritional guidance given: to have a serving of greens today Dose: hold today's dose of 10mg then decrease weekly dose by 2.5mg to 10mg daily while pt grieves. F/U INR Date : 2 weeks Patient verbalizing understanding of instructions with read back given Anti-Coag Initial Assessment Social Hx Patient Tobacco Use Status: Former Tobacco user Tobacco use type: Cigarette alcohol intake: current Alcohol intake frequency: a few times a month Cardiovascular Hx: HTN Lung Disease HX: DVT/PE Endocrine Hx: Diabetes Musculoskeletal Hx: Arthritis Blood Disorder Hx: Hyperlipidemia Cancer HX: No Psych. 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
== END 2024-04-08 08:44 | disposition home or self-care (01) ==
LOC: HO.ACS 08:23
PROVIDERS: PCP Physician Assistant; Visit Provider Internal Medicine
DX: Z79.01 Long term (current) use of anticoagulants (principal)

== ENCOUNTER 2024-04-22 08:21 | Outpatient (AMB) | payer OTHER, SELFPAY ==
[2024-04-22 08:39] LABS: Prothrombin Time Whole Bld POC 57.8 sec (11.1-13.5); ~PT, ~INR - Anti Coag Clinic 4.8 (0.9-1.1)
--- NOTE | 2024-04-22 08:45 | MHC.OFFVISCO ---
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: Anticoagulation Allergies No Known Allergies Allergy (Verified 04/22/24 08:33) Medication List - Last Reconciled 04/22/24 by Shahrzad Lopez RN acamprosate 666 mg PO TID acetaminophen 500 mg PO Q6H PRN aspirin 81 mg PO DAILY 90 days atenolol 25 mg PO DAILY atorvastatin 40 mg PO DAILY B-complex with vitamin C 1 tab PO QAM blood pressure test kit-large (Wireless Blood Pressure Monitor kit) As directed blood-glucose sensor (Embrane G7 Sensor device) As directed bupropion HCl XL (Wellbutrin XL) 150 mg PO QAM 90 days cholecalciferol (vitamin D3) (Vitamin D3) 10 mcg PO DAILY citalopram 40 mg PO DAILY cyanocobalamin (vitamin B-12) 250 mcg PO DAILY folic acid 1 mg PO DAILY gabapentin 300 mg PO DAILY glucagon 3 mg/actuation (Baqsimi) 3 mg intranasal ONCE guanfacine ER 2 mg PO DAILY insulin aspart U-100 Inject up to 150 units via insulin pump subcutaneously; insulin glargine U-300 conc (Toujeo Max U-300 SoloStar) 55 units (0.1833 mL) subcut DAILY PRN 30 days insulin pump cart,auto,BT,G6/7 (Omnipod 5 G6-G7 Pods (Gen 5) subcutaneous cartridge) As directed change every 48 hours ketorolac 0.5% 0.5 drps ophthalmic (eye) DAILY lisinopril 10 mg PO DAILY naltrexone 50 mg PO DAILY tadalafil (Cialis) 20 mg PO DAILY 5 days thiamine mononitrate (vit B1) 100 mg PO DAILY warfarin See Protocol 10mg x 6 days/ 12mg x 1 day orally daily; take as directed Nursing Note PT.HAS HAD SOME INCREASED STRESS SINCE MOM'S IN [place]. NO CP,SOB,DIET/MED CHANGES OR SX OF BLEEDING. HOLD WARFARIN TODAY AND DECREASE TOMORROW THEN USUAL DOSE AND FOLLOW-UP IN 1 WEEK DARK GREENS GOOD UNDERSTANDING OF DOSING INSTR. Anti-Coag Initial Assessment Social Hx Patient Tobacco Use Status: Former Tobacco user Tobacco use type: Cigarette alcohol intake: current Alcohol intake frequency: a few times a month Cardiovascular Hx: HTN Lung Disease HX: DVT/PE Endocrine Hx: Diabetes Musculoskeletal Hx: Arthritis Blood Disorder Hx: Hyperlipidemia Cancer HX: No Psych. 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
== END 2024-04-22 08:48 | disposition home or self-care (01) ==
LOC: HO.ACS 08:21
PROVIDERS: PCP Physician Assistant; Visit Provider Internal Medicine
DX: Z79.01 Long term (current) use of anticoagulants (principal)

== ENCOUNTER → 2024-04-22 08:21 | Outpatient (BNVA) | payer OTHER, SELFPAY | PROVIDERS: PCP Physician Assistant; Visit Provider Internal Medicine | DX: Z86.718 Personal history of other venous thrombosis and embolism (principal); Z79.01 Long term (current) use of anticoagulants; Z51.81 Encounter for therapeutic drug level monitoring | CPT/HCPCS: 85610; 99211 ==

== ENCOUNTER 2024-04-28 09:52 | Outpatient (AMB) | payer OTHER, SELFPAY ==
--- NOTE | 2024-04-28 07:57 | A.OFFVIS_ITS ---
Vital Signs 04/28/24 09:56 Height 5 ft 4 in Weight 240 lb 4.862 oz BMI 41.2 BP 130/80 Blood Pressure Location Rt brachial Position Sitting Pulse 79 Pulse Source Pulse Oximeter Intake Visit Reasons: DM Intake Note: Patient presents today for a follow-up on Type 1 Diabetes Mellitus: Patient on insulin pump: Last Diabetes Eye Exam: 08/2023 Last Podiatry Exam- [facility], 10/07/2023. Most recent HbA1c- 7.6%, 02/17/2024 Random Glucose- 341 mg/dL, Today, Patient needs to change the insulin pod Yarn Finisher Required: No Accompanied by: Self / Same As Patient Allergies No Known Allergies Allergy (Verified 04/22/24 08:33) HPI Comments Details: 53 YO M with PMHx DM, HTN, HLD who is seen in F/U for BALDEV/T1DM. He was last seen in endo Clinic by Shabana BATISTA 02/16/25 at which time his glucose targets were lowered and by myself 02/02/2025. HgbA1C 7.6% on 02/17/2024 down from pre pump A1c of 9.7%. Today in the office his glucose is elevated to 341 and he declined ketone testing and insulin shot despite recommendations. Initially diagnosed with T2DM 2009 when presented to ED with DKA/HHS. In early Mar 2018 Dr. Sesay checked antibodies for T1DM. IA-2 antibodies were found to be positive with a low C-Peptide level at the time of hyperglycemia 0.12 He was started on an Omnipod 5 with G7 Dexcom sensor 2023. He has had post COVID left leg DVT 2023 and is now on coumadin. Family history of T2DM in mom and siblings. He has stopped drinking regular soda. Breakfast is 2 eggs, toast, sometimes breakfast meat, lunch is typically a ham and cheese sandwich on white bread with chips or rice and beans, supper is rice and beans. Dexcom average glucose: 198 14 day continuous glucose monitor report reviewed Glucose Managment indicator [ ] % Days with CGM data 39.4 % he reports his G7 often falls off. TIme in ranges: 21 % very high (above 250) 26 % high ?(181-250) 52 % in range ?(70-180] 1 % low (69-55) 0 % ?very low (below 54) Interpretation [persistent postprandial highs after breakfast ] enters in only 82 carbs per day Has had multiple times when his sugars went to 300 after eating. Omnipod 5 pump settings: Basal rate(s) (units/hour) : 12 AM to 12 AM 3 units / hr Bolus setting Insulin Carbohydrate Ratio (s) 12 AM to 12 AM 1:5 new 6am to 3pm 1.45 3pm 1:5 Correction Factor / Sensitivity Factor 12 AM to 12 AM 1:11 Active Insulin Time: 3.5 hours Target(s): 12 AM to 12 AM Correction threshold 12 AM to 12 AM 120 mg/dl Has retinopathy: Last eye exam Denies Neuropathy, does not see podiatry. Has nephropathy, on Lisinopril 10 mg PO daily. 10/31 Microalbumin 10.0 03/08/24 down from previous 30.0 Has HLD, on Atorvastatin 40 mg PO daily. LDL 77 10/31. No known CAD. Denies chest pains or palpitations. Weight: Stable since last visit. Has had CDE. Also was found to have multinodular thyroid with non suspicious multiple subcentimeter thyroid nodules unchanged with several ultraounds. . Thyroid US:12/19/2021FINDINGS: SIZE: Measurements of the thyroid lobes and nodules are given in sagittal, anteroposterior and transverse dimensions respectively. Right Thyroid Lobe: 5.8 x 1.5 x 2.5 cm, volume 11.5 mL. Previously 5.2 x 1.7 x 2.7 cm, volume 12.3 mL. Parenchyma: The gland echotexture is homogeneous. Thyroid vascularity is normal. Left Thyroid Lobe: 5.1 x 1.4 x 1.9 cm, volume 7.1 mL. Previously 4.6 x 1.3 x 1.8 cm, volume 5.8 mL.Parenchyma: The gland echotexture is homogeneous. Thyroid vascularityis normal. Isthmus: 0.2 cm in maximum AP dimension. Previously 0.5 cm. Estimated total number of nodules greater than or equal to 1 cm: 0. Hog Buyer nodules are described as follows: 1. Location: Left inferior lateral. Size: 0.4 x 0.3 x 0.3 cm, volume 0.02 mL. Previously: 0.4 x 0.3 x 0.4 cm, volume 0.02 mL. Nodule characteristics: Composition: Spongiform (0). Echogenicity: Anechoic (0). Shape: Not taller than wide (0). Margins: Smooth (0). Echogenic Foci: None (0). ACR TI-RADS total points: 0 Previous: 4 ACR TI-RADS category: 1 Previous: 4 Significant change in size (>/= 20% in 2 dimensions and minimal increase of 2 mm or 50% or greater increase in volume): None Change in features: None Change in ACR TI-RADS risk category: Improved 2. Location: Left inferior lateral. Size: 0.4 x 0.3 x 0.3 cm, volume 0.02 mL. Previously: 0.4 x 0.3 x 0.4 cm, volume 0.02 mL. Nodule characteristics: Composition: Cystic(0). ACR TI-RADS total points: 0 Previous: 3 ACR TI-RADS category: 1 Previous: 3 Significant change in size (>/= 20% in 2 dimensions and minimal increase of 2 mm or 50% or greater increase in volume): None Change in features: None Change in ACR TI-RADS risk category: None 3. Location: Left inferior. Size: 0.7 x 0.6 x 0.9 cm, volume 0.20 mL. Previously: 0.8 x 0.6 x 0.9 cm, volume 0.20 mL. Nodule characteristics: Composition: Cystic(0). ACR TI-RADS total points: 0 Previous: 0 ACR TI-RADS category: 1 Previous: 1 Significant change in size (>/= 20% in 2 dimensions and minimal increase of 2 mm or 50% or greater increase in volume): None Change in features: None Change in ACR TI-RADS risk category: None 4. Location: Right mid. Size: 0.4 x 0.2 x 0.4 cm, volume 0.02 mL. Previously: 0.4 x 0.3 x 0.4 cm, volume 0.02 mL. Nodule characteristics: Composition: Cystic(0). 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 Mother Diabetes Family history of thyroid problem Social History Household Members: Significant Other Housing: House Alcohol intake: current Alcohol intake frequency: a few times a month Alcohol type: beer and hard liquor Patient Tobacco Use Status: Former Tobacco user Tobacco use type: Cigarette e-Cigarette/Vaping Use: Never Used service: No Current occupational status: employed, unemployed and disabled Current occupation: unemployed Current occupational exposures/hazards: No Gender identity: Male Cognitive needs: No Hearing needs: No Vision needs: No Physical Exam Vital Signs: Last Vital Signs Pulse 79 04/28/24 09:56 BP 130/80 04/28/24 09:56 BMI result Body Mass Index 41.2 Const Other: Absence of Cushingoid features. Absence of acromegalic features. Neck exam reveals nl size thyroid about 15 gms. No thyroid nodules palpable. Heart S1 S2, Reg R/R. No M/R G. Skin exam reveals absence of vitiligo or acanthosis nigricans. 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 Most recent A1c 7.6% 03/02/25 at which time his glucose targets were changed to lower his A1C furthur. Pre pump his A1c was 9.4%. Day he ran out of his insulin pods and left the house without it. He was specifically counseled that as soon as his pods his off he will no longer be receiving insulin. He was advised to take an insulin gel injection here in the clinic and have his urine tested for ketones which he declined both against medical advice. He lives a short distance from the [facility] and was counseled that he should immediately go home. He will meet with the nurse informatics educator and for 3 days prior to write down everything is eating and drinking so that she can put in some pre set meals into the Omnipod. I will see him back approximately 3-4 weeks after that time. Carb ratio was adjusted above to give more pre meal breakfast insulin. The patient had an opportunity to ask questions regarding treatment plan. The patient expressed understanding and agreement with the above treatment plan. The patient is aware they should contact our office by phone for worsening glucose readings or for any low blood sugars which may warrant a change in diabetes medication. Compliance is encouraged with medications and any followup testing/consults which may have been ordered. (2) Erectile dysfunction: Code(s): N52.9 - Male erectile dysfunction, unspecified Category: Medical Qualifiers: Erectile dysfunction type: drug-induced Qualified Code(s): N52.2 - Drug-induced erectile dysfunction Plan: Has ED. difficulty initiating and sustaining an erection. Testosterone therapy contraindicated due to recent DVT. Failed cialis. Will refer to Dr. Sharpe urology Prior Testosterone levels: 10/02/23 267 10/11/23 335 with midrange FSH/LH h/o recent DVT tried cialis Patient is quite considered and is worried this is affecting his relationship with his girlfriend. Orders: Orders AMB Glucose Monitoring Today E11.319 - Type 2 diabetes mellitus with unspecified diabetic retinopathy without macular edema Referrals Urology Referral E11.69 - Type 2 diabetes mellitus with other specified complication, N52.1 - Erectile dysfunction due to diseases classified elsewhere Patient Instructions: The patient was counseled to achieve a target A1C of 7% (154 avg). Fasting blood sugars should be 90-130 in the morning and less than 180 two hours after meals. Reviewed the relationship between poor diabetic control and the development of complications. Check your feet daily looking for any signs of infection, drainage, redness, ulceration and seek medical attention if this occurs. Break in shoes gradually and do not wear open-toed shoes or walk stocking footed or barefooted. Sick day management. 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
[2024-04-28 09:56] VITALS: BP 130/80; PULSE 79; BMI 41.2
[2024-04-28 10:11] LABS: Glucose, Whole Blood 341 mg/dL (60-115)
== END 2024-04-28 10:27 | disposition home or self-care (01) ==
PROVIDERS: PCP Physician Assistant; Visit Provider Nurse Practitioner Adult Health
DX: E13.9 Other specified diabetes mellitus without complications (principal); N52.2 Drug-induced erectile dysfunction
CPT/HCPCS: 95251; 99215; G2211

== ENCOUNTER → 2024-04-28 09:52 | Outpatient (BNVA) | payer OTHER, SELFPAY | PROVIDERS: PCP Physician Assistant; Visit Provider Nurse Practitioner Adult Health | DX: E13.319 Other specified diabetes mellitus with unspecified diabetic retinopathy without macular edema (principal); E78.5 Hyperlipidemia, unspecified; N52.2 Drug-induced erectile dysfunction; Z96.41 Presence of insulin pump (external) (internal) | CPT/HCPCS: 82947; 99212 ==

== ENCOUNTER 2024-04-29 08:17 | Outpatient (AMB) | payer OTHER, SELFPAY ==
--- NOTE | 2024-04-29 08:35 | MHC.OFFVISCO ---
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: Anticoagulation Allergies No Known Allergies Allergy (Verified 04/29/24 08:24) Medication List - Last Reconciled 04/29/24 by Josselin Reid RN acamprosate 666 mg PO TID acetaminophen 500 mg PO Q6H PRN aspirin 81 mg PO DAILY 90 days atenolol 25 mg PO DAILY atorvastatin 40 mg PO DAILY B-complex with vitamin C 1 tab PO QAM blood pressure test kit-large (Wireless Blood Pressure Monitor kit) As directed blood-glucose sensor ([employer] G7 Sensor device) As directed bupropion HCl XL (Wellbutrin XL) 150 mg PO QAM 90 days cholecalciferol (vitamin D3) (Vitamin D3) 10 mcg PO DAILY citalopram 40 mg PO DAILY cyanocobalamin (vitamin B-12) 250 mcg PO DAILY folic acid 1 mg PO DAILY gabapentin 300 mg PO DAILY glucagon 3 mg/actuation (Baqsimi) 3 mg intranasal ONCE guanfacine ER 2 mg PO DAILY insulin aspart U-100 Inject up to 150 units via insulin pump subcutaneously; insulin glargine U-300 conc (Toujeo Max U-300 SoloStar) 55 units (0.1833 mL) subcut DAILY PRN 30 days insulin pump cart,auto,BT,G6/7 (Omnipod 5 G6-G7 Pods (Gen 5) subcutaneous cartridge) As directed change every 48 hours ketorolac 0.5% 0.5 drps ophthalmic (eye) DAILY lisinopril 10 mg PO DAILY naltrexone 50 mg PO DAILY tadalafil (Cialis) 20 mg PO DAILY 5 days thiamine mononitrate (vit B1) 100 mg PO DAILY warfarin See Protocol 10mg x 6 days/ 12mg x 1 day orally daily; take as directed Nursing Note INR: 2.8 in therapeutic range of 2-3 Pt states he is having increased stress and anxiety since mother's passing. Medications and supplements reviewed No changes in health, diet, medications, or supplements, Denies any signs and symptoms of bleeding or bruising or clotting. Bleeding, bruising, clotting discussed Nutritional guidance given Dose: decreased weekly dose to 64mg, down from 70mg. He will take his usual dose of 10mg X 6 days and 4mg X 1 day F/U INR: 1 week Patient verbalizes understanding of instructions given Anti-Coag Initial Assessment Social Hx Patient Tobacco Use Status: Former Tobacco user Tobacco use type: Cigarette alcohol intake: current Alcohol intake frequency: a few times a month Cardiovascular Hx: HTN Lung Disease HX: DVT/PE Endocrine Hx: Diabetes Musculoskeletal Hx: Arthritis Blood Disorder Hx: Hyperlipidemia Cancer HX: No Psych. Illness/Depression: No (depression) Coding Level of Care Code Est Patient Level 1 Diagnoses Current use of anticoagulant therapy Z79.01 Results AMB INR Fingerstick AMB INR Fingerstick 2.8 Last Edit by Josselin Reid RN on 04/29/24 08:34 interface delay Assessment & Plan Assessment & Plan (1) Current use of anticoagulant therapy: Code(s): Z79.01 - custodial (current) use of anticoagulants Category: Medical
[2024-04-29 08:36] LABS: Prothrombin Time Whole Bld POC 33.7 sec (11.1-13.5); ~PT, ~INR - Anti Coag Clinic 2.8 (0.9-1.1)
== END 2024-04-29 08:40 | disposition home or self-care (01) ==
LOC: HO.ACS 08:17
PROVIDERS: PCP Physician Assistant; Visit Provider Internal Medicine
DX: Z79.01 Long term (current) use of anticoagulants (principal)

== ENCOUNTER → 2024-04-29 08:17 | Outpatient (BNVA) | payer OTHER, SELFPAY | PROVIDERS: PCP Physician Assistant; Visit Provider Internal Medicine | DX: Z86.718 Personal history of other venous thrombosis and embolism (principal); Z79.01 Long term (current) use of anticoagulants; Z51.81 Encounter for therapeutic drug level monitoring | CPT/HCPCS: 85610; 99211 ==

== ENCOUNTER 2024-05-07 08:03 | Outpatient (AMB) | payer OTHER, SELFPAY ==
--- NOTE | 2024-05-07 08:43 | MHC.OFFVISCO ---
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: Anticoagulation Allergies No Known Allergies Allergy (Verified 05/07/24 08:31) Medication List - Last Reconciled 05/07/24 by Josselin Reid RN acamprosate 666 mg PO TID acetaminophen 500 mg PO Q6H PRN aspirin 81 mg PO DAILY 90 days atenolol 25 mg PO DAILY atorvastatin 40 mg PO DAILY B-complex with vitamin C 1 tab PO QAM blood pressure test kit-large (Wireless Blood Pressure Monitor kit) As directed blood-glucose sensor ([employer] G7 Sensor device) As directed bupropion HCl XL (Wellbutrin XL) 150 mg PO QAM 90 days cholecalciferol (vitamin D3) (Vitamin D3) 10 mcg PO DAILY citalopram 40 mg PO DAILY cyanocobalamin (vitamin B-12) 250 mcg PO DAILY folic acid 1 mg PO DAILY gabapentin 300 mg PO DAILY glucagon 3 mg/actuation (Baqsimi) 3 mg intranasal ONCE guanfacine ER 2 mg PO DAILY insulin aspart U-100 Inject up to 150 units via insulin pump subcutaneously; insulin glargine U-300 conc (Toujeo Max U-300 SoloStar) 55 units (0.1833 mL) subcut DAILY PRN 30 days insulin pump cart,auto,BT,G6/7 (Omnipod 5 G6-G7 Pods (Gen 5) subcutaneous cartridge) As directed change every 48 hours ketorolac 0.5% 0.5 drps ophthalmic (eye) DAILY lisinopril 10 mg PO DAILY naltrexone 50 mg PO DAILY tadalafil (Cialis) 20 mg PO DAILY 5 days thiamine mononitrate (vit B1) 100 mg PO DAILY warfarin See Protocol 10mg x 6 days/ 12mg x 1 day orally daily; take as directed Nursing Note INR: 2.8 in therapeutic range 2-3 Pt still lamenting his mother's Medications and supplements reviewed No changes in health, diet, medications, or supplements, Denies any signs and symptoms of bleeding or bruising or clotting. Bleeding, bruising, clotting discussed Nutritional guidance given Dose: 10mg X 6 days and 4mg X 1 day F/U INR: 1 week Patient verbalizes understanding of instructions given Anti-Coag Initial Assessment Social Hx Patient Tobacco Use Status: Former Tobacco user Tobacco use type: Cigarette alcohol intake: current Alcohol intake frequency: a few times a month Cardiovascular Hx: HTN Lung Disease HX: DVT/PE Endocrine Hx: Diabetes Musculoskeletal Hx: Arthritis Blood Disorder Hx: Hyperlipidemia Cancer HX: No Psych. Illness/Depression: No (depression) Coding Level of Care Code Est Patient Level 1 Diagnoses Current use of anticoagulant therapy Z79.01 Results AMB INR Fingerstick AMB INR Fingerstick 2.8 Last Edit by Josselin Reid RN on 05/07/24 08:37 interface delay Assessment & Plan Assessment & Plan (1) Current use of anticoagulant therapy: Code(s): Z79.01 - shelter (current) use of anticoagulants Category: Medical
[2024-05-07 08:45] LABS: Prothrombin Time Whole Bld POC 33.5 sec (11.1-13.5); ~PT, ~INR - Anti Coag Clinic 2.8 (0.9-1.1)
== END 2024-05-07 08:46 | disposition home or self-care (01) ==
LOC: HO.ACS 08:03
PROVIDERS: PCP Physician Assistant; Visit Provider Internal Medicine
DX: Z79.01 Long term (current) use of anticoagulants (principal)

== ENCOUNTER → 2024-05-07 08:03 | Outpatient (BNVA) | payer OTHER, SELFPAY | PROVIDERS: PCP Physician Assistant; Visit Provider Internal Medicine | DX: Z86.718 Personal history of other venous thrombosis and embolism (principal); Z79.01 Long term (current) use of anticoagulants; Z51.81 Encounter for therapeutic drug level monitoring | CPT/HCPCS: 85610; 99211 ==

== ENCOUNTER 2024-05-14 08:06 | Outpatient (AMB) | payer OTHER, SELFPAY ==
[2024-05-14 08:24] LABS: ~PT, ~INR - Anti Coag Clinic 2.3 (0.9-1.1)
--- NOTE | 2024-05-14 08:31 | MHC.OFFVISCO ---
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: Anticoagulation Allergies No Known Allergies Allergy (Verified 05/14/24 08:16) Medication List - Last Reconciled 05/14/24 by Kristyn Ball RN acamprosate 666 mg PO TID acetaminophen 500 mg PO Q6H PRN aspirin 81 mg PO DAILY 90 days atenolol 25 mg PO DAILY atorvastatin 40 mg PO DAILY B-complex with vitamin C 1 tab PO QAM blood pressure test kit-large (Wireless Blood Pressure Monitor kit) As directed blood-glucose sensor ([employer] G7 Sensor device) As directed bupropion HCl XL (Wellbutrin XL) 150 mg PO QAM 90 days cholecalciferol (vitamin D3) (Vitamin D3) 10 mcg PO DAILY citalopram 40 mg PO DAILY cyanocobalamin (vitamin B-12) 250 mcg PO DAILY folic acid 1 mg PO DAILY gabapentin 300 mg PO DAILY glucagon 3 mg/actuation (Baqsimi) 3 mg intranasal ONCE guanfacine ER 2 mg PO DAILY insulin aspart U-100 Inject up to 150 units via insulin pump subcutaneously; insulin glargine U-300 conc (Toujeo Max U-300 SoloStar) 55 units (0.1833 mL) subcut DAILY PRN 30 days insulin pump cart,auto,BT,G6/7 (Omnipod 5 G6-G7 Pods (Gen 5) subcutaneous cartridge) As directed change every 48 hours ketorolac 0.5% 0.5 drps ophthalmic (eye) DAILY lisinopril 10 mg PO DAILY naltrexone 50 mg PO DAILY tadalafil (Cialis) 20 mg PO DAILY 5 days thiamine mononitrate (vit B1) 100 mg PO DAILY warfarin See Protocol 10mg x 6 days/ 12mg x 1 day orally daily; take as directed warfarin 10 mg (2 x 5 mg) PO DAILY 90 days Nursing Note INR: 2.3 in therapeutic range Medications and supplements reviewed No changes in health, diet, medications, or supplements, Denies any signs and symptoms of bleeding or bruising or clotting. Bleeding, bruising, clotting discussed Nutritional guidance given Dose: 10MG X 6 DAYS/ 4MG X 1 DAY F/U INR: 2 WEEKS Still grieving but doing ok Patient verbalizes understanding of instructions given Anti-Coag Initial Assessment Social Hx Patient Tobacco Use Status: Former Tobacco user Tobacco use type: Cigarette alcohol intake: current Alcohol intake frequency: a few times a month Cardiovascular Hx: HTN Lung Disease HX: DVT/PE Endocrine Hx: Diabetes Musculoskeletal Hx: Arthritis Blood Disorder Hx: Hyperlipidemia Cancer HX: No Psych. Illness/Depression: No (depression) Coding Level of Care Code Est Patient Level 1 Diagnoses Current use of anticoagulant therapy Z79.01 Assessment & Plan Assessment & Plan (1) Current use of anticoagulant therapy: Code(s): Z79.01 - correction (current) use of anticoagulants Category: Medical
== END 2024-05-14 08:34 | disposition home or self-care (01) ==
LOC: HO.ACS 08:06
PROVIDERS: PCP Physician Assistant; Visit Provider Internal Medicine
DX: Z79.01 Long term (current) use of anticoagulants (principal)

== ENCOUNTER → 2024-05-14 08:06 | Outpatient (BNVA) | payer OTHER, SELFPAY | PROVIDERS: PCP Physician Assistant; Visit Provider Internal Medicine | DX: Z86.718 Personal history of other venous thrombosis and embolism (principal); Z79.01 Long term (current) use of anticoagulants; Z51.81 Encounter for therapeutic drug level monitoring | CPT/HCPCS: 85610; 99211 ==

== ENCOUNTER 2024-05-17 11:05 | Outpatient (AMB) | payer OTHER, SELFPAY ==
--- NOTE | 2024-05-17 11:54 | MHC.AMDMED ---
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: No Accompanied by: Self / Same As Patient Allergies No Known Allergies Allergy (Verified 05/14/24 08:16) HPI Comprehensive Diabetes Asmnt Most Recent Diabetes Results: Hemoglobin A1c 7.0 % 09/10/19 Microalb/Creat Ratio 4.6 ug/mg cr (<30) 03/08/24 Cholesterol 147 mg/dL (<200) 03/08/24 HDL Cholesterol 51 mg/dL (>40) 03/08/24 Triglycerides 96 mg/dL (<150) 03/08/24 Creatinine 1.26 mg/dL (0.5-1.4) 03/24/24 Blood Urea Nitrogen 11 mg/dL (9-16) 03/24/24 Sodium 137 mmol/L (135-145) 03/24/24 Potassium 4.6 mmol/L (3.3-5.1) 03/24/24 Chloride 105 mmol/L (96-108) 03/24/24 Carbon Dioxide 24 mmol/L (22-29) 03/24/24 Calcium 8.5 mg/dL (8.4-10.2) 03/24/24 AST 27 U/L (5-37) 03/24/24 ALT 26 U/L (0-40) 03/24/24 Total Protein 6.9 g/dL (6.5-8.0) 03/24/24 Albumin 3.8 g/dL (3.5-5.0) 03/24/24 [facility] Medical History COVID-19 Hypogonadism in male DVT (deep venous thrombosis) Anxiety and depression Cervical lymphadenopathy Normal colonoscopy Vitamin D deficiency Multinodular thyroid HLD (hyperlipidemia) 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 Mother Diabetes Family history of thyroid problem Social History Household Members: Significant Other Housing: House Alcohol intake: current Alcohol intake frequency: a few times a month Alcohol type: beer and hard liquor Patient Tobacco Use Status: Former Tobacco user Tobacco use type: Cigarette e-Cigarette/Vaping Use: Never Used service: No Current occupational status: employed, unemployed and disabled Current occupation: unemployed Current occupational exposures/hazards: No Gender identity: Male Cognitive needs: No Hearing needs: No Vision needs: No Assessment & Plan Assessment & Plan (1) 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 The following topics were reviewed today: -manual mode verses automatic mode -importance of bolusing prior to meals -CGM settings(if integrated system): CGM graft views and trend arrows, alerts and alarms, Start new sensor ??? High Alert: Off ??? Low Alert: 70 mg/dl CGM data: Patient above target 50% Patient at target 50% Patient below target 0% Patient's average glucose for the past 14 days 194 mg/dL Basal: 58% Bolus: 42% Patient's last A1c was 7.6% 02/2024 Patient discussed with endocrine MANAGER COSMETIC at last visit switching to preset meals, in Omnipod PDM. At that visit he was instructed to bring food log to visit with me today. However, patient did not bring in food log or Omnipod PDM. Discussed with patient the importance of eating consistent size meals if using pre sets for meal boluses. Patient reports that his meals very from day to day. Discussed custom food options, how we could set meals up for breakfast, lunch, and dinner or small, medium, large. If patient is interested in setting up custom food options I have recommended he bring food log to next visit along with PDM Safety information: Importance of a backup plan, for manual injections, proper prescriptions and emergency supplies ketone strips, and rules for testing for ketones Setting verified by CDCES, no changes made to pump settings at today's visit Basal rate(s) (units/hour) : 12 AM? to 12 AM 3 units / hr Bolus setting Insulin Carbohydrate Ratio (s) 12 AM? to 6 AM 1:5 6 AM to 3 PM 1:4.5 3 PM to 12 AM 1:5 Correction Factor / Sensitivity Factor 12 AM? to 12 AM ? 1:11 Active Insulin Time:? 3.5 hours Target(s): 12 AM? to 12 AM 110 mg/dL Correction threshold 12 AM? 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
== END 2024-05-17 11:58 | disposition home or self-care (01) ==
PROVIDERS: PCP Physician Assistant; Visit Provider Registered Nurse Diabetes Educator
DX: E13.9 Other specified diabetes mellitus without complications (principal)

== ENCOUNTER → 2024-05-17 11:05 | Outpatient (BNVA) | payer OTHER, SELFPAY | PROVIDERS: PCP Physician Assistant; Visit Provider Registered Nurse Diabetes Educator | DX: E13.9 Other specified diabetes mellitus without complications (principal); Z79.4 Long term (current) use of insulin; Z96.41 Presence of insulin pump (external) (internal) | CPT/HCPCS: 99211 ==

== ENCOUNTER 2024-05-18 08:47 | Outpatient (AMB) | payer OTHER, SELFPAY ==
--- NOTE | 2024-05-18 08:53 | A.OFFPC_ITS ---
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 Required: No Accompanied by: Self / Same As Patient Allergies dulaglutide [From [facility]] Adverse Reaction (Intermediate, Verified 05/18/24 09:18) Nausea Medication List - Last Reconciled 05/18/24 by Dejuan Cardoso PA-C acamprosate 666 mg PO TID acetaminophen 500 mg PO Q6H PRN aspirin 81 mg PO DAILY 90 days atenolol 25 mg PO DAILY atorvastatin 40 mg PO DAILY B-complex with vitamin C 1 tab PO QAM blood pressure test kit-large (Wireless Blood Pressure Monitor kit) As directed blood-glucose sensor (AdviseHub G7 Sensor device) As directed bupropion HCl XL (Wellbutrin XL) 150 mg PO QAM 90 days cholecalciferol (vitamin D3) (Vitamin D3) 10 mcg PO DAILY citalopram 40 mg PO DAILY cyanocobalamin (vitamin B-12) 250 mcg PO DAILY folic acid 1 mg PO DAILY gabapentin 300 mg PO DAILY glucagon 3 mg/actuation (Baqsimi) 3 mg intranasal ONCE guanfacine ER 2 mg PO DAILY insulin aspart U-100 Inject up to 150 units via insulin pump subcutaneously; insulin glargine U-300 conc (Toujeo Max U-300 SoloStar) 55 units (0.1833 mL) subcut DAILY PRN 30 days insulin pump cart,auto,BT,G6/7 (Omnipod 5 G6-G7 Pods (Gen 5) subcutaneous cartridge) As directed change every 48 hours ketorolac 0.5% 0.5 drps ophthalmic (eye) DAILY lisinopril 10 mg PO DAILY naltrexone 50 mg PO DAILY tadalafil (Cialis) 20 mg PO DAILY 5 days thiamine mononitrate (vit B1) 100 mg PO DAILY warfarin See Protocol 10mg x 6 days/ 12mg x 1 day orally daily; take as directed warfarin 10 mg See Protocol PO DAILY 90 days Tobacco use date assessed: 05/18/24 Dental Screening Dental Screen Date: 05/18/24 Did you have a dental visit in the last 12 months?: Yes Did you have a dental problem in the last 6 months where you did not have access to dental care?: No Was dental information given to patient?: Patient has dentist HPI f/u DMI/ HTN HPI Details Patient is a 53-year-old male here today for follow-up visit Patient has a past medical history significant for hyperlipidemia, type 2 diabetes, hypertension, obesity, history of alcohol abuse, DVT. .. DMII:? 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 Today's A1c at 7.6 His diabetes control is improving, as indicated by a decline in A1c levels from 7.6% to 7.3%. Historical glycemic dysregulation was impacted by alcohol use, which he has recently reduced. . He reports he uses food as comfort du e to his depression. ?He is following [place] [facility] and has an insulin pump . .. Hypertension: Blood pressure acceptable today in office. . He does not monitor his blood pressure at home, he reports he is feeling somewhat anxious today. .. Depression: Followed by mental health therapist and psychiatrist who manages his mental health medication. Has been a bit more depressed as of late due to his worsening medical issues. He has completely stopped drinking with the use of medication (acamprosate and naltrexone) He is willing to add on additional Wellbutrin to help him with his depression. .. DVT: Patient continues on anticoagulation therapy with warfarin, INRs have been stable. 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 Mother Diabetes Family history of thyroid problem Social History Household Members: Significant Other Housing: House Alcohol intake: current Alcohol intake frequency: a few times a month Alcohol type: beer and hard liquor Patient Tobacco Use Status: Former Tobacco user Tobacco use type: Cigarette e-Cigarette/Vaping Use: Never Used Second Hand Smoke Exposure: No service: No Current occupational status: unemployed and disabled Current occupation: unemployed Gender identity: Male Cognitive needs: No Hearing needs: No Vision needs: No Questionnaire PHQ-9 Over the last 2 weeks, how often have you been bothered by any of the following problems? 1. Little interest or pleasure in doing things: several days 2. Feeling down, depressed, or hopeless: several days 3. Trouble falling or staying asleep, or sleeping too much: several days 4. Feeling tired or having little energy: several days 5. Poor appetite or overeating: several days 6. Feeling bad about yourself - or that you are a failure or have let yourself or your family down: several days 7. Trouble concentrating on things, such as reading the newspaper or watching television: several days 8. Moving or speaking so slowly that other people could have noticed. Or the opposite - being so fidgety or restless that you have been moving around a lot more than usual: several days 9. Thoughts that you would be better off or of hurting yourself in some way: not at all Total score: 8 Depression Screening Interpretation: Positive Depression Screening Follow-up: Existing condition and In treatment Depression Screening Done: Yes 23529 - PHQ-9 Billing: Yes Source: Developed by Drs. Dawson Block, Marie Carbajal, Daron Nina and colleagues, with an educational grecia from [employer]. Thrive Questionnaire Date Thrive assessed: 05/18/24 I am a: Patient What is your living situation today?: I have a steady place to live Within the past 12 months, did the food you bought not last and you didn't have the money to get more?: I choose not to answer this question Within the past 12 months, did you worry whether your food would run out before you got money to buy more?: I choose not to answer this question Do you have trouble paying for medicines?: No Do you have trouble getting transportation to medical appointments?: No Do you have trouble paying your heating and electricity bill?: No Do you have trouble taking care of your child, family member or friend?: No Do you have trouble with day-to-day activities such as bathing, preparing meals, shopping, managing finances, etc.?: No Are you currently unemployed and looking for a job?: No Are you interested in more education?: No Please select the resources that you would like help with: None Currently or been in a relationship where the following occur: No concerns reported THRIVE Score: 0 AUDIT C Alcohol Use Questionnaire (AUDIT-C) 1. How often do you have a drink containing alcohol?: 2-4 times a month 2. How many drinks containing alcohol do you have on a typical day when you are drinking?: 3 or 4 3. How often do you have six or more drinks on one occasion?: Monthly Total Score: 5 RAMON-7 AMB Questionnaire RAMON-7 Date RAMON - 7 assessed: 05/18/24 Feeling nervous, anxious, or on edge: 1 = Several days Not being able to stop or control worryin = Several days Worrying too much about different things: 1 = Several days Trouble relaxin = Several days Being so restless that it is hard to sit still: 0 = Not at all Becoming easily annoyed or irritable: 1 = Several days Feeling afraid as if something awful might happen: 0 = Not at all Total RAMON-7 score (0-4 normal; 5-9 mild; 10-14 moderate; 15-21 severe): 5 Source: Developed by Drs. Dawson Block, Marie Carbajal, Daron Nina and colleagues, with an educational grecia from [employer]. RAMON-7 Assessment Billing RAMON-7 Assessment Tool: RAMON-7 Assessment 83832 Review of Systems Const Denies headache(s) Eyes Denies loss of vision ENT Denies vertigo, Denies dizziness, Denies headache(s) and Denies sore throat Card Denies chest pain, Denies leg edema and Denies lightheadedness Resp Denies cough, Denies hemoptysis and Denies wheezing GI Denies abdominal pain, Denies melena, Denies constipation, Denies diarrhea and Denies vomiting Denies dysuria, Denies urinary frequency and Denies urinary urgency Musc Denies arthralgias, Denies joint swelling, Denies numbness and Denies tingling Neuro Denies Abnormal speech present, Denies behavioral changes, Denies vertigo, Denies dizziness, Denies headache(s), Denies loss of vision, Denies memory loss, Denies numbness and Denies tingling Psych Denies anxiety, Denies behavioral changes, Denies depression, Denies memory loss and Denies panic attacks Hunter/Lymph Denies easy bleeding and Denies easy bruising Aller/Immun Denies wheezing Physical exam (Primary Care) Vital Signs: Last Vital Signs Pulse 76 05/18/24 08:57 BP 136/82 05/18/24 08:57 Pulse Ox 99 05/18/24 08:57 Oxygen Delivery Method Room Air 05/18/24 08:57 BMI result Body Mass Index 40.5 BMI Assessment/Plan discussion: High BMI High, discussed plan: lifestyle, weight reduction, dietary and physical activity Tobacco/Smoking Status: Tobacco use Status Tobacco use date assessed 05/18/24 05/18/24 09:03 Patient Tobacco Use Status Former Tobacco user 05/18/24 08:56 Tobacco use type Cigarette 05/18/24 08:56 e-Cigarette/Vaping Use Never Used 05/18/24 08:56 PHQ-9: PHQ-9 Score PHQ-9: Total score 8 05/18/24 09:11 Depression Screening Interpretation: Positive Depression Screening Follow-up: Existing condition and In treatment Thrive Assessment: Date of Thrive Assessment Date Thrive assessed 05/18/24 05/18/24 08:56 Currently or been in a relationship where the following occur: No concerns reported Const General: healthy appearing, no acute distress, alert and awake Nutritional Appearance: well nourished Orientation/consciousness: oriented to person, oriented to place and oriented to time HENOR Ears: TM's normal bilaterally General nose exam: Normal nasal mucous membranes and turbinates present Eyes Conjunctivae: conjunctivae normal Sclerae: sclerae normal Pupils: Equal, round and reactive pupils present Neck Neck: Yes no lymphadenopathy and Yes no JVD Thyroid: Thyroid normal Carotids: no bruits Resp Effort & Inspection: normal respiratory effort and not tachypneic Auscultation: no crackles, no rales, no rhonchi and no wheezes Cardio Rate: regular rate Rhythm: regular rhythm Heart sounds: no murmurs and normal S1 and S2 GI Palpation (GI): Soft to palpation, nontender, no hepatomegaly and no splenomegaly Auscultation: normal bowel sounds Skin General skin exam: no rashes or lesions noted and dry skin Neuro General: oriented to person, oriented to place and oriented to time Cranial nerves: Yes Equal, round and reactive pupils present Speech: No Abnormal speech present Gait exam (Neuro): Normal gait present Motor exam (neuro): no tremor noted Extrem Right upper extremity: full ROM Left upper extremity: full ROM Right lower extremity: full ROM; no edema Left lower extremity: full ROM; no edema Psych Mental Status: mental status grossly normal Speech and movement: Normal speech and movement present Affect: normal affect Attitude: cooperative Thought process: Normal thought process present Results AMB Hemoglobin A1c AMB Hemoglobin A1c 7.3 % Last Edit by ANDREA De Los Santos on 05/18/24 09:0 5 Results Reviewed Results Reviewed: Laboratory Last Values Hgb A1c (Clinic) 7.3 % (4.0-6.0) H 05/18/24 08:52 Coding Level of Care Code Est Pt Level 4 (06815) Diagnoses 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, unspecified retinopathy severity, unspecified whether long term acute care registered nurse insulin use E11.319 Diabetes mellitus complication detail: with diabetic retinopathy Diabetes mellitus complication status: with ophthalmic complications Diabetes mellitus long term acute care registered nurse insulin use: unspecified prison insulin use status Diabetes mellitus macular edema: without macular edema Diabetes mellitus type: type 2 Diabetic retinopathy severity: with unspecified retinopathy severity Laterality: bilateral Renovascular hypertension I15.0 Hypertension type: renovascular hypertension Acute deep vein thrombosis (DVT) of popliteal vein of left lower extremity I82.432 Affected thrombotic vein of extremity: popliteal Chronicity: acute DVT location: lower extremity Laterality: left MDD (major depressive disorder), recurrent episode, moderate F33.1 Hyperlipidemia, unspecified hyperlipidemia type E78.5 Hyperlipidemia type: unspecified Tinea pedis of left foot B35.3 Class 3 obesity E66.813 Additional Codes PHQ-9 - 78141 - PHQ-9 Billing: Yes ([id number]) RAMON-7 Assessment Billing - RAMON-7 Assessment Tool: RAMON-7 Assessment 29406 ([id number]) Assessment & Plan Assessment & Plan (1) Diabetes: Comment: IDDM Code(s): E11.9 - Type 2 diabetes mellitus without complications Category: Medical Qualifiers: Diabetes mellitus complication detail: with diabetic retinopathy Diabetes mellitus complication status: with ophthalmic complications Diabetes mellitus long term acute care registered nurse insulin use: unspecified long term acute care registered nurse insulin use status Diabetes mellitus macular edema: without macular edema Diabetes mellitus type: type 2 Diabetic retinopathy severity: with unspecified retinopathy severity Laterality: bilateral Qualified Code(s): E11.319 - Type 2 diabetes mellitus with unspecified diabetic retinopathy without macular edema Plan: Patient's type 2 diabetes suboptimally controlled today's A1c is 7.3. Continues to follow Endocrinology here in [place]. Has a insulin pump which has been helpful on regulating his sugars a bit. He will follow up with his car sander for adjustments on his insulin. Goal A1c is to be below 7.0 (2) Hypertension: Code(s): I10 - Essential (primary) hypertension Category: Medical Qualifiers: Hypertension type: renovascular hypertension Qualified Code(s): I15.0 - Renovascular hypertension Plan: Patient's blood pressure acceptable today in office, will continue his current dose of antihypertensive medication.. He reports blood pressure usually stable at home. Will consider increasing his lisinopril dose if blood pressure remains above 140/90 consistently (3) DVT (deep venous thrombosis): Comment: Left lower extremity DVT 09/2023 Code(s): I82.409 - Acute embolism and thrombosis of unspecified deep veins of unspecified lower extremity Category: Medical Qualifiers: Affected thrombotic vein of extremity: popliteal Chronicity: acute DVT location: lower extremity Laterality: left Qualified Code(s): I82.432 - Acute embolism and thrombosis of left popliteal vein Plan: Recently had DVT in his lower extremity. He is now on warfarin and INR goal therapeutic between 2 and 3. (4) MDD (major depressive disorder), recurrent episode, moderate: Code(s): F33.1 - Major depressive disorder, recurrent, moderate Category: Medical Plan: Tristian has been suffering with depression due to his medical issues and losing his job secondary to shoulder issue. He does see a mental health therapist and a psychiatrist whom manage his mental health medications. (5) HLD (hyperlipidemia): Code(s): E78.5 - Hyperlipidemia, unspecified Category: Medical Qualifiers: Hyperlipidemia type: unspecified Qualified Code(s): E78.5 - Hyperlipi demia, unspecified Plan: Most recent lipid panel showing good control of his total cholesterol and LDL. Continues on statin therapy without significant side effects. Goal LDL to remain below 100 (6) Tinea pedis of left foot: Code(s): B35.3 - Tinea pedis Category: Medical Plan: Will supply patient with topical antifungal to help with his tinea pedis. (7) Class 3 obesity: Code(s): E66.813 - Obesity, class 3 Category: Medical Plan: Patient does understand his BMI is over 40 and will work on being more physically active and adapting to better eating habits to reduce his weight Orders: Orders AMB Hemoglobin A1c 05/18/24 E11.319 - Type 2 diabetes mellitus with unspecified diabetic retinopathy without macular edema Lipid Panel 05/18/24 E78.5 - Hyperlipidemia, unspecified Comprehensive [place]. Panel Fast 05/18/24 E13.9 - Other specified diabetes mellitus without complications Complete Blood Count no Diff 05/18/24 E13.9 - Other specified diabetes mellitus without complications Microalbumin, Random (w Creat) 05/18/24 E13.9 - Other specified diabetes mellitus without complications Prostate Specific Antigen Scr 05/18/24 E13.9 - Other specified diabetes mellitus without complications, Z12.5 - Encounter for screening for malignant neoplasm of prostate Referrals Podiatry Referral E11.319 - Type 2 diabetes mellitus with unspecified diabetic retinopathy without macular edema Medications: New clotrimazole-betamethasone 1-0.05 % 1 appl topical BID 45 grams 0RF 30 days B35.3 - Tinea pedis Discontinued tadalafil (Cialis) administer approximately 30min before sexual activity; do not use more than 1 dose per 24hrs Discontinued Reason: Doctor's Order 20 mg PO DAILY 5 days 5 tabs 0RF sexual activity E11.69 - Type 2 diabetes mellitus with other specified complication, N52.1 - Erectile dysfunction due to diseases classified elsewhere Patient Instructions: Goal: A1c to be below 7.0, LDL to be below 100, blood pressure to remain below 140/90 Barriers: Depression, adherence to physical activity and healthy eating habits
[2024-05-18 08:57] VITALS: BP 136/82; PULSE 76; O2SAT 99; BMI 40.5
== END 2024-05-18 09:38 | disposition home or self-care (01) ==
LOC: HO.HMCH 08:48
PROVIDERS: PCP Physician Assistant; Visit Provider Physician Assistant
DX: E11.319 Type 2 diabetes mellitus with unspecified diabetic retinopathy without macular edema (principal)

== ENCOUNTER → 2024-05-18 08:47 | Outpatient (BNVA) | payer OTHER, SELFPAY | PROVIDERS: PCP Physician Assistant; Visit Provider Physician Assistant | DX: E11.319 Type 2 diabetes mellitus with unspecified diabetic retinopathy without macular edema (principal); I82.432 Acute embolism and thrombosis of left popliteal vein; I15.0 Renovascular hypertension; F33.1 Major depressive disorder, recurrent, moderate; E78.5 Hyperlipidemia, unspecified; B35.3 Tinea pedis; E66.813 Obesity, class 3; Z68.41 Body mass index [BMI] 40.0-44.9, adult; Z71.3 Dietary counseling and surveillance | CPT/HCPCS: 83036; 96127; 99212 ==

== ENCOUNTER 2024-05-28 07:58 | Outpatient (AMB) | payer OTHER, SELFPAY ==
[2024-05-28 08:06] LABS: Prothrombin Time Whole Bld POC 26.5 sec (11.1-13.5); ~PT, ~INR - Anti Coag Clinic 2.2 (0.9-1.1)
--- NOTE | 2024-05-28 08:15 | MHC.OFFVISCO ---
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: Anticoagulation Allergies dulaglutide [From [facility]] Adverse Reaction (Intermediate, Verified 05/28/24 08:01) Nausea Medication List - Last Reconciled 05/28/24 by Kristyn Ball RN acamprosate 666 mg PO TID acetaminophen 500 mg PO Q6H PRN aspirin 81 mg PO DAILY 90 days atenolol 25 mg PO DAILY atorvastatin 40 mg PO DAILY B-complex with vitamin C 1 tab PO QAM blood pressure test kit-large (Wireless Blood Pressure Monitor kit) As directed blood-glucose sensor (NumberPicture G7 Sensor device) As directed bupropion HCl XL (Wellbutrin XL) 150 mg PO QAM 90 days cholecalciferol (vitamin D3) (Vitamin D3) 10 mcg PO DAILY citalopram 40 mg PO DAILY clotrimazole-betamethasone 1-0.05 % 1 appl topical BID 30 days cyanocobalamin (vitamin B-12) 250 mcg PO DAILY folic acid 1 mg PO DAILY gabapentin 300 mg PO DAILY glucagon 3 mg/actuation (Baqsimi) 3 mg intranasal ONCE guanfacine ER 2 mg PO DAILY insulin aspart U-100 Inject up to 150 units via insulin pump subcutaneously; insulin glargine U-300 conc (Toujeo Max U-300 SoloStar) 55 units (0.1833 mL) subcut DAILY PRN 30 days insulin pump cart,auto,BT,G6/7 (Omnipod 5 G6-G7 Pods (Gen 5) subcutaneous cartridge) As directed change every 48 hours ketorolac 0.5% 0.5 drps ophthalmic (eye) DAILY lisinopril 10 mg PO DAILY naltrexone 50 mg PO DAILY thiamine mononitrate (vit B1) 100 mg PO DAILY warfarin See Protocol 10mg x 6 days/ 12mg x 1 day orally daily; take as directed warfarin 10 mg See Protocol PO DAILY 90 days Nursing Note INR: 2.2 in therapeutic range Medications and supplements reviewed Eating more greens and walking more - trying to get his blood sugars under control- he was enc to discuss with MD if they are still elevated even with attempts to improve them because he may need med adjustment - it was also explained intermediate high sugars could damage his blood vessels of kidneys and eyes etc. he verbalized understanding Denies any signs and symptoms of bleeding or bruising or clotting. Bleeding, bruising, clotting discussed Nutritional guidance given Dose: 7.5mg x 1 day/ 10mg x 6 days F/U INR: 2 weeks Patient verbalizes understanding of instructions given Anti-Coag Initial Assessment Social Hx Patient Tobacco Use Status: Former Tobacco user Tobacco use type: Cigarette alcohol intake: current Alcohol intake frequency: a few times a month Cardiovascular Hx: HTN Lung Disease HX: DVT/PE Endocrine Hx: Diabetes Musculoskeletal Hx: Arthritis Blood Disorder Hx: Hyperlipidemia Cancer HX: No Psych. 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
== END 2024-05-28 08:18 | disposition home or self-care (01) ==
LOC: HO.ACS 07:58
PROVIDERS: PCP Physician Assistant; Visit Provider Internal Medicine Medical Oncology
DX: Z79.01 Long term (current) use of anticoagulants (principal)

== ENCOUNTER → 2024-05-28 07:58 | Outpatient (BNVA) | payer OTHER, SELFPAY | PROVIDERS: PCP Physician Assistant; Visit Provider Internal Medicine Medical Oncology | DX: Z86.718 Personal history of other venous thrombosis and embolism (principal); Z79.01 Long term (current) use of anticoagulants; Z51.81 Encounter for therapeutic drug level monitoring | CPT/HCPCS: 85610; 99211 ==

== ENCOUNTER 2024-06-11 08:01 | Outpatient (AMB) | payer OTHER, SELFPAY ==
[2024-06-11 08:24] LABS: Prothrombin Time Whole Bld POC 28.1 sec (11.1-13.5); ~PT, ~INR - Anti Coag Clinic 2.3 (0.9-1.1)
--- NOTE | 2024-06-11 08:27 | MHC.OFFVISCO ---
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: Anticoagulation Allergies dulaglutide [From [facility]] Adverse Reaction (Intermediate, Verified 06/11/24 08:19) Nausea Medication List - Last Reconciled 06/11/24 by Josselin Reid RN acamprosate 666 mg PO TID acetaminophen 500 mg PO Q6H PRN aspirin 81 mg PO DAILY 90 days atenolol 25 mg PO DAILY atorvastatin 40 mg PO DAILY B-complex with vitamin C 1 tab PO QAM blood pressure test kit-large (Wireless Blood Pressure Monitor kit) As directed blood-glucose sensor (LYYN G7 Sensor device) As directed bupropion HCl XL (Wellbutrin XL) 150 mg PO QAM 90 days cholecalciferol (vitamin D3) (Vitamin D3) 10 mcg PO DAILY citalopram 40 mg PO DAILY clotrimazole-betamethasone 1-0.05 % 1 appl topical BID 30 days cyanocobalamin (vitamin B-12) 250 mcg PO DAILY folic acid 1 mg PO DAILY gabapentin 300 mg PO DAILY glucagon 3 mg/actuation (Baqsimi) 3 mg intranasal ONCE guanfacine ER 2 mg PO DAILY insulin aspart U-100 Inject up to 150 units via insulin pump subcutaneously; insulin glargine U-300 conc (Toujeo Max U-300 SoloStar) 55 units (0.1833 mL) subcut DAILY PRN 30 days insulin pump cart,auto,BT,G6/7 (Omnipod 5 G6-G7 Pods (Gen 5) subcutaneous cartridge) As directed change every 48 hours ketorolac 0.5% 0.5 drps ophthalmic (eye) DAILY lisinopril 10 mg PO DAILY naltrexone 50 mg PO DAILY thiamine mononitrate (vit B1) 100 mg PO DAILY warfarin 10 mg See Protocol PO DAILY 90 days Nursing Note INR: 2.3 in therapeutic range of 2-3 Medications and supplements reviewed No changes in health, diet, medications, or supplements, Denies any signs and symptoms of bleeding or bruising or clotting. Bleeding, bruising, clotting discussed Nutritional guidance given Dose: 10mg X 6 days and 7.5mg X 1 day (Sat) F/U INR: 2 weeks Patient verbalizes understanding of instructions given Anti-Coag Initial Assessment Social Hx Patient Tobacco Use Status: Former Tobacco user Tobacco use type: Cigarette alcohol intake: current Alcohol intake frequency: a few times a month Cardiovascular Hx: HTN Lung Disease HX: DVT/PE Endocrine Hx: Diabetes Musculoskeletal Hx: Arthritis Blood Disorder Hx: Hyperlipidemia Cancer HX: No Psych. Illness/Depression: No (depression) Coding Level of Care Code Est Patient Level 1 Diagnoses Current use of anticoagulant therapy Z79.01 Results AMB INR Fingerstick AMB INR Fingerstick 2.3 Last Edit by Josselin Reid RN on 06/11/24 08:26 interface delay Assessment & Plan Assessment & Plan (1) Current use of anticoagulant therapy: Code(s): Z79.01 - longterm (current) use of anticoagulants Category: Medical
== END 2024-06-11 08:31 | disposition home or self-care (01) ==
LOC: HO.ACS 08:01
PROVIDERS: PCP Physician Assistant; Visit Provider Internal Medicine Medical Oncology
DX: Z79.01 Long term (current) use of anticoagulants (principal)

== ENCOUNTER → 2024-06-11 08:01 | Outpatient (BNVA) | payer OTHER, SELFPAY | PROVIDERS: PCP Physician Assistant; Visit Provider Internal Medicine Medical Oncology | DX: Z86.718 Personal history of other venous thrombosis and embolism (principal); Z79.01 Long term (current) use of anticoagulants; Z51.81 Encounter for therapeutic drug level monitoring | CPT/HCPCS: 85610; 99211 ==

== ENCOUNTER 2024-06-24 09:06 | Outpatient (AMB) | payer OTHER, SELFPAY ==
--- NOTE | 2024-06-24 09:09 | MHC.OFFVIS ---
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 Accompanied by: Self / Same As Patient Allergies dulaglutide [From [facility]] Adverse Reaction (Intermediate, Verified 06/25/24 21:19) Nausea Medication List - Last Reconciled 06/25/24 by RUBY CollinsP- acamprosate 666 mg PO TID acetaminophen 500 mg PO Q6H PRN aspirin 81 mg PO DAILY 90 days atenolol 25 mg PO DAILY atorvastatin 40 mg PO DAILY B-complex with vitamin C 1 tab PO QAM blood pressure test kit-large (Wireless Blood Pressure Monitor kit) As directed blood-glucose sensor ([employer] G7 Sensor device) As directed bupropion HCl XL (Wellbutrin XL) 150 mg PO QAM 90 days cholecalciferol (vitamin D3) (Vitamin D3) 10 mcg PO DAILY citalopram 40 mg PO DAILY clotrimazole-betamethasone 1-0.05 % 1 appl topical BID 30 days cyanocobalamin (vitamin B-12) 250 mcg PO DAILY folic acid 1 mg PO DAILY gabapentin 300 mg PO DAILY glucagon 3 mg/actuation (Baqsimi) 3 mg intranasal ONCE insulin aspart U-100 Inject up to 150 units via insulin pump subcutaneously; insulin glargine U-300 conc (Toujeo Max U-300 SoloStar) 55 units (0.1833 mL) subcut DAILY PRN 30 days insulin pump cart,auto,BT,G6/7 (Omnipod 5 G6-G7 Pods (Gen 5) subcutaneous cartridge) As directed change every 48 hours ketorolac 0.5% 0.5 drps ophthalmic (eye) DAILY lisinopril 10 mg PO DAILY naltrexone 50 mg PO DAILY tadalafil (Cialis) 5 mg PO DAILY 90 days tadalafil (Cialis) 20 mg PO .PRN PRN 30 days thiamine mononitrate (vit B1) 100 mg PO DAILY warfarin 10 mg See Protocol PO DAILY 90 days HPI Comments Details: Tristian is a very pleasant 54-year-old male patient of Dr. Cardoso. He has a past medical history of type 2 diabetes, hypertension, hyperlipidemia, vitamin-D deficiency, anxiety, depression, and DVT. He presents to the office today as a new patient for erectile dysfunction. In discussion with the patient today he reports noting over the last 1-2 years to be having issues maintaining his erections. He does intermittently experience morning erections as well as being able to obtain an erection however feels at times they are not adequate for penetration. He otherwise denies any bothersome urinary issues. He denies urinary urgency, urinary frequency, incontinence, nocturia, hematuria, dysuria, foul smelling urine, changes to urinary stream, flank pain, fever, and or chills. He is happy with his current voiding parameters. We discussed at length potential causes of erectile dysfunction as well as further treatment options and risks and benefits of these treatment options. In office urinalysis results were reviewed with the patient today. In review of patient's chart it appears PSA and testosterone levels were drawn and these results were communicated and reviewed with the patient today: PSA: 03/02 1.1 Testosterone: 09/30 267, 10/31 335 Free testosterone: 09/30 37.6 , 10/31 54.6 A1c: 06/01 7.3 We discussed at length the importance of management and diabetes for improvement in erections as well as overall health and well-being. He otherwise offers no other issues or concerns at this time. Plan A treatment plan with tadalafil 5 mg daily was discussed, with adjustments made for coital activities, addressing erectile dysfunction symptoms. Future considerations include injection therapy if oral treatment fails. We discussed penile pump. Emphasis was placed on managing diabetes and lifestyle to lessen the erectile dysfunction impacts. This involved dietary changes, specifically reducing carbohydrate intake. Other contributing factors such as hypertension medications were acknowledged, and the potential for decreased dosage with lifestyle improvement was discussed. Follow-up was scheduled for three months to evaluate the response to treatment, control of contributing factors, and potential for any surgical intervention. Patient was informed and verbally consented to the use of an ambient scribe for clinic note documentation during this visit. Discussion Notes In the consultation, we discussed the diagnosis of erectile dysfunction, exacerbated by chronic conditions including diabetes mellitus, hypertension, and hyperlipidemia. Management options included tadalafil, deemed preferable due to its daily dosing advantage. The patient expressed an understanding of the interrelatedness of his health challenges and the difficulty of balancing therapeutic and lifestyle modifications. Risks and benefits associated with a penile prosthesis and the importance of blood sugar control were covered thoroughly. Consent for tadalafil was documented in the discussion, with the patient amenable to the plan. Follow-up arrangements were made to assess progress in three months. 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 Mother Diabetes Family history of thyroid problem Social History Household Members: Significant Other Housing: House Alcohol intake: current Alcohol intake frequency: a few times a month Alcohol type: beer and hard liquor Patient Tobacco Use Status: Former Tobacco user Tobacco use type: Cigarette e-Cigarette/Vaping Use: Never Used Second Hand Smoke Exposure: No service: No Current occupational status: unemployed and disabled Current occupation: unemployed Gender identity: Male Cognitive needs: No Hearing needs: No Vision needs: No Review of Systems Const All systems reviewed & are unremarkable except as noted in HPI and below Physical Exam Const General: cooperative, healthy appearing, comfortable, no acute distress, well developed, alert and awake Orientation/consciousness: patient oriented x3 Limitations: no limitations HEENT Head: Yes normal to inspection, Yes normocephalic and Yes atraumatic Ears: hearing grossly normal bilaterally Eyes General: appearance normal, both eyes and all related structures Neck Neck: Yes normal visual inspection and Yes trachea midline Chest Chest palpation & inspection: normal inspection of the chest Resp Effort & Inspection: normal respiratory effort and able to speak in complete sentences Cardio Rate: regular rate GI Inspection: Yes normal to inspection General: Yes no CVA tenderness Back/Spine/Pelvis Back: no CVA tenderness Skin General skin exam: no rashes or lesions noted Neuro General: patient oriented x3 Extrem General: Yes normal to inspection Psych Appearance: grossly normal and well kempt Mental Status: mental status grossly normal Speech and movement: Normal speech and movement present and Clear speech present Affect: normal affect Attitude: cooperative Thought process: Normal thought process present Thought content: Normal thought content present Insight: Fair insight present (Psych) Judgement: Fair judgement present (Psych) Results AMB Urinalysis, Automated UA Leukoctes 0 Amara/uL Last Edit by [employer] Shaffer on 06/24/24 11:53 UA Nitrite Last Edit by [email or web address] on 06/24/24 11:53 UA Urobilinogen 0.2 mg/dL Last Edit by [email or web address] on 06/24/24 11:53 UA Protein 0 mg/dL Last Edit by [email or web address] on 06/24/24 11:53 UA pH 6.0 Last Edit by [email or web address] on 06/24/24 11:53 UA Blood 10 Jose/uL Last Edit by [email or web address] on 06/24/24 11:53 UA Specific Mercer 1.015 Last Edit by [email or web address] on 06/24/24 11:53 UA Ketone Last Edit by [email or web address] on 06/24/24 11:53 UA Bilirubin 0 mg/dL Last Edit by [email or web address] on 06/24/24 11:53 UA Glucose 1000 mg/dL Last Edit by [email or web address] on 06/24/24 11:53 Results Reviewed Results Reviewed: Laboratory Last Values Urine pH (Auto) 6.0 06/24/24 09:13 Specific Mercer (Auto) 1.015 06/24/24 09:13 Urine Protein (Auto) 0 mg/dL 06/24/24 09:13 Glucose (UA)(Auto) 1000 mg/dL 06/24/24 09:13 Urine Blood (Auto) 10 Jose/uL 06/24/24 09:13 Urine Bilirubin (Auto) 0 mg/dL 06/24/24 09:13 Urine Urobilinogen (Auto) 0.2 mg/dL 06/24/24 09:13 Leukocyte Esterase (Auto) 0 Amara/uL 06/24/24 09:13 Assessment & Plan Assessment & Plan (1) Erectile dysfunction associated with type 2 diabetes mellitus: Code(s): E11.69 - Type 2 diabetes mellitus with other specified complication; N52.1 - Erectile dysfunction due to diseases classified elsewhere Category: Medical Plan In office urinalysis results reviewed with the patient today; as noted above. Most recent PSA, testosterone and free testosterone lab values were reviewed with the patient today; as noted above. We discussed at length potential causes of ED as well as further treatment options and risks and benefits of these treatment options. We reviewed penile pump and constriction bands. Start 5 mg of Cialis as discussed and prescribed. Prescription provided for p.r.n. dosing. We discussed importance of lifestyle modifications We also discussed importance of management and diabetes Patient currently denies any bothersome urinary issues. He reports to be happy with his current voiding paramters. Follow-up in 3 months with testosterone; or sooner with any issues, concerns, and or questions. Orders: Orders AMB Urinalysis Automated 06/24/24 Z13.9 - Encounter for screening, unspecified Testosterone, Free/Total 06/24/24 E11.69 - Type 2 diabetes mellitus with other specified complication, N52.1 - Erectile dysfunction due to diseases classified elsewhere Medications: New tadalafil (Cialis) [id number] [id number] [id number] 5 mg PO DAILY 90 tabs 1RF 90 days tadalafil (Cialis) administer approximately 30min before sexual activity; do not use more than 1 dose per 24hrs [id number] [facility] [id number] Member [id number] 20 mg PO .PRN PRN 14 tabs 3RF sexual activity 30 days Patient Instructions: The patient had an opportunity to ask questions regarding the treatment plan. All questions were answered. Physical exam, labs, and imaging were discussed and reviewed in detail. As well as risks, benefits, and discussion of treatment choices. No major barriers to understanding were identified. The patient expressed understanding and agreement with the above treatment plan. The patient was made aware they should contact our office by phone for worsening of their current condition, the appearance of new symptoms, or with any questions or concerns. Compliance is encouraged with any medications and follow up testing that is ordered. It is a privilege to be allowed the opportunity to participate in? your urological care.? Again, if you have any questions or concerns If you have any questions or concerns please do not hesitate to contact me. The office is [phone]. This note is constructed using voice recognition software. While every effort has been made to ensure accuracy gypsum block setter errors may have been included. Yours sincerely, GERMAN Collins Coding Level of Care Code New Pt Level 4 (59807) Diagnoses Erectile dysfunction associated with type 2 diabetes mellitus E11.69; N52.1
== END 2024-06-24 09:53 | disposition home or self-care (01) ==
LOC: HO.HUSH 09:07
PROVIDERS: PCP Physician Assistant; Visit Provider Nurse Practitioner Family
DX: Z13.9 Encounter for screening, unspecified (principal)

== ENCOUNTER → 2024-06-24 09:06 | Outpatient (BNVA) | payer OTHER, SELFPAY | PROVIDERS: PCP Physician Assistant; Visit Provider Nurse Practitioner Family | DX: E11.69 Type 2 diabetes mellitus with other specified complication (principal); N52.1 Erectile dysfunction due to diseases classified elsewhere | CPT/HCPCS: 81003; 99202 ==

== ENCOUNTER 2024-06-25 08:05 | Outpatient (AMB) | payer OTHER, SELFPAY ==
[2024-06-25 08:13] LABS: Prothrombin Time Whole Bld POC 46.4 sec (11.1-13.5); ~PT, ~INR - Anti Coag Clinic 3.9 (0.9-1.1)
--- NOTE | 2024-06-25 08:17 | MHC.OFFVISCO ---
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: Anticoagulation Allergies dulaglutide [From [facility]] Adverse Reaction (Intermediate, Verified 06/25/24 08:06) Nausea Medication List - Last Reconciled 06/25/24 by Josselin Reid RN acamprosate 666 mg PO TID acetaminophen 500 mg PO Q6H PRN aspirin 81 mg PO DAILY 90 days atenolol 25 mg PO DAILY atorvastatin 40 mg PO DAILY B-complex with vitamin C 1 tab PO QAM blood pressure test kit-large (Wireless Blood Pressure Monitor kit) As directed blood-glucose sensor ([employer] G7 Sensor device) As directed bupropion HCl XL (Wellbutrin XL) 150 mg PO QAM 90 days cholecalciferol (vitamin D3) (Vitamin D3) 10 mcg PO DAILY citalopram 40 mg PO DAILY clotrimazole-betamethasone 1-0.05 % 1 appl topical BID 30 days cyanocobalamin (vitamin B-12) 250 mcg PO DAILY folic acid 1 mg PO DAILY gabapentin 300 mg PO DAILY glucagon 3 mg/actuation (Baqsimi) 3 mg intranasal ONCE insulin aspart U-100 Inject up to 150 units via insulin pump subcutaneously; insulin glargine U-300 conc (Toujeo Max U-300 SoloStar) 55 units (0.1833 mL) subcut DAILY PRN 30 days insulin pump cart,auto,BT,G6/7 (Omnipod 5 G6-G7 Pods (Gen 5) subcutaneous cartridge) As directed change every 48 hours ketorolac 0.5% 0.5 drps ophthalmic (eye) DAILY lisinopril 10 mg PO DAILY naltrexone 50 mg PO DAILY tadalafil (Cialis) 5 mg PO DAILY 90 days tadalafil (Cialis) 20 mg PO .PRN PRN 30 days thiamine mononitrate (vit B1) 100 mg PO DAILY warfarin 10 mg See Protocol PO DAILY 90 days Nursing Note INR: 3.9?out of therapeutic range of 2-3 Medications and supplements reviewed Patient status: just came back [place] a trip to [place] and ate differently and also had a few alcoholic drinks. Medications or supplements: no changes Diet: as above Denies any signs and symptoms of bleeding or clotting or unusual bruising Bleeding, bruising, clotting discussed Nutritional guidance given: to have a serving of greens today Dose: hold today's dose of 10mg and then resume usual dose of 10mg X 6 days and 7.5mg X 1 day (Sat) F/U INR Date: 10 days?? Patient verbalizing understanding of instructions given. Anti-Coag Initial Assessment Social Hx Patient Tobacco Use Status: Former Tobacco user Tobacco use type: Cigarette alcohol intake: current Alcohol intake frequency: a few times a month Cardiovascular Hx: HTN Lung Disease HX: DVT/PE Endocrine Hx: Diabetes Musculoskeletal Hx: Arthritis Blood Disorder Hx: Hyperlipidemia Cancer HX: No Psych. Illness/Depression: No (depression) Coding Level of Care Code Est Patient Level 1 Diagnoses Current use of anticoagulant therapy Z79.01 Results AMB INR Fingerstick AMB INR Fingerstick 3.9 Last Edit by Josselin Reid RN on 06/25/24 08:13 interface delay Assessment & Plan Assessment & Plan (1) Current use of anticoagulant therapy: Code(s): Z79.01 - FPC (current) use of anticoagulants Category: Medical
== END 2024-06-25 08:27 | disposition home or self-care (01) ==
LOC: HO.ACS 08:05
PROVIDERS: PCP Physician Assistant; Visit Provider Internal Medicine Medical Oncology
DX: Z79.01 Long term (current) use of anticoagulants (principal)

== ENCOUNTER → 2024-06-25 08:05 | Outpatient (BNVA) | payer OTHER, SELFPAY | PROVIDERS: PCP Physician Assistant; Visit Provider Internal Medicine Medical Oncology | DX: Z86.718 Personal history of other venous thrombosis and embolism (principal); Z79.01 Long term (current) use of anticoagulants; Z51.81 Encounter for therapeutic drug level monitoring | CPT/HCPCS: 85610; 99211 ==

== ENCOUNTER 2024-07-05 08:56 | Outpatient (AMB) | payer OTHER, SELFPAY ==
[2024-07-05 09:04] LABS: Prothrombin Time Whole Bld POC 33.2 sec (11.1-13.5); ~PT, ~INR - Anti Coag Clinic 2.8 (0.9-1.1)
--- NOTE | 2024-07-05 09:08 | MHC.OFFVISCO ---
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: Anticoagulation Allergies dulaglutide [From [facility]] Adverse Reaction (Intermediate, Verified 07/05/24 08:59) Nausea Medication List - Last Reconciled 07/05/24 by Josselin Reid RN acamprosate 666 mg PO TID acetaminophen 500 mg PO Q6H PRN aspirin 81 mg PO DAILY 90 days atenolol 25 mg PO DAILY atorvastatin 40 mg PO DAILY B-complex with vitamin C 1 tab PO QAM blood pressure test kit-large (Wireless Blood Pressure Monitor kit) As directed blood-glucose sensor ([employer] G7 Sensor device) As directed bupropion HCl XL (Wellbutrin XL) 150 mg PO QAM 90 days cholecalciferol (vitamin D3) (Vitamin D3) 10 mcg PO DAILY citalopram 40 mg PO DAILY clotrimazole-betamethasone 1-0.05 % 1 appl topical BID 30 days cyanocobalamin (vitamin B-12) 250 mcg PO DAILY folic acid 1 mg PO DAILY gabapentin 300 mg PO DAILY glucagon 3 mg/actuation (Baqsimi) 3 mg intranasal ONCE insulin aspart U-100 Inject up to 150 units via insulin pump subcutaneously; insulin glargine U-300 conc (Toujeo Max U-300 SoloStar) 55 units (0.1833 mL) subcut DAILY PRN 30 days insulin pump cart,auto,BT,G6/7 (Omnipod 5 G6-G7 Pods (Gen 5) subcutaneous cartridge) As directed change every 48 hours ketorolac 0.5% 0.5 drps ophthalmic (eye) DAILY lisinopril 10 mg PO DAILY naltrexone 50 mg PO DAILY tadalafil (Cialis) 5 mg PO DAILY 90 days tadalafil (Cialis) 20 mg PO .PRN PRN 30 days thiamine mononitrate (vit B1) 100 mg PO DAILY warfarin 10 mg See Protocol PO DAILY 90 days Nursing Note INR: 2.8 in therapeutic range of 2-3 Medications and supplements reviewed No changes in health, diet, medications, or supplements, Denies any signs and symptoms of bleeding or bruising or clotting. Bleeding, bruising, clotting discussed Nutritional guidance given Dose: 10mg X 6 days and 7.5mg X 1 day (Sat) F/U INR: 3 weeks Patient verbalizes understanding of instructions given Anti-Coag Initial Assessment Social Hx Patient Tobacco Use Status: Former Tobacco user Tobacco use type: Cigarette alcohol intake: current Alcohol intake frequency: a few times a month Cardiovascular Hx: HTN Lung Disease HX: DVT/PE Endocrine Hx: Diabetes Musculoskeletal Hx: Arthritis Blood Disorder Hx: Hyperlipidemia Cancer HX: No Psych. Illness/Depression: No (depression) Coding Level of Care Code Est Patient Level 1 Diagnoses Current use of anticoagulant therapy Z79.01 Assessment & Plan Assessment & Plan (1) Current use of anticoagulant therapy: Code(s): Z79.01 - FPC (current) use of anticoagulants Category: Medical
== END 2024-07-05 09:13 | disposition home or self-care (01) ==
LOC: HO.ACS 08:56
PROVIDERS: PCP Physician Assistant; Visit Provider Internal Medicine Medical Oncology
DX: Z79.01 Long term (current) use of anticoagulants (principal)

== ENCOUNTER → 2024-07-05 08:56 | Outpatient (BNVA) | payer OTHER, SELFPAY | PROVIDERS: PCP Physician Assistant; Visit Provider Internal Medicine Medical Oncology | DX: Z86.718 Personal history of other venous thrombosis and embolism (principal); Z79.01 Long term (current) use of anticoagulants; Z51.81 Encounter for therapeutic drug level monitoring | CPT/HCPCS: 85610; 99211 ==

== ENCOUNTER 2024-07-15 13:44 | Outpatient (AMB) | payer OTHER, SELFPAY ==
--- NOTE | 2024-07-15 13:51 | A.OFFVIS_ITS ---
Vital Signs 07/15/24 13:52 Height 5 ft 4 in Weight 293 lb 3.437 oz BMI 50.3 BP 126/72 Blood Pressure Location Rt brachial Position Sitting Pulse 75 Pulse Source Pulse Oximeter Pulse Oximetry (%) 96 Oxygen Delivery Method Room Air Intake Visit Reasons: DM Intake Note: Patient presents today for a follow-up on Type 1 Diabetes Mellitus: Patient on insulin pump: Last Diabetes Eye Exam: 08/2023 Last Podiatry Exam- [employer], 10/07/2023. Most recent HbA1c- 7.3%, 05/18/2024 Random Glucose- 176 mg/dL, Today Funds Transfer Clerk Required: No Accompanied by: Self / Same As Patient Allergies dulaglutide [From [facility]] Adverse Reaction (Intermediate, Verified 07/05/24 08:59) Nausea HPI Comments Details: 53 YO M with PMHx DM, HTN, HLD who is seen in F/U for BALDEV/T1DM. He was last seen in endo Clinic . HgbA1C 7.3% in May down from pre pump A1c of 9.7%. Initially diagnosed with T2DM 2009 when presented to ED with DKA/HHS. In early Mar 2018 Dr. Sesay checked antibodies for T1DM. IA-2 antibodies were found to be positive with a low C-Peptide level at the time of hyperglycemia 0.12 He was started on an Omnipod 5 with G7 Dexcom sensor 2023. He has had post COVID left leg DVT 2023 and is now on coumadin. Family history of T2DM in mom and siblings. He has stopped drinking regular soda. Breakfast is 2 eggs, toast, sometimes breakfast meat, lunch is typically a ham and cheese sandwich on white bread with chips or rice and beans, supper is rice and beans. Dexcom average glucose: 198 14 day continuous glucose monitor report reviewed Glucose Managment indicator 185 % Days with CGM data 70.5% TIme in ranges: % very high (above 250) 26 % high ?(181-250) 52 % in range ?(70-180] 1 % low (69-55) 0 % ?very low (below 54) Interpretation [persistent postprandial highs after breakfast ] enters in only 82 carbs per day Has had multiple times when his sugars went to 300 after eating from not entering carbs, when he gets a correction for high numbers he drops too low Omnipod 5 pump settings: Basal rate(s) (units/hour) : 12 AM to 12 AM 3 units / hr Bolus setting Insulin Carbohydrate Ratio (s) 12 AM to 12 AM 1:5 new 6am to 3pm 11 Changed to 16 units to prevent lows 3pm 1:5 Correction Factor / Sensitivity Factor 12 AM to 12 AM 1:11 Active Insulin Time: 3.5 hours Target(s): 12 AM to 12 AM Correction threshold 12 AM to 12 AM 120 mg/dl Has retinopathy: Last eye exam Denies Neuropathy, does not see podiatry. Has nephropathy, on Lisinopril 10 mg PO daily. 10/31 Microalbumin 10.0 03/08/24 down from previous 30.0 Has HLD, on Atorvastatin 40 mg PO daily. LDL 77 10/31. No known CAD. Denies chest pains or palpitations. Weight: Stable since last visit. Has had CDE. Also was found to have multinodular thyroid with non suspicious multiple subcentimeter thyroid nodules unchanged with several ultraounds. . Thyroid US:12/19/2021FINDINGS: SIZE: Measurements of the thyroid lobes and nodules are given in sagittal, anteroposterior and transverse dimensions respectively. Right Thyroid Lobe: 5.8 x 1.5 x 2.5 cm, volume 11.5 mL. Previously 5.2 x 1.7 x 2.7 cm, volume 12.3 mL. Parenchyma: The gland echotexture is homogeneous. Thyroid vascularity is normal. Left Thyroid Lobe: 5.1 x 1.4 x 1.9 cm, volume 7.1 mL. Previously 4.6 x 1.3 x 1.8 cm, volume 5.8 mL.Parenchyma: The gland echotexture is homogeneous. Thyroid vascularitis normal. Isthmus: 0.2 cm in maximum AP dimension. Previously 0.5 cm. Estimated total number of nodules greater than or equal to 1 cm: 0. Meal Cook nodules are described as follows: 1. Location: Left inferior lateral. Size: 0.4 x 0.3 x 0.3 cm, volume 0.02 mL. Previously: 0.4 x 0.3 x 0.4 cm, volume 0.02 mL. Nodule characteristics: Composition: Spongiform (0). Echogenicity: Anechoic (0). Shape: Not taller than wide (0). Margins: Smooth (0). Echogenic Foci: None (0). ACR TI-RADS total points: 0 Previous: 4 ACR TI-RADS category: 1 Previous: 4 Significant change in size (>/= 20% in 2 dimensions and minimal increase of 2 mm or 50% or greater increase in volume): None Change in features: None Change in ACR TI-RADS risk category: Improved 2. Location: Left inferior lateral. Size: 0.4 x 0.3 x 0.3 cm, volume 0.02 mL. Previously: 0.4 x 0.3 x 0.4 cm, volume 0.02 mL. Nodule characteristics: Composition: Cystic(0). ACR TI-RADS total points: 0 Previous: 3 ACR TI-RADS category: 1 Previous: 3 Significant change in size (>/= 20% in 2 dimensions and minimal increase of 2 mm or 50% or greater increase in volume): None Change in features: None Change in ACR TI-RADS risk category: None 3. Location: Left inferior. Size: 0.7 x 0.6 x 0.9 cm, volume 0.20 mL. Previously: 0.8 x 0.6 x 0.9 cm, volume 0.20 mL. Nodule characteristics: Composition: Cystic(0). ACR TI-RADS total points: 0 Previous: 0 ACR TI-RADS category: 1 Previous: 1 Significant change in size (>/= 20% in 2 dimensions and minimal increase of 2 mm or 50% or greater increase in volume): None Change in features: None Change in ACR TI-RADS risk category: None 4. Location: Right mid. Size: 0.4 x 0.2 x 0.4 cm, volume 0.02 mL. Previously: 0.4 x 0.3 x 0.4 cm, volume 0.02 mL. Nodule characteristics: Composition: Cystic(0). 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 Mother Diabetes Family history of thyroid problem Social History Household Members: Significant Other Housing: House Alcohol intake: current Alcohol intake frequency: a few times a month Alcohol type: beer and hard liquor Patient Tobacco Use Status: Former Tobacco user Tobacco use type: Cigarette e-Cigarette/Vaping Use: Never Used Second Hand Smoke Exposure: No service: No Current occupational status: unemployed and disabled Current occupation: unemployed Gender identity: Male Cognitive needs: No Hearing needs: No Vision needs: No Physical Exam Vital Signs: Last Vital Signs Pulse 75 07/15/24 13:52 BP 126/72 07/15/24 13:52 Pulse Ox 96 07/15/24 13:52 Oxygen Delivery Method Room Air 07/15/24 13:52 BMI result Body Mass Index 50.3 Const Other: Absence of Cushingoid features. Absence of acromegalic features. Neck exam reveals nl size thyroid about 15 gms. No thyroid nodules palpable. Heart S1 S2, Reg R/R. No M/R G. Skin exam reveals absence of vitiligo or acanthosis nigricans. 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 He is not entering in all his carbs and he was encouraged to do so. We reviewed that 40% of his insulin should be given to cover his meals. Correction factor dropped to 2 when he is too high he drops too low afterwards. The patient had an opportunity to ask questions regarding treatment plan. The patient expressed understanding and agreement with the above treatment plan. The patient is aware they should contact our office by phone for worsening glucose readings or for any low blood sugars which may warrant a change in diabetes medication. Compliance is encouraged with medications and any followup testing/consults which may have been ordered. Medications: Discontinued insulin aspart U-100 Discontinued Reason: Insurance Denied INJECT UP TO 150 UNITS VIA INSULIN PUMP SUBCUTANEOUSLY 50 mL 2RF Patient Instructions: Troubleshooting after starting new pod or inserting new insulin set: Occlusion, adhesive tape sensitivity, redness Check BG 2 hours after site change Safety information: Importance of a backup plan, for manual injections, proper prescriptions and emergency supplies ketone strips, and rules for testing for ketones Symptoms of DKA (diabetic ketoacidosis): early: frequent urination, dry mouth, fatigue, feeling ill, severe symptoms: ketones in the urine, abdominal pain, nausea, vomiting and weakness. It is important to hydrate with sugar free liquids every 15-30 minutes and bring the sugars down to normal levels. If you are moderate or severe with ketones or unable to bring glucose to less than 200, go to the emergency room. 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
[2024-07-15 13:52] VITALS: BP 126/72; PULSE 75; O2SAT 96; BMI 50.3
[2024-07-15 13:59] LABS: Glucose, Whole Blood 176 mg/dL (60-115)
== END 2024-07-15 15:54 | disposition home or self-care (01) ==
LOC: HO.ENCR 13:44
PROVIDERS: PCP Physician Assistant; Visit Provider Nurse Practitioner Adult Health
DX: E13.9 Other specified diabetes mellitus without complications (principal)
CPT/HCPCS: 99214; G2211

== ENCOUNTER → 2024-07-15 13:44 | Outpatient (BNVA) | payer OTHER, SELFPAY | PROVIDERS: PCP Physician Assistant; Visit Provider Nurse Practitioner Adult Health | DX: E13.9 Other specified diabetes mellitus without complications (principal) | CPT/HCPCS: 82947; 99212 ==

== ENCOUNTER 2024-07-29 08:05 | Outpatient (REF) | payer OTHER, SELFPAY ==
[2024-07-29 08:44] LABS: Hemoglobin 15.4 g/dl (14.0-18.0); Mean Corpuscular HGB Conc 33.5 g/dl (31.0-36.0); Mean Corpuscular Hemoglobin 29.1 pg (27.0-33.0); Mean Platelet Volume 10.1 fL (9.4-12.4); Platelet Count 268 X10*3/uL (160-400); Red Blood Count 5.29 X10*6/uL (4.60-5.80); Red Cell Distribution Width 13.9 % (11.0-16.0); White Blood Count 7.5 X10*3/uL (4.8-10.8)
[2024-07-29 09:13] LABS: Creatinine Urine 146.83 mg/dL; Microalbumin Urine < 5.0 mg/L
[2024-07-29 09:27] LABS: Alanine Aminotransferase 30 U/L (0-40); Albumin Level 4.1 g/dL (3.5-5.0); Alkaline Phosphatase 67 U/L (39-117); Anion Gap 10 (12-20); Aspartate Amino Transferase 31 U/L (5-37); Bilirubin Total 0.7 mg/dL (0.0-1.0); Blood Urea Nitrogen 18 mg/dL (9-16); Calcium 9.2 mg/dL (8.4-10.2); Carbon Dioxide 25 mmol/L (22-29); Chloride 111 mmol/L (96-108); Cholesterol 135 mg/dL (<200); Estimated Glomerular Filt Rate > 60; Glucose Fasting 172 mg/dL (60-99); Potassium 3.9 mmol/L (3.3-5.1); Sodium 142 mmol/L (135-145); Total Protein 6.7 g/dL (6.5-8.0); Triglycerides 113 mg/dL (<150)
[2024-07-29 09:37] LABS: Prostate Specific Antigen Scr 1.66 ng/mL (<0.05-4.0)
[2024-07-29 11:16] LABS: HDL Cholesterol 50 mg/dL (>40); LDL Cholesterol Calculated 63 mg/dL (<100)
[2024-08-05 14:17] LABS: Testosterone, Free 68.4 pg/mL (35.0-155.0); Testosterone, Total 433 ng/dL (250-1100)
== END 2024-07-29 08:06 | disposition home or self-care (01) ==
LOC: HO.LAB 08:05
PROVIDERS: Nurse Practitioner Family; PCP Physician Assistant; Visit Provider Physician Assistant
DX: I15.0 Renovascular hypertension (principal); E78.5 Hyperlipidemia, unspecified; Z12.5 Encounter for screening for malignant neoplasm of prostate; E11.69 Type 2 diabetes mellitus with other specified complication; N52.1 Erectile dysfunction due to diseases classified elsewhere; Z79.01 Long term (current) use of anticoagulants
CPT/HCPCS: 36415; 80053; 80061; 82043; 82570; 84153; 84402; 84403; 85027; 85610; 99211

== ENCOUNTER 2024-07-29 08:41 | Outpatient (AMB) | payer OTHER, SELFPAY ==
--- NOTE | 2024-07-29 08:58 | MHC.OFFVISCO ---
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: Anticoagulation Allergies dulaglutide [From [facility]] Adverse Reaction (Intermediate, Verified 07/29/24 08:54) Nausea Medication List - Last Reconciled 07/29/24 by Kristyn Ball RN acamprosate 666 mg PO TID acetaminophen 500 mg PO Q6H PRN aspirin 81 mg PO DAILY 90 days atenolol 25 mg PO DAILY atorvastatin 40 mg PO DAILY B-complex with vitamin C 1 tab PO QAM blood pressure test kit-large (Wireless Blood Pressure Monitor kit) As directed blood-glucose sensor (POW G7 Sensor device) As directed bupropion HCl XL (Wellbutrin XL) 150 mg PO QAM 90 days cholecalciferol (vitamin D3) (Vitamin D3) 10 mcg PO DAILY citalopram 40 mg PO DAILY clotrimazole-betamethasone 1-0.05 % 1 appl topical BID 30 days cyanocobalamin (vitamin B-12) 250 mcg PO DAILY folic acid 1 mg PO DAILY gabapentin 300 mg PO DAILY glucagon 3 mg/actuation (Baqsimi) 3 mg intranasal ONCE insulin glargine U-300 conc (Toujeo Max U-300 SoloStar) 55 units (0.1833 mL) subcut DAILY PRN 30 days insulin lispro up to 150 units daily via pump subcutaneously use as directed; 30 days MDD 150 units NS insulin pump cart,auto,BT,G6/7 (Omnipod 5 G6-G7 Pods (Gen 5) subcutaneous cartridge) As directed change every 48 hours ketorolac 0.5% 0.5 drps ophthalmic (eye) DAILY lisinopril 10 mg PO DAILY naltrexone 50 mg PO DAILY tadalafil (Cialis) 5 mg PO DAILY 90 days tadalafil (Cialis) 20 mg PO .PRN PRN 30 days thiamine mononitrate (vit B1) 100 mg PO DAILY warfarin 10 mg See Protocol PO DAILY 90 days Nursing Note INR: 2.7 in therapeutic range pt trying to eat healthier and exercise more Medications and supplements reviewed No changes in medications, or supplements, Denies any signs and symptoms of bleeding or bruising or clotting. Bleeding, bruising, clotting discussed Nutritional guidance given Dose: 10mg x 6 days/ 7.5mg x 1 day F/U INR: 3 weeks Patient verbalizes understanding of instructions given Anti-Coag Initial Assessment Social Hx Patient Tobacco Use Status: Former Tobacco user Tobacco use type: Cigarette alcohol intake: current Alcohol intake frequency: a few times a month Cardiovascular Hx: HTN Lung Disease HX: DVT/PE Endocrine Hx: Diabetes Musculoskeletal Hx: Arthritis Blood Disorder Hx: Hyperlipidemia Cancer HX: No Psych. Illness/Depression: No (depression) Coding Level of Care Code Est Patient Level 1 Diagnoses Current use of anticoagulant therapy Z79.01 Results AMB INR Fingerstick AMB INR Fingerstick 2.7 Last Edit by Kristyn Ball RN on 07/29/24 08:57 manual entry Assessment & Plan Assessment & Plan (1) Current use of anticoagulant therapy: Code(s): Z79.01 - assisted (current) use of anticoagulants Category: Medical
[2024-07-29 09:16] LABS: Prothrombin Time Whole Bld POC 31.8 sec (11.1-13.5); ~PT, ~INR - Anti Coag Clinic 2.7 (0.9-1.1)
== END 2024-07-29 09:04 | disposition home or self-care (01) ==
LOC: HO.ACS 08:41
PROVIDERS: PCP Physician Assistant; Visit Provider Internal Medicine Medical Oncology
DX: Z79.01 Long term (current) use of anticoagulants (principal)

== ENCOUNTER 2024-08-03 12:56 | Outpatient (AMB) | payer OTHER, SELFPAY ==
--- NOTE | 2024-08-03 07:50 | A.OFFVIS_ITS ---
Vital Signs 08/03/24 13:01 Height 5 ft 4 in Weight 220 lb 7.396 oz BMI 37.8 BP 130/82 Blood Pressure Location Rt brachial Position Sitting Pulse 85 Pulse Source Pulse Oximeter Intake Visit Reasons: DM Intake Note: Patient presents today for a follow-up on Type 1 Diabetes Mellitus: Patient on insulin pump: Last Diabetes Eye Exam: 08/2023 Last Podiatry Exam- [employer], 10/07/2023. Most recent HbA1c- 7.3%, 05/18/2024 Random Glucose- 262 mg/dL, Today Recruitment Intern Required: No Accompanied by: Self / Same As Patient Allergies dulaglutide [From [facility]] Adverse Reaction (Intermediate, Verified 08/03/24 12:58) Nausea HPI Comments Details: 54 YO M with PMHx DM, HTN, HLD who is seen in F/U for BALDEV/T1DM. He was last seen in endo Clinic 07/15/24. HgbA1C 7.3% 05/18/24 down from pre pump A1c of 9.7%. His weight is down 20 lb since the of the year. He is following a much better balanced meal plan. Eating less carbohydrates in his decreased his portion. He is now more active in his exercising on a regular basis. He is no longer drinking soda and has cut back substantially on alcohol intake. Initially diagnosed with T2DM 2009 when presented to ED with DKA/HHS. In early Mar 2018 Dr. Sesay checked antibodies for T1DM. IA-2 antibodies were found to be positive with a low C-Peptide level at the time of hyperglycemia 0.12 He was started on an Omnipod 5 with G7 Dexcom sensor 2023. He has had post COVID left leg DVT 2023 and is now on coumadin. Family history of T2DM in mom and siblings. Dexcom average glucose:182 14 day continuous glucose monitor report reviewed TIme in ranges: Sixteen % very high (above 250) 23 % high ?(181-250) 61 % in range ?(70-180] 0 % low (69-55) 0 % ?very low (below 54) Interpretation: Some postprandial elevation after breakfast and lunch Total daily dose of insulin 70 Basal 58% 45 units Bolus 42 % 33 units In auto mode 100% of the time Omnipod 5 pump settings: Basal rate(s) (units/hour) : 12 AM to 12 AM 3 units / hr Bolus setting Insulin Carbohydrate Ratio (s) 12 AM to 12 AM 1:5 new 6am to 3pm 1:4.5 new 4.0 3pm 1:5 Correction Factor / Sensitivity Factor 12 AM to 12 AM 1:16 Active Insulin Time: 3.5 hours new 3.0 Target(s): 12 AM to 8 AM 120 8 AM to 12AM 120 Correction threshold 12 AM to 8 AM 130 mg/dl 8AM to 12AM 120 new 110 Has retinopathy: Last eye exam has Neuropathy, on gabapentin does not see podiatry. numbness better Has nephropathy, on Lisinopril 10 mg PO daily. 10/31 Microalbumin 10.0 03/08/24 down from previous 30.0 Has HLD, on Atorvastatin 40 mg PO daily. LDL 77 10/31. No known CAD. Denies chest pains or palpitations. Has seen Urology and placed on daily Cialis. He has not used the p.r.n. Cialis as he has not been sexually active. He has had some spontaneous erections. Prior to going on Cialis he was able to get an erection both not able to sustain. His testosterone level is pending Has had CDE. Also was found to have multinodular thyroid with non suspicious multiple subcentimeter thyroid nodules unchanged with several ultraounds. . Thyroid US:12/19/2021FINDINGS: SIZE: Measurements of the thyroid lobes and nodules are given in sagittal, anteroposterior and transverse dimensions respectively. Right Thyroid Lobe: 5.8 x 1.5 x 2.5 cm, volume 11.5 mL. Previously 5.2 x 1.7 x 2.7 cm, volume 12.3 mL. Parenchyma: The gland echotexture is homogeneous. Thyroid vascularity is normal. Left Thyroid Lobe: 5.1 x 1.4 x 1.9 cm, volume 7.1 mL. Previously 4.6 x 1.3 x 1.8 cm, volume 5.8 mL.Parenchyma: The gland echotexture is homogeneous. Thyroid vascularitis normal. Isthmus: 0.2 cm in maximum AP dimension. Previously 0.5 cm. Estimated total number of nodules greater than or equal to 1 cm: 0. Drill Runner Helper nodules are described as follows: 1. Location: Left inferior lateral. Size: 0.4 x 0.3 x 0.3 cm, volume 0.02 mL. Previously: 0.4 x 0.3 x 0.4 cm, volume 0.02 mL. Nodule characteristics: Composition: Spongiform (0). Echogenicity: Anechoic (0). Shape: Not taller than wide (0). Margins: Smooth (0). Echogenic Foci: None (0). ACR TI-RADS total points: 0 Previous: 4 ACR TI-RADS category: 1 Previous: 4 Significant change in size (>/= 20% in 2 dimensions and minimal increase of 2 mm or 50% or greater increase in volume): None Change in features: None Change in ACR TI-RADS risk category: Improved 2. Location: Left inferior lateral. Size: 0.4 x 0.3 x 0.3 cm, volume 0.02 mL. Previously: 0.4 x 0.3 x 0.4 cm, volume 0.02 mL. Nodule characteristics: Composition: Cystic(0). ACR TI-RADS total points: 0 Previous: 3 ACR TI-RADS category: 1 Previous: 3 Significant change in size (>/= 20% in 2 dimensions and minimal increase of 2 mm or 50% or greater increase in volume): None Change in features: None Change in ACR TI-RADS risk category: None 3. Location: Left inferior. Size: 0.7 x 0.6 x 0.9 cm, volume 0.20 mL. Previously: 0.8 x 0.6 x 0.9 cm, volume 0.20 mL. Nodule characteristics: Composition: Cystic(0). ACR TI-RADS total points: 0 Previous: 0 ACR TI-RADS category: 1 Previous: 1 Significant change in size (>/= 20% in 2 dimensions and minimal increase of 2 mm or 50% or greater increase in volume): None Change in features: None Change in ACR TI-RADS risk category: None 4. Location: Right mid. Size: 0.4 x 0.2 x 0.4 cm, volume 0.02 mL. Previously: 0.4 x 0.3 x 0.4 cm, volume 0.02 mL. Nodule characteristics: Composition: Cystic(0). 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 Mother Diabetes Family history of thyroid problem Social History Household Members: Significant Other Housing: House Alcohol intake: current Alcohol intake frequency: a few times a month Alcohol type: beer and hard liquor Patient Tobacco Use Status: Former Tobacco user Tobacco use type: Cigarette e-Cigarette/Vaping Use: Never Used Second Hand Smoke Exposure: No service: No Current occupational status: unemployed and disabled Current occupation: unemployed Gender identity: Male Cognitive needs: No Hearing needs: No Vision needs: No Physical Exam Const Other: Absence of Cushingoid features. Absence of acromegalic features. Neck exam reveals nl size thyroid about 15 gms. No thyroid nodules palpable. Heart S1 S2, Reg R/R. No M/R G. Skin exam reveals absence of vitiligo or acanthosis nigricans. No edema Visual exam of foot performed. No ulcerations or open lesions. No inter digit maceration or fissuring. No onychomycosis, no callouses. Sensation intact to monofilament exam. Vibratory sensation is normal with 128 Hz tuning fork. 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 Pump download shows a GME of 7.7% Pump settings were changed to give more pre prandial insulin. He was encouraged to continue his healthy lifestyle changes of reduce alcohol intake, balanced meal plan and increased exercise. The patient had an opportunity to ask questions regarding treatment plan. The patient expressed understanding and agreement with the above treatment plan. The patient is aware they should contact our office by phone for worsening glucose readings or for any low blood sugars which may warrant a change in diabetes medication. Compliance is encouraged with medications and any followup testing/consults which may have been ordered. Orders: Orders AMB Glucose Monitoring Today E13.9 - Other specified diabetes mellitus without complications Patient Instructions: Has a erectile dysfunction treated by Urology. 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
[2024-08-03 13:01] VITALS: BP 130/82; PULSE 85; BMI 37.8
[2024-08-03 13:13] LABS: Glucose, Whole Blood 262 mg/dL (60-115)
== END 2024-08-03 13:34 | disposition home or self-care (01) ==
LOC: HO.ENCR 12:57
PROVIDERS: PCP Physician Assistant; Visit Provider Nurse Practitioner Adult Health
DX: E13.9 Other specified diabetes mellitus without complications (principal)
CPT/HCPCS: 95251; 99214; G2211

== ENCOUNTER → 2024-08-03 12:56 | Outpatient (BNVA) | payer OTHER, SELFPAY | PROVIDERS: PCP Physician Assistant; Visit Provider Nurse Practitioner Adult Health | DX: E13.9 Other specified diabetes mellitus without complications (principal); Z96.41 Presence of insulin pump (external) (internal); Z79.4 Long term (current) use of insulin | CPT/HCPCS: 82947; 99212 ==

== ENCOUNTER 2024-08-19 07:57 | Outpatient (AMB) | payer OTHER, SELFPAY ==
[2024-08-19 08:35] LABS: Prothrombin Time Whole Bld POC 30.6 sec (11.1-13.5); ~PT, ~INR - Anti Coag Clinic 2.6 (0.9-1.1)
--- NOTE | 2024-08-19 08:46 | MHC.OFFVISCO ---
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: Anticoagulation Allergies dulaglutide [From [facility]] Adverse Reaction (Intermediate, Verified 08/19/24 08:11) Nausea Medication List - Last Reconciled 08/19/24 by Kristyn Ball RN acamprosate 666 mg PO TID acetaminophen 500 mg PO Q6H PRN aspirin 81 mg PO DAILY 90 days atenolol 25 mg PO DAILY atorvastatin 40 mg PO DAILY B-complex with vitamin C 1 tab PO QAM blood pressure test kit-large (Wireless Blood Pressure Monitor kit) As directed blood-glucose sensor (AppHarbor G7 Sensor device) As directed bupropion HCl XL (Wellbutrin XL) 150 mg PO QAM 90 days cholecalciferol (vitamin D3) (Vitamin D3) 10 mcg PO DAILY citalopram 40 mg PO DAILY clotrimazole-betamethasone 1-0.05 % 1 appl topical BID 30 days cyanocobalamin (vitamin B-12) 250 mcg PO DAILY folic acid 1 mg PO DAILY gabapentin 300 mg PO DAILY glucagon 3 mg/actuation (Baqsimi) 3 mg intranasal ONCE guanfacine ER 4 mg PO DAILY insulin glargine U-300 conc (Toujeo Max U-300 SoloStar) 55 units (0.1833 mL) subcut DAILY PRN 30 days insulin lispro up to 150 units daily via pump subcutaneously use as directed; 30 days MDD 150 units NS insulin pump cart,auto,BT,G6/7 (Omnipod 5 G6-G7 Pods (Gen 5) subcutaneous cartridge) As directed change every 48 hours ketorolac 0.5% 0.5 drps ophthalmic (eye) DAILY levomilnacipran ER (Fetzima) 40 mg PO DAILY lisinopril 10 mg PO DAILY naltrexone 50 mg PO DAILY tadalafil (Cialis) 5 mg PO DAILY 90 days tadalafil (Cialis) 20 mg PO .PRN PRN 30 days thiamine mononitrate (vit B1) 100 mg PO DAILY warfarin 10 mg See Protocol PO DAILY 90 days Nursing Note INR: 2.6 in therapeutic range Medications and supplements reviewed levomilnacipran dose increased can raise the INR. Denies any signs and symptoms of bleeding or bruising or clotting. Bleeding, bruising, clotting discussed Nutritional guidance given Dose: keep same dose 7.5mg cx 1 day/ 10mg x 6 days F/U INR: 7.5mg x 1 day/ 10mg x 6 days Patient verbalizes understanding of instructions given Anti-Coag Initial Assessment Social Hx Patient Tobacco Use Status: Former Tobacco user Tobacco use type: Cigarette alcohol intake: current Alcohol intake frequency: a few times a month Cardiovascular Hx: HTN Lung Disease HX: DVT/PE Endocrine Hx: Diabetes Musculoskeletal Hx: Arthritis Blood Disorder Hx: Hyperlipidemia Cancer HX: No Psych. Illness/Depression: No (depression) Coding Level of Care Code Est Patient Level 1 Diagnoses Current use of anticoagulant therapy Z79.01 Results AMB INR Fingerstick AMB INR Fingerstick 2.6 Last Edit by Kristyn Ball RN on 08/19/24 08:24 MANUAL ENTRY FAILED INTERFACING ONGOING Assessment & Plan Assessment & Plan (1) Current use of anticoagulant therapy: Code(s): Z79.01 - long term care phlebotomist (current) use of anticoagulants Category: Medical
== END 2024-08-19 08:28 | disposition home or self-care (01) ==
LOC: HO.ACS 07:57
PROVIDERS: PCP Physician Assistant; Visit Provider Internal Medicine Medical Oncology
DX: Z79.01 Long term (current) use of anticoagulants (principal)

== ENCOUNTER → 2024-08-19 07:57 | Outpatient (BNVA) | payer OTHER, SELFPAY | PROVIDERS: PCP Physician Assistant; Visit Provider Internal Medicine Medical Oncology | DX: Z86.718 Personal history of other venous thrombosis and embolism (principal); Z79.01 Long term (current) use of anticoagulants; Z51.81 Encounter for therapeutic drug level monitoring | CPT/HCPCS: 85610; 99211 ==

== ENCOUNTER 2024-08-24 09:56 | Outpatient (AMB) | payer OTHER, SELFPAY ==
--- NOTE | 2024-08-24 10:19 | A.OFFVIS_ITS ---
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: 59 Allergies dulaglutide [From [facility]] Adverse Reaction (Intermediate, Verified 08/19/24 08:11) Nausea HPI Comprehensive Diabetes Asmnt Most Recent Diabetes Results: 2 Hemoglobin A1c 7.0 % 09/10/19 Microalb/Creat Ratio TNP 07/29/24 Cholesterol 135 mg/dL (<200) 07/29/24 HDL Cholesterol 50 mg/dL (>40) 07/29/24 Triglycerides 113 mg/dL (<150) 07/29/24 Creatinine 0.88 mg/dL (0.5-1.4) 07/29/24 Blood Urea Nitrogen 18 mg/dL (9-16) H 07/29/24 Sodium 142 mmol/L (135-145) 07/29/24 Potassium 3.9 mmol/L (3.3-5.1) 07/29/24 Chloride 111 mmol/L (96-108) H 07/29/24 Carbon Dioxide 25 mmol/L (22-29) 07/29/24 Calcium 9.2 mg/dL (8.4-10.2) 07/29/24 AST 31 U/L (5-37) 07/29/24 ALT 30 U/L (0-40) 07/29/24 Total Protein 6.7 g/dL (6.5-8.0) 07/29/24 Albumin 4.1 g/dL (3.5-5.0) 07/29/24 PFSH Medical History COVID-19 Hypogonadism in male DVT (deep venous thrombosis) Anxiety and depression Cervical lymphadenopathy Normal colonoscopy Vitamin D deficiency Multinodular thyroid HLD (hyperlipidemia) 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 Mother Diabetes Family history of thyroid problem Social History Household Members: Significant Other Housing: House Alcohol intake: current Alcohol intake frequency: a few times a month Alcohol type: beer and hard liquor Patient Tobacco Use Status: Former Tobacco user Tobacco use type: Cigarette e-Cigarette/Vaping Use: Never Used Second Hand Smoke Exposure: No service: No Current occupational status: unemployed and disabled Current occupation: unemployed Gender identity: Male Cognitive needs: No Hearing needs: No Vision needs: No Assessment & Plan Assessment & Plan (1) Diabetes: Comment: IDDM Code(s): E11.9 - Type 2 diabetes mellitus without complications Qualifiers: Diabetes mellitus type: type 2 Diabetes mellitus group home insulin use: 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 The following topics were reviewed today: -Ketone testing -Glucagon nasal spray -Activity mode ??? High Alert: Off ??? Low Alert: 70 mg/dl Patient's last A1c was 7.3% 05/2024 Patient did not bring Omnipod PDM to today's visit Patient reports he has going to the gym 3 times a week, has reduced fast food and alcohol intake. Reviewed with patient when to use Baqsimi, instructed patient to check to be sure his prescription has not . To review with his son to administer Baqsimi. Reviewed with patient rules about testing for ketones Request for keto strips prescription sent to provider Safety information: Importance of a backup plan, for manual injections, proper prescriptions and emergency supplies ketone strips, and rules for testing for ketones Setting verified by [facility], no changes made to pump settings at today's visit Basal rate(s) (units/hour) : 12 AM? to 12 AM 3 units / hr Bolus setting Insulin Carbohydrate Ratio (s) 12 AM? to 6 AM 1:5 6 AM to 3 PM 1:4 3 PM to 12 AM 1:5 Correction Factor / Sensitivity Factor 12 AM? to 12 AM ? 1:16 Active Insulin Time:? 3 hours Target(s): 12 AM? to 8 AM 120 mg/dL 8 AM to 12 AM 110 mg/dL Correction threshold 12 AM? to 8 AM 130mg/dL 8 AM to 12 AM 110 mg/dL Patient Instructions: DIABETES PROBLEMS HOMECARE INSTRUCTIONS? for High Blood Sugar and When to Test for Ketones Hyperglycemia is the technical term for high blood glucose (blood sugar). High blood sugar happens when the body has too little insulin or when the body can't use insulin properly. What causes hyperglycemia? A number of things can cause hyperglycemia: * If you have type 1, you may not have given yourself enough insulin. ? If you have type 2, your body may have enough insulin, but it is not as effective as it should be. * You ate more than planned or exercised less than planned. * You have stress from an illness, such as a cold or flu. * You have other stress, such as family conflicts or school or dating problems. How to lower your blood sugar level. ? Take medications as directed by physician. ? Drink extra water or noncaffeinated, nonsugared drinks to prevented hydration. ? Exercise if you are not sick However, if your blood sugar is above 250 mg/dl, check your urine for ketones. I f you have ketones, do not exercise Exercising when ketones are present may make your blood sugar level go even higher. You'll need to work with your doctor to find the safest way for you to lower your blood sugar level. Regularly check blood sugar or urine for sugar and acetone during illness. Diabetic ketoacidosis (DKA) Is serious condition that can lead to diabetic coma (passing out for a long time) or even . When your cells don't get the glucose they need for energy, your body begins to burn fat for energy, which produces ketones. Ketones are chemicals that the body creates when it breaks down fat to use for energy. The body does this when it doesn?t have enough insulin to use glucose, the body?s normal source of energy. When ketones build up in the blood, they make it more acidic. They are a warning sign that your diabetes is out of control or that you are getting sick. Symptoms of Diabetic Ketoacidosis (DKA) ? DKA usually develops slowly. But when vomiting occurs, this life- threatening condition can develop in a few hours. Early symptoms include the following: ? Thirst or a very dry mouth ? Frequent urination ? High blood glucose (blood sugar) levels ? High levels of ketones in the urine ? Then, other symptoms appear: ? Constantly feeling tired ? Dry or flushed skin ? Nausea, vomiting, or abdominal pain ? (Vomiting can be caused by many illnesses, not just ketoacidosis. If vomiting continues for more than 2 hours, contact your health care provider.) ? Difficulty breathing ? Fruity odor on breath ? A hard time paying attention, or confusion When should you test for ketones? It is advisable to check for ketones under the following conditions when: Your blood glucose is higher than 250mg/dl. Feeling nauseated, throwing up, or have pains in your abdominal region. Have a cold or flu. Have general body fatigue. Feel thirsty or have a very dry mouth. Have flushed skin. Have a fruity breath or a hard time breathing. You feel perplexed or in fog. How to Test Urine for Ketones You can detect ketones with a simple urine test using a test strip, similar to a blood testing strip. Ask your health care provider when and how you should test for ketones. Many experts advise to check your urine for ketones when your blood glucose is more than 250 mg/dl. When you are ill (when you have a cold or the flu, for example), check for ketones every 4 to 6 hours. And check every 4 to 6 hours when your blood sugar is more than 250 mg/dl. Also, check for ketones when you have any symptoms of DKA. How to lower your blood sugar level. ? Take medications as directed by physician. ? Drink extra water or noncaffeinated, nonsugared drinks to prevented hydration. ? Exercise if you are not sick However, if your blood sugar is above 250 mg/dl, check your urine for ketones. I f you have ketones, do not exercise Exercising when ketones are present may make your blood sugar level go even higher. You'll need to work with your doctor to find the safest way for you to lower your blood sugar level. 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
--- OUTSIDE RECORDS SUMMARY | 2024-08-24 11:12 | XMS_ITS | Continuity of Care Document ---
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 Date(s): 03/11/24 - 08/23/[address] [address]- Encounter Diagnosis Pain in right shoulder(Final) - Discharge Disposition: A-D/C Home Attending Physician: Dejuan Reardon Admitting Physician: Dejuan Reardon Referring Physician: Dejuan Reardon Encounter Type: Disch Recurring OP Allergies, Adverse Reactions, Alerts No Known Medication Allergies Immunizations Given and Recorded Vaccine Date Status Refusal Reason pneumococcal 23-valent vaccine 02/12/14 Given Medications aspirin 81 mg oral tablet 1 tablet = 81 mg, By Mouth, Daily, # 30 tablet, 0 Refills, Maintenance, 02/16/14 9:19:06 AM EST, Tablet Start Date: 02/16/14 Status: Ordered Quantity: 30.0 Unit: tablet Repeat number: 1 atenolol 25 mg oral tablet 1 tablet = 25 mg, By Mouth, Daily, # 30 tablet, 0 Refills, Maintenance, 07/09/14 9:28:06 AM EDT, Tablet Start Date: 07/09/14 Status: Ordered Quantity: 30.0 Unit: tablet Repeat number: 1 atorvastatin 40 mg oral tablet 1 tablet = 40 mg, By Mouth, Daily, # 90 tablet, 0 Refills, Maintenance, 10/22/21 10:21:00 AM EDT, Tablet, Partial fill upon patient request if the prescription is for a schedule II opioid drug. Start Date: 10/22/21 Status: Ordered Quantity: 90.0 Unit: tablet Repeat number: 1 insulin glargine 100 u/ml subcutaneous solution 0.45 mL = 45 units, Subcutaneous Injection, Daily at bedtime, 0 Refills, Maintenance, 07/13/14 1:43:48 PM EDT, Injection Start Date: 07/13/14 Status: Ordered Repeat number: 1 insulin lispro 100 u/ml subcutaneous injection 3-13 units, Subcutaneous Injection, 3 times a day before meals, << Sliding Scale Comments >> 70 - 119 3 units Call if less than 70 120 - 169 5 units 170 - 219 7 units 220 - 269 9 units 270 - 319 11 units 320 - 369 13 units Call if greater than 400 << Sliding Scale Comments >>, 0 Refills, Maintenance, 07/13/14 1:43:59 PM EDT, Injection Start Date: 07/13/14 Status: Ordered Repeat number: 1 meclizine 25 mg oral tablet 1 tablet = 25 mg, By Mouth, 3 times a day, PRN for dizziness, # 30 tablet, 0 Refills, Maintenance, 10/22/21 10:22:00 AM EDT, Tablet, Partial fill upon patient request if the prescription is for a schedule II opioid drug. Start Date: 10/22/21 Status: Ordered Quantity: 30.0 Unit: tablet Repeat number: 1 PT eval and treat for vestibular rehab PT eval and treat for vestibular rehab, See Instructions, # 1 each, Refills 0, Tot. Refills 0, Maintenance, PT eval and treat for vestibular rehab, 10/22/21 10:22:00 AM EDT, Compound Start Date: 10/22/21 Status: Ordered Quantity: 1.0 Unit: each Repeat number: 1 Problem List Condition Confirmation Course Effective Dates [...] in household: No entered on: 03/22/14 Sex Sex Representation Male (finding) Patient Care team information Care Team Personnel Name: Raji Ball RN Position: [facility] RN Member Role: Primary Care Nurse Name: Dejuan Reardon Position: Reference Physician Member Role: PCP Address: [address] [place] [address]- [place] Telecom: Name: Edwar Cabezas RN Position: [facility] AMB Nurse Member Role: Primary Care Nurse Name: Concepcion Hernandez NP Position: [facility] PCO Associate Professional Member Role: Primary Care Nurse Address: [address] [place] [address]- [place] Telecom: Name: Sharlene Braxton RN Position: [facility] Onco RN Member Role: Primary Care Nurse Name: Ricky Hagen Position: [facility] RN Member Role: Primary Care Nurse Care Team Related Persons Name: KRISTIAN GARCIA Insurance Providers Guarantor name: [facility] Plan Information #: 1 Payer: [employer] Payer Identifier: CAMERON Member Number: [id number] Group Number: CAMERON Subscriber Identifier: [id number] Relationship to Subscriber: self Coverage Type: NA Coverage Verification Date: CAMERON Telecom: Address:
== END 2024-08-24 10:40 | disposition home or self-care (01) ==
LOC: HO.ENCR 09:57
PROVIDERS: PCP Physician Assistant; Visit Provider Registered Nurse Diabetes Educator
DX: E11.319 Type 2 diabetes mellitus with unspecified diabetic retinopathy without macular edema (principal)

== ENCOUNTER → 2024-08-24 09:56 | Outpatient (BNVA) | payer OTHER, SELFPAY | PROVIDERS: PCP Physician Assistant; Visit Provider Registered Nurse Diabetes Educator | DX: E11.319 Type 2 diabetes mellitus with unspecified diabetic retinopathy without macular edema (principal) | CPT/HCPCS: 99211 ==

== ENCOUNTER 2024-09-06 07:50 | Outpatient (AMB) | payer OTHER, SELFPAY ==
--- OUTSIDE RECORDS SUMMARY | 2024-09-05 23:59 | XMS_ITS | Continuity of Care Document ---
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 Role Phone Dejuan eRardon Primary Care Physician Encounter [facility] Date(s): 08/06/24 - 09/05/[address] [address]- Attending Physician: Arabella Renee Admitting Physician: Arabella Renee Referring Physician: AdmtrArabella Encounter Type: Triage Allergies, Adverse Reactions, Alerts No Known Medication [...] Team Personnel Name: Raji Ball RN Position: [facility] RN Member Role: Primary Care Nurse Name: Dejuan Reardon Position: Reference Physician Member Role: PCP Address: [address] [place] [address]- [place] Telecom: Name: Edwar Cabezas RN Position: [facility] AMB Nurse Member Role: Primary Care Nurse Name: Concepcion Hernandez NP Position: [facility] PCO Associate Professional Member Role: Primary Care Nurse Address: [address] [place] [address]- [place] Telecom: Name: Sharlene Braxton RN Position: [facility] Onco RN Member Role: Primary Care Nurse Name: Ricky Hagen Position: [facility] RN Member Role: Primary Care Nurse Care Team Related Persons Name: JOSE KRISTIAN Insurance Providers Guarantor name: OFE DELUNA Health Plan Information #: 1 Payer: [employer] Payer Identifier: CAMERON Member Number: [id number] Group Number: Subscriber Identifier: [id number] Relationship to Subscriber: self Coverage Type: NA Coverage Verification Date: NA Telecom: Address: NA
[2024-09-06 08:05] LABS: Prothrombin Time Whole Bld POC 25.9 sec (11.1-13.5); ~PT, ~INR - Anti Coag Clinic 2.2 (0.9-1.1)
--- NOTE | 2024-09-06 08:09 | MHC.OFFVISCO ---
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: Anticoagulation Allergies dulaglutide (From [facility]) Adverse Reaction (Intermediate, Verified 09/06/24 07:58) Nausea Medication List - Last Reconciled 09/06/24 by Kristyn Ball RN acamprosate 666 mg PO TID acetaminophen 500 mg PO Q6H PRN acetone (urine) test (Ketone Urine Test strips) As directed tid prn glucose over 250, nausea, vomiting or illness aspirin 81 mg PO DAILY 90 days atenolol 25 mg PO DAILY atorvastatin 40 mg PO DAILY B-complex with vitamin C 1 tab PO QAM Baqsimi 3 mg/actuation (glucagon) 3 mg intranasal ONCE PRN 30 days NS blood pressure test kit-large (Wireless Blood Pressure Monitor kit) As directed blood-glucose sensor (CDB Infotek G7 Sensor device) As directed bupropion HCl XL (Wellbutrin XL) 150 mg PO QAM 90 days cholecalciferol (vitamin D3) (Vitamin D3) 10 mcg PO DAILY citalopram 40 mg PO DAILY clotrimazole-betamethasone 1-0.05 % 1 appl topical BID 30 days cyanocobalamin (vitamin B-12) 250 mcg PO DAILY folic acid 1 mg PO DAILY gabapentin 300 mg PO DAILY glucagon 3 mg/actuation (Baqsimi) 3 mg intranasal ONCE guanfacine ER 4 mg PO DAILY insulin glargine U-300 conc (Toujeo Max U-300 SoloStar) 55 units (0.1833 mL) subcut DAILY PRN 30 days insulin lispro up to 150 units daily via pump subcutaneously use as directed; 30 days MDD 150 units NS insulin pump cart,auto,BT,G6/7 (Omnipod 5 G6-G7 Pods (Gen 5) subcutaneous cartridge) As directed change every 48 hours ketorolac 0.5% 0.5 drps ophthalmic (eye) DAILY levomilnacipran ER (Fetzima) 40 mg PO DAILY lisinopril 10 mg PO DAILY naltrexone 50 mg PO DAILY tadalafil (Cialis) 5 mg PO DAILY 90 days tadalafil (Cialis) 20 mg PO .PRN PRN 30 days thiamine mononitrate (vit B1) 100 mg PO DAILY warfarin 10 mg See Protocol PO DAILY 90 days Nursing Note INR: 2.2 in therapeutic range Medications and supplements reviewed No changes in health, diet, medications, or supplements, Denies any signs and symptoms of bleeding or bruising or clotting. Bleeding, bruising, clotting discussed Nutritional guidance given Dose: 7.5mg x 1 day/ 10mg x 6 days F/U INR: 3 weeks Patient verbalizes understanding of instructions given Anti-Coag Initial Assessment Social Hx Patient Tobacco Use Status: Former Tobacco user Tobacco use type: Cigarette alcohol intake: current Alcohol intake frequency: a few times a month Cardiovascular Hx: HTN Lung Disease HX: DVT/PE Endocrine Hx: Diabetes Musculoskeletal Hx: Arthritis Blood Disorder Hx: Hyperlipidemia Cancer HX: No Psych. 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
== END 2024-09-06 08:35 | disposition home or self-care (01) ==
LOC: HO.ACS 07:50
PROVIDERS: PCP Physician Assistant; Visit Provider Internal Medicine Medical Oncology
DX: Z79.01 Long term (current) use of anticoagulants (principal)

== ENCOUNTER → 2024-09-06 07:50 | Outpatient (BNVA) | payer OTHER, SELFPAY | PROVIDERS: PCP Physician Assistant; Visit Provider Internal Medicine Medical Oncology | DX: Z79.01 Long term (current) use of anticoagulants (principal) | CPT/HCPCS: 85610; 99211 ==

== ENCOUNTER 2024-09-27 08:17 | Outpatient (AMB) | payer OTHER, SELFPAY ==
[2024-09-27 08:26] LABS: Prothrombin Time Whole Bld POC 16.5 sec (11.1-13.5); ~PT, ~INR - Anti Coag Clinic 1.4 (0.9-1.1)
--- NOTE | 2024-09-27 08:36 | MHC.OFFVISCO ---
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: Anticoagulation Allergies dulaglutide (From [facility]) Adverse Reaction (Intermediate, Verified 09/27/24 09:19) Nausea Medication List - Last Reconciled 09/27/24 by Josselin Reid RN acamprosate 666 mg PO TID acetaminophen 500 mg PO Q6H PRN acetone (urine) test (Ketone Urine Test strips) As directed tid prn glucose over 250, nausea, vomiting or illness aspirin 81 mg PO DAILY 90 days atenolol 25 mg PO DAILY atorvastatin 40 mg PO DAILY B-complex with vitamin C 1 tab PO QAM Baqsimi 3 mg/actuation (glucagon) 3 mg intranasal ONCE PRN 30 days NS blood pressure test kit-large (Wireless Blood Pressure Monitor kit) As directed blood-glucose sensor (TRAN.SL G7 Sensor device) As directed bupropion HCl XL (Wellbutrin XL) 150 mg PO QAM 90 days cholecalciferol (vitamin D3) (Vitamin D3) 10 mcg PO DAILY citalopram 40 mg PO DAILY clotrimazole-betamethasone 1-0.05 % 1 appl topical BID 30 days cyanocobalamin (vitamin B-12) 250 mcg PO DAILY folic acid 1 mg PO DAILY gabapentin 300 mg PO DAILY glucagon 3 mg/actuation (Baqsimi) 3 mg intranasal ONCE guanfacine ER 4 mg PO DAILY insulin glargine U-300 conc (Toujeo Max U-300 SoloStar) 55 units (0.1833 mL) subcut DAILY PRN 30 days insulin lispro up to 150 units daily via pump subcutaneously use as directed; 30 days MDD 150 units NS insulin pump cart,auto,BT,G6/7 (Omnipod 5 G6-G7 Pods (Gen 5) subcutaneous cartridge) As directed change every 48 hours ketorolac 0.5% 0.5 drps ophthalmic (eye) DAILY levomilnacipran ER 80 mg PO DAILY lisinopril 10 mg PO DAILY naltrexone 50 mg PO DAILY tadalafil (Cialis) 5 mg PO DAILY 90 days tadalafil (Cialis) 20 mg PO .PRN PRN 30 days thiamine mononitrate (vit B1) 100 mg PO DAILY warfarin 10 mg See Protocol PO DAILY 90 days Nursing Note INR: 1.4 out of therapeutic range of 2-3 Pt not sure if he missed a dose. He is traveling by plane in 2 days and wont be back until next week. He feels well. No s/s of clotting. Medications and supplements reviewed Patient status: as above Medications or supplements: no changes Diet: usual diet for pt Denies any signs and symptoms of bleeding or clotting or unusual bruising Bleeding, bruising, clotting discussed Nutritional guidance given: to avoid greens and to focus on the foods that raise the INR. Food list discussed Dose: 15mg today (usual 10mg) then return tomorrow for retest. F/U INR Date: 09/28/24 Patient verbalizing understanding of instructions given. T/C to provider Alfredo Cardoso. Reported critical INR of 1.4 to nurse Jaimee with dosing plan, next retest day and question of need for lovenox. Anti-Coag Initial Assessment Social Hx Patient Tobacco Use Status: Former Tobacco user Tobacco use type: Cigarette alcohol intake: current Alcohol intake frequency: a few times a month Cardiovascular Hx: HTN Lung Disease HX: DVT/PE Endocrine Hx: Diabetes Musculoskeletal Hx: Arthritis Blood Disorder Hx: Hyperlipidemia Cancer HX: No Psych. Illness/Depression: No (depression) Coding Level of Care Code Est Patient Level 1 Diagnoses Current use of anticoagulant therapy Z79.01 Results AMB INR Fingerstick AMB INR Fingerstick 1.4 Last Edit by Josselin Reid RN on 09/27/24 08:29 interface delay AMB Urinalysis, Automated UA Leukoctes 0 Amara/uL Last Edit by YOLY Coon on 09/27/24 08:52 UA Nitrite Negative Last Edit by YOLY Coon on 09/27/24 08:52 UA Urobilinogen 0.2 mg/dL Last Edit by YOLY Coon on 09/27/24 08:52 UA Protein 15 mg/dL Last Edit by YOLY Coon on 09/27/24 08:52 UA pH 6.0 Last Edit by YOLY Coon on 09/27/24 08:52 UA Blood 0 Jose/uL Last Edit by YOLY Coon on 09/27/24 08:52 UA Specific Ava 1.025 Last Edit by YOLY Coon on 09/27/24 08:52 UA Ketone Negative Last Edit by YOLY Coon on 09/27/24 08:52 UA Bilirubin 0 mg/dL Last Edit by YOLY Coon on 09/27/24 08:52 UA Glucose 1000 mg/dL Last Edit by YOLY Coon on 09/27/24 08:52 Assessment & Plan Assessment & Plan (1) Current use of anticoagulant therapy: Code(s): 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
== END 2024-09-27 10:35 | disposition home or self-care (01) ==
LOC: HO.ACS 08:17
PROVIDERS: PCP Physician Assistant; Visit Provider Internal Medicine Medical Oncology
DX: Z79.01 Long term (current) use of anticoagulants (principal)

== ENCOUNTER → 2024-09-27 08:17 | Outpatient (BNVA) | payer OTHER, SELFPAY | PROVIDERS: PCP Physician Assistant; Visit Provider Internal Medicine Medical Oncology | DX: Z86.718 Personal history of other venous thrombosis and embolism (principal); E11.69 Type 2 diabetes mellitus with other specified complication; N52.1 Erectile dysfunction due to diseases classified elsewhere; Z79.82 Long term (current) use of aspirin; Z79.4 Long term (current) use of insulin; Z79.01 Long term (current) use of anticoagulants; Z51.81 Encounter for therapeutic drug level monitoring | CPT/HCPCS: 81003; 85610; 99211; 99212 ==

== ENCOUNTER 2024-09-27 08:38 | Outpatient (AMB) | payer OTHER, SELFPAY ==
--- NOTE | 2024-09-27 08:41 | A.OFFVIS_ITS ---
Intake Visit Reasons: 3M follow up/ Testo(set) Intake Note: Patient is present for 3M/LABS Urology Medication:TADALAFIL Antibiotic Allergy:NONE Blood Thinner:ASPIRIN,WARFARIN School [employer] Inspector Required: No Allergies dulaglutide (From [facility]) Adverse Reaction (Intermediate, Verified 09/27/24 09:19) Nausea Medication List - Last Reconciled 09/27/24 by RUBY CollinsP- acamprosate 666 mg PO TID acetaminophen 500 mg PO Q6H PRN acetone (urine) test (Ketone Urine Test strips) As directed tid prn glucose over 250, nausea, vomiting or illness aspirin 81 mg PO DAILY 90 days atenolol 25 mg PO DAILY atorvastatin 40 mg PO DAILY B-complex with vitamin C 1 tab PO QAM Baqsimi 3 mg/actuation (glucagon) 3 mg intranasal ONCE PRN 30 days NS blood pressure test kit-large (Wireless Blood Pressure Monitor kit) As directed blood-glucose sensor (DexAutobutler G7 Sensor device) As directed bupropion HCl XL (Wellbutrin XL) 150 mg PO QAM 90 days cholecalciferol (vitamin D3) (Vitamin D3) 10 mcg PO DAILY citalopram 40 mg PO DAILY clotrimazole-betamethasone 1-0.05 % 1 appl topical BID 30 days cyanocobalamin (vitamin B-12) 250 mcg PO DAILY folic acid 1 mg PO DAILY gabapentin 300 mg PO DAILY glucagon 3 mg/actuation (Baqsimi) 3 mg intranasal ONCE guanfacine ER 4 mg PO DAILY insulin glargine U-300 conc (Toujeo Max U-300 SoloStar) 55 units (0.1833 mL) subcut DAILY PRN 30 days insulin lispro up to 150 units daily via pump subcutaneously use as directed; 30 days MDD 150 units NS insulin pump cart,auto,BT,G6/7 (Omnipod 5 G6-G7 Pods (Gen 5) subcutaneous cartridge) As directed change every 48 hours ketorolac 0.5% 0.5 drps ophthalmic (eye) DAILY levomilnacipran ER 80 mg PO DAILY lisinopril 10 mg PO DAILY naltrexone 50 mg PO DAILY tadalafil (Cialis) 5 mg PO DAILY 90 days tadalafil (Cialis) 20 mg PO .PRN PRN 30 days thiamine mononitrate (vit B1) 100 mg PO DAILY warfarin 10 mg See Protocol PO DAILY 90 days HPI Comments Details: Tristian is a very pleasant 54-year-old male patient of Dr. Cardoso. He has a past medical history of type 2 diabetes, hypertension, hyperlipidemia, vitamin-D deficiency, anxiety, depression, and DVT. He presents to the office today for follow-up of his erectile dysfunction. In discussion with the patient today he reports noting improvement in his erections with daily dosing of tadalafil as well as p.r.n. dosing. He reports he has not needed to use p.r.n. dosing that often since his last office visit here. When asked he denies any bothersome urinary issues. He denies urinary urgency, urinary frequency, incontinence, nocturia, hematuria, dysuria, foul smelling urine, changes to urinary stream, flank pain, fever, and or chills. He is happy with his current voiding parameters. We discussed at length potential causes of erectile dysfunction as well as further treatment options and risks and benefits of these treatment options. In office urinalysis results were reviewed with the patient today. Recent labs were reviewed with the patient today as noted and trended below: PSA: 03/02 1.1, 08/01 1.7 Testosterone: 09/30 267, 10/31 335, 08/01 433 Free testosterone: 09/30 37.6 , 10/31 54.6, A1c: 06/01 7.3 We discussed at length the importance of management and diabetes for improvement in erections as well as overall health and well-being. He reports he continues to be active daily and work on management of his diabetes. He otherwise offers no other issues or concerns at this time. 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 Mother Diabetes Family history of thyroid problem Social History Household Members: Significant Other Housing: House Alcohol intake: current Alcohol intake frequency: a few times a month Alcohol type: beer and hard liquor Patient Tobacco Use Status: Former Tobacco user Tobacco use type: Cigarette e-Cigarette/Vaping Use: Never Used Second Hand Smoke Exposure: No service: No Current occupational status: unemployed and disabled Current occupation: unemployed Gender identity: Male Cognitive needs: No Hearing needs: No Vision needs: No Review of Systems Const All systems reviewed & are unremarkable except as noted in HPI and below Physical Exam Const General: cooperative, healthy appearing, comfortable, no acute distress, well developed, alert and awake Orientation/consciousness: patient oriented x3 Limitations: no limitations HEENT Head: Yes normal to inspection, Yes normocephalic and Yes atraumatic Ears: hearing grossly normal bilaterally Eyes General: appearance normal, both eyes and all related structures Neck Neck: Yes normal visual inspection and Yes trachea midline Chest Chest palpation & inspection: normal inspection of the chest Resp Effort & Inspection: normal respiratory effort and able to speak in complete sentences Cardio Rate: regular rate GI Inspection: Yes normal to inspection General: Yes no CVA tenderness Back/Spine/Pelvis Back: no CVA tenderness Skin General skin exam: no rashes or lesions noted Neuro General: patient oriented x3 Extrem General: Yes normal to inspection Psych Appearance: grossly normal and well kempt Mental Status: mental status grossly normal Speech and movement: Normal speech and movement present and Clear speech present Affect: normal affect Attitude: cooperative Thought process: Normal thought process present Thought content: Normal thought content present Insight: Fair insight present (Psych) Judgement: Fair judgement present (Psych) Results AMB INR Fingerstick AMB INR Fingerstick 1.4 Last Edit by Josselin Reid RN on 09/27/24 08:29 interface delay AMB Urinalysis, Automated UA Leukoctes 0 Amara/uL Last Edit by YOLY Coon on 09/27/24 08:52 UA Nitrite Negative Last Edit by YLOY Coon on 09/27/24 08:52 UA Urobilinogen 0.2 mg/dL Last Edit by YOLY Coon on 09/27/24 08:5 2 UA Protein 15 mg/dL Last Edit by YOLY Coon on 09/27/24 08:52 UA pH 6.0 Last Edit by YOLY Coon on 09/27/24 08:52 UA Blood 0 Jose/uL Last Edit by YOLY Coon on 09/27/24 08:52 UA Specific [place] 1.025 Last Edit by YOLY Coon on 09/27/24 08: 52 UA Ketone Negative Last Edit by YOLY Coon on 09/27/24 08:52 UA Bilirubin 0 mg/dL Last Edit by YOLY Coon on 09/27/24 08:52 UA Glucose 1000 mg/dL Last Edit by YOLY Coon on 09/27/24 08:52 Results Reviewed Results Reviewed: Laboratory Last Values Urine pH (Auto) 6.0 09/27/24 08:51 Specific [place] (Auto) 1.025 09/27/24 08:51 Urine Protein (Auto) 15 mg/dL 09/27/24 08:51 Glucose (UA)(Auto) 1000 mg/dL 09/27/24 08:51 Urine Ketones (Auto) Negative 09/27/24 08:51 Urine Blood (Auto) 0 Jose/uL 09/27/24 08:51 Urine Nitrite (Auto) Negative 09/27/24 08:51 Urine Bilirubin (Auto) 0 mg/dL 09/27/24 08:51 Urine Urobilinogen (Auto) 0.2 mg/dL 09/27/24 08:51 Leukocyte Esterase (Auto) 0 Amara/uL 09/27/24 08:51 Assessment & Plan Assessment & Plan (1) Erectile dysfunction associated with type 2 diabetes mellitus: Code(s): E11.69 - Type 2 diabetes mellitus with other specified complication; N52.1 - Erectile dysfunction due to diseases classified elsewhere Category: Medical Plan In office urinalysis results reviewed with the patient today; as noted above. Most recent PSA, testosterone and free testosterone lab values were reviewed with the patient today; as noted above. We discussed at length potential causes of ED as well as further treatment options and risks and benefits of these treatment options. Continue 5 mg of Cialis daily as discussed and prescribed; refill provided. Continue PRN dosing of tadalafil. We discussed importance of lifestyle modifications We also discussed importance of management and diabetes Patient currently denies any bothersome urinary issues. He reports to be happy with his current voiding paramters. Follow-up in 3-6 months with labs to be completed prior; or sooner with any issues, concerns, and or questions. Orders: Orders AMB Urinalysis Automated Today Z13.9 - Encounter for screening, unspecified Hemoglobin A1c 3 Months E11.9 - Type 2 diabetes mellitus without complications Testosterone, Free/Total 3 Months E11.69 - Type 2 diabetes mellitus with other specified complication, N52.1 - Erectile dysfunction due to diseases classified elsewhere Medications: Refilled tadalafil (Cialis) [id number] [facility] [id number] Member [id number] 5 mg PO DAILY 90 tabs 1RF 90 days tadalafil (Cialis) administer approximately 30min before sexual activity; do not use more than 1 dose per 24hrs [id number] [id number] [id number] 20 mg PO .PRN PRN 14 tabs 3RF sexual activity 30 days Patient Instructions: The patient had an opportunity to ask questions regarding the treatment plan. All questions were answered. Physical exam, labs, and imaging were discussed and reviewed in detail. As well as risks, benefits, and discussion of treatment choices. No major barriers to understanding were identified. The patient expressed understanding and agreement with the above treatment plan. The patient was made aware they should contact our office by phone for worsening of their current condition, the appearance of new symptoms, or with any questions or concerns. Compliance is encouraged with any medications and follow up testing that is ordered. It is a privilege to be allowed the opportunity to participate in? your urological care.? Again, if you have any questions or concerns If you have any questions or concerns please do not hesitate to contact me. The office is [phone]. This note is constructed using voice recognition software. While every effort has been made to ensure accuracy securities dealer errors may have been included. Yours sincerely, GERMAN Collins Coding Level of Care Code Est Pt Level 3 (83969) Complex EM visit Add On G2211 Diagnoses Erectile dysfunction associated with type 2 diabetes mellitus E11.69; N52.1
== END 2024-09-27 09:17 | disposition home or self-care (01) ==
LOC: HO.HUSH 08:39
PROVIDERS: PCP Physician Assistant; Visit Provider Nurse Practitioner Family
DX: E11.69 Type 2 diabetes mellitus with other specified complication (principal); N52.1 Erectile dysfunction due to diseases classified elsewhere; Z13.9 Encounter for screening, unspecified
CPT/HCPCS: 99213; G2211

== ENCOUNTER 2024-09-28 08:36 | Outpatient (AMB) | payer OTHER, SELFPAY ==
--- NOTE | 2024-09-28 08:48 | A.OFFPC_ITS ---
Vital Signs 09/28/24 08:50 Height 5 ft 4 in Weight 213 lb BMI 36.6 BP 132/78 Blood Pressure Location Rt brachial Position Sitting Pulse 79 Pulse Source Pulse Oximeter Temp 97.5 F Temp Source Temporal Artery Scan Pulse Oximetry (%) 96 Oxygen Delivery Method Room Air Intake Visit Reasons: f/u DMI/ HLD Intake Note: Patient is here to follow up on DM, HLD. 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 per policy Accompanied by: Self / Same As Patient Allergies dulaglutide (From [facility]) Adverse Reaction (Intermediate, Verified 09/28/24 09:15) Nausea Medication List - Last Reconciled 09/28/24 by Dejuan Cardoso PA-C acamprosate 666 mg PO TID acetaminophen 500 mg PO Q6H PRN acetone (urine) test (Ketone Urine Test strips) As directed tid prn glucose over 250, nausea, vomiting or illness aspirin 81 mg PO DAILY 90 days atenolol 25 mg PO DAILY atorvastatin 40 mg PO DAILY B-complex with vitamin C 1 tab PO QAM Baqsimi 3 mg/actuation (glucagon) 3 mg intranasal ONCE PRN 30 days NS blood pressure test kit-large (Wireless Blood Pressure Monitor kit) As directed blood-glucose sensor ([employer] G7 Sensor device) As directed bupropion HCl XL (Wellbutrin XL) 150 mg PO QAM 90 days cholecalciferol (vitamin D3) (Vitamin D3) 10 mcg PO DAILY citalopram 40 mg PO DAILY clotrimazole-betamethasone 1-0.05 % 1 appl topical BID 30 days cyanocobalamin (vitamin B-12) 250 mcg PO DAILY folic acid 1 mg PO DAILY gabapentin 300 mg PO DAILY guanfacine ER 4 mg PO DAILY insulin glargine U-300 conc (Toujeo Max U-300 SoloStar) 55 units (0.1833 mL) subcut DAILY PRN 30 days insulin lispro up to 150 units daily via pump subcutaneously use as directed; 30 days MDD 150 units NS insulin pump cart,auto,BT,G6/7 (Omnipod 5 G6-G7 Pods (Gen 5) subcutaneous cartridge) As directed change every 48 hours ketorolac 0.5% 0.5 drps ophthalmic (eye) DAILY levomilnacipran ER 80 mg PO DAILY lisinopril 10 mg PO DAILY naltrexone 50 mg PO DAILY tadalafil (Cialis) 5 mg PO DAILY 90 days tadalafil (Cialis) 20 mg PO .PRN PRN 30 days thiamine mononitrate (vit B1) 100 mg PO DAILY warfarin 10 mg See Protocol PO DAILY 90 days Tobacco use date assessed: 09/28/24 Dental Screening Dental Screen Date: 05/18/24 HPI f/u DMI/ HLD HPI Details Patient is a 53-year-old male here today for follow-up visit Patient has a past medical history significant for hyperlipidemia, type 2 diabetes, hypertension, obesity, history of alcohol abuse, DVT. .. DMII:? Is followed by endocrinology and perioperative educator zyglo inspector...? Today's A1c at 7.3. He has been able to lose significant amount of weight due to better eating habits and being more physically active. His diabetes control is improving, as indicated by a decline in A1c levels from 7.6% to 7.3%. Historical glycemic dysregulation was impacted by alcohol use, which he has recently reduced. . He reports he uses food as comfort du e to his depression. ?He is following [place] [facility] and has an insulin pump . .. Hypertension: Blood pressure acceptable today in office. . He does not monitor his blood pressure at home, he reports he is feeling somewhat anxious today. .. Major Depression: Followed by mental health therapist and psychiatrist who manages his mental health medication. Has been a bit more depressed as of late due to his worsening medical issues. He has completely stopped drinking with the use of medication (acamprosate and naltrexone) He is willing to add on additional Wellbutrin to help him with his depression. .. 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 Mother Diabetes Family history of thyroid problem Social History Household Members: Significant Other Housing: House Alcohol intake: current Alcohol intake frequency: a few times a month Alcohol type: beer and hard liquor Patient Tobacco Use Status: Former Tobacco user Tobacco use type: Cigarette e-Cigarette/Vaping Use: Never Used Second Hand Smoke Exposure: Yes service: No Current occupational status: unemployed and disabled Current occupation: unemployed Gender identity: Male Cognitive needs: No Hearing needs: No Vision needs: No Questionnaire PHQ-9 Over the last 2 weeks, how often have you been bothered by any of the following problems? 1. Little interest or pleasure in doing things: several days 2. Feeling down, depressed, or hopeless: several days 3. Trouble falling or staying asleep, or sleeping too much: several days 4. Feeling tired or having little energy: more than half the days 5. Poor appetite or overeating: several days 6. Feeling bad about yourself - or that you are a failure or have let yourself or your family down: several days 7. Trouble concentrating on things, such as reading the newspaper or watching television: more than half the days 8. Moving or speaking so slowly that other people could have noticed. Or the opposite - being so fidgety or restless that you have been moving around a lot more than usual: several days 9. Thoughts that you would be better off or of hurting yourself in some way: not at all Total score: 10 Depression Screening Interpretation: Positive Depression Screening Follow-up: Existing condition and In treatment Depression Screening Done: Yes 37291 - PHQ-9 Billing: Yes Source: Developed by Drs. Dawson Block, Marie Carbajal, Daron Nina and colleagues, with an educational grecia from [employer]. Thrive Questionnaire Date Thrive assessed: 09/28/24 I am a: Patient What is your living situation today?: I have a place to live, but I am worried about losing it in the future Within the past 12 months, did the food you bought not last and you didn't have the money to get more?: Sometimes True Within the past 12 months, did you worry whether your food would run out before you got money to buy more?: Sometimes True Do you have trouble paying for medicines?: No Do you have trouble getting transportation to medical appointments?: No Do you have trouble paying your heating and electricity bill?: No Do you have trouble taking care of your child, family member or friend?: No Do you have trouble with day-to-day activities such as bathing, preparing meals, shopping, managing finances, etc.?: Yes Are you currently unemployed and looking for a job?: No Are you interested in more education?: No Please select the resources that you would like help with: None Currently or been in a relationship where the following occur: I choose not to answer THRIVE Score: 3 AUDIT C Alcohol Use Questionnaire (AUDIT-C) 1. How often do you have a drink containing alcohol?: 2-4 times a month 2. How many drinks containing alcohol do you have on a typical day when you are drinking?: 3 or 4 3. How often do you have six or more drinks on one occasion?: Less than monthly Total Score: 4 RAMON-7 AMB Questionnaire RAMON-7 Date RAMON - 7 assessed: 09/28/24 Feeling nervous, anxious, or on edge: 1 = Several days Not being able to stop or control worryin = Several days Worrying too much about different things: 2 = More than half the days Trouble relaxin = Several days Being so restless that it is hard to sit still: 1 = Several days Becoming easily annoyed or irritable: 2 = More than half the days Feeling afraid as if something awful might happen: 1 = Several days Total RAMON-7 score (0-4 normal; 5-9 mild; 10-14 moderate; 15-21 severe): 9 Source: Developed by Drs. Dawson Block, Marie Carbajal, Daron Nina and colleagues, with an educational grecia from [employer]. Review of Systems Const Denies headache(s) Eyes Denies loss of vision ENT Denies vertigo, Denies dizziness, Denies headache(s) and Denies sore throat Card Denies chest pain, Denies leg edema and Denies lightheadedness Resp Denies cough, Denies hemoptysis and Denies wheezing GI Denies abdominal pain, Denies melena, Denies constipation, Denies diarrhea and Denies vomiting Denies dysuria, Denies urinary frequency and Denies urinary urgency Musc Denies arthralgias, Denies joint swelling, Denies numbness and Denies tingling Neuro Denies Abnormal speech present, Denies behavioral changes, Denies vertigo, Denies dizziness, Denies headache(s), Denies loss of vision, Denies memory loss, Denies numbness and Denies tingling Psych Denies anxiety, Denies behavioral changes, Denies depression, Denies memory loss and Denies panic attacks Hunter/Lymph Denies easy bleeding and Denies easy bruising Aller/Immun Denies wheezing Physical exam (Primary Care) Vital Signs: Last Vital Signs Temp 97.5 F 09/28/24 08:50 Pulse 79 09/28/24 08:50 BP 132/78 09/28/24 08:50 Pulse Ox 96 09/28/24 08:50 Oxygen Delivery Method Room Air 09/28/24 08:50 BMI result Body Mass Index 36.6 Tobacco/Smoking Status: Tobacco use Status Tobacco use date assessed 09/28/24 09/28/24 09:05 Patient Tobacco Use Status Former Tobacco user 09/28/24 09:05 Tobacco use type Cigarette 09/28/24 09:05 e-Cigarette/Vaping Use Never Used 09/28/24 09:05 PHQ-9: PHQ-9 Score PHQ-9: Total score 10 09/28/24 09:17 Depression Screening Interpretation: Positive Depression Screening Follow-up: Existing condition and In treatment Thrive Assessment: Date of Thrive Assessment Date Thrive assessed 09/28/24 09/28/24 09:05 Currently or been in a relationship where the following occur: I choose not to answer Const General: healthy appearing, no acute distress, alert and awake Nutritional Appearance: well nourished Orientation/consciousness: oriented to person, oriented to place and oriented to time HENMT Ears: TM's normal bilaterally General nose exam: Normal nasal mucous membranes and turbinates present Eyes Conjunctivae: conjunctivae normal Sclerae: sclerae normal Pupils: Equal, round and reactive pupils present Neck Neck: Yes no lymphadenopathy and Yes no JVD Thyroid: Thyroid normal Carotids: no bruits Resp Effort & Inspection: normal respiratory effort and not tachypneic Auscultation: no crackles, no rales, no rhonchi and no wheezes Cardio Rate: regular rate Rhythm: regular rhythm Heart sounds: no murmurs and normal S1 and S2 GI Palpation (GI): Soft to palpation, nontender, no hepatomegaly and no splenomegaly Auscultation: normal bowel sounds Skin General skin exam: no rashes or lesions noted and dry skin Neuro General: oriented to person, oriented to place and oriented to time Cranial nerves: Yes Equal, round and reactive pupils present Speech: No Abnormal speech present Gait exam (Neuro): Normal gait present Motor exam (neuro): no tremor noted Extrem Other: RIGHT SHOULDER: Limited range of motion due to pain and stiffness Large surgical scar under right clavicle noted Right upper extremity: full ROM Left upper extremity: full ROM Right lower extremity: full ROM; no edema Left lower extremity: full ROM; no edema Psych Mental Status: mental status grossly normal Speech and movement: Normal speech and movement present Affect: normal affect Attitude: cooperative Thought process: Normal thought process present Results AMB Hemoglobin A1c AMB Hemoglobin A1c 7.3 % Last Edit by ANDREA Perdomo on 09/28/24 09:11 Results Reviewed Results Reviewed: Laboratory Last Values Hgb A1c (Clinic) 7.3 % (4.0-6.0) H 09/28/24 08:45 Coding Level of Care Code Est Pt Level 4 (05163) Diagnoses 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, unspecified retinopathy severity, unspecified whether fci insulin use E11.319 Diabetes mellitus complication detail: with diabetic retinopathy Diabetes mellitus complication status: with ophthalmic complications Diabetes mellitus fci insulin use: unspecified buttermaker continuous churn insulin use status Diabetes mellitus macular edema: without macular edema Diabetes mellitus type: type 2 Diabetic retinopathy severity: with unspecified retinopathy severity Laterality: bilateral Renovascular hypertension I15.0 Hypertension type: renovascular hypertension Acute deep vein thrombosis (DVT) of popliteal vein of left lower extremity I82.432 Affected thrombotic vein of extremity: popliteal Chronicity: acute DVT location: lower extremity Laterality: left MDD (major depressive disorder), recurrent episode, moderate F33.1 Hyperlipidemia, unspecified hyperlipidemia type E78.5 Hyperlipidemia type: unspecified Rotator cuff tear arthropathy of right shoulder M75.101; M12.811 Additional Codes PHQ-9 - 93855 - PHQ-9 Billing: Yes ([id number]) Assessment & Plan Assessment & Plan (1) Diabetes: Comment: IDDM Code(s): E11.9 - Type 2 diabetes mellitus without complications Category: Medical Qualifiers: Diabetes mellitus complication detail: with diabetic retinopathy Diabetes mellitus complication status: with ophthalmic complications Diabetes mellitus buttermaker continuous churn insulin use: unspecified buttermaker continuous churn insulin use status Diabetes mellitus macular edema: without macular edema Diabetes mellitus type: type 2 Diabetic retinopathy severity: with unspecified retinopathy severity Laterality: bilateral Qualified Code(s): E11.319 - Type 2 diabetes mellitus with unspecified diabetic retinopathy without macular edema Plan: Patient's type 2 diabetes suboptimally controlled today's A1c is 7.3. He has been actively managing his blood sugars much better, has lost significant amount of weight since last office visit. Continues to follow Endocrinology here in [place]. Has a insulin pump which has been helpful on regulating his sugars a bit. 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 Goal A1c is to be below 7.0 (2) Hypertension: Code(s): I10 - Essential (primary) hypertension Category: Medical Qualifiers: Hypertension type: renovascular hypertension Qualified Code(s): I15.0 - Renovascular hypertension Plan: Patient's blood pressure acceptable today in office, will continue his current dose of antihypertensive medication.. He reports blood pressure usually stable at home. (3) DVT (deep venous thrombosis): Comment: Left lower extremity DVT 09/2023 Code(s): I82.409 - Acute embolism and thrombosis of unspecified deep veins of unspecified lower extremity Category: Medical Qualifiers: Affected thrombotic vein of extremity: popliteal Chronicity: acute DVT location: lower extremity Laterality: left Qualified Code(s): I82.432 - Acute embolism and thrombosis of left popliteal vein Plan: Recently had DVT in his lower extremity. He is now on warfarin and INR goal therapeutic between 2 and 3. Most recent and Rx has been subtherapeutic as he reports he has missed dose of warfarin (4) MDD (major depressive disorder), recurrent episode, moderate: Code(s): F33.1 - Major depressive disorder, recurrent, moderate Category: Medical Plan: Tristian has been suffering with depression due to his medical issues and losing his job secondary to shoulder issue. He does see a mental health therapist and a psychiatrist whom manage his mental health medications. He continues to trujillo for disability as he has not been able to work (5) HLD (hyperlipidemia): Code(s): E78.5 - Hyperlipidemia, unspecified Category: Medical Qualifiers: Hyperlipidemia type: unspecified Qualified Code(s): E78.5 - Hyperlipidemia, unspecified Plan: Most recent lipid panel showing good control of his total cholesterol and LDL. Continues on statin therapy without significant side effects. Goal LDL to remain below 100 (6) Rotator cuff tear arthropathy of right shoulder: Code(s): M75.101 - Unspecified rotator cuff tear or rupture of right shoulder, not specified as traumatic; M12.811 - Other specific arthropathies, not elsewhere classified, right shoulder Category: Medical Plan: The patient has undergone surgery and physical therapy for a right shoulder rotator cuff tear, but continues to experience pain and limited range of motion. He has not been able to work due to his shoulder issues as he has not been able to lift or operate machinery. He is still working on getting disability Orders: Orders AMB Hemoglobin A1c Today E11.319 - Type 2 diabetes mellitus with unspecified diabetic retinopathy without macular edema Lipid Panel Today E78.00 - Pure hypercholesterolemia, unspecified Complete Blood Count no Diff Today E13.9 - Other specified diabetes mellitus without complications Comprehensive [place]. Panel Fast Today E13.9 - Other specified diabetes mellitus without complications
[2024-09-28 08:50] VITALS: BP 132/78; PULSE 79; TEMP 36.4; O2SAT 96; BMI 36.6
== END 2024-09-28 09:37 | disposition home or self-care (01) ==
LOC: HO.HMCH 08:37
PROVIDERS: PCP Physician Assistant; Visit Provider Physician Assistant
DX: E11.319 Type 2 diabetes mellitus with unspecified diabetic retinopathy without macular edema (principal); I15.0 Renovascular hypertension; I82.432 Acute embolism and thrombosis of left popliteal vein; F33.1 Major depressive disorder, recurrent, moderate; E78.5 Hyperlipidemia, unspecified; M75.101 Unspecified rotator cuff tear or rupture of right shoulder, not specified as traumatic; M12.811 Other specific arthropathies, not elsewhere classified, right shoulder

== ENCOUNTER → 2024-09-28 08:36 | Outpatient (BNVA) | payer OTHER, SELFPAY | PROVIDERS: PCP Physician Assistant; Visit Provider Physician Assistant | DX: I82.432 Acute embolism and thrombosis of left popliteal vein (principal); E78.5 Hyperlipidemia, unspecified; E66.9 Obesity, unspecified; E11.319 Type 2 diabetes mellitus with unspecified diabetic retinopathy without macular edema; I15.0 Renovascular hypertension; F33.1 Major depressive disorder, recurrent, moderate; M75.101 Unspecified rotator cuff tear or rupture of right shoulder, not specified as traumatic; M12.811 Other specific arthropathies, not elsewhere classified, right shoulder; Z68.36 Body mass index [BMI] 36.0-36.9, adult; Z51.81 Encounter for therapeutic drug level monitoring; Z79.01 Long term (current) use of anticoagulants | CPT/HCPCS: 83036; 85610; 96127; 99211; 99212 ==

== ENCOUNTER 2024-09-28 09:41 | Outpatient (AMB) | payer OTHER, SELFPAY ==
[2024-09-28 09:53] LABS: Prothrombin Time Whole Bld POC 18.3 sec (11.1-13.5); ~PT, ~INR - Anti Coag Clinic 1.5 (0.9-1.1)
--- NOTE | 2024-09-28 10:15 | MHC.OFFVISCO ---
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: Anticoagulation Allergies dulaglutide (From [facility]) Adverse Reaction (Intermediate, Verified 09/28/24 09:15) Nausea Medication List - Last Reconciled 09/28/24 by Kristyn Ball RN acamprosate 666 mg PO TID acetaminophen 500 mg PO Q6H PRN acetone (urine) test (Ketone Urine Test strips) As directed tid prn glucose over 250, nausea, vomiting or illness aspirin 81 mg PO DAILY 90 days atenolol 25 mg PO DAILY atorvastatin 40 mg PO DAILY B-complex with vitamin C 1 tab PO QAM Baqsimi 3 mg/actuation (glucagon) 3 mg intranasal ONCE PRN 30 days NS blood pressure test kit-large (Wireless Blood Pressure Monitor kit) As directed blood-glucose sensor ([employer] G7 Sensor device) As directed bupropion HCl XL (Wellbutrin XL) 150 mg PO QAM 90 days cholecalciferol (vitamin D3) (Vitamin D3) 10 mcg PO DAILY citalopram 40 mg PO DAILY clotrimazole-betamethasone 1-0.05 % 1 appl topical BID 30 days cyanocobalamin (vitamin B-12) 250 mcg PO DAILY folic acid 1 mg PO DAILY gabapentin 300 mg PO DAILY guanfacine ER 4 mg PO DAILY insulin glargine U-300 conc (Toujeo Max U-300 SoloStar) 55 units (0.1833 mL) subcut DAILY PRN 30 days insulin lispro up to 150 units daily via pump subcutaneously use as directed; 30 days MDD 150 units NS insulin pump cart,auto,BT,G6/7 (Omnipod 5 G6-G7 Pods (Gen 5) subcutaneous cartridge) As directed change every 48 hours ketorolac 0.5% 0.5 drps ophthalmic (eye) DAILY levomilnacipran ER 80 mg PO DAILY lisinopril 10 mg PO DAILY naltrexone 50 mg PO DAILY tadalafil (Cialis) 5 mg PO DAILY 90 days tadalafil (Cialis) 20 mg PO .PRN PRN 30 days thiamine mononitrate (vit B1) 100 mg PO DAILY warfarin 10 mg See Protocol PO DAILY 90 days Nursing Note INR 1.5?out of therapeutic range- before flying too [place] tomorrow am Medications and supplements reviewed Patient status: May have missed a dose, stopped a protein shake that had glutamine in it few weeks ago just recently resumed it few days ago, exercising more - all of which could have lowered his INR Medications or supplements: no other changes Diet: good Denies any signs and symptoms of bleeding or clotting or unusual bruising Bleeding, bruising, clotting discussed Nutritional guidance given: avoid greens x 4 days Dose: had 15mg yesterday/ dose 12.5mg today then increase to 10mg daily - he has lovenox at home enc to take at least 3 days because he will be flying to [place] tomorrow - will discuss with PCP F/U INR Date : 10/04/24 after returns from [place] ?? Patient verbalizing understanding of instructions given. This msg is being sent to PCP now. Anti-Coag Initial Assessment Social Hx Patient Tobacco Use Status: Former Tobacco user Tobacco use type: Cigarette alcohol intake: current Alcohol intake frequency: a few times a month Cardiovascular Hx: HTN Lung Disease HX: DVT/PE Endocrine Hx: Diabetes Musculoskeletal Hx: Arthritis Blood Disorder Hx: Hyperlipidemia Cancer HX: No Psych. Illness/Depression: No (depression) Coding Level of Care Code Est Patient Level 1 Diagnoses Current use of anticoagulant therapy Z79.01 Results AMB Hemoglobin A1c AMB Hemoglobin A1c 7.3 % Last Edit by ANDREA Perdomo on 09/28/24 09:11 Assessment & Plan Assessment & Plan (1) Current use of anticoagulant therapy: Code(s): Z79.01 - long term care pharmacist (current) use of anticoagulants Category: Medical
== END 2024-09-28 10:22 | disposition home or self-care (01) ==
LOC: HO.ACS 09:41
PROVIDERS: PCP Physician Assistant; Visit Provider Internal Medicine Medical Oncology
DX: Z79.01 Long term (current) use of anticoagulants (principal)

== ENCOUNTER 2024-10-04 14:13 | Outpatient (AMB) | payer OTHER, SELFPAY ==
[2024-10-04 14:48] LABS: Prothrombin Time Whole Bld POC 25.5 sec (11.1-13.5); ~PT, ~INR - Anti Coag Clinic 2.1 (0.9-1.1)
--- NOTE | 2024-10-04 14:56 | MHC.OFFVISCO ---
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: Anticoagulation Allergies dulaglutide (From [facility]) Adverse Reaction (Intermediate, Verified 10/04/24 14:42) Nausea Medication List - Last Reconciled 10/04/24 by Kristyn Ball RN acamprosate 666 mg PO TID acetaminophen 500 mg PO Q6H PRN acetone (urine) test (Ketone Urine Test strips) As directed tid prn glucose over 250, nausea, vomiting or illness aspirin 81 mg PO DAILY 90 days atenolol 25 mg PO DAILY atorvastatin 40 mg PO DAILY B-complex with vitamin C 1 tab PO QAM Baqsimi 3 mg/actuation (glucagon) 3 mg intranasal ONCE PRN 30 days NS blood pressure test kit-large (Wireless Blood Pressure Monitor kit) As directed blood-glucose sensor ([employer] G7 Sensor device) As directed bupropion HCl XL (Wellbutrin XL) 150 mg PO QAM 90 days cholecalciferol (vitamin D3) (Vitamin D3) 10 mcg PO DAILY citalopram 40 mg PO DAILY clotrimazole-betamethasone 1-0.05 % 1 appl topical BID 30 days cyanocobalamin (vitamin B-12) 250 mcg PO DAILY folic acid 1 mg PO DAILY gabapentin 300 mg PO DAILY guanfacine ER 4 mg PO DAILY insulin glargine U-300 conc (Toujeo Max U-300 SoloStar) 55 units (0.1833 mL) subcut DAILY PRN 30 days insulin lispro up to 150 units daily via pump subcutaneously use as directed; 30 days MDD 150 units NS insulin pump cart,auto,BT,G6/7 (Omnipod 5 G6-G7 Pods (Gen 5) subcutaneous cartridge) As directed change every 48 hours ketorolac 0.5% 0.5 drps ophthalmic (eye) DAILY levomilnacipran ER 80 mg PO DAILY lisinopril 10 mg PO DAILY naltrexone 50 mg PO DAILY tadalafil (Cialis) 5 mg PO DAILY 90 days tadalafil (Cialis) 20 mg PO .PRN PRN 30 days thiamine mononitrate (vit B1) 100 mg PO DAILY warfarin 10 mg See Protocol PO DAILY 90 days Nursing Note INR: 2.1 in therapeutic range s/p trip to [place] - leaving for a cruise Medications and supplements reviewed previous INR 1.5 ? if missed dose or diet changes. He took lovenox over the weekend while in [place], He can stop lovenox now and refrain from greens x 3 days and eat more foods to keep INR above 2.0 Denies any signs and symptoms of bleeding or bruising or clotting. Bleeding, bruising, clotting discussed Nutritional guidance given - avoid greens x 3 days/ eat orange and reds to help raise the INR Dose: increase dose to 10 mg daily- working out more F/U INR: 1 week 10/11/2024 Patient verbalizes understanding of instructions given Anti-Coag Initial Assessment Social Hx Patient Tobacco Use Status: Former Tobacco user Tobacco use type: Cigarette alcohol intake: current Alcohol intake frequency: a few times a month Cardiovascular Hx: HTN Lung Disease HX: DVT/PE Endocrine Hx: Diabetes Musculoskeletal Hx: Arthritis Blood Disorder Hx: Hyperlipidemia Cancer HX: No Psych. Illness/Depression: No (depression) Coding Level of Care Code Est Patient Level 1 Diagnoses Current use of anticoagulant therapy Z79.01 Assessment & Plan Assessment & Plan (1) Current use of anticoagulant therapy: Code(s): Z79.01 - skilled nursing (current) use of anticoagulants Category: Medical
== END 2024-10-04 15:03 | disposition home or self-care (01) ==
LOC: HO.ACS 14:13
PROVIDERS: PCP Physician Assistant; Visit Provider Internal Medicine Medical Oncology
DX: Z79.01 Long term (current) use of anticoagulants (principal)

== ENCOUNTER → 2024-10-04 14:13 | Outpatient (BNVA) | payer OTHER, SELFPAY | PROVIDERS: PCP Physician Assistant; Visit Provider Internal Medicine Medical Oncology | DX: Z86.718 Personal history of other venous thrombosis and embolism (principal); Z79.01 Long term (current) use of anticoagulants; Z51.81 Encounter for therapeutic drug level monitoring | CPT/HCPCS: 85610; 99211 ==

== ENCOUNTER 2024-10-11 07:31 | Outpatient (AMB) | payer OTHER, SELFPAY ==
--- NOTE | 2024-10-11 07:45 | MHC.OFFVISCO ---
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: Anticoagulation Allergies dulaglutide (From [facility]) Adverse Reaction (Intermediate, Verified 10/11/24 07:31) Nausea Medication List - Last Reconciled 10/11/24 by Kristyn Ball RN acamprosate 666 mg PO TID acetaminophen 500 mg PO Q6H PRN acetone (urine) test (Ketone Urine Test strips) As directed tid prn glucose over 250, nausea, vomiting or illness aspirin 81 mg PO DAILY 90 days atenolol 25 mg PO DAILY atorvastatin 40 mg PO DAILY B-complex with vitamin C 1 tab PO QAM Baqsimi 3 mg/actuation (glucagon) 3 mg intranasal ONCE PRN 30 days NS blood pressure test kit-large (Wireless Blood Pressure Monitor kit) As directed blood-glucose sensor ([employer] G7 Sensor device) As directed bupropion HCl XL (Wellbutrin XL) 150 mg PO QAM 90 days cholecalciferol (vitamin D3) (Vitamin D3) 10 mcg PO DAILY citalopram 40 mg PO DAILY clotrimazole-betamethasone 1-0.05 % 1 appl topical BID 30 days cyanocobalamin (vitamin B-12) 250 mcg PO DAILY folic acid 1 mg PO DAILY gabapentin 300 mg PO DAILY guanfacine ER 4 mg PO DAILY insulin glargine U-300 conc (Toujeo Max U-300 SoloStar) 55 units (0.1833 mL) subcut DAILY PRN 30 days insulin lispro up to 150 units daily via pump subcutaneously use as directed; 30 days MDD 150 units NS insulin pump cart,auto,BT,G6/7 (Omnipod 5 G6-G7 Pods (Gen 5) subcutaneous cartridge) As directed change every 48 hours ketorolac 0.5% 0.5 drps ophthalmic (eye) DAILY levomilnacipran ER 80 mg PO DAILY lisinopril 10 mg PO DAILY naltrexone 50 mg PO DAILY tadalafil (Cialis) 5 mg PO DAILY 90 days tadalafil (Cialis) 20 mg PO .PRN PRN 30 days thiamine mononitrate (vit B1) 100 mg PO DAILY warfarin 10 mg See Protocol PO DAILY 90 days Nursing Note INR 1.8?? out of therapeutic range Medications and supplements reviewed Patient status: more active Medications or supplements: no changes Diet:good Denies any signs and symptoms of bleeding or clotting or unusual bruising Bleeding, bruising, clotting discussed Nutritional guidance given: no greens today Dose: 12.5mg x 1 day/ 10mg x 6 days F/U INR Date : 10/14/24 before leaving for cruise ?? Patient verbalizing understanding of instructions given. Anti-Coag Initial Assessment Social Hx Patient Tobacco Use Status: Former Tobacco user Tobacco use type: Cigarette alcohol intake: current Alcohol intake frequency: a few times a month Cardiovascular Hx: HTN Lung Disease HX: DVT/PE Endocrine Hx: Diabetes Musculoskeletal Hx: Arthritis Blood Disorder Hx: Hyperlipidemia Cancer HX: No Psych. Illness/Depression: No (depression) Coding Level of Care Code Est Patient Level 1 Diagnoses Current use of anticoagulant therapy Z79.01 Results AMB INR Fingerstick AMB INR Fingerstick 1.8 Last Edit by Kristyn Ball RN on 10/11/24 07:42 manual entry Assessment & Plan Assessment & Plan (1) Current use of anticoagulant therapy: Code(s): Z79.01 - penitentiary (current) use of anticoagulants Category: Medical
[2024-10-11 07:47] LABS: Prothrombin Time Whole Bld POC 21.5 sec (11.1-13.5); ~PT, ~INR - Anti Coag Clinic 1.8 (0.9-1.1)
== END 2024-10-11 07:47 | disposition home or self-care (01) ==
LOC: HO.ACS 07:31
PROVIDERS: PCP Physician Assistant; Visit Provider Internal Medicine Medical Oncology
DX: Z79.01 Long term (current) use of anticoagulants (principal)

== ENCOUNTER → 2024-10-11 07:31 | Outpatient (BNVA) | payer OTHER, SELFPAY | PROVIDERS: PCP Physician Assistant; Visit Provider Internal Medicine Medical Oncology | DX: Z79.01 Long term (current) use of anticoagulants (principal) | CPT/HCPCS: 85610; 99211 ==

== ENCOUNTER 2024-10-14 07:33 | Outpatient (AMB) | payer OTHER, SELFPAY ==
[2024-10-14 07:44] LABS: Prothrombin Time Whole Bld POC 26.7 sec (11.1-13.5); ~PT, ~INR - Anti Coag Clinic 2.2 (0.9-1.1)
--- NOTE | 2024-10-14 07:48 | MHC.OFFVISCO ---
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: Anticoagulation Allergies dulaglutide (From [facility]) Adverse Reaction (Intermediate, Verified 10/14/24 07:35) Nausea Medication List - Last Reconciled 10/14/24 by Kristyn Ball RN acamprosate 666 mg PO TID acetaminophen 500 mg PO Q6H PRN acetone (urine) test (Ketone Urine Test strips) As directed tid prn glucose over 250, nausea, vomiting or illness aspirin 81 mg PO DAILY 90 days atenolol 25 mg PO DAILY atorvastatin 40 mg PO DAILY B-complex with vitamin C 1 tab PO QAM Baqsimi 3 mg/actuation (glucagon) 3 mg intranasal ONCE PRN 30 days NS blood pressure test kit-large (Wireless Blood Pressure Monitor kit) As directed blood-glucose sensor ([employer] G7 Sensor device) As directed bupropion HCl XL (Wellbutrin XL) 150 mg PO QAM 90 days cholecalciferol (vitamin D3) (Vitamin D3) 10 mcg PO DAILY citalopram 40 mg PO DAILY clotrimazole-betamethasone 1-0.05 % 1 appl topical BID 30 days cyanocobalamin (vitamin B-12) 250 mcg PO DAILY folic acid 1 mg PO DAILY gabapentin 300 mg PO DAILY guanfacine ER 4 mg PO DAILY insulin glargine U-300 conc (Toujeo Max U-300 SoloStar) 55 units (0.1833 mL) subcut DAILY PRN 30 days insulin lispro up to 150 units daily via pump subcutaneously use as directed; 30 days MDD 150 units NS insulin pump cart,auto,BT,G6/7 (Omnipod 5 G6-G7 Pods (Gen 5) subcutaneous cartridge) As directed change every 48 hours ketorolac 0.5% 0.5 drps ophthalmic (eye) DAILY levomilnacipran ER 80 mg PO DAILY lisinopril 10 mg PO DAILY naltrexone 50 mg PO DAILY tadalafil (Cialis) 5 mg PO DAILY 90 days tadalafil (Cialis) 20 mg PO .PRN PRN 30 days thiamine mononitrate (vit B1) 100 mg PO DAILY warfarin 10 mg See Protocol PO DAILY 90 days Nursing Note INR: 2.2 in therapeutic range Medications and supplements reviewed No changes in health, diet, medications, or supplements, Denies any signs and symptoms of bleeding or bruising or clotting. Bleeding, bruising, clotting discussed Nutritional guidance given: eat greens when having foods or beverages that can raise the INR Dose: 12.5mg x 1 day/ 10mg x 6 days F/U INR: 08/27/24 post vacation Patient verbalizes understanding of instructions given Anti-Coag Initial Assessment Social Hx Patient Tobacco Use Status: Former Tobacco user Tobacco use type: Cigarette alcohol intake: current Alcohol intake frequency: a few times a month Cardiovascular Hx: HTN Lung Disease HX: DVT/PE Endocrine Hx: Diabetes Musculoskeletal Hx: Arthritis Blood Disorder Hx: Hyperlipidemia Cancer HX: No Psych. Illness/Depression: No (depression) Coding Level of Care Code Est Patient Level 1 Diagnoses Current use of anticoagulant therapy Z79.01 Results AMB INR Fingerstick AMB INR Fingerstick 2.2 Last Edit by Kristyn Ball RN on 10/14/24 07:43 MANUAL ENTRY Assessment & Plan Assessment & Plan (1) Current use of anticoagulant therapy: Code(s): Z79.01 - longterm (current) use of anticoagulants Category: Medical
== END 2024-10-14 07:52 | disposition home or self-care (01) ==
LOC: HO.ACS 07:33
PROVIDERS: PCP Physician Assistant; Visit Provider Internal Medicine Medical Oncology
DX: Z79.01 Long term (current) use of anticoagulants (principal)

== ENCOUNTER → 2024-10-14 07:33 | Outpatient (BNVA) | payer OTHER, SELFPAY | PROVIDERS: PCP Physician Assistant; Visit Provider Internal Medicine Medical Oncology | DX: Z79.01 Long term (current) use of anticoagulants (principal) | CPT/HCPCS: 85610; 99211 ==

== ENCOUNTER 2024-10-27 07:56 | Outpatient (AMB) | payer OTHER, SELFPAY ==
--- NOTE | 2024-10-27 08:05 | MHC.OFFVISCO ---
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: Anticoagulation Allergies dulaglutide (From [facility]) Adverse Reaction (Intermediate, Verified 10/27/24 08:00) Nausea Medication List - Last Reconciled 10/27/24 by Giana Berumen RN acamprosate 666 mg PO TID acetaminophen 500 mg PO Q6H PRN acetone (urine) test (Ketone Urine Test strips) As directed tid prn glucose over 250, nausea, vomiting or illness aspirin 81 mg PO DAILY 90 days atenolol 25 mg PO DAILY atorvastatin 40 mg PO DAILY B-complex with vitamin C 1 tab PO QAM Baqsimi 3 mg/actuation (glucagon) 3 mg intranasal ONCE PRN 30 days NS blood pressure test kit-large (Wireless Blood Pressure Monitor kit) As directed blood-glucose sensor ([employer] G7 Sensor device) As directed bupropion HCl XL (Wellbutrin XL) 150 mg PO QAM 90 days cholecalciferol (vitamin D3) (Vitamin D3) 10 mcg PO DAILY citalopram 40 mg PO DAILY clotrimazole-betamethasone 1-0.05 % 1 appl topical BID 30 days cyanocobalamin (vitamin B-12) 250 mcg PO DAILY folic acid 1 mg PO DAILY gabapentin 300 mg PO DAILY guanfacine ER 4 mg PO DAILY insulin glargine U-300 conc (Toujeo Max U-300 SoloStar) 55 units (0.1833 mL) subcut DAILY PRN 30 days insulin lispro up to 150 units daily via pump subcutaneously use as directed; 30 days MDD 150 units NS insulin pump cart,auto,BT,G6/7 (Omnipod 5 G6-G7 Pods (Gen 5) subcutaneous cartridge) As directed change every 48 hours ketorolac 0.5% 0.5 drps ophthalmic (eye) DAILY levomilnacipran ER 80 mg PO DAILY lisinopril 10 mg PO DAILY naltrexone 50 mg PO DAILY tadalafil (Cialis) 5 mg PO DAILY 90 days tadalafil (Cialis) 20 mg PO .PRN PRN 30 days thiamine mononitrate (vit B1) 100 mg PO DAILY warfarin 10 mg See Protocol PO DAILY 90 days Nursing Note INR: 2.2- in therapeutic range of 2-3 Medications and supplements reviewed- no changes No changes in health, diet, medications, or supplements, Denies any signs and symptoms of bleeding or bruising or clotting. Bleeding, bruising, clotting discussed Nutritional guidance given Dose: 12.5mg x 1. 10mg x 6 F/U INR: 2 weeks Patient verbalizes understanding of instructions given Anti-Coag Initial Assessment Social Hx Patient Tobacco Use Status: Former Tobacco user Tobacco use type: Cigarette alcohol intake: current Alcohol intake frequency: a few times a month Cardiovascular Hx: HTN Lung Disease HX: DVT/PE Endocrine Hx: Diabetes Musculoskeletal Hx: Arthritis Blood Disorder Hx: Hyperlipidemia Cancer HX: No Psych. Illness/Depression: No (depression) Coding Level of Care Code Est Patient Level 1 Diagnoses Current use of anticoagulant therapy Z79.01 Results AMB INR Fingerstick AMB INR Fingerstick 2.2 Last Edit by Giana Berumen RN on 10/27/24 08:07 interface delay Assessment & Plan Assessment & Plan (1) Current use of anticoagulant therapy: Code(s): Z79.01 - correction (current) use of anticoagulants Category: Medical
[2024-10-27 10:01] LABS: Prothrombin Time Whole Bld POC 26.7 sec (11.1-13.5); ~PT, ~INR - Anti Coag Clinic 2.2 (0.9-1.1)
== END 2024-10-27 08:10 | disposition home or self-care (01) ==
LOC: HO.ACS 07:56
PROVIDERS: PCP Physician Assistant; Visit Provider Internal Medicine Medical Oncology
DX: Z79.01 Long term (current) use of anticoagulants (principal)

== ENCOUNTER → 2024-10-27 07:56 | Outpatient (BNVA) | payer OTHER, SELFPAY | PROVIDERS: PCP Physician Assistant; Visit Provider Internal Medicine Medical Oncology | DX: I82.502 Chronic embolism and thrombosis of unspecified deep veins of left lower extremity (principal); Z51.81 Encounter for therapeutic drug level monitoring; Z79.01 Long term (current) use of anticoagulants | CPT/HCPCS: 85610; 99211 ==

== ENCOUNTER 2024-11-09 08:02 | Outpatient (AMB) | payer OTHER, SELFPAY ==
[2024-11-09 08:11] LABS: Prothrombin Time Whole Bld POC 36.1 sec (11.1-13.5); ~PT, ~INR - Anti Coag Clinic 3.0 (0.9-1.1)
--- NOTE | 2024-11-09 08:16 | MHC.OFFVISCO ---
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: Anticoagulation Allergies dulaglutide (From [facility]) Adverse Reaction (Intermediate, Verified 11/09/24 08:06) Nausea Medication List - Last Reconciled 11/09/24 by Josselin Reid RN acamprosate 666 mg PO TID acetaminophen 500 mg PO Q6H PRN acetone (urine) test (Ketone Urine Test strips) As directed tid prn glucose over 250, nausea, vomiting or illness aspirin 81 mg PO DAILY 90 days atenolol 25 mg PO DAILY atorvastatin 40 mg PO DAILY B-complex with vitamin C 1 tab PO QAM Baqsimi 3 mg/actuation (glucagon) 3 mg intranasal ONCE PRN 30 days NS blood pressure test kit-large (Wireless Blood Pressure Monitor kit) As directed blood-glucose sensor ([employer] G7 Sensor device) As directed bupropion HCl XL (Wellbutrin XL) 150 mg PO QAM 90 days cholecalciferol (vitamin D3) (Vitamin D3) 10 mcg PO DAILY citalopram 40 mg PO DAILY clotrimazole-betamethasone 1-0.05 % 1 appl topical BID 30 days cyanocobalamin (vitamin B-12) 250 mcg PO DAILY folic acid 1 mg PO DAILY gabapentin 300 mg PO DAILY guanfacine ER 4 mg PO DAILY insulin glargine U-300 conc (Toujeo Max U-300 SoloStar) 55 units (0.1833 mL) subcut DAILY PRN 30 days insulin lispro up to 150 units daily via pump subcutaneously use as directed; 30 days MDD 150 units NS insulin pump cart,auto,BT,G6/7 (Omnipod 5 G6-G7 Pods (Gen 5) subcutaneous cartridge) As directed change every 48 hours ketorolac 0.5% 0.5 drps ophthalmic (eye) DAILY levomilnacipran ER 80 mg PO DAILY lisinopril 10 mg PO DAILY naltrexone 50 mg PO DAILY tadalafil (Cialis) 5 mg PO DAILY 90 days tadalafil (Cialis) 20 mg PO .PRN PRN 30 days thiamine mononitrate (vit B1) 100 mg PO DAILY warfarin 10 mg See Protocol PO DAILY 90 days Nursing Note INR: 3.0 in therapeutic range of 2-3 Medications and supplements reviewed No changes in health, diet, medications, or supplements, Denies any signs and symptoms of bleeding or bruising or clotting. Bleeding, bruising, clotting discussed Nutritional guidance given to have a serving of greens today Dose: 10mg X 6 days and 12.5mg X 1 day (Sun) F/U INR: 3 weeks Patient verbalizes understanding of instructions given Anti-Coag Initial Assessment Social Hx Patient Tobacco Use Status: Former Tobacco user Tobacco use type: Cigarette alcohol intake: current Alcohol intake frequency: a few times a month Cardiovascular Hx: HTN Lung Disease HX: DVT/PE Endocrine Hx: Diabetes Musculoskeletal Hx: Arthritis Blood Disorder Hx: Hyperlipidemia Cancer HX: No Psych. Illness/Depression: No (depression) Coding Level of Care Code Est Patient Level 1 Diagnoses Current use of anticoagulant therapy Z79.01 Assessment & Plan Assessment & Plan (1) Current use of anticoagulant therapy: Code(s): Z79.01 - intermediate (current) use of anticoagulants Category: Medical
== END 2024-11-09 08:17 | disposition home or self-care (01) ==
LOC: HO.ACS 08:02
PROVIDERS: PCP Physician Assistant; Visit Provider Internal Medicine Medical Oncology
DX: Z79.01 Long term (current) use of anticoagulants (principal)

== ENCOUNTER → 2024-11-09 08:02 | Outpatient (BNVA) | payer OTHER, SELFPAY | PROVIDERS: PCP Physician Assistant; Visit Provider Internal Medicine Medical Oncology | DX: Z79.01 Long term (current) use of anticoagulants (principal) | CPT/HCPCS: 85610; 99211 ==

== ENCOUNTER 2024-11-22 19:11 | Emergency (ER) | payer OTHER, SELFPAY ==
--- NOTE | ~2024-11-22 | US_ITS ---
CLINICAL HISTORY: pain and swelling, hx dvts Left lower extremity venous duplex ultrasound Study was performed using color and spectral waveform analysis. Comparison: Same date Findings: There is now question of left femoral vein thrombus. Left femoral vein is only partially compressible. This represents a change from earlier study. Remaining veins compressible with spontaneous flow. No popliteal cyst. No significant adenopathy. Impression: Question left femoral vein thrombosis as above This document has been electronically signed by: Christopher Croft MD on 11/22/2024 20:40:20
[2024-11-22 19:45] VITALS: BP 144/67; PULSE 73; RESP 18; TEMP 36.6; O2SAT 95; BMI 38.1
--- NOTE | 2024-11-22 19:45 | ED.GENADULT ---
HPI - General Adult General Chief complaint: Extremity Problem Stated complaint: hx of bloodclots, pain in lt calf Time Seen by Provider: 11/22/24 23:25 Source: patient Mode of arrival: ambulatory Limitations: no limitations History of Present Illness ED Provider: Dr. Nicole HPI narrative: 54-year-old male history of DVT on Coumadin presented hospital today for evaluation of left leg swelling for the past couple of weeks. The patient stated that he is having left calf pain there she had a DVT. He is coming in to evaluate for any signs of clot. Patient denies any chest pain or shortness of breath. Related Data Home Medications ?Medication ?Instructions ?Recorded ?Confirmed acamprosate 333 mg tablet,delayed 666 mg PO TID 10/01/23 11/09/24 release folic acid 1 mg tablet 1 mg PO DAILY 10/01/23 11/09/24 B-complex with vitamin C 1 tab PO QAM 02/16/24 11/09/24 cholecalciferol (vitamin D3) 10 10 mcg PO DAILY 02/16/24 11/09/24 mcg (400 unit) tablet (Vitamin D3) citalopram 40 mg tablet 40 mg PO DAILY 02/16/24 11/09/24 cyanocobalamin (vitamin B-12) 250 250 mcg PO DAILY 02/16/24 11/09/24 mcg tablet gabapentin 300 mg capsule 300 mg PO DAILY 02/16/24 11/09/24 ketorolac 0.5 % eye drops 0.5 drp ophthalmic (eye) DAILY 02/16/24 11/09/24 naltrexone 50 mg tablet 50 mg PO DAILY 02/16/24 11/09/24 thiamine mononitrate (vit B1) 100 100 mg PO DAILY 02/16/24 11/09/24 mg tablet blood pressure test kit-large 03/01/24 11/09/24 (Wireless Blood Pressure Monitor kit) guanfacine 4 mg tablet,extended 4 mg PO DAILY 08/03/24 11/09/24 release 24 hr levomilnacipran 80 mg capsule,24 80 mg PO DAILY 09/06/24 11/09/24 hr,extended release Previous Rx's ?Medication ?Instructions ?Recorded blood-glucose sensor (NetShoes G7 #3 ea 02/03/24 Sensor device) insulin glargine U-300 conc 300 55 unit (0.1833 mL) subcut DAILY 02/03/24 unit/mL (3 mL) subcutaneous pen PRN prn pump failure 30 days #6 mL (Toujeo Max U-300 SoloStar) insulin pump cart,auto,BT,G6/7 #15 ea 02/03/24 (Omnipod 5 G6-G7 Pods (Gen 5) subcutaneous cartridge) acetaminophen 500 mg tablet 500 mg PO Q6H PRN fever or pain 03/24/24 #30 tabs clotrimazole-betamethasone 1 1 appl topical BID 30 days #45 05/18/24 %-0.05 % topical cream grams atorvastatin 40 mg tablet 40 mg PO DAILY #90 tabs 07/08/24 insulin lispro 100 unit/mL See Rx Instructions subcut 07/15/24 subcutaneous solution USEASDIRECTD 30 days #50 mL bupropion HCl 150 mg 24 hr tablet, 150 mg PO QAM 90 days #90 tabs 08/10/24 extended release (Wellbutrin XL) atenolol 25 mg tablet 25 mg PO DAILY #90 tabs 08/20/24 Baqsimi 3 mg/actuation nasal spray 3 mg intranasal ONCE PRN 08/24/24 (glucagon) unresponsive hypoglycemia 30 days #2 ea acetone (urine) test (Ketone Urine #25 ea 08/24/24 Test strips) tadalafil 20 mg tablet (Cialis) 20 mg PO .PRN PRN sexual activity 09/27/24 30 days #14 tabs tadalafil 5 mg tablet (Cialis) 5 mg PO DAILY 90 days #90 tabs 09/27/24 aspirin 81 mg tablet,delayed 81 mg PO DAILY 90 days #90 tabs 11/04/24 release warfarin 5 mg tablet 10 mg PO DAILY 90 days #180 tabs 11/04/24 lisinopril 10 mg tablet 10 mg PO DAILY #90 tabs 11/10/24 oxycodone 5 mg capsule 5 mg PO Q8H PRN pain 4 days #12 11/23/24 caps Allergies Allergy/AdvReac Type Severity Reaction Status Date / Time dulaglutide (From [facility]) AdvReac Intermediate Nausea Verified 11/22/24 19:46 Review of Systems Review of Systems: Pertinent review of systems as mentioned in HPI. All other system otherwise negative. 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 Mother Diabetes Family history of thyroid problem Social History Social History Household Members: Significant Other Housing: House Alcohol intake: current Alcohol intake frequency: a few times a month Alcohol type: beer and hard liquor Patient Tobacco Use Status: Former Tobacco user Tobacco use type: Cigarette e-Cigarette/Vaping Use: Never Used Second Hand Smoke Exposure: Yes Advance Directives: No Advance Directives Information Provided: No service: No Current occupational status: unemployed and disabled Current occupation: unemployed Gender identity: Male Cognitive needs: No Hearing needs: No Vision needs: No Physical Exam ED Exam Exam: General: Pleasant, no distress, interacting appropriately Head: Normacephalic, atraumatic Extremities: Left leg swelling, pulse intact, sensation and motor functions intact. Left calf tenderness on exam Neurological: Awake and alert, no facial droop noted Skin: Warm and dry Psychiatric: Appropriate mood and thoughts Vital Signs: Vital Signs - 24 hr 11/22/24 19:45 Temperature 97.9 F Pulse Rate 73 Respiratory Rate 18 Blood Pressure 144/67 H Pulse Oximetry 95 Oxygen Delivery Method Room Air BMI result Body Mass Index 38.1 Course Course Course Narrative: This is a rapid medical exam performed by Raphael Vilchis NP: Additional HPI, ROS, PE not included below will be deferred to primary provider. Patient is a 54-yo M with hx of DVT on warfarin presenting with complaint of left lower leg pain and swelling x 1 week. Initially thought it was from working out but sxs have not improved. Thinks his INR was elevated at last check. Plan: labs, U/S Medical Decision Making Medical Decision Making MDM Narrative: 54-year-old male history of DVT on Coumadin presented hospital today for evaluation of left calf pain. Ultrasound of his left leg did show signs of possible left femoral DVT. Patient is compliant on his Coumadin. He is therapeutic as well. Discussed with the patient option of switching to a DOAC versus other alternative anticoagulation. However patient states he will stay on Coumadin at this time. He does not have any chest pain or shortness of breath I do not think he has a PE. Return precautions provided to him to return to the ER if he has symptoms of a PE including shortness of breath or chest pain. Patient does have a follow up appointment on the 04 of December. He has been amenable to be discharged at this time. Patient will be discharged home. Differential Diagnosis Differential Diagnoses: The differential diagnosis associated with the presentation includes DVT, PE Lab Data [facility] Lab Attestation statement: I reviewed the patient's lab results. 11/22/24 19:56 11/22/24 19:56 Labs: Lab Results 11/22/24 Range/Units 19:56 WBC 7.3 (4.8-10.8) X10*3/uL RBC 4.98 (4.60-5.80) X10*6/uL Hgb 14.5 (14.0-18.0) g/dl Hct 41.5 L (42.0-52.0) % MCV 83.3 (80.0-98.0) fL MCH 29.1 (27.0-33.0) pg MCHC 34.9 (31.0-36.0) g/dl RDW 12.7 (11.0-16.0) % Plt Count 289 (160-400) X10*3/uL MPV 9.7 (9.4-12.4) fL Immature Gran % (Auto) 0.4 (0.0-0.4) % Neut % (Auto) 59.4 (45-73) % Lymph % (Auto) 27.5 (20-40) % Hawkins % (Auto) 9.5 (2-11) % Eos % (Auto) 2.2 (0-4) % Baso % (Auto) 1.0 (0-2) % Lymph # (Auto) 2.0 (1.2-4.9) X10*3/uL Hawkins # (Auto) 0.7 (0.1-1.2) X10*3/uL Eos # (Auto) 0.2 (0.0-0.4) X10*3/uL Baso # (Auto) 0.1 (0.0-0.2) X10*3/uL Abs Immat Gran (auto) 0.03 (0.00-0.03) X10*3/uL Absolute Neuts (auto) 4.4 (2.0-8.3) x10*3/uL Absolute Nucleated RBC 0.000 (0.0-0.012) X10*3/uL Nucleated RBC % (auto) 0.0 (0.0-0.2) /100WBC PT 20.5 H (10.9-12.4) SEC INR 1.8 H (0.9-1.1) Sodium 140 (135-145) mmol/L Potassium 3.7 (3.3-5.1) mmol/L Chloride 107 (96-108) mmol/L Carbon Dioxide 23 (22-29) mmol/L Anion Gap 14 (12-20) BUN 17 H (9-16) mg/dL Creatinine 1.07 (0.5-1.4) mg/dL Estim Creat Clear Calc 83.6 Estimated GFR > 60 Random Glucose 237 H (60-115) mg/dL Calcium 8.8 (8.4-10.2) mg/dL Total Bilirubin 0.3 (0.0-1.0) mg/dL AST 27 (5-37) U/L ALT 25 (0-40) U/L Alkaline Phosphatase 85 (39-117) U/L Total Protein 6.8 (6.5-8.0) g/dL Albumin 4.2 (3.5-5.0) g/dL Independent Interpretation I performed an independent interpretation of an: Ultrasound Radiology Impression Discussion of test interpretation with radiology: I have reviewed the radiologist's reading. Chronic Conditions DVT Discharge Plan Discharge Clinical Impression: DVT (deep venous thrombosis) Qualifiers: DVT location: lower extremity Affected thrombotic vein of extremity: femoral Chronicity: acute Laterality: left Qualified Code(s): I82.412 - Acute embolism and thrombosis of left femoral vein Patient Disposition: Home, Self-Care Instructions: Deep Vein Thrombosis (ED) Additional Instructions: You have a new dvt in left femoral vein. Follow up with your appointment and keep taking your coumadin. Prescriptions: New oxycodone 5 mg capsule 5 mg PO Q8H PRN (Reason: pain) 4 Days Qty: 12 0RF Rx Instructions: Partial Fill upon patient request. No Action atorvastatin 40 mg tablet 40 mg PO DAILY Qty: 90 3RF insulin lispro 100 unit/mL solution See Rx Instructions subcut USEASDIRECTD MDD 150 units 30 Days Qty: 50 11RF Rx Instructions: up to 150 units daily via pump subcutaneously use as directed; bupropion HCl [Wellbutrin XL] 150 mg tablet extended release 24 hr 150 mg PO QAM 90 Days Qty: 90 2RF atenolol 25 mg tablet 25 mg PO DAILY Qty: 90 2RF Baqsimi 3 mg/actuation spray,non-aerosol 3 mg intranasal ONCE PRN (Reason: unresponsive hypoglycemia) 30 Days Qty: 2 1RF Rx Instructions: may repeat in 15 min (DME) Ketone Urine Test Strip See Rx Instructions .ROUTE .MEDSUPPLY Qty: 25 0RF Rx Instructions: As directed tid prn glucose over 250, nausea, vomiting or illness aspirin 81 mg tablet,delayed release (DR/EC) 81 mg PO DAILY 90 Days Qty: 90 2RF warfarin 5 mg tablet 10 mg PO DAILY 90 Days Qty: 180 0RF Protocol: Dose Management Condition: Friday (Week One) Dose/Route: 12.5 mg Instruction: 2.5 x 5 mg tablets Condition: Friday Dose/Route: 10 mg Instruction: 2 x 5 mg tablets Condition: Friday Dose/Route: 10 mg Instruction: 2 x 5 mg tablets Condition: Friday Dose/Route: 10 mg Instruction: 2 x 5 mg tablets Condition: Dose/Route: 10 mg Instruction: 2 x 5 mg tablets Condition: Friday Dose/Route: 10 mg Instruction: 2 x 5 mg tablets Condition: Friday Dose/Route: 10 mg Instruction: 2 x 5 mg tablets Condition: Friday (Week Two) Dose/Route: 12.5 mg Instruction: 2.5 x 5 mg tablets Condition: Friday Dose/Route: 10 mg Instruction: 2 x 5 mg tablets Condition: Friday Dose/Route: 10 mg Instruction: 2 x 5 mg tablets Condition: Friday Dose/Route: 10 mg Instruction: 2 x 5 mg tablets Condition: Dose/Route: 10 mg Instruction: 2 x 5 mg tablets Condition: Friday Dose/Route: 10 mg Instruction: 2 x 5 mg tablets Condition: Friday Dose/Route: 10 mg Instruction: 2 x 5 mg tablets Protocol Text: Adjustment Start Date: Friday11/09/24 INR Value: 3.0 INR Date: 11/09/24 Recheck Date: 11/30/24 lisinopril 10 mg tablet 10 mg PO DAILY Qty: 90 1RF (DME) blood pressure test kit-large [Wireless BP Monitor] Kit See Rx Instructions .Route Rx Instructions: As directed acetaminophen 500 mg tablet 500 mg PO Q6H PRN (Reason: fever or pain) Qty: 30 0RF acamprosate 333 mg tablet,delayed release (DR/EC) 666 mg PO TID folic acid 1 mg tablet 1 mg PO DAILY insulin glargine U-300 conc [Toujeo Max U-300 SoloStar] 300 unit/mL (3 mL) insulin pen 55 unit subcut DAILY PRN (Reason: prn pump failure) 30 Days Qty: 6 5RF (DME) Dexcom G7 Sensor Device See Rx Instructions .ROUTE .MEDSUPPLY Qty: 3 11RF Rx Instructions: As directed (DME) Omnipod 5 G6-G7 Pods (Gen 5) Cartridge See Rx Instructions .Route Qty: 15 5RF Rx Instructions: As directed change every 48 hours cyanocobalamin (vitamin B-12) 250 mcg tablet 250 mcg PO DAILY gabapentin 300 mg capsule 300 mg PO DAILY naltrexone 50 mg tablet 50 mg PO DAILY ketorolac 0.5 % drops 0.5 drp ophthalmic (eye) DAILY cholecalciferol (vitamin D3) [Vitamin D3] 10 mcg (400 unit) tablet 10 mcg PO DAILY citalopram 40 mg tablet 40 mg PO DAILY B-complex with vitamin C Tablet 1 tab PO QAM thiamine mononitrate (vit B1) 100 mg tablet 100 mg PO DAILY tadalafil [Cialis] 5 mg tablet 5 mg PO DAILY 90 Days Qty: 90 1RF Rx Instructions: [id number] [facility] [id number] Member [id number] tadalafil [Cialis] 20 mg tablet 20 mg PO .PRN PRN (Reason: sexual activity) 30 Days Qty: 14 3RF Rx Instructions: administer approximately 30min before sexual activity; do not use more than 1 dose per 24hrs [id number] [facility] [id number] Member [id number] clotrimazole-betamethasone 1-0.05 % cream 1 appl topical BID 30 Days Qty: 45 0RF guanfacine 4 mg tablet extended release 24 hr 4 mg PO DAILY levomilnacipran 80 mg capsule,extended release 24 hr 80 mg PO DAILY Print Language: Yoruba
[2024-11-22 20:09] LABS: MANUAL DIFF FLAG NO
[2024-11-22 20:12] LABS: Hematocrit 41.5 % (42.0-52.0); Hemoglobin 14.5 g/dl (14.0-18.0); Imm Gran Abs Auto 0.03 X10*3/uL (0.00-0.03); Imm Gran Pct Auto 0.4 % (0.0-0.4); Lymphocytes Absolute Auto 2.0 X10*3/uL (1.2-4.9); Mean Corpuscular HGB Conc 34.9 g/dl (31.0-36.0); Mean Corpuscular Hemoglobin 29.1 pg (27.0-33.0); Mean Corpuscular Volume 83.3 fL (80.0-98.0); NRBC Abs Auto 0.000 X10*3/uL (0.0-0.012); NRBC Pct Auto 0.0 /100WBC (0.0-0.2); Platelet Count 289 X10*3/uL (160-400); Red Blood Count 4.98 X10*6/uL (4.60-5.80); White Blood Count 7.3 X10*3/uL (4.8-10.8)
[2024-11-22 20:18] LABS: INTERNATIONAL NORM RATIO 1.8 (0.9-1.1); Prothrombin Time 20.5 SEC (10.9-12.4)
[2024-11-22 20:29] LABS: Alanine Aminotransferase 25 U/L (0-40); Albumin Level 4.2 g/dL (3.5-5.0); Alkaline Phosphatase 85 U/L (39-117); Anion Gap 14 (12-20); Aspartate Amino Transferase 27 U/L (5-37); Blood Urea Nitrogen 17 mg/dL (9-16); Calcium 8.8 mg/dL (8.4-10.2); Carbon Dioxide 23 mmol/L (22-29); Chloride 107 mmol/L (96-108); Creatinine Clr Calc Pharmacy 83.6; Estimated Glomerular Filt Rate > 60; Potassium 3.7 mmol/L (3.3-5.1); Sodium 140 mmol/L (135-145); Total Protein 6.8 g/dL (6.5-8.0)
--- NOTE | 2024-11-23 00:22 | PC.NURSE ---
MD discharged pt, paperwork given. no new vitals obtained.
--- NOTE | 2024-11-23 02:07 | PC.NURSE ---
Patient seen by provider, discharge by provider as well. Unable to get vital signs. Patient left with discharge instructions from the provider.
[2024-11-23 02:08] VITALS: BP 00/00; PULSE 0; RESP 0; TEMP -17.7; TEMP 0; O2SAT 99
== END 2024-11-23 00:13 | disposition home or self-care (01) ==
PROVIDERS: Registered Nurse Emergency; Emergency Provider Student in an Organized Health Care Education/Training Program; PCP Physician Assistant
DX: I82.412 Acute embolism and thrombosis of left femoral vein (principal); R60.0 Localized edema; M79.605 Pain in left leg; E11.9 Type 2 diabetes mellitus without complications; Z86.718 Personal history of other venous thrombosis and embolism; Z79.01 Long term (current) use of anticoagulants; Z79.899 Other long term (current) drug therapy; Z79.4 Long term (current) use of insulin; Z87.891 Personal history of nicotine dependence
CPT/HCPCS: 36415; 80053; 85025; 85610; 93971; 99282; 99284

== ENCOUNTER → 2024-11-22 19:45 | Outpatient (BNV) | payer OTHER, SELFPAY | PROVIDERS: PCP Physician Assistant; Visit Provider Radiology Diagnostic Radiology | DX: R22.42 Localized swelling, mass and lump, left lower limb (principal) | CPT/HCPCS: 93971 ==

== ENCOUNTER 2024-11-23 08:46 | Outpatient (AMB) | payer OTHER, SELFPAY ==
--- NOTE | 2024-11-23 08:49 | MHC.OFFVISCO ---
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: Anticoagulation Allergies dulaglutide (From [facility]) Adverse Reaction (Intermediate, Verified 11/23/24 08:47) Nausea Medication List - Last Reconciled 11/23/24 by Kristyn Ball RN acamprosate 666 mg PO TID acetaminophen 500 mg PO Q6H PRN acetone (urine) test (Ketone Urine Test strips) As directed tid prn glucose over 250, nausea, vomiting or illness aspirin 81 mg PO DAILY 90 days atenolol 25 mg PO DAILY atorvastatin 40 mg PO DAILY B-complex with vitamin C 1 tab PO QAM Baqsimi 3 mg/actuation (glucagon) 3 mg intranasal ONCE PRN 30 days NS blood pressure test kit-large (Wireless Blood Pressure Monitor kit) As directed blood-glucose sensor (AutomateIt G7 Sensor device) As directed bupropion HCl XL (Wellbutrin XL) 150 mg PO QAM 90 days cholecalciferol (vitamin D3) (Vitamin D3) 10 mcg PO DAILY citalopram 40 mg PO DAILY clotrimazole-betamethasone 1-0.05 % 1 appl topical BID 30 days cyanocobalamin (vitamin B-12) 250 mcg PO DAILY folic acid 1 mg PO DAILY gabapentin 300 mg PO DAILY guanfacine ER 4 mg PO DAILY insulin glargine U-300 conc (Toujeo Max U-300 SoloStar) 55 units (0.1833 mL) subcut DAILY PRN 30 days insulin lispro up to 150 units daily via pump subcutaneously use as directed; 30 days MDD 150 units NS insulin pump cart,auto,BT,G6/7 (Omnipod 5 G6-G7 Pods (Gen 5) subcutaneous cartridge) As directed change every 48 hours ketorolac 0.5% 0.5 drps ophthalmic (eye) DAILY levomilnacipran ER 80 mg PO DAILY lisinopril 10 mg PO DAILY naltrexone 50 mg PO DAILY oxycodone 5 mg PO Q8H PRN 4 days tadalafil (Cialis) 5 mg PO DAILY 90 days tadalafil (Cialis) 20 mg PO .PRN PRN 30 days thiamine HCl (vitamin B1) 250 mg PO DAILY warfarin 10 mg See Protocol PO DAILY 90 days Nursing Note pt walk in today- seen in ER last night for possible new blood clot vs old aggrivated one vs phlebitis.. ultra sound done, no other intervention in ER. Pt came to [facility] today due to low INR last night 1.8, the left calf does have a knot and leg feels tight, he has been walking more and exercising. *He also has been traveling, he had low INRs at the end of September 1.5 and low INR 1.8 beginning of October then therapeutic after that. INR: 2.5 in therapeutic range Medications and supplements reviewed No changes in health, diet, medications, or supplements, Denies any signs and symptoms of bleeding or bruising or clotting. Bleeding, bruising, clotting discussed Nutritional guidance given- avoid greens today Dose: booster dose today 12.5mg (x 2 days this week/ 10mg x 5 days) F/U INR: 11/29/2024 next week Pt enc to f/u with PCP or Dr Bonilla Go to ER with increase in leg pain, c/p or sob Patient verbalizes understanding of instructions given t/c to Dr Bonilla - left msg on triage and line and sending this note Anti-Coag Initial Assessment Social Hx Patient Tobacco Use Status: Former Tobacco user Tobacco use type: Cigarette alcohol intake: current Alcohol intake frequency: a few times a month Cardiovascular Hx: HTN Lung Disease HX: DVT/PE Endocrine Hx: Diabetes Musculoskeletal Hx: Arthritis Blood Disorder Hx: Hyperlipidemia Cancer HX: No Psych. Illness/Depression: No (depression) Coding Level of Care Code Est Patient Level 1 Diagnoses Current use of anticoagulant therapy Z79.01 Results AMB INR Fingerstick AMB INR Fingerstick 2.5 Last Edit by Kristyn Ball RN on 11/23/24 08:58 manual entry Assessment & Plan Assessment & Plan (1) Current use of anticoagulant therapy: Code(s): Z79.01 - rn long term care (current) use of anticoagulants Category: Medical
[2024-11-23 09:03] LABS: Prothrombin Time Whole Bld POC 29.8 sec (11.1-13.5); ~PT, ~INR - Anti Coag Clinic 2.5 (0.9-1.1)
== END 2024-11-23 09:22 | disposition home or self-care (01) ==
LOC: HO.ACS 08:46
PROVIDERS: PCP Physician Assistant; Visit Provider Internal Medicine Medical Oncology
DX: Z79.01 Long term (current) use of anticoagulants (principal)

== ENCOUNTER → 2024-11-23 08:46 | Outpatient (BNVA) | payer OTHER, SELFPAY | PROVIDERS: PCP Physician Assistant; Visit Provider Internal Medicine Medical Oncology | DX: Z86.718 Personal history of other venous thrombosis and embolism (principal); Z79.01 Long term (current) use of anticoagulants; Z51.81 Encounter for therapeutic drug level monitoring | CPT/HCPCS: 85610; 99211 ==

== ENCOUNTER 2024-11-29 08:03 | Outpatient (AMB) | payer OTHER, SELFPAY ==
[2024-11-29 08:20] LABS: Prothrombin Time Whole Bld POC 30.9 sec (11.1-13.5); ~PT, ~INR - Anti Coag Clinic 2.6 (0.9-1.1)
--- NOTE | 2024-11-29 08:23 | MHC.OFFVISCO ---
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: Anticoagulation Allergies dulaglutide (From [facility]) Adverse Reaction (Intermediate, Verified 11/23/24 08:47) Nausea Medication List - Last Reconciled 11/29/24 by Josselin Reid, LORE acamprosate 666 mg PO TID acetaminophen 500 mg PO Q6H PRN acetone (urine) test (Ketone Urine Test strips) As directed tid prn glucose over 250, nausea, vomiting or illness aspirin 81 mg PO DAILY 90 days atenolol 25 mg PO DAILY atorvastatin 40 mg PO DAILY B-complex with vitamin C 1 tab PO QAM Baqsimi 3 mg/actuation (glucagon) 3 mg intranasal ONCE PRN 30 days NS blood pressure test kit-large (Wireless Blood Pressure Monitor kit) As directed blood-glucose sensor (ClarityAd G7 Sensor device) As directed bupropion HCl XL (Wellbutrin XL) 150 mg PO QAM 90 days cholecalciferol (vitamin D3) (Vitamin D3) 10 mcg PO DAILY citalopram 40 mg PO DAILY clotrimazole-betamethasone 1-0.05 % 1 appl topical BID 30 days cyanocobalamin (vitamin B-12) 250 mcg PO DAILY enoxaparin (Lovenox) 100 mg subcut DAILY 10 days folic acid 1 mg PO DAILY gabapentin 300 mg PO DAILY guanfacine ER 4 mg PO DAILY insulin glargine U-300 conc (Toujeo Max U-300 SoloStar) 55 units (0.1833 mL) subcut DAILY PRN 30 days insulin lispro up to 150 units daily via pump subcutaneously use as directed; 30 days MDD 150 units NS insulin pump cart,auto,BT,G6/7 (Omnipod 5 G6-G7 Pods (Gen 5) subcutaneous cartridge) As directed change every 48 hours ketorolac 0.5% 0.5 drps ophthalmic (eye) DAILY levomilnacipran ER 80 mg PO DAILY lisinopril 10 mg PO DAILY naltrexone 50 mg PO DAILY oxycodone 5 mg PO Q8H PRN 4 days tadalafil (Cialis) 5 mg PO DAILY 90 days tadalafil (Cialis) 20 mg PO .PRN PRN 30 days thiamine HCl (vitamin B1) 250 mg PO DAILY warfarin 10 mg See Protocol PO DAILY 90 days Nursing Note INR: 2.6 in therapeutic range of 2-3 Pt was in ER 11/22 with c/o pain left calf and was diagnosed with a DVT. Seen the next day, 11/23/24 in anticoag. INR was 2.5. States he does not have pain in left leg and it's not swollen. Medications and supplements reviewedHe was prescribed lovenox but has not needed it. INR in ER was 1.8 and dose of warfarin was boosted. No changes in health, diet, medications, or supplements, Denies any signs and symptoms of bleeding or bruising or clotting. Bleeding, bruising, clotting discussed Nutritional guidance given Dose: 10mg X 6 days and 12.5mg X 1 day (Sun) F/U INR: 2 weeks Patient verbalizes understanding of instructions given Anti-Coag Initial Assessment Social Hx Patient Tobacco Use Status: Former Tobacco user Tobacco use type: Cigarette alcohol intake: current Alcohol intake frequency: a few times a month Cardiovascular Hx: HTN Lung Disease HX: DVT/PE Endocrine Hx: Diabetes Musculoskeletal Hx: Arthritis Blood Disorder Hx: Hyperlipidemia Cancer HX: No Psych. Illness/Depression: No (depression) Coding Level of Care Code Est Patient Level 1 Diagnoses Current use of anticoagulant therapy Z79.01 Assessment & Plan Assessment & Plan (1) Current use of anticoagulant therapy: Code(s): Z79.01 - director long term care (current) use of anticoagulants Category: Medical
== END 2024-11-29 08:30 | disposition home or self-care (01) ==
LOC: HO.ACS 08:03
PROVIDERS: PCP Physician Assistant; Visit Provider Internal Medicine Medical Oncology
DX: Z79.01 Long term (current) use of anticoagulants (principal)

== ENCOUNTER → 2024-11-29 08:03 | Outpatient (BNVA) | payer OTHER, SELFPAY | PROVIDERS: PCP Physician Assistant; Visit Provider Internal Medicine Medical Oncology | DX: Z86.718 Personal history of other venous thrombosis and embolism (principal); Z79.01 Long term (current) use of anticoagulants; Z51.81 Encounter for therapeutic drug level monitoring | CPT/HCPCS: 85610; 99211 ==

== ENCOUNTER 2024-12-03 13:09 | Outpatient (REF) | payer OTHER, SELFPAY ==
--- NOTE | ~2024-12-03 | US_ITS ---
EXAMINATION: US TRIPLEX LOWER EXTREMITY, LEFT CLINICAL INFORMATION: History of DVT COMPARISON: 11/22/2024 TECHNIQUE: Color-flow triplex imaging with spectral analysis and compression Doppler were performed on the left lower extremity. FINDINGS: Respiratory variation, normal compression and augmented flow are noted throughout the left lower extremity. The distal superficial femoral vein remains partially compressible with flow on color Doppler The visualized common femoral vein, profunda femoral vein, popliteal vein and midcalf peroneal and posterior tibial venous segments show no evidence of deep venous thrombosis. US/US venous duplex LE LT IMPRESSION: Subacute to chronic nonocclusive deep thrombus in the distal left superficial femoral vein appears similar to the prior. Electronically signed by: King Barrios MD 12/03/2024 01:49 PM EDT
--- NOTE | 2024-12-03 14:18 | PM.EVENT ---
I discussed results of ultrasound with the patient. He has developed recurrent small clot in spite of being on warfarin with therapeutic INR of 2.3-2.6. In view of this he is being switched to Lovenox 100 mg b.i.d.. Thrombophilia workup we will be submitted while off the warfarin. Later, he will be switched to DOACs such as Xarelto.
== END 2024-12-03 13:10 | disposition home or self-care (01) ==
LOC: HO.US 13:09
PROVIDERS: PCP Physician Assistant; Visit Provider Internal Medicine
DX: I82.412 Acute embolism and thrombosis of left femoral vein (principal)
CPT/HCPCS: 93971

== ENCOUNTER → 2024-12-03 13:14 | Outpatient (BNV) | payer OTHER, SELFPAY | PROVIDERS: PCP Physician Assistant; Visit Provider Radiology Diagnostic Radiology | DX: I82.512 Chronic embolism and thrombosis of left femoral vein (principal) | CPT/HCPCS: 93971 ==

== ENCOUNTER 2024-12-13 07:59 | Outpatient (AMB) | payer OTHER, SELFPAY ==
[2024-12-13 08:11] LABS: Prothrombin Time Whole Bld POC 10.7 sec (11.1-13.5); ~PT, ~INR - Anti Coag Clinic 0.9 (0.9-1.1)
--- NOTE | 2024-12-13 08:16 | MHC.OFFVISCO ---
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: Anticoagulation Allergies dulaglutide (From [facility]) Adverse Reaction (Intermediate, Verified 12/13/24 08:06) Nausea Medication List - Last Reconciled 12/13/24 by Josselin Reid, LORE acamprosate 666 mg PO TID acetaminophen 500 mg PO Q6H PRN acetone (urine) test (Ketone Urine Test strips) As directed tid prn glucose over 250, nausea, vomiting or illness aspirin 81 mg PO DAILY 90 days atenolol 25 mg PO DAILY atorvastatin 40 mg PO DAILY B-complex with vitamin C 1 tab PO QAM Baqsimi 3 mg/actuation (glucagon) 3 mg intranasal ONCE PRN 30 days NS blood pressure test kit-large (Wireless Blood Pressure Monitor kit) As directed blood-glucose sensor ([employer] G7 Sensor device) As directed bupropion HCl XL (Wellbutrin XL) 150 mg PO QAM 90 days cholecalciferol (vitamin D3) (Vitamin D3) 10 mcg PO DAILY citalopram 40 mg PO DAILY clotrimazole-betamethasone 1-0.05 % 1 appl topical BID 30 days cyanocobalamin (vitamin B-12) 250 mcg PO DAILY enoxaparin (Lovenox) 100 mg See Protocol subcut DAILY 10 days folic acid 1 mg PO DAILY gabapentin 300 mg PO DAILY guanfacine ER 4 mg PO DAILY insulin glargine U-300 conc (Toujeo Max U-300 SoloStar) 55 units (0.1833 mL) subcut DAILY PRN 30 days insulin lispro up to 150 units daily via pump subcutaneously use as directed; 30 days MDD 150 units NS insulin pump cart,auto,BT,G6/7 (Omnipod 5 G6-G7 Pods (Gen 5) subcutaneous cartridge) As directed change every 48 hours ketorolac 0.5% 0.5 drps ophthalmic (eye) DAILY levomilnacipran ER 80 mg PO DAILY lisinopril 10 mg PO DAILY naltrexone 50 mg PO DAILY oxycodone 5 mg PO Q8H PRN 4 days tadalafil (Cialis) 5 mg PO DAILY 90 days tadalafil (Cialis) 20 mg PO .PRN PRN 30 days thiamine HCl (vitamin B1) 250 mg PO DAILY warfarin 10 mg See Protocol PO DAILY 90 days Nursing Note INR: 0.9 out of therapeutic range of 2-3 Pt states he is taking Lovenox per Dr Bonilla and will be going for hemophilia testing. Stopped warfarin as of 12/03/24. Pt had an ultasound of his leg on that date and was positive for a recurrent small clot. Pt instructed to let [facility] know if he starts on a DOAC/Xarelto. Patient verbalizes understanding of instructions given Anti-Coag Initial Assessment Social Hx Patient Tobacco Use Status: Former Tobacco user Tobacco use type: Cigarette alcohol intake: current Alcohol intake frequency: a few times a month Cardiovascular Hx: HTN Lung Disease HX: DVT/PE Endocrine Hx: Diabetes Musculoskeletal Hx: Arthritis Blood Disorder Hx: Hyperlipidemia Cancer HX: No Psych. Illness/Depression: No (depression) Coding Level of Care Code Est Patient Level 1 Diagnoses Current use of anticoagulant therapy Z79.01 Assessment & Plan Assessment & Plan (1) Current use of anticoagulant therapy: Code(s): Z79.01 - senior care (current) use of anticoagulants Category: Medical
== END 2024-12-13 08:27 | disposition home or self-care (01) ==
LOC: HO.ACS 07:59
PROVIDERS: PCP Physician Assistant; Visit Provider Internal Medicine Medical Oncology
DX: Z79.01 Long term (current) use of anticoagulants (principal)

== ENCOUNTER → 2024-12-13 07:59 | Outpatient (BNVA) | payer MEDICARE, MEDICAID, SELFPAY | PROVIDERS: PCP Physician Assistant; Visit Provider Internal Medicine Medical Oncology | DX: E13.9 Other specified diabetes mellitus without complications (principal); Z96.41 Presence of insulin pump (external) (internal); Z51.81 Encounter for therapeutic drug level monitoring; Z86.718 Personal history of other venous thrombosis and embolism; Z79.01 Long term (current) use of anticoagulants | CPT/HCPCS: 82947; 83036; 85610; 99211; 99212 ==

== ENCOUNTER 2024-12-13 15:16 | Outpatient (AMB) | payer MEDICARE, MEDICAID, SELFPAY ==
--- NOTE | 2024-12-13 15:28 | A.OFFVIS_ITS ---
Vital Signs 12/13/24 15:29 Height 5 ft 4 in Weight 229 lb 4.492 oz BMI 39.4 BP 142/78 H Blood Pressure Location Rt brachial Position Sitting Pulse Source Pulse Oximeter Pulse Oximetry (%) 98 Oxygen Delivery Method Room Air Intake Visit Reasons: T1DM Intake Note: Patient presents today for a follow-up on Type 1 Diabetes Mellitus: Patient on insulin pump: Last Diabetes Eye Exam: 08/2024, [facility], stated Last Podiatry Exam- 09/2024, [facility], stated Most recent HbA1c- 7.3%, 12/13/2024 Random Glucose- 190 mg/dL, Today Observer Electrical Prospecting Required: No Accompanied by: Self / Same As Patient Allergies dulaglutide (From [facility]) Adverse Reaction (Intermediate, Verified 12/13/24 15:46) Nausea Medication List - Last Reconciled 12/13/24 by Dawson Sesay MD acamprosate 666 mg PO TID acetaminophen 500 mg PO Q6H PRN acetone (urine) test (Ketone Urine Test strips) As directed tid prn glucose over 250, nausea, vomiting or illness aspirin 81 mg PO DAILY 90 days atenolol 25 mg PO DAILY atorvastatin 40 mg PO DAILY B-complex with vitamin C 1 tab PO QAM Baqsimi 3 mg/actuation (glucagon) 3 mg intranasal ONCE PRN 30 days NS blood pressure test kit-large (Wireless Blood Pressure Monitor kit) As directed blood-glucose sensor ([employer] G7 Sensor device) As directed bupropion HCl XL (Wellbutrin XL) 150 mg PO QAM 90 days cholecalciferol (vitamin D3) (Vitamin D3) 10 mcg PO DAILY citalopram 40 mg PO DAILY clotrimazole-betamethasone 1-0.05 % 1 appl topical BID 30 days cyanocobalamin (vitamin B-12) 250 mcg PO DAILY enoxaparin (Lovenox) 100 mg See Protocol subcut DAILY 10 days folic acid 1 mg PO DAILY gabapentin 300 mg PO DAILY guanfacine ER 4 mg PO DAILY insulin glargine U-300 conc (Toujeo Max U-300 SoloStar) 55 units (0.1833 mL) subcut DAILY PRN 30 days insulin lispro up to 150 units daily via pump subcutaneously use as directed; 30 days MDD 150 units NS insulin pump cart,auto,BT,G6/7 (Omnipod 5 G6-G7 Pods (Gen 5) subcutaneous cartridge) As directed change every 48 hours ketorolac 0.5% 0.5 drps ophthalmic (eye) DAILY levomilnacipran ER 80 mg PO DAILY lisinopril 10 mg PO DAILY naltrexone 50 mg PO DAILY oxycodone 5 mg PO Q8H PRN 4 days tadalafil (Cialis) 5 mg PO DAILY 90 days tadalafil (Cialis) 20 mg PO .PRN PRN 30 days thiamine HCl (vitamin B1) 250 mg PO DAILY warfarin 10 mg See Protocol PO DAILY 90 days HPI Comments Details: 54 YO M with PMHx DM, HTN, HLD who is seen in F/U for BALDEV/T1DM. He was last seen in endo Clinic by Lily Armenta NP. On 08/03/2024 He is no longer drinking soda and has cut back substantially on alcohol intake. Initially diagnosed with T2DM 2009 when presented to ED with DKA/HHS. In early Mar 2018 Dr. Sesay checked antibodies for T1DM. IA-2 antibodies were found to be positive with a low C-Peptide level at the time of hyperglycemia 0.12 He was started on an Omnipod 5 with G7 Dexcom sensor 2023. He has had post COVID left leg DVT 2023 and is now on coumadin. Family history of T2DM in mom and siblings. Dexcom average glucose:212 14 day continuous glucose monitor report reviewed TIme in ranges: 26 % very high (above 250) 32 % high ?(181-250) 42 % in range ?(70-180] 0 % low (69-55) 0 % ?very low (below 54) Interpretation: Some postprandial elevation after breakfast and lunch Total daily dose of insulin 87.3 Basal 59% 45 units Bolus 41 % 33 units In auto mode 96% of the time Omnipod 5 pump settings: Basal rate(s) (units/hour) : 12 AM to 12 AM 3 units / hr Bolus setting Insulin Carbohydrate Ratio (s) 12 AM to 6 AM 1:5 new 6am to 3pm 1:4.0 3pm 1:5 Correction Factor / Sensitivity Factor 12 AM to 12 AM 1:16 Active Insulin Time: 3.5 hours new 3.0 Target(s): 12 AM to 8 AM 120 8 AM to 12AM 120 Correction threshold 12 AM to 8 AM 130 mg/dl 8AM to 12AM 120 new 110 No hypoglycemia . Snacking without bolusing Has retinopathy: Last eye exam couple of mos ago has Neuropathy, on gabapentin does not see podiatry. numbness better Has nephropathy, on Lisinopril 10 mg PO daily. 10/31 Microalbumin 10.0 03/08/24 down from previous 30.0 Has HLD, on Atorvastatin 40 mg PO daily. LDL 77 10/31. No known CAD. Denies chest pains or palpitations. Has seen Urology and placed on daily Cialis. He has not used the p.r.n. Cialis as he has not been sexually active. He has had some spontaneous erections. Prior to going on Cialis he was able to get an erection both not able to sustain. His testosterone level is pending Has had CDE. Also was found to have multinodular thyroid with non suspicious multiple subcentimeter thyroid nodules unchanged with several ultraounds. . Thyroid US:12/19/2021FINDINGS: SIZE: Measurements of the thyroid lobes and nodules are given in sagittal, anteroposterior and transverse dimensions respectively. Right Thyroid Lobe: 5.8 x 1.5 x 2.5 cm, volume 11.5 mL. Previously 5.2 x 1.7 x 2.7 cm, volume 12.3 mL. Parenchyma: The gland echotexture is homogeneous. Thyroid vascularity is normal. Left Thyroid Lobe: 5.1 x 1.4 x 1.9 cm, volume 7.1 mL. Previously 4.6 x 1.3 x 1.8 cm, volume 5.8 mL.Parenchyma: The gland echotexture is homogeneous. Thyroid vascularitis normal. Isthmus: 0.2 cm in maximum AP dimension. Previously 0.5 cm. Estimated total number of nodules greater than or equal to 1 cm: 0. Stock Checker nodules are described as follows: 1. Location: Left inferior lateral. Size: 0.4 x 0.3 x 0.3 cm, volume 0.02 mL. Previously: 0.4 x 0.3 x 0.4 cm, volume 0.02 mL. Nodule characteristics: Composition: Spongiform (0). Echogenicity: Anechoic (0). Shape: Not taller than wide (0). Margins: Smooth (0). Echogenic Foci: None (0). ACR TI-RADS total points: 0 Previous: 4 ACR TI-RADS category: 1 Previous: 4 Significant change in size (>/= 20% in 2 dimensions and minimal increase of 2 mm or 50% or greater increase in volume): None Change in features: None Change in ACR TI-RADS risk category: Improved 2. Location: Left inferior lateral. Size: 0.4 x 0.3 x 0.3 cm, volume 0.02 mL. Previously: 0.4 x 0.3 x 0.4 cm, volume 0.02 mL. Nodule characteristics: Composition: Cystic(0). ACR TI-RADS total points: 0 Previous: 3 ACR TI-RADS category: 1 Previous: 3 Significant change in size (>/= 20% in 2 dimensions and minimal increase of 2 mm or 50% or greater increase in volume): None Change in features: None Change in ACR TI-RADS risk category: None 3. Location: Left inferior. Size: 0.7 x 0.6 x 0.9 cm, volume 0.20 mL. Previously: 0.8 x 0.6 x 0.9 cm, volume 0.20 mL. Nodule characteristics: Composition: Cystic(0). ACR TI-RADS total points: 0 Previous: 0 ACR TI-RADS category: 1 Previous: 1 Significant change in size (>/= 20% in 2 dimensions and minimal increase of 2 mm or 50% or greater increase in volume): None Change in features: None Change in ACR TI-RADS risk category: None 4. Location: Right mid. Size: 0.4 x 0.2 x 0.4 cm, volume 0.02 mL. Previously: 0.4 x 0.3 x 0.4 cm, volume 0.02 mL. Nodule characteristics: Composition: Cystic(0). 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 Mother Diabetes Family history of thyroid problem Social History Household Members: Significant Other Housing: House Alcohol intake: current Alcohol intake frequency: a few times a month Alcohol type: beer and hard liquor Patient Tobacco Use Status: Former Tobacco user Tobacco use type: Cigarette e-Cigarette/Vaping Use: Never Used Second Hand Smoke Exposure: Yes service: No Current occupational status: unemployed and disabled Current occupation: unemployed Gender identity: Male Cognitive needs: No Hearing needs: No Vision needs: No Physical Exam Vital Signs: Last Vital Signs BP 142/78 H 12/13/24 15:29 Pulse Ox 98 12/13/24 15:29 Oxygen Delivery Method Room Air 12/13/24 15:29 BMI result Body Mass Index 39.4 Absence of Cushingoid features. Absence of acromegalic features. Neck exam reveals nl size thyroid about 15 gms. No thyroid nodules palpable. No carotid bruits present. Lungs CTA. Heart S1 S2, Reg R/R. No M/R/ G. Skin exam reveals absence of vitiligo or acanthosis nigricans. Abdominal exam reveals Soft NT/ND with NA BS. No organomegaly present. Neck Other: . Extrem Other: Visual exam of foot performed. No ulcerations or open lesions. No onchomycosis, no callouses.Pulses 2 + distally Sensation intact to monofilament exam. 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 Dexcom reading does not correlate with current A1c. Plan is to have the patient bolus prior to the meal and before snacking. 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
[2024-12-13 15:29] VITALS: BP 142/78; O2SAT 98; BMI 39.4
[2024-12-13 15:41] LABS: Glucose, Whole Blood 190 mg/dL (60-115)
== END 2024-12-13 16:04 | disposition home or self-care (01) ==
LOC: HO.ENCR 15:17
PROVIDERS: PCP Physician Assistant; Visit Provider Internal Medicine Endocrinology, Diabetes & Metabolism
DX: E13.9 Other specified diabetes mellitus without complications (principal)
CPT/HCPCS: 99214; G2211

== ENCOUNTER 2024-12-28 08:18 | Outpatient (REF) | payer MEDICARE, MEDICAID, SELFPAY ==
[2024-12-28 09:18] LABS: Hematocrit 44.9 % (42.0-52.0); Hemoglobin 15.0 g/dl (14.0-18.0); Mean Corpuscular HGB Conc 33.4 g/dl (31.0-36.0); Mean Corpuscular Hemoglobin 29.0 pg (27.0-33.0); Mean Corpuscular Volume 86.8 fL (80.0-98.0); NRBC Abs Auto 0.000 X10*3/uL (0.0-0.012); NRBC Pct Auto 0.0 /100WBC (0.0-0.2); Platelet Count 259 X10*3/uL (160-400); Red Blood Count 5.17 X10*6/uL (4.60-5.80); White Blood Count 6.0 X10*3/uL (4.8-10.8)
[2024-12-28 10:19] LABS: Alanine Aminotransferase 40 U/L (0-40); Albumin Level 4.1 g/dL (3.5-5.0); Alkaline Phosphatase 65 U/L (39-117); Anion Gap 8 (12-20); Aspartate Amino Transferase 27 U/L (5-37); Blood Urea Nitrogen 17 mg/dL (9-16); Calcium 9.1 mg/dL (8.4-10.2); Carbon Dioxide 27 mmol/L (22-29); Chloride 107 mmol/L (96-108); Cholesterol 157 mg/dL (<200); Estimated Glomerular Filt Rate > 60; HDL Cholesterol 52 mg/dL (>40); Potassium 4.3 mmol/L (3.3-5.1); Sodium 138 mmol/L (135-145); Total Protein 6.8 g/dL (6.5-8.0); Triglycerides 152 mg/dL (<150)
[2025-01-05 20:18] LABS: Testosterone, Free 59.6 pg/mL (35.0-155.0)
== END 2024-12-28 08:19 | disposition home or self-care (01) ==
LOC: HO.LAB 08:18
PROVIDERS: Absent Provider Physician Assistant; PCP Physician Assistant; Visit Provider Nurse Practitioner Family
DX: E11.69 Type 2 diabetes mellitus with other specified complication (principal); E78.00 Pure hypercholesterolemia, unspecified; N52.1 Erectile dysfunction due to diseases classified elsewhere
CPT/HCPCS: 36415; 80053; 80061; 83036; 84402; 84403; 85027

== ENCOUNTER 2024-12-29 14:46 | Outpatient (AMB) | payer MEDICARE, MEDICAID, SELFPAY ==
--- NOTE | 2024-12-29 15:20 | A.OFFVIS_ITS ---
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: 60 mins Technology Lead Required: No Accompanied by: Self / Same As Patient Allergies dulaglutide (From [facility]) Adverse Reaction (Intermediate, Verified 12/13/24 15:46) Nausea HPI Comprehensive Diabetes Asmnt Most Recent Diabetes Results: 2 Cholesterol, (<200) 157 mg/dL 12/28/24 HDL Cholesterol, (>40) 52 mg/dL 12/28/24 Triglycerides, (<150) 152 mg/dL H 12/28/24 Creatinine, (0.5-1.4) 1.11 mg/dL 12/28/24 BUN, (9-16) 17 mg/dL H 12/28/24 Sodium, (135-145) 138 mmol/L 12/28/24 Potassium, (3.3-5.1) 4.3 mmol/L 12/28/24 Chloride, (96-108) 107 mmol/L 12/28/24 Carbon Dioxide, (22-29) 27 mmol/L 12/28/24 Calcium, (8.4-10.2) 9.1 mg/dL 12/28/24 AST, (5-37) 27 U/L 12/28/24 ALT, (0-40) 40 U/L 12/28/24 Total Protein, (6.5-8.0) 6.8 g/dL 12/28/24 Albumin, (3.5-5.0) 4.1 g/dL 12/28/24 [facility] Medical History COVID-19 Hypogonadism in male DVT (deep venous thrombosis) Anxiety and depression Cervical lymphadenopathy Normal colonoscopy Vitamin D deficiency Multinodular thyroid HLD (hyperlipidemia) 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 The following topics were reviewed today: -Pump therapy basic concepts: Basal/bolus, insulin to carb ratio, correction factor, insulin on board -activity mode -taking manual correction through insulin pump Patient's last A1c was 6.9% 12/28/2024 Patient did not bring Omnipod PDM to today's visit Patient reports that he has been going to the gym in the mornings, before the gym he has been eating crackers, banana and drinking juice due to fear of hypoglycemia while working out. Today's visit demonstrated to patient how to put pump into activity mode to reduce risk of hypoglycemia Encourage patient to eat complex snack, adding some protein and fiber with carbohydrate Also discussed with patient the importance of when glucose is high giving a correction through the insulin pump And entering carbohydrates before meals for best results Safety information: Importance of a backup plan, for manual injections, proper prescriptions and emergency supplies ketone strips, and rules for testing for ketones Setting verified by CDCES, see changes made to pump settings at today's visit, per Dr. Sesay from visit note on 12/13/2024 Basal rate(s) (units/hour) : 12 AM? to 12 AM 3 units / hr Bolus setting Insulin Carbohydrate Ratio (s) 12 AM? to 6 AM 1:5 6 AM to 3 PM 1:4 New 6 AM to 3 PM 1:3 3 PM to 12 AM 1:5 New 3 PM to 12 AM 1:4 Correction Factor / Sensitivity Factor 12 AM? to 12 AM ? 1:16 Active Insulin Time:? 2.5 hours Target(s): 12 AM? to 8 AM 120 mg/dL 8 AM to 12 AM 110 mg/dL Correction threshold 12 AM? 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
== END 2024-12-29 15:20 | disposition home or self-care (01) ==
LOC: HO.ENCR 14:47
PROVIDERS: PCP Physician Assistant; Visit Provider Registered Nurse Diabetes Educator
DX: E13.9 Other specified diabetes mellitus without complications (principal)

== ENCOUNTER → 2024-12-29 14:46 | Outpatient (BNVA) | payer MEDICARE, MEDICAID, SELFPAY | PROVIDERS: PCP Physician Assistant; Visit Provider Registered Nurse Diabetes Educator | DX: E13.9 Other specified diabetes mellitus without complications (principal); Z96.41 Presence of insulin pump (external) (internal) | CPT/HCPCS: 99211 ==

== ENCOUNTER 2025-01-12 12:49 | Outpatient (AMB) | payer MEDICARE, MEDICAID, SELFPAY ==
--- NOTE | 2025-01-12 12:54 | MHC.OFFVIS ---
Intake Visit Reasons: follow up/labs Intake Note: Patient is present for LABS F/U Urology Medication:TADALAFIL,VITAMIN B1,VITAMIN B12,B-COMPLEX WITH VITAMIN C Antibiotic Allergy:NONE Blood Thinner:NONE See Supervisor Required: No Allergies dulaglutide (From [facility]) Adverse Reaction (Intermediate, Verified 01/12/25 12:55) Nausea HPI Comments Details: Tristian is a very pleasant 54-year-old male patient of Dr. Cardoso. He has a past medical history of type 2 diabetes, hypertension, hyperlipidemia, vitamin-D deficiency, anxiety, depression, and DVT. He presents to the office today for follow-up of his erectile dysfunction. In discussion with the patient today he reports initially upon daily dosing of tadalafil and p.r.n. dosing he had been having erections that were adequate with for penetration however most recently feels the medication has not been working. Most recent testosterone and A1c results were reviewed with the patient today. We did discuss potential causes of erectile dysfunction. We did discussed further treatment options and risks and benefits of these treatment options. We also reviewed at length the importance of lifestyle modifications to assist with ED. He otherwise denies any bothersome urinary issues. He denies urinary urgency, urinary frequency, incontinence, nocturia, hematuria, dysuria, foul smelling urine, changes to urinary stream, flank pain, fever, and or chills. He is happy with his current voiding parameters. Labs are as follows PSA: 03/02 1.1, 08/01 1.7 Testosterone: 09/30 267, 10/31 335, 08/01 433, 01/01 337 Free testosterone: 09/30 37.6 , 10/31 54.6, 01/01 59.6 A1c: 06/01 7.3, 01/01 6.9 In office urinalysis results reviewed with the patient today. We discussed at length the importance of management and diabetes for improvement in urological health as well as overall health and well-being. He would like to discuss treatment options of erectile dysfunction with his first. He otherwise offers no other issues or concerns at this time. 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 Mother Diabetes Family history of thyroid problem Social History Household Members: Significant Other Housing: House Alcohol intake: current Alcohol intake frequency: a few times a month Alcohol type: beer and hard liquor Patient Tobacco Use Status: Former Tobacco user Tobacco use type: Cigarette e-Cigarette/Vaping Use: Never Used Second Hand Smoke Exposure: Yes service: No Current occupational status: unemployed and disabled Current occupation: unemployed Gender identity: Male Cognitive needs: No Hearing needs: No Vision needs: No Review of Systems Const All systems reviewed & are unremarkable except as noted in HPI and below Physical Exam Const General: cooperative, healthy appearing, comfortable, no acute distress, well developed, alert and awake Orientation/consciousness: patient oriented x3 Limitations: no limitations HEENT Head: Yes normal to inspection, Yes normocephalic and Yes atraumatic Ears: hearing grossly normal bilaterally Eyes General: appearance normal, both eyes and all related structures Neck Neck: Yes normal visual inspection and Yes trachea midline Chest Chest palpation & inspection: normal inspection of the chest Resp Effort & Inspection: normal respiratory effort and able to speak in complete sentences Cardio Rate: regular rate GI Inspection: Yes normal to inspection General: Yes no CVA tenderness Back/Spine/Pelvis Back: no CVA tenderness Skin General skin exam: no rashes or lesions noted Neuro General: patient oriented x3 Extrem General: Yes normal to inspection Psych Appearance: grossly normal and well kempt Mental Status: mental status grossly normal Speech and movement: Normal speech and movement present and Clear speech present Affect: normal affect Attitude: cooperative Thought process: Normal thought process present Thought content: Normal thought content present Insight: Fair insight present (Psych) Judgement: Fair judgement present (Psych) Results AMB Urinalysis, Automated UA Leukoctes 0 Amara/uL Last Edit by YOLY Coon on 01/12/25 13:01 UA Nitrite Negative Last Edit by YOLY Coon on 01/12/25 13:01 UA Urobilinogen 0.2 mg/dL Last Edit by YOLY Coon on 01/12/25 13:01 UA Protein 0 mg/dL Last Edit by YOLY Coon on 01/12/25 13:01 UA pH 6.0 Last Edit by Lisa Gibbs [facility] on 01/12/25 13:01 UA Blood 0 Jose/uL Last Edit by Lisa Gibbs [facility] on 01/12/25 13:01 UA Specific [place] 1.015 Last Edit by Lisa Gibbs [facility] on 01/12/25 13:01 UA Ketone Negative Last Edit by Lisa Gibbs [facility] on 01/12/25 13:01 UA Bilirubin 0 mg/dL Last Edit by Lisa Gibbs [facility] on 01/12/25 13:01 UA Glucose 500 mg/dL Last Edit by Lisa Gibbs [facility] on 01/12/25 13:01 Results Reviewed Results Reviewed: Laboratory Last Values Urine pH (Auto) 6.0 01/12/25 13:01 Specific [place] (Auto) 1.015 01/12/25 13:01 Urine Protein (Auto) 0 mg/dL 01/12/25 13:01 Glucose (UA)(Auto) 500 mg/dL 01/12/25 13:01 Urine Ketones (Auto) Negative 01/12/25 13:01 Urine Blood (Auto) 0 Jose/uL 01/12/25 13:01 Urine Nitrite (Auto) Negative 01/12/25 13:01 Urine Bilirubin (Auto) 0 mg/dL 01/12/25 13:01 Urine Urobilinogen (Auto) 0.2 mg/dL 01/12/25 13:01 Leukocyte Esterase (Auto) 0 Amara/uL 01/12/25 13:01 Assessment & Plan Assessment & Plan (1) Erectile dysfunction associated with type 2 diabetes mellitus: Code(s): E11.69 - Type 2 diabetes mellitus with other specified complication; N52.1 - Erectile dysfunction due to diseases classified elsewhere Category: Medical Plan In office urinalysis results reviewed with the patient today; as noted above. Most recent testosterone and free testosterone lab values were reviewed with the patient today; as noted above. We discussed at length potential causes of ED as well as further treatment options and risks and benefits of these treatment options. Continue 5 mg of Cialis daily as discussed and prescribed; refill provided. We discussed importance of lifestyle modifications We also discussed importance of management and diabetes Patient currently denies any bothersome urinary issues. He reports to be happy with his current voiding paramters. Follow-up in 3-6 months with labs to be completed prior; or sooner with any issues, concerns, and or questions. Orders: Orders AMB Urinalysis Automated Today Z13.9 - Encounter for screening, unspecified Patient Instructions: The patient had an opportunity to ask questions regarding the treatment plan. All questions were answered. Physical exam, labs, and imaging were discussed and reviewed in detail. As well as risks, benefits, and discussion of treatment choices. No major barriers to understanding were identified. The patient expressed understanding and agreement with the above treatment plan. The patient was made aware they should contact our office by phone for worsening of their current condition, the appearance of new symptoms, or with any questions or concerns. Compliance is encouraged with any medications and follow up testing that is ordered. It is a privilege to be allowed the opportunity to participate in? your urological care.? Again, if you have any questions or concerns If you have any questions or concerns please do not hesitate to contact me. The office is [phone]. This note is constructed using voice recognition software. While every effort has been made to ensure accuracy bottoming machine operator errors may have been included. Yours sincerely, GERMAN Collins Coding Level of Care Code Est Pt Level 3 (56016) Diagnoses Erectile dysfunction associated with type 2 diabetes mellitus E11.69; N52.1
== END 2025-01-12 13:38 | disposition home or self-care (01) ==
LOC: HO.HUSH 12:50
PROVIDERS: PCP Physician Assistant; Visit Provider Nurse Practitioner Family
DX: E11.69 Type 2 diabetes mellitus with other specified complication (principal); N52.1 Erectile dysfunction due to diseases classified elsewhere; Z13.9 Encounter for screening, unspecified
CPT/HCPCS: 99213

== ENCOUNTER → 2025-01-12 12:49 | Outpatient (BNVA) | payer MEDICARE, MEDICAID, SELFPAY | PROVIDERS: PCP Physician Assistant; Visit Provider Nurse Practitioner Family | DX: E11.65 Type 2 diabetes mellitus with hyperglycemia (principal); N52.1 Erectile dysfunction due to diseases classified elsewhere; Z79.4 Long term (current) use of insulin | CPT/HCPCS: 81003; 99212 ==

== ENCOUNTER 2025-01-24 09:49 | Outpatient (AMB) | payer MEDICARE, MEDICAID, SELFPAY ==
--- NOTE | 2025-01-24 09:57 | MHC.AMDMED ---
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: 60 min Corrections Counselor Required: No Accompanied by: Self / Same As Patient Allergies dulaglutide (From [facility]) Adverse Reaction (Intermediate, Verified 01/12/25 12:55) Nausea HPI Comprehensive Diabetes Asmnt Most Recent Diabetes Results: Hemoglobin A1c 7.0 % 09/10/19 Microalb/Creat Ratio TNP 07/29/24 Cholesterol, (<200) 157 mg/dL 12/28/24 HDL Cholesterol, (>40) 52 mg/dL 12/28/24 Triglycerides, (<150) 152 mg/dL H 12/28/24 Creatinine, (0.5-1.4) 1.11 mg/dL 12/28/24 BUN, (9-16) 17 mg/dL H 12/28/24 Sodium, (135-145) 138 mmol/L 12/28/24 Potassium, (3.3-5.1) 4.3 mmol/L 12/28/24 Chloride, (96-108) 107 mmol/L 12/28/24 Carbon Dioxide, (22-29) 27 mmol/L 12/28/24 Calcium, (8.4-10.2) 9.1 mg/dL 12/28/24 AST, (5-37) 27 U/L 12/28/24 ALT, (0-40) 40 U/L 12/28/24 Total Protein, (6.5-8.0) 6.8 g/dL 12/28/24 Albumin, (3.5-5.0) 4.1 g/dL 12/28/24 PFSH Medical History COVID-19 Hypogonadism in male DVT (deep venous thrombosis) Anxiety and depression Cervical lymphadenopathy Normal colonoscopy Vitamin D deficiency Multinodular thyroid HLD (hyperlipidemia) 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 Mother Diabetes Family history of thyroid problem Social History Household Members: Significant Other Housing: House Alcohol intake: current Alcohol intake frequency: a few times a month Alcohol type: beer and hard liquor Patient Tobacco Use Status: Former Tobacco user Tobacco use type: Cigarette e-Cigarette/Vaping Use: Never Used Second Hand Smoke Exposure: Yes service: No Current occupational status: unemployed and disabled Current occupation: unemployed Gender identity: Male Cognitive needs: No Hearing needs: No Vision needs: No Assessment & Plan Assessment & Plan (1) Diabetes: Comment: IDDM Code(s): E11.9 - Type 2 diabetes mellitus without complications Qualifiers: Diabetes mellitus type: type 2 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 [email or web address] password: [email or web address] The following topics were reviewed today: -IOS Omnipod abel -activity mode -taking manual correction through insulin pump Patient's last A1c was 6.9% 12/28/2024 Patient's average glucose has improved from 210 mg/dL at last visit to 190 mg/dL at today's visit In addition his time in range has gone from 35% to 54% Patient is still experiencing rising glucose after 10:00, he reports he is still eating high carbohydrate breakfast. Suggested to patient he add some protein and fiber to carbohydrate In addition we have increased sensitivity factor At today's visit we set up [employer] abel. patient did not bring new pod or insulin to today's visit but needs to change pod when he goes home. Instructed patient to follow instructions through abel on phone to change pod Settings entered into new Omnipod abel Safety information: Importance of a backup plan, for manual injections, proper prescriptions and emergency supplies ketone strips, and rules for testing for ketones Setting verified by CDCES, see changes made to pump settings at today's visit Basal rate(s) (units/hour) : 12 AM? to 12 AM 2.5 units / hr Bolus setting Insulin Carbohydrate Ratio (s) 12 AM? to 6 AM 1:5 6 AM to 3 PM 1:3 3 PM to 12 AM 1:4 Correction Factor / Sensitivity Factor 12 AM? to 12 AM ? 1:16 New 12 AM? to 12 AM ? 1:14 Active Insulin Time:? 2.5 hours Target(s): 12 AM? to 8 AM 120 mg/dL 8 AM to 12 AM 110 mg/dL Correction threshold 12 AM? 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
== END 2025-01-24 10:44 | disposition home or self-care (01) ==
LOC: HO.ENCR 09:50
PROVIDERS: PCP Physician Assistant; Visit Provider Registered Nurse Diabetes Educator
DX: E11.319 Type 2 diabetes mellitus with unspecified diabetic retinopathy without macular edema (principal)

== ENCOUNTER → 2025-01-24 09:49 | Outpatient (BNVA) | payer MEDICARE, MEDICAID, SELFPAY | PROVIDERS: PCP Physician Assistant; Visit Provider Registered Nurse Diabetes Educator | DX: E11.319 Type 2 diabetes mellitus with unspecified diabetic retinopathy without macular edema (principal); Z46.81 Encounter for fitting and adjustment of insulin pump | CPT/HCPCS: 99211 ==

== ENCOUNTER 2025-01-31 10:28 | Outpatient (AMB) | payer MEDICARE, MEDICAID, SELFPAY ==
--- NOTE | 2025-01-31 10:56 | A.OFFPC_ITS ---
Vital Signs 01/31/25 10:58 Height 5 ft 4 in Weight 237 lb 8 oz BMI 40.8 BP 130/68 Blood Pressure Location Rt brachial Position Sitting Pulse 71 Pulse Source Pulse Oximeter Temp 97.3 F Temp Source Temporal Artery Scan Pulse Oximetry (%) 95 Oxygen Delivery Method Room Air Intake Visit Reasons: f/u DMII / HTN Intake Note: Patient is here to follow up on DMII, HTN. Fresh Work Wrapper Layer Required: No Form Worker: Not Required per policy Accompanied by: Self / Same As Patient Allergies dulaglutide (From [facility]) Adverse Reaction (Intermediate, Verified 01/31/25 11:09) Nausea Medication List - Last Reconciled 01/31/25 by Dejuan Cardoso PA-C acamprosate 666 mg PO TID acetaminophen 500 mg PO Q6H PRN acetone (urine) test (Ketone Urine Test strips) As directed tid prn glucose over 250, nausea, vomiting or illness aspirin 81 mg PO DAILY 90 days atenolol 25 mg PO DAILY atorvastatin 40 mg PO DAILY B-complex with vitamin C 1 tab PO QAM Baqsimi 3 mg/actuation (glucagon) 3 mg intranasal ONCE PRN 30 days NS blood pressure test kit-large (Wireless Blood Pressure Monitor kit) As directed blood-glucose sensor (Solarcentury G7 Sensor device) As directed bupropion HCl XL (Wellbutrin XL) 150 mg PO QAM 90 days cholecalciferol (vitamin D3) (Vitamin D3) 10 mcg PO DAILY citalopram 40 mg PO DAILY clotrimazole-betamethasone 1-0.05 % 1 appl topical BID 30 days cyanocobalamin (vitamin B-12) 250 mcg PO DAILY enoxaparin (Lovenox) 100 mg See Protocol subcut DAILY 10 days folic acid 1 mg PO DAILY gabapentin 300 mg PO DAILY guanfacine ER 4 mg PO DAILY insulin glargine U-300 conc (Toujeo Max U-300 SoloStar) 55 units (0.1833 mL) subcut DAILY PRN 30 days insulin lispro up to 150 units daily via pump subcutaneously 30 days MDD 150 units NS insulin pump cart,auto,BT,G6/7 (Omnipod 5 G6-G7 Pods (Gen 5) subcutaneous cartridge) As directed change every 48 hours ketorolac 0.5% 0.5 drps ophthalmic (eye) DAILY levomilnacipran ER 80 mg PO DAILY lisinopril 10 mg PO DAILY naltrexone 50 mg PO DAILY oxycodone 5 mg PO Q8H PRN 4 days rivaroxaban 20 mg PO DAILY tadalafil (Cialis) 5 mg PO DAILY 90 days tadalafil (Cialis) 20 mg PO .PRN PRN 30 days thiamine HCl (vitamin B1) 250 mg PO DAILY Tobacco use date assessed: 01/31/25 Dental Screening Dental Screen Date: 05/18/24 HPI f/u DMII / HTN HPI Details Patient is a 54-year-old male here today for follow-up visit Patient has a past medical history significant for hyperlipidemia, type 2 diabetes, hypertension, obesity, history of alcohol abuse, DVT. .. Type 1 diabetes:? 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 He has been able to lose significant amount of weight due to better eating habits and being more physically active. His diabetes control is improving with his most recent A1c being 6.9. He is following [place] end[facility] and has an insulin pump . .. Class 3 obesity: Patient does understand his BMI is over 40, he is somewhat interested in a GLP 1 though advised to discuss this with his mold preparer as he has a type 1 diabetic .. Hypertension: Blood pressure acceptable today in office. . He does not monitor his blood pressure at home, he reports he is feeling somewhat anxious today. .. Major Depression: Followed by mental health therapist and psychiatrist who manages his mental health medication. Has been a bit more depressed as of late due to his worsening medical issues. He has completely stopped drinking with the use of medication (acamprosate and naltrexone) . .. DVT: Patient continues on anticoagulation therapy with warfarin, INRs have been stable. He continues on Xarelto without any overt signs of bleeding Laboratory Tests 11/13/23 01/30/24 02/03/24 11:54 14:40 14:34 RBC 4.13 L Hgb 14.4 PT/INR [facility] in[facility] Creatinine Glucose (Clinic) 195 H Random Glucose 176 H Fasting Glucose Hgb A1c (Clinic) 7.6 H Hemoglobin A1c % Cholesterol LDL Cholesterol, C alc Total Testosterone 02/17/24 03/24/24 05/18/24 13:19 16:41 08:52 RBC Hgb 14.7 PT/INR [facility] Creatinine Glucose (Clinic) Random Glucose Fasting Glucose Hgb A1c (Clinic) 7.6 H 7.3 H Hemoglobin A1c % Cholesterol LDL Cholesterol, C alc Total Testosterone 07/29/24 08/19/24 09/27/24 08:19 08:24 08:29 RBC 5.29 Hgb 15.4 PT/INR [facility] 2.6 1.4 Creatinine Glucose (Clinic) Random Glucose Fasting Glucose Hgb A1c (Clinic) Hemoglobin A1c % Cholesterol LDL Cholesterol, C alc Total Testosterone 09/28/24 12/13/24 12/28/24 08:45 15:38 08:41 RBC 5.17 Hgb PT/INR [facility] Creatinine 1.11 Glucose (Clinic) Random Glucose Fasting Glucose 208 H Hgb A1c (Clinic) 7.3 H 7.3 H Hemoglobin A1c % 6.9 H Cholesterol 157 LDL Cholesterol, C alc 75 Total Testosterone 337 PFSH Medical History COVID-19 Hypogonadism in male DVT (deep venous thrombosis) Anxiety and depression Cervical lymphadenopathy Normal colonoscopy Vitamin D deficiency Multinodular thyroid HLD (hyperlipidemia) 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 Mother Diabetes Family history of thyroid problem Social History Household Members: Significant Other Housing: House Alcohol intake: current Alcohol intake frequency: a few times a month Alcohol type: beer and hard liquor Patient Tobacco Use Status: Former Tobacco user Tobacco use type: Cigarette e-Cigarette/Vaping Use: Never Used Second Hand Smoke Exposure: Yes service: No Current occupational status: unemployed and disabled Current occupation: unemployed Gender identity: Male Cognitive needs: No Hearing needs: No Vision needs: No Questionnaire Thrive Questionnaire Date Thrive assessed: 09/28/24 I am a: Patient What is your living situation today?: I have a place to live, but I am worried about losing it in the future Within the past 12 months, did the food you bought not last and you didn't have the money to get more?: Sometimes True Within the past 12 months, did you worry whether your food would run out before you got money to buy more?: Sometimes True Do you have trouble paying for medicines?: No Do you have trouble getting transportation to medical appointments?: No Do you have trouble paying your heating and electricity bill?: No Do you have trouble taking care of your child, family member or friend?: No Do you have trouble with day-to-day activities such as bathing, preparing meals, shopping, managing finances, etc.?: Yes Are you currently unemployed and looking for a job?: No Are you interested in more education?: No Please select the resources that you would like help with: None Currently or been in a relationship where the following occur: I choose not to answer THRIVE Score: 3 RAMON-7 AMB Questionnaire RAMON-7 Date RAMON - 7 assessed: 09/28/24 Source: Developed by Drs. Dawson Block, Marie Carbajal, Daron Nina and colleagues, with an educational grecia from [employer]. Review of Systems Const Denies headache(s) Eyes Denies loss of vision ENT Denies vertigo, Denies dizziness, Denies headache(s) and Denies sore throat Card Denies chest pain, Denies leg edema and Denies lightheadedness Resp Denies cough, Denies hemoptysis and Denies wheezing GI Denies abdominal pain, Denies melena, Denies constipation, Denies diarrhea and Denies vomiting Denies dysuria, Denies urinary frequency and Denies urinary urgency Musc Denies arthralgias, Denies joint swelling, Denies numbness and Denies tingling Neuro Denies Abnormal speech present, Denies behavioral changes, Denies vertigo, Denies dizziness, Denies headache(s), Denies loss of vision, Denies memory loss, Denies numbness and Denies tingling Psych Denies anxiety, Denies behavioral changes, Denies depression, Denies memory loss and Denies panic attacks Hunter/Lymph Denies easy bleeding and Denies easy bruising Aller/Immun Denies wheezing Physical exam (Primary Care) Vital Signs: Last Vital Signs Temp 97.3 F 01/31/25 10:58 Pulse 71 01/31/25 10:58 BP 130/68 01/31/25 10:58 Pulse Ox 95 01/31/25 10:58 Oxygen Delivery Method Room Air 01/31/25 10:58 BMI result Body Mass Index 40.8 BMI Assessment/Plan discussion: High BMI High, discussed plan: lifestyle, weight reduction, dietary and physical activity Tobacco/Smoking Status: Tobacco use Status Tobacco use date assessed 01/31/25 01/31/25 11:03 Patient Tobacco Use Status Former Tobacco user 01/31/25 11:03 Tobacco use type Cigarette 01/31/25 11:03 e-Cigarette/Vaping Use Never Used 01/31/25 11:03 Thrive Assessment: Date of Thrive Assessment Date Thrive assessed 09/28/24 01/31/25 11:03 Currently or been in a relationship where the following occur: I choose not to answer Const Other: OBESE General: healthy appearing, no acute distress, alert and awake Nutritional Appearance: well nourished Orientation/consciousness: oriented to person, oriented to place and oriented to time HENMT Ears: TM's normal bilaterally General nose exam: Normal nasal mucous membranes and turbinates present Eyes Conjunctivae: conjunctivae normal Sclerae: sclerae normal Pupils: Equal, round and reactive pupils present Neck Neck: Yes no lymphadenopathy and Yes no JVD Thyroid: Thyroid normal Carotids: no bruits Resp Effort & Inspection: normal respiratory effort and not tachypneic Auscultation: no crackles, no rales, no rhonchi and no wheezes Cardio Rate: regular rate Rhythm: regular rhythm Heart sounds: no murmurs and normal S1 and S2 GI Palpation (GI): Soft to palpation, nontender, no hepatomegaly and no splenomegaly Auscultation: normal bowel sounds Skin General skin exam: no rashes or lesions noted and dry skin Neuro General: oriented to person, oriented to place and oriented to time Cranial nerves: Yes Equal, round and reactive pupils present Speech: No Abnormal speech present Gait exam (Neuro): Normal gait present Motor exam (neuro): no tremor noted Extrem Right upper extremity: full ROM Left upper extremity: full ROM Right lower extremity: full ROM; no edema Left lower extremity: full ROM; no edema Psych Mental Status: mental status grossly normal Speech and movement: Normal speech and movement present Affect: normal affect Attitude: cooperative Thought process: Normal thought process present Coding Level of Care Code Est Pt Level 4 (77424) Diagnoses 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, unspecified retinopathy severity, unspecified whether terminologist insulin use E11.319 Diabetes mellitus type: type 2 Diabetes mellitus jail insulin use: unspecified jail insulin use status Diabetes mellitus complication status: with ophthalmic complications Diabetes mellitus complication detail: with diabetic retinopathy Diabetic retinopathy severity: with unspecified retinopathy severity Diabetes mellitus macular edema: without macular edema Laterality: bilateral Renovascular hypertension I15.0 Hypertension type: renovascular hypertension Acute deep vein thrombosis (DVT) of popliteal vein of left lower extremity I82.432 DVT location: lower extremity Affected thrombotic vein of extremity: popliteal Chronicity: acute Laterality: left Hyperlipidemia, unspecified hyperlipidemia type E78.5 Hyperlipidemia type: unspecified Class 3 obesity E66.813 Assessment & Plan Assessment & Plan (1) Diabetes: Comment: IDDM Code(s): E11.9 - Type 2 diabetes mellitus without complications Category: Medical Qualifiers: Diabetes mellitus type: type 2 Diabetes mellitus jail insulin use: unspecified jail insulin use status Diabetes mellitus complication status: with ophthalmic complications Diabetes mellitus complication detail: with diabetic retinopathy Diabetic retinopathy severity: with unspecified retinopathy severity Diabetes mellitus macular edema: without macular edema Laterality: bilateral Qualified Code(s): E11.319 - Type 2 diabetes mellitus with unspecified diabetic retinopathy without macular edema Plan: Patient's type 1 diabetes now well controlled with an A1c is 6.9. He has been actively managing his blood sugars much better, has lost significant amount of weight since last office visit. Continues to follow Endocrinology here in [place]. Has a insulin pump which has been helpful on regulating his sugars a bit. He will follow up with his mold preparer for adjustments on his insulin. Goal A1c is to be below 7.0 (2) Hypertension: Code(s): I10 - Essential (primary) hypertension Category: Medical Qualifiers: Hypertension type: renovascular hypertension Qualified Code(s): I15.0 - Renovascular hypertension Plan: Patient's blood pressure acceptable today in office, will continue his current dose of antihypertensive medication.. Goal blood pressures to remain below 140/90 (3) DVT (deep venous thrombosis): Comment: Left lower extremity DVT 09/2023 Code(s): I82.409 - Acute embolism and thrombosis of unspecified deep veins of unspecified lower extremity Category: Medical Qualifiers: DVT location: lower extremity Affected thrombotic vein of extremity: popliteal Chronicity: acute Laterality: left Qualified Code(s): I82.432 - Acute embolism and thrombosis of left popliteal vein Plan: Has a history of multiple DVTs, continues to follow Hematology. Hypercoagulable workup was negative He is now on Xarelto 20 mg daily without any overt signs of bleeding. (4) HLD (hyperlipidemia): Code(s): E78.5 - Hyperlipidemia, unspecified Category: Medical Qualifiers: Hyperlipidemia type: unspecified Qualified Code(s): E78.5 - Hyperlipidemia, unspecified Plan: Most recent lipid panel showing good control of his total cholesterol and LDL. Continues on statin therapy without significant side effects. Goal LDL to remain below 100 (5) Class 3 obesity: Code(s): E66.813 - Obesity, class 3 Category: Medical Plan: Patient does understand his BMI is over 40 and will continue working on being more physically active and adapting to better eating habits to reduce his weight. Orders: Orders Complete Blood Count no Diff Today E13.9 - Other specified diabetes mellitus without complications Lipid Panel Today E78.5 - Hyperlipidemia, unspecified Prostate Specific Antigen Scr Today E78.5 - Hyperlipidemia, unspecified, Z12.5 - Encounter for screening for malignant neoplasm of prostate Comprehensive [facility]. Panel Fast Today E13.9 - Other specified diabetes mellitus without complications Microalbumin, Random (w Creat) Today E13.9 - Other specified diabetes mellitus without complications
[2025-01-31 10:58] VITALS: BP 130/68; PULSE 71; TEMP 36.3; O2SAT 95; BMI 40.8
== END 2025-01-31 11:27 | disposition home or self-care (01) ==
LOC: HO.HMCH 10:29
PROVIDERS: PCP Physician Assistant; Visit Provider Physician Assistant
DX: E11.319 Type 2 diabetes mellitus with unspecified diabetic retinopathy without macular edema (principal); I15.0 Renovascular hypertension; I82.432 Acute embolism and thrombosis of left popliteal vein; E78.5 Hyperlipidemia, unspecified; E66.813 Obesity, class 3; Z68.41 Body mass index [BMI] 40.0-44.9, adult

== ENCOUNTER → 2025-01-31 10:28 | Outpatient (BNVA) | payer MEDICARE, MEDICAID, SELFPAY | PROVIDERS: PCP Physician Assistant; Visit Provider Physician Assistant | DX: E11.319 Type 2 diabetes mellitus with unspecified diabetic retinopathy without macular edema (principal); I15.0 Renovascular hypertension; I82.432 Acute embolism and thrombosis of left popliteal vein; E78.5 Hyperlipidemia, unspecified; E66.813 Obesity, class 3; Z68.41 Body mass index [BMI] 40.0-44.9, adult; Z71.3 Dietary counseling and surveillance | CPT/HCPCS: 99212 ==